=== PATIENT | male | born 1950 | race Caucasian/White ===

== ENCOUNTER 2017-02-05 06:04 | Day surgery (SDC) ==
[2016-01-11 14:48] VITALS: BMI 23.5
[2017-02-05] MEDS: AK-DILATE 10% OPTH SOL OP PRN ×3 (07:05→07:15)
[2017-02-05] MEDS: OCUFEN 0.03% OPTH SOL OP PRN ×3 (07:05→07:35)
[2017-02-05] MEDS: CYCLOGYL 2% OPTH OP PRN ×3 (07:05→07:15)
[2017-02-05] MEDS: TETRACAINE 0.5% UNIT-DOSE OP PRN ×3 (07:05→07:35)
[2017-02-05] MEDS ORDERED: VERSED ONE (07:50)
[2017-02-05 15:11] VITALS: BP 126/67; TEMP 97.8
--- NOTE | 2017-02-06 12:50 | OP ---
PREOPERATIVE DIAGNOSIS: CATARACT EXTRACTION WITH IOL POSTOPERATIVE DIAGNOSIS: COMPLEX CATARACT DUE TO PATIENT BEING ON FLOMAX AND ZONULAR WEAKNESS OPERATION: COMPLEX PHACO CATARACT EXTRACTION WITH IOL, WITH IMPLANTED CAPSULE TENSION RING RIGHT EYE. PHACO TIME 74.4 SECONDS AT 11% POWER. LENS MODEL TECNIS [id number]. DIOPTER +21.0D. TECHNIQUE: CLEAR CORNEA. ANESTHESIA: TOPICAL ANESTHESIA W/ANESTHESIA MONITORING. OPERATIVE REPORT: Topical anesthesia consisting of Tetracaine was applied to the cornea and Xylocaine Methyl Paraben free of MFP was injected intracamerally into the anterior chamber. The patient was then brought into the operating room , prepped and draped in the usual ophthalmic manner. A lid speculum was placed and the operating microscope was used. A paracentesis was made at the 3 o' clock position. A clear corneal incision was made just out to the limbus. The anterior chamber was entered just inside the clear cornea. Viscoelastic was injected into the anterior chamber. A capsulotomy was performed with a bent # 27 gauge needle. Phacoemulsification was then performed in the posterior chamber. After completion of the phacoemulsification, residual cortical material was aspirated with the irrigation-aspiration system. The posterior capsule was polished. Viscoelastic was injected into the anterior and posterior chambers to inflate the capsular bag. Lens were placed via an Unfolder system and stabilized in the bag. Viscoelastic was removed from the anterior chamber. The wound was checked for any leakage. The four sponges were removed from the fornix. Topical antibiotic steroid and nonsteroidal drops were also applied to the cornea. A Hopper shield was applied. The patient left the operating room in good condition without any complications. INTRAOPERATIVE MEDICATIONS: Xylocaine Methyl Paraben Free MPF MTDD
== END 2017-02-05 09:15 | disposition home or self-care (01) ==
LOC: SURG 06:04
PROVIDERS: ATTEND Ophthalmology
DX: H25.11 Age-related nuclear cataract, right eye (principal); H50.10 Unspecified exotropia; H27.8 Other specified disorders of lens

== ENCOUNTER 2017-03-02 06:54 | Day surgery (SDC) ==
[2016-01-11 14:48] VITALS: BMI 23.5
[2017-03-02] MEDS: OCUFEN 0.03% OPTH SOL OP PRN ×3 (07:50→08:20)
[2017-03-02] MEDS: TETRACAINE 0.5% UNIT-DOSE OP PRN ×3 (07:50→08:20)
[2017-03-02] MEDS: AK-DILATE 10% OPTH SOL OP PRN ×3 (07:50→08:00)
[2017-03-02] MEDS: CYCLOGYL 2% OPTH OP PRN ×3 (07:50→08:00)
[2017-03-02 08:09] VITALS: TEMP 98.4
[2017-03-02] MEDS ORDERED: VOLTAREN 0.1% OPTH SOL OP PRN (08:09)
[2017-03-02] MEDS ORDERED: LIDOCAINE 1% 20 ML MDV ID STA (08:09)
[2017-03-02] MEDS ORDERED: KETOROLAC 0.5% OPTH SOL OP PRN (08:09)
[2017-03-02] MEDS ORDERED: VERSED ONE (09:20)
[2017-03-02] MEDS ORDERED: DIAMOX ONE (10:20)
[2017-03-02] MEDS: DIAMOX PO STA ×2 (10:20→10:25)
[2017-03-02 10:21] VITALS: BP 96/62
--- NOTE | 2017-03-02 13:35 | OP ---
PREOPERATIVE DIAGNOSIS: ADVANCED AGE RELATED NUCLEAR SCLEROTIC/CORTICAL BRUNESCENT CATARACT AND PAC, LEFT EYE. POSTOPERATIVE DIAGNOSIS: SAME. OPERATION PHACOEMULSIFICATION ASPIRATION OF CATARACT LEFT EYE. PLACEMENT OF POSTERIOR CHAMBER LENS. PHACO TIME 1:13.1 SECONDS AT 8% POWER. LENS MODEL TANYA [id number]. DIOPTER +21.5D. TECHNIQUE: CLEAR CORNEA. ANESTHESIA: TOPICAL ANESTHESIA W/ANESTHESIA MONITORING. OPERATIVE REPORT: Topical anesthesia consisting of Tetracaine was applied to the cornea and Xylocaine Methyl Paraben free of MFP was injected intracamerally into the anterior chamber. The patient was then brought into the operating room , prepped and draped in the usual ophthalmic manner. A lid speculum was placed and the operating microscope was used. A paracentesis was made at the 3 o' clock position. A clear corneal incision was made just out to the limbus. The anterior chamber was entered just inside the clear cornea. Viscoelastic was injected into the anterior chamber. A capsulotomy was performed with a bent # 27 gauge needle. Phacoemulsification was then performed in the posterior chamber. After completion of the phacoemulsification, residual cortical material was aspirated with the irrigation-aspiration system. The posterior capsule was polished. Viscoelastic was injected into the anterior and posterior chambers to inflate the capsular bag. Lens were placed via an Unfolder system and stabilized in the bag. Viscoelastic was removed from the anterior chamber. The wound was checked for any leakage. The four sponges were removed from the fornix. Topical antibiotic steroid and nonsteroidal drops were also applied to the cornea. A Hopper shield was applied. The patient left the operating room in good condition without any complications. INTRAOPERATIVE MEDICATIONS: Xylocaine Methyl Paraben Free MPF MTDD
== END 2017-03-02 10:42 | disposition home or self-care (01) ==
LOC: SURG 06:54
PROVIDERS: ATTEND Ophthalmology
DX: H25.12 Age-related nuclear cataract, left eye (principal); H40.20X0 Unspecified primary angle-closure glaucoma, stage unspecified

== ENCOUNTER 2017-10-28 10:55 | Emergency (ER) ==
[2017-10-28 10:59] VITALS: BP 105/75; TEMP 97.6; BMI 25.7
--- NOTE | 2017-10-28 11:22 | ED.PDOC ---
General ED Provider: Dr. NICHOLAS BENEDICT Chief Complaint: Non-specific Complaint Stated Complaint: scrotal hemangioma Time Seen by Physician: 11:00 Mode of Arrival: Walk-In Information Source: Patient Exam Limitations: No limitations Primary Care Provider: STANTON SARABIA Nursing and Triage Documentation Reviewed and Agree: Yes Does patient meet sepsis criteria?: No If yes, has appropriate treatment been initiated?: No System Inflammatory Response Syndrome: Not Applicable Sepsis Protocol: For patient's 13 years and over: Temp is 96.8 and below OR 101 and greater Pulse >90 BPM Resp >20/minute Acutely Altered Mental Status Are patient's symptoms suggestive of a new infection, such as: -Pneumonia -Skin, Soft Tissue -Endocarditis -UTI -Bone, Joint Infection -Implantable Device -Acute Abdominal Infection -Wound Infection -Meningitis -Blood Stream Catheter Infection -Unknown Complaint Exam - Complaint/Exam Onset/Duration: chronic hemangioma on coumadin Symptoms Are: Still present Timing: Constant Initial Severity: Mild Current Severity: None Location of Pain: Reports: None Aggravating: Reports: None Alleviating: Reports: None Associated Signs and Symptoms: Denies: Diaphoresis, Back pain, Fever, Hematuria , Dysuria, Constipation, Blood in stool (none actively bleeding), Rectal pain, Appetite change, Nausea, Vomiting, Penile swelling, Penile discharge, Decreased urine output, Increased urine frequency, Increased thirst, Decreased activity, Lethargy, Scrotal pain, Scrotal swelling, Abdominal Pain Testicular Torsion Risk Factors: Reports: None Surgical Obstruction Risk Factors: Reports: None Related Surgical History: Reports: None Abdominal Findings: Present: None Review of Systems - Review Of Systems Constitutional: Reports: No symptoms Eyes: Reports: No symptoms Ears, Nose, Mouth, Throat: Reports: No symptoms Respiratory: Reports: No symptoms Cardiac: Reports: No symptoms GI: Reports: No symptoms : Reports: No symptoms Musculoskeletal: Reports: No symptoms Skin: Reports: Other (hemangioma scrotal) Neurological: Reports: No symptoms Endocrine: Reports: No symptoms Hematologic/Lymphatic: Reports: No symptoms All Other Systems: Reviewed and Negative Past Medical History - Past Medical History Endocrine: Reports: Unknown Cardiovascular: Reports: [place] (2001- has seen dr sarabai since 2002), Hypertension, CHF Respiratory: Reports: COPD Hematological: Reports: Unknown Gastrointestinal: Reports: Unknown Genitourinary: Reports: Unknown Neuro/Psych: Reports: TIA (is on coumadin), Anxiety, Depression, Other (sees dr english) Musculoskeletal: Reports: Unknown Cancer: Reports: Unknown - Surgical History General Surgical History: Reports: Other (AAA 2 months ago found during episode of dehydration). Denies: CABG (AAA september 2015) - Family History Family History: Reports: Unknown - Social History Smoking Status: Never smoker Hx Substance Use: No Alcohol Screening: None Physical Exam - Physical Exam Appearance: Well-appearing, No pain distress, Well-nourished Eyes: SABRINA, EOMI, Conjunctiva clear ENT: Ears normal, Nose normal, Oropharynx normal Respiratory: Airway patent, Breath sounds clear, Breath sounds equal, Respirations nonlabored Cardiovascular: RRR, Pulses normal, No rub, No murmur GI/: Soft, Nontender, No masses, Bowel sounds normal, No Organomegaly Musculoskeletal: Normal strength, ROM intact, No edema, No calf tenderness Skin: Warm, Dry, Normal color Neurological: Sensation intact, Motor intact, Reflexes intact, Cranial nerves intact, Alert, Oriented Psychiatric: Affect appropriate, Mood appropriate Critical Care Note - Critical Care Note Total Time (mins): 0 Course - Course Vital Signs: Temp Pulse Resp BP Pulse Ox 10/28/17 10:56 97.6 F 68 20 105/75 94 L Departure - Departure Time of Disposition: 11:22 Disposition: HOME SELF-CARE Discharge Problem: Hemangioma Instructions: Scrotal Pain (ED) Condition: Good Pt referred to PMD for follow-up: Yes IPMP verified?: No Additional Instructions: Please call your Family Physician as soon as possible to schedule a follow-up appointment. Allergies/Adverse Reactions: Allergies No Known Allergies Allergy (Verified 10/28/17 10:59) Home Medications: Ambulatory Orders Aspirin [Aspirin Chewable] 81 mg PO DAILYWM 12/14/15 Atorvastatin Calcium 20 mg PO DAILY 12/14/15 Cyanocobalamin/Folic AC/Vit B6 [Folbee Tablet] 1 each PO DAILY 12/14/15 Finasteride 5 mg PO DAILY 12/14/15 Furosemide 40 mg PO DAILY 12/14/15 Haloperidol [Haldol] 1 mg PO BEDTIME 12/14/15 Omeprazole [Prilosec] 20 mg PO QDAC 12/14/15 Potassium Chloride 10 meq PO DAILY 12/14/15 Sertraline HCl 100 mg PO BEDTIME 12/14/15 Sotalol HCl [Sotalol] 40 mg PO BID 12/14/15 Spironolactone 25 mg PO DAILY 12/14/15 Warfarin Sodium [Coumadin] 5 mg PO DAILY 12/14/15 Lisinopril 2.5 mg PO DAILY 01/11/16 Nitroglycerin [Nitrostat] 0.4 mg SL PRN PRN 01/11/16 Budesonide/Formoterol Fumarate [Symbicort 160-4.5 Mcg Inhaler] 2 puff IH BID Fluticasone/Vilanterol [Breo Ellipta Inhaler] 1 each IH DIRECTED 02/03/17 Tamsulosin HCl [Flomax] 0.4 mg PO DAILY 02/03/17
[2017-10-28] MEDS ORDERED: ROCEPHIN IM STA (11:23)
[2017-10-28] MEDS ORDERED: LIDOCAINE HCL 1% SDV IM STA (11:23)
[2017-10-28] MEDS ORDERED: URO-JET MUCOUSMEMB STA (11:24)
== END 2017-10-28 11:31 | disposition home or self-care (01) ==
LOC: ED 10:55
DX: D18.09 Hemangioma of other sites (principal); I10 Essential (primary) hypertension; I25.2 Old myocardial infarction; Z86.73 Personal history of transient ischemic attack (TIA), and cerebral infarction without residual deficits
CPT/HCPCS: 99282

== ENCOUNTER 2020-06-07 10:51 | Inpatient (IN) ==
[2020-06-07] MEDS ORDERED: VENTOLIN HFA (PER PUFF-WITH SPACER) IH STA (11:23)
--- NOTE | 2020-06-07 11:23 | ED.PDOC ---
General ED Provider: Dr. JENNY BASHIR Chief Complaint: Shortness of Air Stated Complaint: 69 y/o White male presents with CC SOB. Onset last evening. States became anxious with worsening of symptoms/calmed down and felt better. This AM Similar event occurred with progressive Dyspnea; normally on 3 L O2 per NC with O2 Sat of 94%. Increased Oxygen to 5 Liters with improvement to O sat 97% and decreased Dyspnea. Currently awake, talkative, denies chest pain or worsening dyspnea. Recent hospitalization at [facility] for evaluation of acute abdominal pain/ Did not require surgery. Discharged to home yesterday. Lives alone by self. Time Seen by Provider: 06/07/20 11:00 Mode of Arrival: Ambulance Information Source: Patient and Nurse Exam Limitations: No limitations Primary Care Provider: STANTON HAMPTON Nursing and Triage Documentation Reviewed and Agree: Yes Does patient meet sepsis criteria?: No System Inflammatory Response Syndrome: Resp >20/Minute and Not Applicable Sepsis Protocol: For patient's 13 years and over: Temp is 96.8 and below OR 101 and greater Pulse >90 BPM Resp >20/minute Acutely Altered Mental Status Are patient's symptoms suggestive of a new infection, such as: -Pneumonia -Skin, Soft Tissue -Endocarditis -UTI -Bone, Joint Infection -Implantable Device -Acute Abdominal Infection -Wound Infection -Meningitis -Blood Stream Catheter Infection -Unknown Respiratory Complaint Exam Shortness of Air Complaint/Exam Onset/Duration: Yesterday Symptoms Are: Still present (But improved) Timing: Intermittent Initial Severity: Moderate Current Severity: Mild Character: Reports Dyspnea at rest and Dyspnea on exertion Aggravating: Reports Movement, Deep breaths and Recumbent position Alleviating: Reports Oxygen and Upright position Associated Signs and Symptoms: Denies Cough, Wheezing, Chest pain with cough, Chest pain, Fever, Chills, Diaphoresis, Nasal congestion, Dizziness, Calf pain, Calf swelling, Edema, Rapid breathing, Labored breathing and Decreased intake Related History: Reports Similar episode History of Healthcare-Acquired Pneumonia: No Pulmonary Embolism Risk Factors: Reports None Cardiac Risk Factors: Reports CAD and CHF Pseudomonas Risk Factors: Reports None Tuberculosis Risk Factors: Reports None Home Oxygen Use: Yes Recent Stress Test: No Recent Echo/LV Function: No Respiratory Distress: Mild Stridor Present: No Tracheal Deviation: No Subcutaneous Emphysema: No Accessory Muscle Use: No Retractions: Not Present Diminished Breath Sounds: Yes Prolonged Expiratory Phase: No Unable to Speak Full Sentences: No Fatigue: Yes Leg Swelling: No Nicolasa's Sign Present: No Grunting Respirations: No Kussmaul Respirations: No Differential Diagnoses: CHF, COPD Exacerbation and Bronchospasm Related Surgical History: Reports None Review of Systems Review Of Systems Constitutional: Reports No symptoms Eyes: Reports No symptoms Ears, Nose, Mouth, Throat: Reports No symptoms Respiratory: Reports Orthopnea and Short of air Cardiac: Reports No symptoms GI: Reports No symptoms : Reports No symptoms Musculoskeletal: Reports No symptoms Skin: Reports No symptoms Neurological: Reports No symptoms Endocrine: Reports No symptoms Hematologic/Lymphatic: Reports No symptoms All Other Systems: Reviewed and Negative Physical Exam Physical Exam Appearance: Reports Well-appearing, No pain distress and Well-nourished Ill-appearing: Mild Pain Distress: None Eyes: Reports SABRINA, EOMI and Conjunctiva clear ENT: Reports Ears normal, Nose normal and Oropharynx normal Neck: Supple Respiratory: Reports Airway patent, Breath sounds clear, Breath sounds equal and Respirations nonlabored Cardiovascular: Reports RRR, Pulses normal, No rub and No murmur GI/: Reports Soft, Nontender, No masses, Bowel sounds normal and No Organomegaly Musculoskeletal: Reports Normal strength, ROM intact, No edema and No calf tenderness Skin: Reports Warm, Dry, Normal color, Pale and Diaphoretic Neurological: Reports Sensation intact, Motor intact, Reflexes intact, Cranial nerves intact, Alert and Oriented Psychiatric: Reports Affect appropriate, Mood appropriate and Anxious Interpretation Radiology Interpretation Radiology Interpretation By: Radiologist Exam Interpreted: CXR (Interstitial pulmonary congestion/edema) EKG Interpretation Time of EKG #1: 11:41 Rate: Alex (59) Rhythm: Sinus Ectopy: None [place]: Left ST Segment: Normal Interpretation: LBBB; Sinus Bradycardia Re-Evaluation Re-Evaluation Time of Re-Evaluation: 13:00 Status: Improved Vital Signs Stable: Yes Pain Level: 0 Appearance: NAD Lungs: Clear Skin: Warm and Dry Neuro: Alert and Oriented X3 CV: RRR Physician Notification Case Discussed Physician Notified: Dr Hampton Discussed case -agreed to admit for tx chf Time of Notification: 12:15 Critical Care Note Critical Care Note Total Critical Care Time (mins): 30 Course Course Hematology/Chemistry: 06/07/20 11:35 06/07/20 11:35 Orders, Labs, Meds: Lab Review 06/07/20 06/07/20 06/07/20 11:35 11:35 11:35 WBC 10.79 H RBC 4.01 L Hgb 12.2 L Hct 36.9 L MCV 92.0 MCH 30.4 MCHC 33.1 RDW Coeff of Oleg 16.4 H Plt Count 128 L Immature Gran % (Auto) 0.6 Neut % (Auto) 85.9 H Lymph % (Auto) 6.2 L [place] % (Auto) 6.3 Eos % (Auto) 0.6 Baso % (Auto) 0.4 Neut # (Auto) 9.3 H Lymph # (Auto) 0.7 [place] # (Auto) 0.7 Eos # (Auto) 0.1 Baso # (Auto) 0.0 Immature Gran # (Auto) 0.1 PT 14.4 H INR 1.36 APTT 23.2 L Puncture Site Base Excess O2 Saturation ABG pH ABG pCO2 ABG pO2 ABG HCO3 ABG Total CO2 Rishabh Test Hemoglobin Oxyhemoglobin Carboxyhemoglobin Total Hemoglobin O2 Delivery Device Oxygen Liter Flow Sodium 130.8 L Potassium 4.05 Chloride 98.4 Carbon Dioxide 21.9 L Anion Gap 14.55 BUN 22.2 H Creatinine 1.07 Estimated GFR (MDRD) 68.00 BUN/Creatinine Ratio 20.74 Glucose 101.0 Calcium 9.17 Total Bilirubin 1.30 AST 56.2 ALT 48.8 Alkaline Phosphatase 96.7 Troponin I NT-Pro-B Natriuret Pep Total Protein 7.20 Albumin 3.96 Globulin 3.24 Albumin/Globulin Ratio 1.22 Adenovirus (PCR) B. pertussis DNA (PCR) B.parapertussis DNA PCR C. pneumoniae DNA (PCR) Coronavirus OC43 (PCR) Coronavirus HKU1 (PCR) Coronavirus 229E (PCR) Coronavirus NL63 (PCR) Human Metapneumovir PCR Influenza Type A (PCR) Influenza B (RT-PCR) M. pneumoniae (PCR) Parainfluenza 1 (PCR) Parainfluenza 2 (PCR) Parainfluenza 3 (PCR) Parainfluenza 4 (PCR) RSV (PCR) Entero/Rhino (PCR) SARS-CoV-2 (PCR) 06/07/20 06/07/20 06/07/20 11:35 11:35 11:52 WBC RBC Hgb Hct MCV MCH MCHC RDW Coeff of Oleg Plt Count Immature Gran % (Auto) Neut % (Auto) Lymph % (Auto) [place] % (Auto) Eos % (Auto) Baso % (Auto) Neut # (Auto) Lymph # (Auto) [place] # (Auto) Eos # (Auto) Baso # (Auto) Immature Gran # (Auto) PT INR APTT Puncture Site L brachial Base Excess -2.0 O2 Saturation 95.4 ABG pH 7.49 H ABG pCO2 28.0 L ABG pO2 71.0 L ABG HCO3 21.3 ABG Total CO2 22.2 Rishabh Test Yes Hemoglobin 1.2 Oxyhemoglobin 92.2 L Carboxyhemoglobin 2.6 H Total Hemoglobin 13.4 O2 Delivery Device Cannula Oxygen Liter Flow 5.00 Sodium Potassium Chloride Carbon Dioxide Anion Gap BUN Creatinine Estimated GFR (MDRD) BUN/Creatinine Ratio Glucose Calcium Total Bilirubin AST ALT Alkaline Phosphatase Troponin I 0.035 NT-Pro-B Natriuret Pep 8650.000 H Total Protein Albumin Globulin Albumin/Globulin Ratio Adenovirus (PCR) B. pertussis DNA (PCR) B.parapertussis DNA PCR C. pneumoniae DNA (PCR) Coronavirus OC43 (PCR) Coronavirus HKU1 (PCR) Coronavirus 229E (PCR) Coronavirus NL63 (PCR) Human Metapneumovir PCR Influenza Type A (PCR) Influenza B (RT-PCR) M. pneumoniae (PCR) Parainfluenza 1 (PCR) Parainfluenza 2 (PCR) Parainfluenza 3 (PCR) Parainfluenza 4 (PCR) RSV (PCR) Entero/Rhino (PCR) SARS-CoV-2 (PCR) 06/07/20 13:10 WBC RBC Hgb Hct MCV MCH MCHC RDW Coeff of Oleg Plt Count Immature Gran % (Auto) Neut % (Auto) Lymph % (Auto) [place] % (Auto) Eos % (Auto) Baso % (Auto) Neut # (Auto) Lymph # (Auto) [place] # (Auto) Eos # (Auto) Baso # (Auto) Immature Gran # (Auto) PT INR APTT Puncture Site Base Excess O2 Saturation ABG pH ABG pCO2 ABG pO2 ABG HCO3 ABG Total CO2 Rishabh Test Hemoglobin Oxyhemoglobin Carboxyhemoglobin Total Hemoglobin O2 Delivery Device Oxygen Liter Flow Sodium Potassium Chloride Carbon Dioxide Anion Gap BUN Creatinine Estimated GFR (MDRD) BUN/Creatinine Ratio Glucose Calcium Total Bilirubin AST ALT Alkaline Phosphatase Troponin I NT-Pro-B Natriuret Pep Total Protein Albumin Globulin Albumin/Globulin Ratio Adenovirus (PCR) Not detected B. pertussis DNA (PCR) Not detected B.parapertussis DNA PCR Not detected C. pneumoniae DNA (PCR) Not detected Coronavirus OC43 (PCR) Not detected Coronavirus HKU1 (PCR) Not detected Coronavirus 229E (PCR) Not detected Coronavirus NL63 (PCR) Not detected Human Metapneumovir PCR Not detected Influenza Type A (PCR) Not detected Influenza B (RT-PCR) Not detected M. pneumoniae (PCR) Not detected Parainfluenza 1 (PCR) Not detected Parainfluenza 2 (PCR) Not detected Parainfluenza 3 (PCR) Not detected Parainfluenza 4 (PCR) Not detected RSV (PCR) Not detected Entero/Rhino (PCR) Not detected SARS-CoV-2 (PCR) Not detected Orders Category Date Time Status ADMIT PATIENT INPATIENT .TO [facility] (MONITORED BED) ADMISSION 06/07/20 13:22 Active ABG DRAW REQUEST Stat CARDIO 06/07/20 11:45 Completed ECHOCARDIOGRAM 2D-M MODE Routine CARDIO 06/07/20 13:23 Ordered EKG-(ED ONLY) Stat CARDIO 06/07/20 11:23 Completed EKG-(IP & OP ONLY) Timed CARDIO 06/07/20 13:23 Ordered METERED DOSE INHALATION Routine CARDIO 06/07/20 11:25 Completed OXYGEN Routine CARDIO 06/07/20 11:23 Completed ACTIVITY .BR with BRP CARE 06/07/20 13:23 Active ACTIVITY .BR with BRP CARE 06/07/20 13:38 Active INTAKE & OUTPUT Q8HR CARE 06/07/20 13:23 Active INTAKE & OUTPUT Q8HR CARE 06/07/20 13:37 Active TELEMETRY MONITORING TELE CARE 06/07/20 13:22 Active TELEMETRY MONITORING TELE CARE 06/07/20 13:23 Active VITAL SIGNS Q8HR CARE 06/07/20 13:23 Active WEIGH PATIENT 0600 CARE 06/07/20 13:23 Active 2 GRAM SODIUM DIET DIETARY 06/07/20 Dinner Ordered FLUID RESTRICTION 1200 ML DIETARY 06/07/20 Dinner Ordered ABG COOX Stat LAB 06/07/20 11:52 Completed BNP [NT-PROBNP] Stat LAB 06/07/20 11:35 Completed CBC W/ AUTO DIFF DAILY@0600 LAB 06/08/20 06:00 Ordered CBC W/ AUTO DIFF DAILY@0600 LAB 06/09/20 06:00 Ordered CBC W/ AUTO DIFF Stat LAB 06/07/20 11:35 Completed CMP [COMPREHENSIVE METABOLIC PANEL] Stat LAB 06/07/20 11:35 Completed COMPREHENSIVE METABOLIC PANEL DAILY@0600 LAB 06/08/20 06:00 Ordered COMPREHENSIVE METABOLIC PANEL DAILY@0600 LAB 06/09/20 06:00 Ordered CREATINE KINASE DAILY@0600 LAB 06/08/20 06:00 Ordered CREATINE KINASE DAILY@0600 LAB 06/09/20 06:00 Ordered CREATINE KINASE Q10H LAB 06/07/20 21:30 Ordered CREATINE KINASE Q10H LAB 06/08/20 07:30 Ordered PARTIAL THROMBOPLASTIN TIME Stat LAB 06/07/20 11:35 Completed PT WITH INR Stat LAB 06/07/20 11:35 Completed RESPIRATORY PANEL 2.1 (PCR) Stat LAB 06/07/20 13:10 Completed TROPONIN I DAILY@0600 LAB 06/08/20 06:00 Ordered TROPONIN I DAILY@0600 LAB 06/09/20 06:00 Ordered TROPONIN I Q10H LAB 06/07/20 21:30 Ordered TROPONIN I Q10H LAB 06/08/20 07:30 Ordered TROPONIN I Stat LAB 06/07/20 11:35 Completed UA [URINALYSIS C & S IF INDICATED] Stat LAB 06/07/20 14:04 Uncollected 0.9 % Sodium Chloride [Saline Flush] MEDS 06/07/20 21:00 Active 1 syr IVF Q8HR Acetaminophen [Tylenol] MEDS 06/07/20 13:37 Active 650 mg PO Q4H PRN Albuterol Inhaler(with Spacer) [Ventolin Hfa (Per Puff- MEDS 06/07/20 11:23 Discontinued with Spacer)] 2 puff IH ONCE STA Aspirin [Aspirin Chewable] MEDS 06/07/20 13:30 Active 81 mg PO DAILYWM Atorvastatin Calcium [Lipitor] MEDS 06/08/20 09:00 Active 20 mg PO DAILY Benztropine Mesylate [Cogentin] MEDS 06/07/20 21:00 Active 1 mg PO BID Finasteride [Proscar] MEDS 06/08/20 09:00 Active 5 mg PO DAILY Furosemide [Lasix] MEDS 06/07/20 21:00 Active 20 mg IVP BID Haloperidol [Haldol] MEDS 06/07/20 21:00 Active 0.5 mg PO BID Lisinopril [Zestril] MEDS 06/08/20 09:00 Active 2.5 mg PO DAILY Nitroglycerin [Nitrostat] MEDS 06/07/20 13:29 Discontinued 0.4 mg SL PRN PRN Nitroglycerin [Nitrostat] MEDS 06/07/20 13:23 Active 0.4 mg SL Q5MIN PRN Omeprazole [Prilosec] MEDS 06/08/20 06:30 Active 20 mg PO QDAC Ondansetron HCl/Pf [Zofran 4 mg/2 ml] MEDS 06/07/20 13:37 Active 4 mg IVP Q6H PRN Potassium Chloride [Micro-K Cap] MEDS 06/08/20 08:30 Active 10 meq PO DAILYWM Sertraline HCl [Zoloft] MEDS 06/07/20 21:00 Active 100 mg PO BEDTIME Sotalol HCl [Betapace] MEDS 06/07/20 21:00 Active 40 mg PO BID Tamsulosin HCl [Flomax] MEDS 06/08/20 09:00 Active 0.4 mg PO DAILY Warfarin Sodium [Coumadin] MEDS 06/08/20 09:00 Ordered 5 mg PO DAILY fluticasone furoate-vilanterol [Breo Ellipta] MEDS 06/07/20 13:30 Ordered 1 each IH DIRECTED folic acid-vit B6-vit B12 [Folbee] MEDS 06/08/20 09:00 Active 1 each PO DAILY RESUSCITATION STATUS Routine OTHERS 06/07/20 13:37 Ordered CHEST, 2 VIEWS PA & LAT Stat RADS 06/07/20 11:23 Completed PT CONSULT Routine THERAPIES 06/07/20 Ordered Medications Generic Name Dose Route Start Last Admin Trade Name Freq PRN Reason Stop Dose Admin Acetaminophen 650 mg 06/07/20 13:37 Acetaminophen 325 Mg Tablet PO Q4H PRN Fever >101 Aspirin 81 mg 06/07/20 13:30 Aspirin 81 Mg Tab.Chew PO DAILYWM LOBO Atorvastatin Calcium 20 mg 06/08/20 09:00 Atorvastatin Calcium 20 Mg Tablet PO DAILY LOBO Benztropine Mesylate 1 mg 06/07/20 21:00 Benztropine Mesylate 1 Mg Tablet PO BID [facility] Finasteride 5 mg 06/08/20 09:00 Finasteride 5 Mg Tablet PO DAILY [facility] Furosemide 20 mg 06/07/20 21:00 Furosemide Inj 20 Mg/2 Ml Vial IVP BID [facility] Haloperidol 0.5 mg 06/07/20 21:00 Haloperidol 0.5 Mg Tablet PO BID [facility] Lisinopril 2.5 mg 06/08/20 09:00 Lisinopril 5 Mg Tablet PO DAILY [facility] Nitroglycerin 0.4 mg 06/07/20 13:23 Nitroglycerin 0.4 Mg Tab.Subl SL Q5MIN PRN Chest Pain Non-Formulary Medication 1 each 06/07/20 13:30 Fluticasone Furoate-Vilanterol [Breo Ellipta] DIRECTED [facility] Non-Formulary Medication 1 each 06/08/20 09:00 Folic Acid-Vit B6-Vit B12 [Folbee] PO DAILY [facility] Omeprazole 20 mg 06/08/20 06:30 Omeprazole 20 Mg Capsule. PO QDAC [facility] Ondansetron HCl 4 mg 06/07/20 13:37 Ondansetron Hcl/Pf 4 Mg/2 Ml Sdv IVP Q6H PRN Nausea / Vomiting Potassium Chloride 10 meq 06/08/20 08:30 Potassium Chloride 10 Meq Capsule.Er PO DAILYWM [facility] Sertraline HCl 100 mg 06/07/20 21:00 Sertraline Hcl 50 Mg Tablet PO BEDTIME [facility] Sodium Chloride 1 syr 06/07/20 21:00 0.9% Sodium Chloride 10 Ml Disp.Syrin IVF Q8HR [facility] Sotalol HCl 40 mg 06/07/20 21:00 Sotalol Hcl 80 Mg Tablet PO BID [facility] Tamsulosin HCl 0.4 mg 06/08/20 09:00 Tamsulosin Hcl 0.4 Mg Cap.Er.24h PO DAILY [facility] Warfarin Sodium 5 mg 06/08/20 09:00 Warfarin Sodium 3 Mg Tablet PO DAILY [facility] Discontinued Medications Generic Name Dose Route Start Last Admin Trade Name Freq PRN Reason Stop Dose Admin Albuterol Sulfate 2 puff 06/07/20 11:23 06/07/20 12:10 Albuterol Sulfate (Ventolin Hfa) 18 Gm 1 Puff With Spacer IH 06/07/20 11:24 2 puff ONCE STA Administration Nitroglycerin 0.4 mg 06/07/20 13:29 Nitroglycerin 0.4 Mg Tab.Subl SL PRN PRN Chest Pain Vital Signs: Temp Pulse Resp BP Pulse Ox 06/07/20 10:52 96.9 F L 61 22 101/79 97 Discharge Plan Discharge Patient Disposition: ADMITTED INPATIENT Discharge Problem: CHF (congestive heart failure) ED Provider: JENNY BASHIR Condition: Fair Physician Progress Note: []
[2020-06-07 11:41] LABS: BASOPHILS % (AUTO) 0.4 % (0.0-3.0); EOSINOPHILS # (AUTO) 0.1 K/ul (0.0-0.7); EOSINOPHILS % (AUTO) 0.6 % (0.0-7.0); HEMATOCRIT 36.9 % (42.0-52.0); HEMOGLOBIN 12.2 g/dl (14.0-18.0); IMMATURE GRANULOCYTE # (AUTO) 0.1 (0.0-1.0); IMMATURE GRANULOCYTE % (AUTO) 0.6 % (0.0-5.0); LYMPHOCYTES # (AUTO) 0.7 K/uL (0.60-3.4); LYMPHOCYTES % (AUTO) 6.2 (10.0-50.0); MEAN CORPUSCULAR HEMOGLOBIN 30.4 pg (27.0-31.0); MEAN CORPUSCULAR HGB CONC 33.1 (31.8-35.4); MONOCYTES # (AUTO) 0.7 K/uL (0.4-2.0); MONOCYTES % (AUTO) 6.3 (0-10); NEUTROPHILS # (AUTO) 9.3 K/ul (2.0-6.9); NEUTROPHILS % (AUTO) 85.9 % (42.2-75.2); PLATELET COUNT 128 10^3/uL (140-440); RDW COEFFICIENT OF VARIATION 16.4 % (11.6-14.8); RED BLOOD COUNT 4.01 10^6/ul (4.70-6.10); WHITE BLOOD COUNT 10.79 K/ul (4.2-10.2)
[2020-06-07 11:51] LABS: ALANINE AMINOTRANSFERASE 48.8 U/L (0-50); ALBUMIN 3.96 g/dL (3.5-5.0); ALKALINE PHOSPHATASE 96.7 U/L (56-119); ASPARTATE AMINO TRANSFERASE 56.2 U/L (17-59); BILIRUBIN,TOTAL 1.3 mg/dL (0.2-1.3); BLOOD UREA NITROGEN 22.2 mg/dL (9-20); CALCIUM 9.17 mg/dL (8.4-10.2); CARBON DIOXIDE 21.9 mmol/L (22-30.0); CHLORIDE 98.4 mmol/L (98-107); CREATININE 1.07 mg/dL (0.60-1.10); PARTIAL THROMBOPLASTIN TIME 23.2 SEC (23.9-40.0); POTASSIUM 4.05 mmol/L (3.5-5.1); PROTHROMBIN TIME 14.4 SEC (9.3-11.0); SODIUM 130.8 mmol/L (134.5-145); TOTAL PROTEIN 7.2 g/dL (6.3-8.2)
[2020-06-07 12:27] LABS: ABG PH 7.49 (7.35-7.45)
--- NOTE | 2020-06-07 12:51 | DI ---
EXAM: Chest two views HISTORY: Dyspnea COMPARISON: 12/23/2019 TECHNIQUE: Two views of the chest were performed FINDINGS: Heart is enlarged. Mediastinal contour unchanged. No visible pneumothorax. Small bilate ral pleural effusions. Bilateral interstitial prominence. IMPRESSION: Cardiomegaly. Bilateral interstitial prominence likely interstitial edema. Interstitia l pneumonitis considered less likely. Small bilateral pleural effusions.
[2020-06-07] MEDS ORDERED: NITROSTAT SL PRN ×2 (13:23→13:29)
[2020-06-07] MEDS ORDERED: LASIX IVP STA (13:29)
[2020-06-07] MEDS ORDERED: NON-FORMULARY MEDICATION (Fluticasone Furoate-Vilanterol [Breo Ellipta] 1 EACH blister wit IH SCH (13:30)
[2020-06-07] MEDS ORDERED: ZOFRAN 4 MG/2 ML IVP PRN (13:37)
[2020-06-07] MEDS ORDERED: TYLENOL PO PRN (13:37)
[2020-06-07 14:32] LABS: BILIRUBIN,URINE Negative (NEGATIVE); CLARITY,URINE Clear (CLEAR); COLOR,URINE Yellow (YELLOW); GLUCOSE, URINE (UA) Negative (NEGATIVE); KETONES,URINE Negative (NEGATIVE); LEUKOCYTE ESTERASE ,URINE Negative (NEGATIVE); NITRITE,URINE Negative (NEGATIVE); PROTEIN,URINE Negative (NEGATIVE); URINE, BLOOD Trace-intact (NEGATIVE); UROBILINOGEN,URINE 0.2 (0.2)
[2020-06-07 14:35] LABS: SQUAMOUS EPITHELIAL CELL,UR NOT PRESENT (0-5); URINE RBC, MICROSCOPIC 0-2 (0-2)
[2020-06-07 15:11] VITALS: BMI 24.0
[2020-06-07] MEDS ORDERED: VENTOLIN HFA (PER PUFF-WITH SPACER) IH PRN (15:27)
[2020-06-07] MEDS: ASPIRIN CHEWABLE PO SCH (15:33)
[2020-06-07] MEDS: ROCEPHIN 1 GM/50 ML D5W 1 GM/50 ML BAG IV SCH (15:40)
[2020-06-07] MEDS: COUMADIN PO SCH (17:24)
[2020-06-07] MEDS: COREG PO SCH (17:24)
[2020-06-07] MEDS ORDERED: DECADRON IM STA (17:51)
[2020-06-07] MEDS ORDERED: ZOFRAN 4 MG/2 ML IVP STA (17:51)
[2020-06-07] MEDS: COGENTIN PO SCH (20:13)
[2020-06-07] MEDS: HALDOL PO SCH (20:13)
[2020-06-07] MEDS: ZOLOFT PO SCH (20:13)
[2020-06-07] MEDS ORDERED: BETAPACE PO SCH (21:00)
[2020-06-07] MEDS ORDERED: LASIX IVP SCH (21:00)
[2020-06-07 21:47] LABS: CREATINE KINASE 194.5 U/L (55-170)
[2020-06-07 22:21] LABS: TROPONIN I 0.039 ng/ml (0.0000-0.120)
[2020-06-07 22:35] LABS: CREATINE KINASE MB 6.19 ng/ml (0.0-2.38)
[2020-06-08 05:01] LABS: BASOPHILS % (AUTO) 0.2 % (0.0-3.0); EOSINOPHILS % (AUTO) 0.4 % (0.0-7.0); HEMOGLOBIN 11.4 g/dl (14.0-18.0); IMMATURE GRANULOCYTE # (AUTO) 0.1 (0.0-1.0); IMMATURE GRANULOCYTE % (AUTO) 0.7 % (0.0-5.0); LYMPHOCYTES # (AUTO) 0.8 K/uL (0.60-3.4); LYMPHOCYTES % (AUTO) 9.5 (10.0-50.0); MEAN CORPUSCULAR HEMOGLOBIN 30.8 pg (27.0-31.0); MEAN CORPUSCULAR HGB CONC 33.5 (31.8-35.4); MEAN CORPUSCULAR VOLUME 91.9 fl (80.0-94.0); MONOCYTES # (AUTO) 0.5 K/uL (0.4-2.0); MONOCYTES % (AUTO) 6.2 (0-10); NEUTROPHILS # (AUTO) 6.8 K/ul (2.0-6.9); PLATELET COUNT 118 10^3/uL (140-440); RDW COEFFICIENT OF VARIATION 16.7 % (11.6-14.8); WHITE BLOOD COUNT 8.13 K/ul (4.2-10.2)
[2020-06-08 05:14] LABS: ALANINE AMINOTRANSFERASE 39.1 U/L (0-50); ALBUMIN 3.24 g/dL (3.5-5.0); ALKALINE PHOSPHATASE 76.7 U/L (56-119); ASPARTATE AMINO TRANSFERASE 40.3 U/L (17-59); BILIRUBIN,TOTAL 0.77 mg/dL (0.2-1.3); BLOOD UREA NITROGEN 23.6 mg/dL (9-20); CALCIUM 8.78 mg/dL (8.4-10.2); CARBON DIOXIDE 25.2 mmol/L (22-30.0); CHLORIDE 100.9 mmol/L (98-107); CREATINE KINASE 132.8 U/L (55-170); CREATININE 1.11 mg/dL (0.60-1.10); GLUCOSE 89.8 mg/dL (74-106); POTASSIUM 3.76 mmol/L (3.5-5.1); SODIUM 132.6 mmol/L (134.5-145); TOTAL PROTEIN 6.18 g/dL (6.3-8.2)
[2020-06-08 05:24] LABS: TROPONIN I 0.029 ng/ml (0.0000-0.120)
[2020-06-08 05:29] LABS: CREATINE KINASE MB 4.07 ng/ml (0.0-2.38)
[2020-06-08] MEDS: PRILOSEC PO SCH (05:30)
[2020-06-08] MEDS ORDERED: DECADRON IM ONE (08:00)
[2020-06-08 08:19] LABS: PROTHROMBIN TIME 13.3 SEC (9.3-11.0)
[2020-06-08] MEDS: ROCEPHIN 1 GM/50 ML D5W 1 GM/50 ML BAG IV SCH (08:22)
[2020-06-08] MEDS: LIPITOR PO SCH (08:23)
[2020-06-08] MEDS: ASPIRIN CHEWABLE PO SCH (08:23)
[2020-06-08] MEDS: MICRO-K CAP PO SCH (08:23)
[2020-06-08] MEDS: PROSCAR PO SCH (08:23)
[2020-06-08] MEDS: ALDACTONE PO SCH (08:23)
[2020-06-08] MEDS: LASIX TAB PO SCH ×2 (08:23→16:54)
[2020-06-08] MEDS: FLOMAX PO SCH (08:23)
[2020-06-08] MEDS: HALDOL PO SCH ×2 (08:24→20:22)
[2020-06-08] MEDS: SYMBICORT 160-4.5 MCG INHALER IH SCH ×2 (08:24→20:22)
[2020-06-08] MEDS: ZESTRIL PO SCH (08:24)
[2020-06-08] MEDS: COGENTIN PO SCH ×2 (08:24→20:22)
[2020-06-08] MEDS: COREG PO SCH ×2 (08:24→16:54)
--- NOTE | 2020-06-08 08:38 | PCM.PROG ---
Attending Provider: ATTENDING PROVIDER: Dr. STANTON HAMPTON DATE OF SERVICE: 06/08/20 SUBJECTIVE: This 69 year old /WHITE M was hospitalized 06/07/20 with CHF, COPD and respiratory failure. The patient's condition deteriorated 5-6 days ago when he had abdominal pain with possible appendicitis which was ruled out after hospitalization at [facility] and he was sent home. He presented to [place] [facility] on 06/07/20 with possible fluid overload. His condition has improved some. Resting with no symptoms of CHF. He doesn't have any abdominal pain or nausea. Still seems to be weak but oriented to time, place and person. No fever or chills. . REVIEW OF SYSTEMS: CONSTITUTIONAL: No night sweats. No fatigue, malaise, lethargy. No fever or chills. HEENT: Eyes: No visual changes. No eye pain. No eye discharge. ENT: No runny nose. No epistaxis. No sinus pain. No odynophagia. No congestion. RESPIRATORY: No cough, no congestion. No hemoptysis. No shortness of breath. Not much wheezing like yesterday. CARDIOVASCULAR: No angina symptoms. No CHF symptoms. No atypical chest pain for CAD. No palpitations. No orthopnea.. GASTROINTESTINAL: No abdominal pain. No nausea or vomiting. No diarrhea or constipation. No hematemesis. No hematochezia. GENITOURINARY: No urgency. No frequency. No dysuria. No hematuria. No obstructive symptoms. No discharge. No pain. No significant abnormal bleeding. MUSCULOSKELETAL: No musculoskeletal pain; no joint swelling. NEUROLOGICAL: Awake, alert, oriented to time, place and person. No headache. No neck pain. No syncope. No seizures. No dizziness. PSYCHIATRIC: Not anxious. No depression. No suicidal thoughts. No homicidal thoughts. SKIN: No rash. No lesions. No wounds. ENDOCRINE: No unexplained weight loss. No weight gain. HEMATOLOGIC/LYMPHATIC: No anemia. No purpura. No petechiae. No prolonged or excessive bleeding. No palpable lymph nodes. PHYSICAL EXAMINATION: GENERAL: The patient is awake, alert and oriented, lying in bed in no distress. VITAL SIGNS: Temperature 97.6 F, Pulse 53, Respiratory Rate 22, BP 98/58, Pulse Ox 97% HEENT: Head normocephalic, atraumatic. Eyes: Extraocular muscles are intact. Pupils are equal, round and reactive to light and accommodation. Ears: No lesions. Nose appeared normal. Throat: No exudate or erythema. NECK: Supple. No JVD, no carotid bruit. No lymphadenopathy or thyromegaly. LUNGS: Clear to auscultation. Percussion note normal. Chest symmetrical. HEART: S1, S2, no S3. No murmurs. No cyanosis or clubbing. No ascites. Pulses: Dorsalis pedis and posterior tibial pulses +1 to +2 both sides. ABDOMEN: Soft. Non-tender. Bowel sounds active. No CVA tenderness. No mass felt. EXTREMITIES: Trace edema. Full range of motion of all extremities, equal. NEUROLOGIC: No focal deficit. Cranial nerves II through XII are grossly intact. No headache, no double vision or headache. SKIN: Warm and dry. Intact. Turgor-normal. LYMPHATIC: No palpable lymph nodes/no lymphedema. MUSCULOSKELETAL: Normal joints with no swelling. Muscle tone is normal. LAB REVIEW: 06/08/20 04:50 06/08/20 04:50 06/08/20 04:50: Sodium 132.6 L, Potassium 3.76, Chloride 100.9, Carbon Dioxide 25.2, Anion Gap 10.26, BUN 23.6 H, Creatinine 1.11 H, Estimated GFR (MDRD) 65.00, BUN/Creatinine Ratio 21.26, Glucose 89.8, Calcium 8.78, Total Bilirubin 0.77, AST 40.3, ALT 39.1, Alkaline Phosphatase 76.7, Total Creatine Kinase 132.8, CK-MB (CK-2) 4.070 H, CK-MB (CK-2) % 3.0600, Troponin I 0.029, Total Protein 6.18 L, Albumin 3.24 L, Globulin 2.94, Albumin/Globulin Ratio 1.10 06/08/20 04:50: WBC 8.13, RBC 3.70 L, Hgb 11.4 L, Hct 34.0 L, MCV 91.9, MCH 30.8, MCHC 33.5, RDW Coeff of Oleg 16.7 H, Plt Count 118 L, Immature Gran % (Auto) 0.7, Neut % (Auto) 83.0 H, Lymph % (Auto) 9.5 L, [place] % (Auto) 6.2, Eos % (Auto) 0.4, Baso % (Auto) 0.2, Neut # (Auto) 6.8, Lymph # (Auto) 0.8, [place] # (Auto) 0.5, Eos # (Auto) 0.0, Baso # (Auto) 0.0, Immature Gran # (Auto) 0.1 06/07/20 21:29: Total Creatine Kinase 194.5 H, CK-MB (CK-2) 6.190 H*, CK-MB (CK- 2) % 3.1800, Troponin I 0.039 06/07/20 14:10: Urine Color Yellow, Urine Clarity Clear, Urine pH 6.0, Ur Specific [place] 1.015, Urine Protein Negative, Urine Glucose (UA) Negative, Urine Ketones Negative, Urine Blood Trace-intact H, Urine Nitrite Negative, Urine Bilirubin Negative, Urine Urobilinogen 0.2, Ur Leukocyte Esterase Negative, Urine Microscopic RBC 0-2, Ur Squamous Epith Cells Not present 06/07/20 13:10: Adenovirus (PCR) Not detected, B. pertussis DNA (PCR) Not de tected, B.parapertussis DNA PCR Not detected, C. pneumoniae DNA (PCR) Not detected, Coronavirus OC43 (PCR) Not detected, Coronavirus HKU1 (PCR) Not detected, Coronavirus 229E (PCR) Not detected, Coronavirus NL63 (PCR) Not detected, Human Metapneumovir PCR Not detected, Influenza Type A (PCR) Not det ected, Influenza B (RT-PCR) Not detected, M. pneumoniae (PCR) Not detected, Parainfluenza 1 (PCR) Not detected, Parainfluenza 2 (PCR) Not detected, Parainfluenza 3 (PCR) Not detected, Parainfluenza 4 (PCR) Not detected, RSV (PCR) Not detected, Entero/Rhino (PCR) Not detected, SARS-CoV-2 (PCR) Not de tected 06/07/20 11:52: Puncture Site L brachial, Base Excess -2.0, O2 Saturation 95.4, ABG pH 7.49 H, ABG pCO2 28.0 L, ABG pO2 71.0 L, ABG HCO3 21.3, ABG Total CO2 22.2, Rishabh Test Yes, Hemoglobin 1.2, Oxyhemoglobin 92.2 L, Carboxyhemoglobin 2.6 H, Total Hemoglobin 13.4, O2 Delivery Device Cannula, Oxygen Liter Flow 5.00 06/07/20 11:35: NT-Pro-B Natriuret Pep 8650.000 H 06/07/20 11:35: Troponin I 0.035 06/07/20 11:35: Sodium 130.8 L, Potassium 4.05, Chloride 98.4, Carbon Dioxide 21.9 L, Anion Gap 14.55, BUN 22.2 H, Creatinine 1.07, Estimated GFR (MDRD) 68.00, BUN/Creatinine Ratio 20.74, Glucose 101.0, Calcium 9.17, Total Bilirubin 1.30, AST 56.2, ALT 48.8, Alkaline Phosphatase 96.7, Total Protein 7.20, Albumin 3.96, Globulin 3.24, Albumin/Globulin Ratio 1.22 06/07/20 11:35: PT 14.4 H, INR 1.36, APTT 23.2 L 06/07/20 11:35: WBC 10.79 H, RBC 4.01 L, Hgb 12.2 L, Hct 36.9 L, MCV 92.0, MCH 30.4, MCHC 33.1, RDW Coeff of Oleg 16.4 H, Plt Count 128 L, Immature Gran % (Au to) 0.6, Neut % (Auto) 85.9 H, Lymph % (Auto) 6.2 L, [place] % (Auto) 6.3, Eos % (Auto) 0.6, Baso % (Auto) 0.4, Neut # (Auto) 9.3 H, Lymph # (Auto) 0.7, [place] # (Auto) 0.7, Eos # (Auto) 0.1, Baso # (Auto) 0.0, Immature Gran # (Auto) 0.1 ASSESSMENT: Please see below. 1. CHF under control with chronic CHF 2. Dilated cardiomyopathy with poor ejection fraction 3. Chronic lung disease. PLAN: 1. Restart Lasix 2. Continue Aldactone 3. 0.5cc Decadron this morning as ordered 4. Equivalent inhaler 5. Continue the rest of the medications 6. PT consult 7. The patient has borderline CKMB, no symptoms of coronary insufficiency. EKG is unchanged as before. 8. PRO BNP elevated as expected but we will use as baseline. Plan and coordination of the patient's care discussed in the presence of Produce Runner and nurse. CONDITION: STABLE PROGNOSIS: POOR SCRIBED BY: Donna DILLARD scribed while in presence of service performed by Dr. STANTON HAMPTON on 06/08/20 ([id number])
[2020-06-08] MEDS ORDERED: NON-FORMULARY MEDICATION (Fluticasone Furoate-Vilanterol [Breo Ellipta] 1 EACH blister wit IH SCH (09:00)
[2020-06-08] MEDS ORDERED: FOLIC ACID VIT B6 VIT B12 PO SCH (09:00)
[2020-06-08] MEDS ORDERED: COUMADIN PO SCH (09:00)
--- NOTE | 2020-06-08 09:39 | HP ---
DATE OF SERVICE: 06/07/2020 REASON FOR HOSPITALIZATION/HISTORY OF PRESENT ILLNESS: 69 year old white male came to the ER with weakness and fatigue and inability to get up up. The patient was tired and not able to do activity of daily living at home, noticed by brother. The patient had been to [facility] for 3-4 days and was treated for acute gastroenteritis. He was sent from [place] [facility] with possibility of appendicitis which was ruled out. PAST MEDICAL HISTORY/PAST SURGICAL HISTORY: Dilated cardiomyopathy with poor ejection fraction Systolic congestive heart failure Chronic lung disease Chronic anxiety Depression with behavioral disturbances Peripheral arterial disease History of atrial fibrillation Abdominal Aneurysm REVIEW OF SYSTEMS: CONSTITUTIONAL: No night sweats. Fatigue. Weakness. No fever or chills. HEENT: Eyes: No visual changes. No eye pain. No eye discharge. ENT: No runny nose. No epistaxis. No sinus pain. No sore throat. No odynophagia. No ear pain. No congestion. RESPIRATORY: No cough, no congestion. No hemoptysis. Shortness of breath on minimal exertion. CARDIOVASCULAR: No angina symptoms. No CHF symptoms. No atypical chest pain for CAD. No palpitations. No PND. No orthopnea. GASTROINTESTINAL: No abdominal pain. No nausea or vomiting. No diarrhea or constipation. No hematemesis. No hematochezia. Poor Appetite. GENITOURINARY: No urgency. No frequency. No dysuria. No hematuria. No obstructive symptoms. No discharge. No pain. No significant abnormal bleeding. MUSCULOSKELETAL: No musculoskeletal pain. No joint swelling. No arthritis. NEUROLOGICAL: No headache. No neck pain. No syncope. No seizures. No dizziness. PSYCHIATRIC: Not anxious. No depression. No suicidal thoughts. No homicidal thoughts. SKIN: No rash. No lesions. No wounds. ENDOCRINE: No unexplained weight loss. No weight gain. HEMATOLOGIC/LYMPHATIC: No anemia. No purpura. No petechiae. No prolonged or excessive bleeding. No palpable lymph nodes. PERSONAL/FAMILY/SOCIAL HISTORY: The patient is single and lifes by himself. According to brother he has unkept house. No alcohol abuse. Does all activity of daily living. Quit smoking. MEDICATIONS: Finasteride 5mg PO daily Sertraline 100mg PO bedtime Aspirin 81mg PO daily Potassium Chloride 10meq PO daily Haloperidol 0.5mg PO BID Atorvastatin 20mg PO daily Omeprazole 20mg QDAC Nitrostat 0.4mg SUBLINGUAL PRN Lisinopril 2.5mg PO Daily Tamsulosin 0.4mg PO daily Breo Ellipta Inhaler 100-25mcg one inhalation as directed Benztropine 1mg PO BID Mucinex 600mg PO QID Aldactone 25mg PO daily Albuterol sulfate 90mcg two puff inhalation Q 4-6 hours PRN Coumadin 6mg PO daily Lasix 40mg PO BID Coreg 3.125mg PO BID ALLERGIES: No known drug allergies PHYSICAL EXAMINATION: GENERAL: The patient is oriented to time, place and person, lying in bed in no distress. VITAL SIGNS: Temperature 97.4, Pulse 68, blood pressure 108/78, Respiratory rate 26 and oxygen saturation 94%. HEENT: Head normocephalic, atraumatic. Eyes: Extraocular muscles are intact. Pupils are equal, round and reactive to light and accommodation. Ears: No lesions. Nose appeared normal. Throat: No exudate or erythema. NECK: Supple. No JVD, no carotid bruit. No lymphadenopathy or thyromegaly. LUNGS: Clear to auscultation. Percussion note normal. Chest symmetrical. Mild expiratory wheezing. HEART: S1, S2, and S3. No murmur. No cyanosis or clubbing. No ascites. Pulses: Dorsalis pedis and posterior tibial pulses +1 to +2 bilaterally. ABDOMEN: Soft. Nontender. Bowel sounds active. No CVA tenderness. No mass felt. EXTREMITIES: Trace edema. Full range of motion of all extremities, equal. NEUROLOGIC: No focal deficit. Cranial nerves II through XII are grossly intact. No headache, no double vision or headache. SKIN: Not dry. Intact. Turgor - normal. LYMPHATIC: No palpable lymph nodes/no lymphedema. MUSCULOSKELETAL: Normal joints with no swelling. Muscle tone is normal. LABS: WBC 10.79, Hgb 12.2, hct 36.9, plt count 128, sodium 130.8, potassium 4.05, chloride 98.4, bicarb 21.9, BUN 22.2, creatinine 1.07, glucose 101, Calcium 9.17, AST 56.2, ALT 48.8, Total protein 7.20, Albumin 3.96, globulin 3.24. PT 14.4, INR 1.36. ABG pH 7.49, pCO2 28, pO2 71.0, HCO3 21.3, total CO2 22.2, Oxyhemoglobin 92.2, Carboxyhemoglobin 2.6. PCR panel is negative. U/A Trace blood, Nitrate negative, Bilirubin negative, Leukocyte esterase negative, Glucose is negative, Protein negative. ASSESSMENT: 1. CHF with likely fluid overload from IV fluids given during hospitalization 2. Systolic congestive heart failure 3. Dilated cardiomyopathy 4. Severe Chronic lung disease 5. History of aortic aneurysm 6. Depression with behavioral disturbances 7. Chronic anemia 8. History of atrial fibrillation PLAN: 1. Increase oxygen to 5 liters 2. Keep saturations over 90 3. Telemetry 4. The patient is full code 5. will resume Lasix tomorrow 6. Continue Aldactone 7. 0.5cc Decadron IM 8. Talked to the patient about fpc and he declined. We will talk to him about assisted living. Talked to Nidia WILLIS, and she understans that the patient's overall physical condition is very critical. She doesn't feel that the patient should be full code but the patient wants everything done in case of cardio pulmonary arrest. She wants the patient to go to assisted living or fpc because they think he can't care for himself at home without help. PROGNOSIS: POOR TIME SPENT: More than 70 minutes. RAYNA
--- NOTE | 2020-06-08 10:57 | HP ---
DATE OF SERVICE: 06/07/20 REASON FOR HOSPITALIZATION/HISTORY OF PRESENT ILLNESS: This is a 69-year-old white male who presented to the emergency room complaining of shortness of breath, weakness, extreme fatigue. He was just released from [facility] after being transferred on the 02 of June. He was discharged yesterday. They initially thought he had appendicitis, they ruled this out. He had nausea and vomiting. He was treated this and then subsequently discharged yesterday. It is also to be noted he is having generalized weakness, had some urinary retention. He is taking some Lasix at home because he was unable to void. He does not remember whether he took a total of 60 mg of Lasix or a total of 120 mg of Lasix. His family reports that he is not able to care for himself at this time and he is confused. 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 Joshua Basal cell removed on the left side of the nose Right cataract removed 09/01; left removed 03/08 CAD with stent placement 2003 and 2015 REVIEW OF SYSTEMS: CONSTITUTIONAL: Positive for weakness, confusion. No night sweats. No fatigue, malaise, lethargy. No fever or chills. HEENT: Eyes: No visual changes. No eye pain. No eye discharge. ENT: No runny nose. No epistaxis. No sinus pain. No sore throat. No odynophagia. No ear pain. No congestion. RESPIRATORY: No cough, no congestion. No hemoptysis. Positive for shortness of breath. CARDIOVASCULAR: No angina symptoms. No CHF symptoms. No atypical chest pain for CAD. No palpitations. No PND. No orthopnea. GASTROINTESTINAL: No abdominal pain. No nausea or vomiting. No diarrhea or constipation. No hematemesis. No hematochezia. GENITOURINARY: No urgency. No frequency. No dysuria. No hematuria. No obstructive symptoms. No discharge. No pain. No significant abnormal bleeding. MUSCULOSKELETAL: Positive for leg edema. No musculoskeletal pain. No joint swelling. No arthritis. NEUROLOGICAL: No headache. No neck pain. No syncope. No seizures. No dizziness. PSYCHIATRIC: Not anxious. No depression. No suicidal thoughts. No homicidal thoughts. SKIN: No rash. No lesions. No wounds. ENDOCRINE: No unexplained weight loss. No weight gain. HEMATOLOGIC/LYMPHATIC: No anemia. No purpura. No petechiae. No prolonged or excessive bleeding. No palpable lymph nodes. PERSONAL/FAMILY/SOCIAL HISTORY: He is a former smoker. No alcohol or ilicit drug use. He is , lives at home by himself. He helps take care of his elderly mother. MEDICATIONS: (HOME) Finasteride 5 mg p.o. daily Sertraline 100 mg p.o. bedtime Aspirin 81 mg p.o. daily with meal Potassium Chloride 10 mEQ p.o. daily Haloperidol 0.5 mg p.o. b.i.d. Atorvastatin 20 mg p.o. daily Omeprazole 20 mg p.o. q.d a.c. Nitroglycerin 0.4 mg sublingual p.r.n. Lisinopril 2.5 mg p.o. daily Tamsulosin 0.4 mg p.o. daily Fluticasone Furoate-Vilanterol one each INH as directed Benztropine 1 mg p.o. b.i.d. Guaifenesin 600 mg p.o. q.i.d. Spironolactone 25 mg p.o. daily Albuterol Sulfate 90 mcg two puff INH q.4 to 6H p.r.n. Warfarin (Coumadin) 6 mg p.o. daily Furosemide (Lasix) 40 mg p.o. b.i.d. Carvedilol 3.125 mg p.o. b.i.d. ALLERGIES: NKDA PHYSICAL EXAMINATION: GENERAL: The patient is pale. Visibly short of breath. HEENT: Head normocephalic, atraumatic. Eyes: Extraocular muscles are intact. Pupils are equal, round and reactive to light and accommodation. Ears: No lesions. Nose appeared normal. Throat: No exudate or erythema. NECK: Supple. No JVD, no carotid bruit. No lymphadenopathy or thyromegaly. LUNGS: Diminished breath sounds. Clear to auscultation. Percussion note normal. Chest symmetrical. HEART: Extra heart sound noted. S1, S2, no S3. No murmur. No cyanosis or clubbing. No ascites. Pulses: Dorsalis pedis and posterior tibial pulses +1 to +2 bilaterally. ABDOMEN: Soft. Nontender. Bowel sounds active. No CVA tenderness. No mass felt. EXTREMITIES: Trace bilateral leg edema. Full range of motion of all extremities, equal. NEUROLOGIC: No focal deficit. Cranial nerves II through XII are grossly intact. No headache, no double vision or headache. SKIN: Not dry. Intact. Turgor - normal. LYMPHATIC: No palpable lymph nodes/no lymphedema. MUSCULOSKELETAL: Normal joints with no swelling. Muscle tone is normal. Respiratory panel for Covid was negative. Chest x-ray shows cardiomegaly, bilateral interstitial prominence likely interstitial edema. ABGs on 5L: pH 7.4, pc02 28, p02 71, bicarb 21.3. 02 sat 95. White count 10.7, hemoglobin 12.2, hematocrit 36.9, [id number]. Sodium 130, potassium 4.0, BUN 22, creatinine 1.07, AST 56, ALT 48, INR 1.3. Pro-BNP 8,650. Urine shows trace blood. ASSESSMENT: 1. Acute respiratory failure, shortness of breath. 2. Acute on chronic CHF. 3. Atrial fibrillation. 4. Ischemic dilated cardiomyopathy. 5. Coronary artery disease. 6. Anxiety. 7. Depression. 8. History of CVA. 9. COPD. PLAN: 1. We will admit. 2. Routine telemetry orders. 3. CBC, CMP, INR daily. 4. Give an extra dose of Coumadin today. 5. Continue home medications. 6. Hold p.o. Lasix.. 7. Oxygen with a maximum at 5L. 8. Repeat ABGs in the morning. 9. Daily weights. 10. Monitor I & O. 11. Regular diet. 12. Start Rocephin 1 gm IV daily. 13. Urine for culture and sensitivity. 14. Will follow closely. 15. May in the future need PT/OT consult. TIME SPENT: More than 70 minutes. MTDD
--- NOTE | 2020-06-08 11:29 | RS.OTINEVL ---
Subjective - Patient information Date of Evaluation: 06/08/20 Date of Arrival on Unit: 06/07/20 Admitted From:: Emergency Dept Diagnosis: CHF exacerbation, COPD, increased SOA. PRECAUTIONS: High fall risk Usual Living Arrangement: Alone Living Arrangement Comments: Pt is and lives alone in a trailor next door to his mother. His sister comes over 3x wk and cooks for him and his mother. Home Environment: Mobile Home, Stairs (few) Medical History: COPD, CHF Medical History Comments:: Fluid retention, increased SOB, CHF, COPD, Falls in last 3 months. Subjective Information/ Patient Comments:: Pt reports home health came 2 times until they found out he was driving. - Level of function Prior to this admission, the patient could do the following:: Independent Selfcare, Independent ADL's, Independent Ambulation, Partially Dependent Ambulation, Perform Interior Decorator/Cooking, Drive, Participated in Social Activities Outside home, Volunteer/Work Abilities prior to this admission: Pt drives to [employer] in [place] and gets him and his mother a hamburger for lunch. Current Level of Function: Partially Dependent Comments: Pt's O2 level is dropping in low 80's and the patient is not able to tell. Current Equipment Used at Home: OXYGEN Pain Assessment - Pain Pain Score: 0 Interventions - Objective Patient Orientation: Person, Place, Time, Situation Current Interventions: IV's, Oxygen, Telemetry Observation: Pt is weak and forgets sometimes. Pt very motivated to get back home. Pt is deconditioned and his Oxygen level drops when he is in standing position. Interventions - ROM Right Upper Extremity AROM: Slight limitation Left Upper Extremity AROM: Slight limitation - Strength Right Upper Extremity Strength: Mild Weakness Left Upper Extremity Strength: Mild Weakness - Sensation Right Upper Extremity Sensation: Intact/Normal Left Upper Extremity Sensation: Intact/Normal Balance - Sitting Balance Static Sitting Balance: Good Dynamic Sitting Balance: Good - Standing Balance Static Standing Balance: Fair Dynamic Standing Balance: Fair ADL Skills - Self Feeding Self Feeding: Independent - Grooming Grooming: Min Assist - Dressing Dressing UE: CGA Dressing LE: Min Assist - Toilet Management Toileting Management: Min Assist - Comments Comments:: Pt's O2 level drops. Functional Mobility - Bed Mobility Rolling R/L: Independent Scooting: Independent Supine to Sit: Independent Sit to Supine: Independent - Transfers Sit to Stand: Min Assist Stand to Sit: Min Assist Stand Pivot Transfers: Min Assist - Ambulation Weight Bearing Status: FWB Assistance needed with Ambulation: Min Assist - Safety Awareness Safety Awareness: Fair JEFFREY INDEX SCORE: . Additional Treatment Performed - Time with patient Length of Evaluation: 20 Total treatment time: 25 Activities Would you be interested in leaving your room for activities?: Yes Would you enjoy group activities?: Yes Do you have difficulty with your vision?: Yes Patient Interests:: Watching Television, Visiting/Socializing Patient Education Patient Education: Education of diagnosis Teaching Recipient: Patient Teaching Methods: Discussion Assessment Problem List:: Decreased level of function, Requires training/education, Decreased safety/Risk of falls, Weakness Rehab Potential: Fair Further Therapy Indicated?: Yes Evaluation Complexity: HISTORY: Medium, EXAM OF BODY SYSTEMS: Medium, CLINICAL DECISION MAKING: Medium Patient's Goal(s): To be able to return home. Short Term Goals - Goals GOAL 1: Pt to tolerated dyn. std. for 8 minutes for self cares. Goal to be met by: 06/12/20 GOAL 2: Pt to increase BUE strength to 4/5 to increase independence of ADLS. Goal to be met by: 06/12/20 GOAL 3: Pt to be independent with home exercise program. Goal to be met by: 06/12/20 GOAL 4: Pt to understand energy conservation techniques and the benefits at home. Goal to be met by: 06/12/20 Group Home Goals GOAL 1: Pt to increase BUE strength to 4+/5. Goal to be met by: 06/14/20 GOAL 2: Pt to tolerated dyn. std. for12 minutes to increase safety of ADLS. Goal to be met by: 06/14/20 GOAL 3: Pt to be (I) with energy conservation techniques. Goal to be met by: 06/14/20 Plan Plan of Care: Therapeutic EX, Therapeutic Activity, Self-Care/Home Management Frequency of Treatment: 1-2 X day, as tolerated Duration of Treatment: 1 Week Anticipated Discharge Destination: Home Treatment Diagnosis (ICD 10 Codes): M62.81 Generalized Weakness, Z74.1 Need for assistance with personal care. Has the Physician been added for Co-signature?: Yes
[2020-06-08] MEDS: COUMADIN PO SCH (16:57)
[2020-06-08] MEDS ORDERED: COUMADIN PO ONE (17:05)
[2020-06-08] MEDS: ZOLOFT PO SCH (20:22)
[2020-06-09 04:26] LABS: ABG PH 7.44 (7.35-7.45)
[2020-06-09 05:20] LABS: BASOPHILS % (AUTO) 0.2 % (0.0-3.0); EOSINOPHILS # (AUTO) 0.2 K/ul (0.0-0.7); EOSINOPHILS % (AUTO) 2.1 % (0.0-7.0); HEMATOCRIT 32.6 % (42.0-52.0); HEMOGLOBIN 10.8 g/dl (14.0-18.0); IMMATURE GRANULOCYTE # (AUTO) 0.1 (0.0-1.0); IMMATURE GRANULOCYTE % (AUTO) 0.6 % (0.0-5.0); LYMPHOCYTES # (AUTO) 0.9 K/uL (0.60-3.4); LYMPHOCYTES % (AUTO) 10.1 (10.0-50.0); MEAN CORPUSCULAR HEMOGLOBIN 30.8 pg (27.0-31.0); MEAN CORPUSCULAR HGB CONC 33.1 (31.8-35.4); MEAN CORPUSCULAR VOLUME 92.9 fl (80.0-94.0); MONOCYTES # (AUTO) 0.6 K/uL (0.4-2.0); MONOCYTES % (AUTO) 6.8 (0-10); NEUTROPHILS # (AUTO) 7.1 K/ul (2.0-6.9); NEUTROPHILS % (AUTO) 80.2 % (42.2-75.2); PLATELET COUNT 115 10^3/uL (140-440); RDW COEFFICIENT OF VARIATION 16.9 % (11.6-14.8); RED BLOOD COUNT 3.51 10^6/ul (4.70-6.10); WHITE BLOOD COUNT 8.87 K/ul (4.2-10.2)
[2020-06-09 05:30] LABS: PROTHROMBIN TIME 17.9 SEC (9.3-11.0)
[2020-06-09] MEDS: LASIX TAB PO SCH ×2 (05:32→16:39)
[2020-06-09] MEDS: PRILOSEC PO SCH (05:32)
[2020-06-09 05:36] LABS: ALANINE AMINOTRANSFERASE 39.1 U/L (0-50); ALBUMIN 3.32 g/dL (3.5-5.0); ALKALINE PHOSPHATASE 76.4 U/L (56-119); ASPARTATE AMINO TRANSFERASE 39.7 U/L (17-59); BILIRUBIN,TOTAL 0.6 mg/dL (0.2-1.3); BLOOD UREA NITROGEN 24.2 mg/dL (9-20); CALCIUM 8.78 mg/dL (8.4-10.2); CHLORIDE 98.3 mmol/L (98-107); CREATINE KINASE 118.3 U/L (55-170); CREATININE 1.12 mg/dL (0.60-1.10); GLUCOSE 93.8 mg/dL (74-106); POTASSIUM 3.59 mmol/L (3.5-5.1); SODIUM 131.8 mmol/L (134.5-145); TOTAL PROTEIN 6.27 g/dL (6.3-8.2)
[2020-06-09 05:44] LABS: TROPONIN I 0.023 ng/ml (0.0000-0.120)
[2020-06-09 05:50] LABS: CREATINE KINASE MB 3.58 ng/ml (0.0-2.38)
[2020-06-09] MEDS: MICRO-K CAP PO SCH (08:42)
[2020-06-09] MEDS: HALDOL PO SCH ×2 (08:43→21:01)
[2020-06-09] MEDS: PROSCAR PO SCH (08:43)
[2020-06-09] MEDS: ASPIRIN CHEWABLE PO SCH (08:43)
[2020-06-09] MEDS: ROCEPHIN 1 GM/50 ML D5W 1 GM/50 ML BAG IV SCH (08:43)
[2020-06-09] MEDS: COREG PO SCH ×2 (08:43→16:39)
[2020-06-09] MEDS: COGENTIN PO SCH ×2 (08:43→21:01)
[2020-06-09] MEDS: FLOMAX PO SCH (08:43)
[2020-06-09] MEDS: LIPITOR PO SCH (08:43)
[2020-06-09] MEDS: ALDACTONE PO SCH (08:43)
[2020-06-09] MEDS: ZESTRIL PO SCH (08:44)
[2020-06-09] MEDS: SYMBICORT 160-4.5 MCG INHALER IH SCH ×2 (09:06→21:01)
[2020-06-09] MEDS: DECADRON IM SCH (13:09)
[2020-06-09] MEDS: COUMADIN PO SCH (16:39)
[2020-06-09] MEDS: ZOLOFT PO SCH (21:01)
[2020-06-10 05:20] LABS: BASOPHILS % (AUTO) 0.2 % (0.0-3.0); EOSINOPHILS # (AUTO) 0.1 K/ul (0.0-0.7); EOSINOPHILS % (AUTO) 1.1 % (0.0-7.0); HEMATOCRIT 32.8 % (42.0-52.0); IMMATURE GRANULOCYTE # (AUTO) 0.1 (0.0-1.0); IMMATURE GRANULOCYTE % (AUTO) 0.8 % (0.0-5.0); LYMPHOCYTES # (AUTO) 0.8 K/uL (0.60-3.4); LYMPHOCYTES % (AUTO) 8.2 (10.0-50.0); MEAN CORPUSCULAR HEMOGLOBIN 31.3 pg (27.0-31.0); MEAN CORPUSCULAR HGB CONC 33.5 (31.8-35.4); MEAN CORPUSCULAR VOLUME 93.4 fl (80.0-94.0); MONOCYTES # (AUTO) 0.6 K/uL (0.4-2.0); MONOCYTES % (AUTO) 5.8 (0-10); NEUTROPHILS # (AUTO) 7.9 K/ul (2.0-6.9); NEUTROPHILS % (AUTO) 83.9 % (42.2-75.2); PLATELET COUNT 124 10^3/uL (140-440); RDW COEFFICIENT OF VARIATION 17.2 % (11.6-14.8); RED BLOOD COUNT 3.51 10^6/ul (4.70-6.10); WHITE BLOOD COUNT 9.44 K/ul (4.2-10.2)
[2020-06-10 05:31] LABS: PROTHROMBIN TIME 28.6 SEC (9.3-11.0)
[2020-06-10 05:32] LABS: ALANINE AMINOTRANSFERASE 35.7 U/L (0-50); ALBUMIN 3.4 g/dL (3.5-5.0); ALKALINE PHOSPHATASE 72.7 U/L (56-119); ASPARTATE AMINO TRANSFERASE 33.4 U/L (17-59); BILIRUBIN,TOTAL 0.46 mg/dL (0.2-1.3); CALCIUM 9.04 mg/dL (8.4-10.2); CARBON DIOXIDE 26.6 mmol/L (22-30.0); CHLORIDE 98.3 mmol/L (98-107); CREATININE 1.14 mg/dL (0.60-1.10); GLUCOSE 98.9 mg/dL (74-106); POTASSIUM 3.81 mmol/L (3.5-5.1); SODIUM 131.7 mmol/L (134.5-145); TOTAL PROTEIN 6.36 g/dL (6.3-8.2)
[2020-06-10] MEDS: LASIX TAB PO SCH ×2 (05:41→17:00)
[2020-06-10] MEDS: PRILOSEC PO SCH (05:41)
[2020-06-10] MEDS: ROCEPHIN 1 GM/50 ML D5W 1 GM/50 ML BAG IV SCH (08:34)
[2020-06-10] MEDS: DECADRON IM SCH (08:34)
[2020-06-10] MEDS: COREG PO SCH ×2 (08:34→17:00)
[2020-06-10] MEDS: MICRO-K CAP PO SCH (08:34)
[2020-06-10] MEDS: ZESTRIL PO SCH (08:35)
[2020-06-10] MEDS: ASPIRIN CHEWABLE PO SCH (08:35)
[2020-06-10] MEDS: COGENTIN PO SCH ×2 (08:35→20:28)
[2020-06-10] MEDS: LIPITOR PO SCH (08:35)
[2020-06-10] MEDS: ALDACTONE PO SCH (08:35)
[2020-06-10] MEDS: HALDOL PO SCH ×2 (08:35→20:28)
[2020-06-10] MEDS: FLOMAX PO SCH (08:35)
[2020-06-10] MEDS: PROSCAR PO SCH (08:35)
[2020-06-10] MEDS: SYMBICORT 160-4.5 MCG INHALER IH SCH ×2 (08:36→20:29)
[2020-06-10] MEDS: COUMADIN PO SCH (17:00)
[2020-06-10] MEDS: ZOLOFT PO SCH (20:29)
[2020-06-11 04:21] LABS: ABG PH 7.47 (7.35-7.45)
[2020-06-11 04:30] LABS: BASOPHILS % (AUTO) 0.3 % (0.0-3.0); EOSINOPHILS # (AUTO) 0.2 K/ul (0.0-0.7); EOSINOPHILS % (AUTO) 1.6 % (0.0-7.0); HEMATOCRIT 32.5 % (42.0-52.0); IMMATURE GRANULOCYTE # (AUTO) 0.1 (0.0-1.0); IMMATURE GRANULOCYTE % (AUTO) 0.6 % (0.0-5.0); LYMPHOCYTES # (AUTO) 0.9 K/uL (0.60-3.4); MEAN CORPUSCULAR HEMOGLOBIN 31.4 pg (27.0-31.0); MEAN CORPUSCULAR HGB CONC 33.8 (31.8-35.4); MEAN CORPUSCULAR VOLUME 92.9 fl (80.0-94.0); MONOCYTES # (AUTO) 0.6 K/uL (0.4-2.0); MONOCYTES % (AUTO) 5.9 (0-10); NEUTROPHILS # (AUTO) 7.6 K/ul (2.0-6.9); NEUTROPHILS % (AUTO) 81.6 % (42.2-75.2); PLATELET COUNT 126 10^3/uL (140-440); RDW COEFFICIENT OF VARIATION 17.1 % (11.6-14.8); WHITE BLOOD COUNT 9.36 K/ul (4.2-10.2)
[2020-06-11 04:41] LABS: PROTHROMBIN TIME 32.3 SEC (9.3-11.0)
[2020-06-11 04:43] LABS: ALANINE AMINOTRANSFERASE 30.6 U/L (0-50); ALBUMIN 3.34 g/dL (3.5-5.0); ALKALINE PHOSPHATASE 68.7 U/L (56-119); ASPARTATE AMINO TRANSFERASE 28.2 U/L (17-59); BILIRUBIN,TOTAL 0.48 mg/dL (0.2-1.3); BLOOD UREA NITROGEN 21.8 mg/dL (9-20); CALCIUM 8.84 mg/dL (8.4-10.2); CARBON DIOXIDE 26.6 mmol/L (22-30.0); CHLORIDE 99.2 mmol/L (98-107); CREATININE 0.9 mg/dL (0.60-1.10); GLUCOSE 95.9 mg/dL (74-106); POTASSIUM 3.49 mmol/L (3.5-5.1); SODIUM 131.7 mmol/L (134.5-145); TOTAL PROTEIN 6.26 g/dL (6.3-8.2)
[2020-06-11] MEDS: PRILOSEC PO SCH (05:45)
[2020-06-11] MEDS: LASIX TAB PO SCH ×2 (05:45→17:06)
[2020-06-11] MEDS ORDERED: MODERNA COVID-19 VACCINE (EUA) IM ONE (09:00)
--- NOTE | 2020-06-11 09:07 | PCM.PROG ---
Attending Provider: ATTENDING PROVIDER: Dr. STANTON HAMPTON This patient is seen with Juana Baker, Nurse Practitioner. DATE OF SERVICE: 06/11/20 SUBJECTIVE: This 69 year old /WHITE M was hospitalized 06/07/20. The patient is resting comfortably in bed. Still extremely weak and with shortness of breath on 3L of oxygen. Encouraged to get up and about to walk today. REVIEW OF SYSTEMS: CONSTITUTIONAL: Weakness. No night sweats. No fatigue, malaise, lethargy. No fever or chills. HEENT: Eyes: No visual changes. No eye pain. No eye discharge. ENT: No runny nose. No epistaxis. No sinus pain. No odynophagia. No congestion. RESPIRATORY: No cough, no congestion. No hemoptysis. Shortness of breath. CARDIOVASCULAR: No angina symptoms. No CHF symptoms. No atypical chest pain for CAD. No palpitations. No orthopnea.. GASTROINTESTINAL: No abdominal pain. No nausea or vomiting. No diarrhea or constipation. No hematemesis. No hematochezia. GENITOURINARY: No urgency. No frequency. No dysuria. No hematuria. No obstructive symptoms. No discharge. No pain. No significant abnormal bleeding. MUSCULOSKELETAL: No musculoskeletal pain; no joint swelling. NEUROLOGICAL: Awake, alert, oriented to time, place and person. No headache. No neck pain. No syncope. No seizures. No dizziness. PSYCHIATRIC: Not anxious. No depression. No suicidal thoughts. No homicidal thoughts. SKIN: No rash. No lesions. No wounds. ENDOCRINE: No unexplained weight loss. No weight gain. HEMATOLOGIC/LYMPHATIC: No anemia. No purpura. No petechiae. No prolonged or excessive bleeding. No palpable lymph nodes. PHYSICAL EXAMINATION: GENERAL: The patient is awake, alert and oriented, lying/sitting in bed in no distress. VITAL SIGNS: Temperature 97.2 F, Pulse 54, Respiratory Rate 18, BP 76/50, Pulse Ox 99% HEENT: Head normocephalic, atraumatic. Eyes: Extraocular muscles are intact. Pupils are equal, round and reactive to light and accommodation. Ears: No lesions. Nose appeared normal. Throat: No exudate or erythema. NECK: Supple. No JVD, no carotid bruit. No lymphadenopathy or thyromegaly. LUNGS: Diminished breath sounds. Clear to auscultation. Percussion note normal. Chest symmetrical. HEART: S1, S2, no S3. No murmurs. No cyanosis or clubbing. No ascites. Pulses: Dorsalis pedis and posterior tibial pulses +1 to +2 both sides. ABDOMEN: Soft. Non-tender. Bowel sounds active. No CVA tenderness. No mass felt. EXTREMITIES: No edema. Full range of motion of all extremities, equal. NEUROLOGIC: No focal deficit. Cranial nerves II through XII are grossly intact. No headache. No double vision. SKIN: Not dry. Intact. Turgor-normal. LYMPHATIC: No palpable lymph nodes/no lymphedema. MUSCULOSKELETAL: Normal joints with no swelling. Muscle tone is normal. LAB REVIEW: 06/11/20 04:00 06/11/20 04:00 06/11/20 04:00: Sodium 131.7 L, Potassium 3.49 L, Chloride 99.2, Carbon Dioxide 26.6, Anion Gap 9.39, BUN 21.8 H, Creatinine 0.90, Estimated GFR (MDRD) 83.00, BUN/Creatinine Ratio 24.22, Glucose 95.9, Calcium 8.84, Total Bilirubin 0.48, AST 28.2, ALT 30.6, Alkaline Phosphatase 68.7, Total Protein 6.26 L, Albumin 3.34 L, Globulin 2.92, Albumin/Globulin Ratio 1.14 06/11/20 04:00: WBC 9.36, RBC 3.50 L, Hgb 11.0 L, Hct 32.5 L, MCV 92.9, MCH 31.4 H, MCHC 33.8, RDW Coeff of Oleg 17.1 H, Plt Count 126 L, Immature Gran % (Auto) 0.6, Neut % (Auto) 81.6 H, Lymph % (Auto) 10.0, Montague % (Auto) 5.9, Eos % (Auto) 1.6, Baso % (Auto) 0.3, Neut # (Auto) 7.6 H, Lymph # (Auto) 0.9, Mont[place] # (Auto) 0.6, Eos # (Auto) 0.2, Baso # (Auto) 0.0, Immature Gran # (Auto) 0.1 06/11/20 04:00: PT 32.3 H, INR 3.02 06/11/20 03:30: Puncture Site Rb, Base Excess 4.0 H, O2 Saturation 78.9 L, ABG pH 7.47 H, ABG pCO2 38.0, ABG pO2 40.0 L*, ABG HCO3 27.7, ABG Total CO2 28.9 H, Rishabh Test +, Hemoglobin 0.8, Oxyhemoglobin 77.4 L, Carboxyhemoglobin 2.7 H, Total Hemoglobin 11.7, FiO2 % 21.0 ASSESSMENT: Please see below. 1. CHF under control with chronic CHF 2. Dilated cardiomyopathy with poor ejection fraction 3. Chronic lung disease. PLAN: 1. Repeat BNP. 2. Encouraged to walk. Plan and coordination of the patient's care discussed in the presence of Wire Tester and nurse. CONDITION: Stable SCRIBED BY: Shannon SARABIAist scribed while in presence of service performed by Dr. Hampton/Juana Baker APRN on 06/11/20 ([id number])
[2020-06-11] MEDS: ASPIRIN CHEWABLE PO SCH (09:43)
[2020-06-11] MEDS: COGENTIN PO SCH ×2 (09:43→21:08)
[2020-06-11] MEDS: COREG PO SCH ×2 (09:43→17:06)
[2020-06-11] MEDS: HALDOL PO SCH ×2 (09:43→21:08)
[2020-06-11] MEDS: FLOMAX PO SCH (09:43)
[2020-06-11] MEDS: DECADRON IM SCH (09:44)
[2020-06-11] MEDS: ZESTRIL PO SCH (09:44)
[2020-06-11] MEDS: MICRO-K CAP PO SCH (09:44)
[2020-06-11] MEDS: KEFLEX PO SCH ×3 (09:44→21:08)
[2020-06-11] MEDS: PROSCAR PO SCH (09:44)
[2020-06-11] MEDS: LIPITOR PO SCH (09:44)
[2020-06-11] MEDS: ALDACTONE PO SCH (09:44)
[2020-06-11] MEDS: SYMBICORT 160-4.5 MCG INHALER IH SCH ×2 (09:47→21:09)
--- NOTE | 2020-06-11 12:59 | PN ---
DATE OF SERVICE: 06/08/2020 SUBJECTIVE: Code status was discussed this afternoon with the patient and Registered Nurse, Ro, was present. It was explained to the patient about his conditions and also about what happens when the code is called and with the cardiopulmonary arrest. He flattened declined any intubation or breathing machine. He doesn't want any tube to be put in his throat and also no breathing machine. Just do plain CPR without any intubation or respirator. He agreed to that. Yesterday I had to talked to Power of [place] Agent for health and they are all in agreement, Nidia and the brother were in agreement for him not to have any breathing tube or breathing machine. TIME SPENT: More than 30 minutes. Plan and coordination of the patient's care discussed in the presence of nurse. RAYNA
[2020-06-11] MEDS: ZOLOFT PO SCH (21:08)
[2020-06-12 05:17] LABS: BASOPHILS % (AUTO) 0.2 % (0.0-3.0); EOSINOPHILS # (AUTO) 0.2 K/ul (0.0-0.7); HEMATOCRIT 33.3 % (42.0-52.0); HEMOGLOBIN 11.1 g/dl (14.0-18.0); IMMATURE GRANULOCYTE # (AUTO) 0.1 (0.0-1.0); IMMATURE GRANULOCYTE % (AUTO) 0.7 % (0.0-5.0); LYMPHOCYTES # (AUTO) 0.9 K/uL (0.60-3.4); LYMPHOCYTES % (AUTO) 9.9 (10.0-50.0); MEAN CORPUSCULAR HEMOGLOBIN 31.2 pg (27.0-31.0); MEAN CORPUSCULAR HGB CONC 33.3 (31.8-35.4); MEAN CORPUSCULAR VOLUME 93.5 fl (80.0-94.0); MONOCYTES # (AUTO) 0.6 K/uL (0.4-2.0); MONOCYTES % (AUTO) 6.7 (0-10); NEUTROPHILS # (AUTO) 7.6 K/ul (2.0-6.9); NEUTROPHILS % (AUTO) 80.5 % (42.2-75.2); PLATELET COUNT 133 10^3/uL (140-440); RDW COEFFICIENT OF VARIATION 16.9 % (11.6-14.8); RED BLOOD COUNT 3.56 10^6/ul (4.70-6.10); WHITE BLOOD COUNT 9.39 K/ul (4.2-10.2)
[2020-06-12 05:28] LABS: PROTHROMBIN TIME 23.8 SEC (9.3-11.0)
[2020-06-12 05:29] LABS: ALANINE AMINOTRANSFERASE 29.2 U/L (0-50); ALBUMIN 3.35 g/dL (3.5-5.0); ALKALINE PHOSPHATASE 63.8 U/L (56-119); ASPARTATE AMINO TRANSFERASE 26.3 U/L (17-59); BILIRUBIN,TOTAL 0.57 mg/dL (0.2-1.3); CALCIUM 8.91 mg/dL (8.4-10.2); CHLORIDE 99.2 mmol/L (98-107); CREATININE 0.87 mg/dL (0.60-1.10); GLUCOSE 96.7 mg/dL (74-106); POTASSIUM 3.58 mmol/L (3.5-5.1); SODIUM 134.2 mmol/L (134.5-145); TOTAL PROTEIN 6.35 g/dL (6.3-8.2)
[2020-06-12 05:40] VITALS: BP 79/50; TEMP 97.5
[2020-06-12] MEDS: LASIX TAB PO SCH (05:48)
[2020-06-12] MEDS: PRILOSEC PO SCH (05:48)
--- NOTE | 2020-06-12 08:05 | ECHO2D ---
Date of Exam: 06/10/2020 Ordering Physician: DR. STANTON HAMPTON Room #: 103 Reason for Echo: SHORT OF AIR, CONGESTIVE HEART FAILURE, COPD M-Mode Normal Adult Results LV Dimensions Normal Adult Results AoV Opening excursions >1.6 >1.6 LVEDD-base- 3.5-5.8 7.4 Ao root dimensions 2.0-3.7 3.6 LVESD-base- 3.1-4.6 L. Atrium dimensions 1.9-3.8 6.3 Post. Wall thickness 0.8-1.1 1.0 IV septum (thickness) 0.7-1.2 0.9 Post. Wall excursion 0.72-1.3 0.6 Septal motion 0.4 Systolic motion R. Ventricular cavity 1.5-2.0 3.0 LVEF 60% 17% Paradoxical septal wall motion NORMAL 2-D : HYPOKINETIC LEFT VENTRICLE--VALVES NORMAL--DILATED LEFT VENTRICLE, RIGHT VENTRICLE AND LEFT ATRIAL CAVITIES, NO EFFUSION, NO THROMBUS COLOR FLOW: MODERATE MITRAL REGURGITATION M-MODE: MV: NORMAL AV: NORMAL TV: NORMAL PV: CHAMBER SIZE: ENLARGED LEFT ATRIAL, RIGHT VENTRICLE AND LEFT VENTRICLE CAVITIES WALL MOTION: HYPOKINETIC LEFT VENTRICLE PERICARDIUM: NORMAL INTERPRETATION: 1. ENLARGED RIGHT VENTRICLE, LEFT ATRIAL AND LEFT VENTRICLE CAVITIES 2. HYPOKINETIC LEFT VENTRICLE WITH EJECTION FRACTION 17% 3. MODERATE MITRAL REGURGITATION 4. SEVERELY DILATED CARDIOMYOPATHY WITH POOR EJECTION FRACTION MTDD
[2020-06-12] MEDS: COGENTIN PO SCH (08:41)
[2020-06-12] MEDS: PROSCAR PO SCH ×2 (08:41→08:46)
[2020-06-12] MEDS: ASPIRIN CHEWABLE PO SCH (08:41)
[2020-06-12] MEDS: FLOMAX PO SCH (08:41)
[2020-06-12] MEDS: ALDACTONE PO SCH (08:42)
[2020-06-12] MEDS: LIPITOR PO SCH (08:42)
[2020-06-12] MEDS: HALDOL PO SCH (08:42)
[2020-06-12] MEDS: COREG PO SCH (08:42)
[2020-06-12] MEDS: ZESTRIL PO SCH (08:42)
[2020-06-12] MEDS: MICRO-K CAP PO SCH (08:43)
[2020-06-12] MEDS: KEFLEX PO SCH (08:43)
[2020-06-12] MEDS: SYMBICORT 160-4.5 MCG INHALER IH SCH (08:43)
--- NOTE | 2020-06-12 08:47 | PCM.PROG ---
Attending Provider: ATTENDING PROVIDER: Dr. STANTON HAMPTON This patient is seen with Juana Baker, Nurse Practitioner. DATE OF SERVICE: 06/12/20 SUBJECTIVE: This 69 year old /WHITE M was hospitalized 06/07/20. Resting comfortably in bed. He has been getting up and about ready to go home. He is e ating well. REVIEW OF SYSTEMS: CONSTITUTIONAL: Weakness. No night sweats. No fatigue, malaise, lethargy. No fever or chills. HEENT: Eyes: No visual changes. No eye pain. No eye discharge. ENT: No runny nose. No epistaxis. No sinus pain. No odynophagia. No congestion. RESPIRATORY: No cough, no congestion. No hemoptysis. Shortness of breath. CARDIOVASCULAR: No angina symptoms. No CHF symptoms. No atypical chest pain for CAD. No palpitations. No orthopnea.. GASTROINTESTINAL: No abdominal pain. No nausea or vomiting. No diarrhea or constipation. No hematemesis. No hematochezia. GENITOURINARY: No urgency. No frequency. No dysuria. No hematuria. No obstructive symptoms. No discharge. No pain. No significant abnormal bleeding. MUSCULOSKELETAL: No musculoskeletal pain; no joint swelling. NEUROLOGICAL: Awake, alert, oriented to time, place and person. No headache. No neck pain. No syncope. No seizures. No dizziness. PSYCHIATRIC: Not anxious. No depression. No suicidal thoughts. No homicidal thoughts. SKIN: No rash. No lesions. No wounds. ENDOCRINE: No unexplained weight loss. No weight gain. HEMATOLOGIC/LYMPHATIC: No anemia. No purpura. No petechiae. No prolonged or excessive bleeding. No palpable lymph nodes. PHYSICAL EXAMINATION: GENERAL: The patient is awake, alert and oriented, lying/sitting in bed in no distress. VITAL SIGNS: Temperature 97.5 F, Pulse 57, Respiratory Rate 18, BP 79/50, Pulse Ox 98% HEENT: Head normocephalic, atraumatic. Eyes: Extraocular muscles are intact. Pupils are equal, round and reactive to light and accommodation. Ears: No lesions. Nose appeared normal. Throat: No exudate or erythema. NECK: Supple. No JVD, no carotid bruit. No lymphadenopathy or thyromegaly. LUNGS: Diminished breath sounds. Clear to auscultation. Percussion note normal. Chest symmetrical. HEART: S1, S2, no S3. No murmurs. No cyanosis or clubbing. No ascites. Pulses: Dorsalis pedis and posterior tibial pulses +1 to +2 both sides. ABDOMEN: Soft. Non-tender. Bowel sounds active. No CVA tenderness. No mass felt. EXTREMITIES: No edema. Full range of motion of all extremities, equal. NEUROLOGIC: No focal deficit. Cranial nerves II through XII are grossly intact. No headache. No double vision. SKIN: Not dry. Intact. Turgor-normal. LYMPHATIC: No palpable lymph nodes/no lymphedema. MUSCULOSKELETAL: Normal joints with no swelling. Muscle tone is normal. LAB REVIEW: 06/12/20 04:45 06/12/20 04:45 06/12/20 04:45: Sodium 134.2 L, Potassium 3.58, Chloride 99.2, Carbon Dioxide 28.0, Anion Gap 10.58, BUN 21.0 H, Creatinine 0.87, Estimated GFR (MDRD) 87.00, BUN/Creatinine Ratio 24.13, Glucose 96.7, Calcium 8.91, Total Bilirubin 0.57, AST 26.3, ALT 29.2, Alkaline Phosphatase 63.8, Total Protein 6.35, Albumin 3.35 L, Globulin 3.00, Albumin/Globulin Ratio 1.11 06/12/20 04:45: PT 23.8 H D, INR 2.23 06/12/20 04:45: WBC 9.39, RBC 3.56 L, Hgb 11.1 L, Hct 33.3 L, MCV 93.5, MCH 31.2 H, MCHC 33.3, RDW Coeff of Oleg 16.9 H, Plt Count 133 L, Immature Gran % (Auto) 0.7, Neut % (Auto) 80.5 H, Lymph % (Auto) 9.9 L, [place] % (Auto) 6.7, Eos % (Auto) 2.0, Baso % (Auto) 0.2, Neut # (Auto) 7.6 H, Lymph # (Auto) 0.9, [place] # (Auto) 0.6, Eos # (Auto) 0.2, Baso # (Auto) 0.0, Immature Gran # (Auto) 0.1 06/11/20 04:00: NT-Pro-B Natriuret Pep 2830.000 H ASSESSMENT: Please see below. 1. Stable CHF 2. COPD 3. Severe dilated cardiomyopathy PLAN: 1. Discharge home. 2. D/C Finasteride. 3. Stop Keflex. 4. INR today. 5. Followup on and will recheck INR. 6. Instructed to wear oxygen at all times. 7. The patient states he feels ready to go home. 8. He has declined fdc or assisted living and declines Home Health for PT/OT. Plan and coordination of the patient's care discussed in the presence of Bonsai Tender and nurse. CONDITION: Stable SCRIBED BY: GASTON SAENZ Molded Goods Inspector Trimmer scribed while in presence of service performed by Dr. Hampton/Juana Baker APRN on 06/12/20 ([id number])
--- NOTE | 2020-06-12 09:41 | PN ---
DATE OF SERVICE: 06/10/20 SUBJECTIVE: 69-year-old white male hospitalized with shortness of breath, CHF, COPD exacerbation. The patient's condition seems to be improving. REVIEW OF SYSTEMS: CONSTITUTIONAL: No night sweats. No fatigue, malaise, lethargy. No fever or chills. HEENT: Eyes: No visual changes. No eye pain. No eye discharge. ENT: No runny nose. No epistaxis. No sinus pain. No sore throat. No odynophagia. No congestion. RESPIRATORY: No cough, no congestion. No hemoptysis. No shortness of breath. CARDIOVASCULAR: No angina symptoms. No CHF symptoms. No atypical chest pain for CAD. No palpitations. No PND. No orthopnea. GASTROINTESTINAL: Appetite has improved, feeling stronger. No abdominal pain. No nausea or vomiting. No diarrhea or constipation. No hematemesis. No hematochezia. GENITOURINARY: No urgency. No frequency. No dysuria. No hematuria. No obstructive symptoms. No discharge. No pain. No significant abnormal bleeding. MUSCULOSKELETAL: No musculoskeletal pain; no joint swelling. NEUROLOGICAL: No headache. No neck pain. No syncope. No seizures. No dizziness. PSYCHIATRIC: Not anxious. No depression. No suicidal thoughts. No homicidal thoughts. SKIN: No rash. No lesions. No wounds. ENDOCRINE: No unexplained weight loss. No weight gain. HEMATOLOGIC/LYMPHATIC: No anemia. No purpura. No petechiae. No prolonged or excessive bleeding. No palpable lymph nodes. PHYSICAL EXAMINATION: VITAL SIGNS: Temperature 97.8, pulse 60, respiratory rate 18, blood pressure 90/62, pulse ox 94% with 4L normal. HEENT: Head normocephalic, atraumatic. Eyes: Extraocular muscles are intact. Pupils are equal, round and reactive to light and accommodation. Ears: No lesions. Nose appeared normal. Throat: No exudate or erythema. NECK: Supple. No JVD, no carotid bruit. No lymphadenopathy or thyromegaly. LUNGS: Decreased breath sounds but clear to auscultation. Percussion note normal. Chest symmetrical. HEART: S1, S2, no S3. No murmurs. No cyanosis or clubbing. No ascites. Pulses: Dorsalis pedis and posterior tibial pulses +1 to +2 bilaterally. ABDOMEN: Soft. Nontender. Bowel sounds active. No CVA tenderness. No mass felt. EXTREMITIES: No edema. Full range of motion of all extremities, equal. NEUROLOGIC: No focal deficit. Cranial nerves II through XII are grossly intact. No headache. No double vision. SKIN: Not dry. Intact. Turgor - normal. LYMPHATIC: No palpable lymph nodes/no lymphedema. MUSCULOSKELETAL: Normal joints with no swelling. Muscle tone is normal. LABS: Hemoglobin 11, hematocrit 32, WBC 9,400, normal differential. Creatinine 1.1, BUN 24. ASSESSMENT: 1. CHF under control, which is end-stage. 2. Systolic failure. The patient had an echo today which showed ejection fraction 15 to 20% with dilated left ventricular cavity and left atrial cavity. The patient has mild to moderate MR. PLAN: 1. Continue nebs, steroids. 2. Aldactone with Lasix. 3. The patient is DNR. Of note, the patient has been a heavy smoker in the past, recently quit smoking with severe chronic lung disease. PROGNOSIS: Poor. TIME SPENT: More than 30 minutes. Plan and coordination of the patient's care discussed in the presence of nurse. RAYNA
--- NOTE | 2020-06-12 11:53 | CM.DICTOOL ---
ADMISSION: 06/07/20 14:12 DISCHARGE: JUNE 12, 2020 DATE OF SERVICE: 06/12/20 FINAL DIAGNOSIS CHF COPD EXACERBATION SEVERLY DILATED CARDIOMYOPATHY WITH EF 17% SYSTOLIC CONGESTIVE HEART FAILURE DILATED CARDIOMYOPATHY PAROXYSMAL ATRIAL FIBRILLATION (ON COUMADIN) CAD WITH STENT APPLICATION, 2003 AND 2015 CVA, 2009 SEVERE CHRONIC LUNG DISEASE, OXYGEN AT NIGHT AND PRN ABDOMINAL AORTIC ANEURYSM WITH ENDOVASCULAR AORTIC STENT GRAFT (DR. SPEARS) DYSLIPIDEMIA CHRONIC ANEMIA BPH DEPRESSION WITH BEHAVIORAL DISTURBANCE NONOBSTRUCTIVE RIGHT RENAL CALCULI DEGENERATIVE CHANGES LUMBAR SPINE PREVIOUS SMOKER BASAL CELL CARCINOMA,LEFT SIDE OF NOSE ENDOVASCULAR STENT GRAFT (DR. SPEARS) CATARACT EXTRACTION, RIGHT 02/06 CATARACT EXTRACTION, LEFT 03/08 ECHOCARDIOGRAM: 06/10/2020 ENLARGED RIGHT VENTRICLE, LEFT ATRIAL AND LEFT VENTRICLE CAVITIES MODERATE MITRAL REGURGITATION SEVERELY DILATED CARDIOMYOPATHY WITH POOR EJECTION FRACTION (17%) LAST VITALS Temp Pulse Resp BP Pulse Ox 97.5 F L 57 L 18 79/50 L 90 L 06/12/20 05:36 06/12/20 05:36 06/12/20 05:36 06/12/20 05:36 06/12/20 10:00 TAKE THESE MEDICATIONS AT HOME Albuterol Sulfate (Albuterol Sulfate (Ventolin Hfa) 18 Gm 1 Puff With Spacer) 2 puff IH Q4-6H PRN PRN Reason: SOA Aspirin (Aspirin 81 Mg Tab.Chew) 81 mg PO DAILYWM [facility] Last Admin: 06/12/20 08:41 Dose: 81 mg Documented by: Atorvastatin Calcium (Atorvastatin Calcium 20 Mg Tablet) 20 mg PO DAILY [facility] Last Admin: 06/12/20 08:42 Dose: 20 mg Documented by: Benztropine Mesylate (Benztropine Mesylate 1 Mg Tablet) 1 mg PO BID [facility] Last Admin: 06/12/20 08:41 Dose: 1 mg Documented by: BREO ELLIPTA INHALER 1 INHALATION DIRECTED [facility] Last Admin: 06/12/20 08:43 Dose: 2 puff Documented by: Carvedilol (Carvedilol 3.125 Mg Tablet) 3.125 mg PO BIDWM [facility] Last Admin: 06/12/20 08:42 Dose: 3.125 mg Documented by: Furosemide (Furosemide 40 Mg Tablet) 40 mg PO BIDAC [facility] Last Admin: 06/12/20 05:48 Dose: 40 mg Documented by: Haloperidol (Haloperidol 0.5 Mg Tablet) 0.5 mg PO BID [facility] Last Admin: 06/12/20 08:42 Dose: 0.5 mg Documented by: Lisinopril (Lisinopril 5 Mg Tablet) 2.5 mg PO DAILY [facility] Last Admin: 06/12/20 08:42 Dose: 2.5 mg Documented by: Nitroglycerin (Nitroglycerin 0.4 Mg Tab.Subl) 0.4 mg SL Q5MIN PRN PRN Reason: Chest Pain Omeprazole (Omeprazole 20 Mg Capsule.Dr) 20 mg PO QDAC [facility] Last Admin: 06/12/20 05:48 Dose: 20 mg Documented by: Potassium Chloride (Potassium Chloride 10 Meq Capsule.Er) 10 meq PO DAILYWM [facility] Last Admin: 06/12/20 08:43 Dose: 10 meq Documented by: Sertraline HCl (Sertraline Hcl 50 Mg Tablet) 100 mg PO BEDTIME [facility] Last Admin: 06/11/20 21:08 Dose: 100 mg Documented by: Spironolactone (Spironolactone 25 Mg Tablet) 25 mg PO DAILY [facility] Last Admin: 06/12/20 08:42 Dose: 25 mg Documented by: Tamsulosin HCl (Tamsulosin Hcl 0.4 Mg Cap.Er.24h) 0.4 mg PO DAILY [facility] Last Admin: 06/12/20 08:41 Dose: 0.4 mg Documented by: Warfarin Sodium (Warfarin Sodium 3 Mg Tablet) 6 mg PO 1700 [facility] Last Admin: 06/10/20 17:00 Dose: 6 mg Documented by: ALLERGIES No Known Allergies Allergy (Verified 06/07/20 11:09) DISCONTINUED MEDICATIONS MUCINEX 600 MG QID FINASTERIDE 5 MG DAILY NEW PRESCRIPTIONS: NONE SMOKING: NOT APPLICABLE DISEASE SPECIFIC EDUCATION: CONGESTIVE HEART FAILURE WEIGH SELF DAILY; REPORT WEIGHT GAIN OF 5 POUNDS IN ONE WEEK USE OF OXYGEN CONTINUOUSLY APPOINTMENT LAB REVIEW: 06/12/20 04:45 06/12/20 04:45 06/12/20 04:45: Sodium 134.2 L, Potassium 3.58, Chloride 99.2, Carbon Dioxide 28.0, Anion Gap 10.58, BUN 21.0 H, Creatinine 0.87, Estimated GFR (MDRD) 87.00, BUN/Creatinine Ratio 24.13, Glucose 96.7, Calcium 8.91, Total Bilirubin 0.57, AST 26.3, ALT 29.2, Alkaline Phosphatase 63.8, Total Protein 6.35, Albumin 3.35 L, Globulin 3.00, Albumin/Globulin Ratio 1.11 06/12/20 04:45: PT 23.8 H D, INR 2.23 06/12/20 04:45: WBC 9.39, RBC 3.56 L, Hgb 11.1 L, Hct 33.3 L, MCV 93.5, MCH 31.2 H, MCHC 33.3, RDW Coeff of Oleg 16.9 H, Plt Count 133 L, Immature Gran % (Auto) 0.7, Neut % (Auto) 80.5 H, Lymph % (Auto) 9.9 L, [place] % (Auto) 6.7, Eos % (Auto) 2.0, Baso % (Auto) 0.2, Neut # (Auto) 7.6 H, Lymph # (Auto) 0.9, [place] # (Auto) 0.6, Eos # (Auto) 0.2, Baso # (Auto) 0.0, Immature Gran # (Auto) 0.1 PLAN: DISCHARGE HOME DIET: HEART HEALTHY ACTIVITY: GRADUALLY RESUME TOLERATED WALK LENGTH OF HOUSE 2-3 TIMES DAILY DURING INCLEMENT WEATHER USE OXYGEN AT 3 LITERS CONTINUOUSLY; AT NIGHT AND WITH ACTIVITY AN APPOINTMENT IS SCHEDULED WITH DR. HAMPTON/GUILLE OLIVER APRN ON May AT 1:30 INR WILL BE CHECKED IN OFFICE CODE STATUS: CPR ONLY; DO NOT INTUBATE MR. GALLEGOS IS ALERT AND ORIENTED X 4. HE IS INDEPENDENT WITH ADL'S; FEEDING, BATHING, SHAVING AND DRESSING. HE TRANSFERS FROM THE BED TO THE CHAIR WITH SBA. HE IS AMBULATORY IN THE ROOM AND HALLWAY WITH USE OF OXYGEN AND SBA. HE DOES NOT REQUIRE AN ASSISTIVE DEVICE WITH AMBULATION. MR GALLEGOS LIVES ALONE. HE REPORTS HE DRIVES TO SEE HIS MOTHER DAILY TO HAVE LUNCH. HE DECLINES OFFER OF HOME HEALTH AND REPORTS "I AM NOT HOME BOUND". MR. GALLEGOS HAS OXYGEN AT HOME; CONCENTRATOR AND PORTABILITY SUPPLIED BY [facility]. [facility] HAS BEEN CONTACTED TO REVIEW OXYGEN WITH PATIENT; ESPECIALLY THE INCREASE TO 3 LITERS. [facility] IS ALSO ADVISED THAT MR. GALLEGOS IS INTERESTED IN PURCHASING A PORTABLE CONCENTRATOR FOR HIS USE WHEN AWAY FROM HOME. HYDRATION STATUS IS GOOD. SKIN IS INTACT. BRUISING IS NOTED TO THE ARMS. MD GUILLE ARZOLA APRN
--- NOTE | 2020-06-12 13:59 | PN ---
DATE OF SERVICE: 06/09/2020 SUBJECTIVE: 69 year old white male hospitalized with weakness, shortness of breath. The patient had acute gastroenteritis for which he was hospitalized at [facility] and discharged home. Likely the patient had fluid overload. The patient's breathing is a lot better. He is being treated with Lasix, Aldactone and steroids. The patient is on unloading agent. His appetite has improved. REVIEW OF SYSTEMS: CONSTITUTIONAL: No night sweats. No fatigue, malaise, lethargy. No fever or chills. HEENT: Eyes: No visual changes. No eye pain. No eye discharge. ENT: No runny nose. No epistaxis. No sinus pain. No sore throat. No odynophagia. No congestion. RESPIRATORY: No cough, no congestion. No hemoptysis. Shortness of breath as usual. CARDIOVASCULAR: No angina symptoms. No CHF symptoms. No atypical chest pain for CAD. No palpitations. No PND. No orthopnea. GASTROINTESTINAL: No abdominal pain. No nausea or vomiting. No diarrhea or constipation. No hematemesis. No hematochezia. Appetite has improved. Feeling a little stronger. GENITOURINARY: No urgency. No frequency. No dysuria. No hematuria. No obstructive symptoms. No discharge. No pain. No significant abnormal bleeding. MUSCULOSKELETAL: No musculoskeletal pain; no joint swelling. NEUROLOGICAL: No headache. No neck pain. No syncope. No seizures. No dizziness. PSYCHIATRIC: Not anxious. No depression. No suicidal thoughts. No homicidal thoughts. SKIN: No rash. No lesions. No wounds. ENDOCRINE: No unexplained weight loss. No weight gain. HEMATOLOGIC/LYMPHATIC: No anemia. No purpura. No petechiae. No prolonged or excessive bleeding. No palpable lymph nodes. PHYSICAL EXAMINATION: VITAL SIGNS: Temperature 97.4, pulse 55, respiratory rate 16, blood pressure 80/40 and pulse ox 96%. HEENT: Head normocephalic, atraumatic. Eyes: Extraocular muscles are intact. Pupils are equal, round and reactive to light and accommodation. Ears: No lesions. Nose appeared normal. Throat: No exudate or erythema. NECK: Supple. No JVD, no carotid bruit. No lymphadenopathy or thyromegaly. LUNGS: Decreased breath sounds but clear to auscultation. Percussion note normal. Chest symmetrical. HEART: S1, S2, no S3. No murmurs. No cyanosis or clubbing. No ascites. Pulses: Dorsalis pedis and posterior tibial pulses +1 to +2 bilaterally. ABDOMEN: Soft. Nontender. Bowel sounds active. No CVA tenderness. No mass felt. EXTREMITIES: No edema. Full range of motion of all extremities, equal. NEUROLOGIC: No focal deficit. Cranial nerves II through XII are grossly intact. No headache. No double vision. SKIN: Not dry. Intact. Turgor - normal. LYMPHATIC: No palpable lymph nodes/no lymphedema. MUSCULOSKELETAL: Normal joints with no swelling. Muscle tone is normal. LABS: Hgb 10.8, hct 32, WBC 8,800 normal differential, creatinine 1.1, BUN 24, potassium 3.5. Blood gasses pO2 72, pCO2 38, pH 7.44 with 93% oxygen saturation on 4 liters. ASSESSMENT: 1. Chronic respiratory failure under control 2. Dilated cardiomyopathy 3. Systolic congestive heart failure, endstage 4. Peripheral arterial disease 5. Chronic lung disease 6. Chronic anemia PLAN: 1. Continue all the medications with Lasix and Aldactone 2. Will given 0.5cc Decadron daily 3. Encourage the patient to eat and walk 4. The patient is DNR CONDITION: Stable TIME SPENT: More than 30 minutes. Plan and coordination of the patient's care discussed in the presence of nurse. RAYNA
--- NOTE | 2020-06-14 10:17 | PN ---
DATE OF SERVICE: 06/11/20 SUBJECTIVE: The patient was seen and examined with the nurse practitioner. The patient's condition has improved. Respiratory status has improved. The patient's echo showed dilated cardiomyopathy with ejection fraction of 15 to 20%. LV size is markedly enlarged with LA size. The patient's prognosis is poor considering the patient's pulmonary problems. Problem with history of aortic aneurysm. TIME SPENT: More than 30 minutes. Plan and coordination of the patient's care discussed in the presence of nurse. RAYNA
--- NOTE | 2020-06-14 11:16 | DS ---
DATE OF SERVICE: 06/12/20 FINAL DIAGNOSIS: 1. CHF 2. COPD EXACERBATION 3. SEVERELY DILATED CARDIOMYOPATHY WITH EF 17% 4. SYSTOLIC CONGESTIVE HEART FAILURE 5. DILATED CARDIOMYOPATHY 6. PAROXYSMAL ATRIAL FIBRILLATION (ON COUMADIN) 7. CAD WITH STENT APPLICATION, 2003 AND 2015 8. CVA, 2009 9. SEVERE CHRONIC LUNG DISEASE, OXYGEN AT NIGHT AND PRN 10. ABDOMINAL AORTIC ANEURYSM WITH ENDOVASCULAR AORTIC STENT GRAFT (DR. SPEARS) 11. DYSLIPIDEMIA 12. CHRONIC ANEMIA 13. BPH 14. DEPRESSION WITH BEHAVIORAL DISTURBANCE 15. NONOBSTRUCTIVE RIGHT RENAL CALCULI 16. DEGENERATIVE CHANGES LUMBAR SPINE 17. PREVIOUS SMOKER 18. BASAL CELL CARCINOMA,LEFT SIDE OF NOSE 19. ENDOVASCULAR STENT GRAFT (DR. SPEARS) 20. CATARACT EXTRACTION, RIGHT 02/06 21. CATARACT EXTRACTION, LEFT 03/08 22. ECHOCARDIOGRAM: 06/10/2020: ENLARGED RIGHT VENTRICLE, LEFT ATRIAL AND LEFT VENTRICLE CAVITIES, MODERATE MITRAL REGURGITATION, SEVERELY DILATED CARDIOMYOPATHY WITH POOR EJECTION FRACTION (17%) LAST VITALS Temp Pulse Resp BP Pulse Ox 97.5 F L 57 L 18 79/50 L 90 L 06/12/20 05:36 06/12/20 05:36 06/12/20 05:36 06/12/20 05:36 06/12/20 10:00 DISCHARGE INSTRUCTIONS: 1. DISCHARGE HOME 2. AN APPOINTMENT IS SCHEDULED WITH DR. HAMPTON/GUILLE OLIVER APRN ON May AT 1:30 3. INR WILL BE CHECKED IN OFFICE MEDICATIONS AT DISCHARGE: Albuterol Sulfate (Albuterol Sulfate (Ventolin Hfa) 18 Gm 1 Puff With Spacer) 2 puff IH Q4-6H PRN PRN Reason: SOA Aspirin (Aspirin 81 Mg Tab.Chew) 81 mg PO DAILYWM [facility] Last Admin: 06/12/20 08:41 Dose: 81 mg Documented by: Atorvastatin Calcium (Atorvastatin Calcium 20 Mg Tablet) 20 mg PO DAILY [facility] Last Admin: 06/12/20 08:42 Dose: 20 mg Documented by: Benztropine Mesylate (Benztropine Mesylate 1 Mg Tablet) 1 mg PO BID [facility] Last Admin: 06/12/20 08:41 Dose: 1 mg Documented by: BREO ELLIPTA INHALER 1 INHALATION DIRECTED [facility] Last Admin: 06/12/20 08:43 Dose: 2 puff Documented by: Carvedilol (Carvedilol 3.125 Mg Tablet) 3.125 mg PO BIDWM [facility] Last Admin: 06/12/20 08:42 Dose: 3.125 mg Documented by: Furosemide (Furosemide 40 Mg Tablet) 40 mg PO BIDAC [facility] Last Admin: 06/12/20 05:48 Dose: 40 mg Documented by: Haloperidol (Haloperidol 0.5 Mg Tablet) 0.5 mg PO BID [facility] Last Admin: 06/12/20 08:42 Dose: 0.5 mg Documented by: Lisinopril (Lisinopril 5 Mg Tablet) 2.5 mg PO DAILY [facility] Last Admin: 06/12/20 08:42 Dose: 2.5 mg Documented by: Nitroglycerin (Nitroglycerin 0.4 Mg Tab.Subl) 0.4 mg SL Q5MIN PRN PRN Reason: Chest Pain Omeprazole (Omeprazole 20 Mg Capsule.Dr) 20 mg PO QDAC [facility] Last Admin: 06/12/20 05:48 Dose: 20 mg Documented by: Potassium Chloride (Potassium Chloride 10 Meq Capsule.Er) 10 meq PO DAILYWM [facility] Last Admin: 06/12/20 08:43 Dose: 10 meq Documented by: Sertraline HCl (Sertraline Hcl 50 Mg Tablet) 100 mg PO BEDTIME [facility] Last Admin: 06/11/20 21:08 Dose: 100 mg Documented by: Spironolactone (Spironolactone 25 Mg Tablet) 25 mg PO DAILY [facility] Last Admin: 06/12/20 08:42 Dose: 25 mg Documented by: Tamsulosin HCl (Tamsulosin Hcl 0.4 Mg Cap.Er.24h) 0.4 mg PO DAILY [facility] Last Admin: 06/12/20 08:41 Dose: 0.4 mg Documented by: Warfarin Sodium (Warfarin Sodium 3 Mg Tablet) 6 mg PO 1700 [facility] Last Admin: 06/10/20 17:00 Dose: 6 mg Documented by: NEW PRESCRIPTIONS: NONE DISCONTINUED MEDICATIONS: MUCINEX 600 MG QID FINASTERIDE 5 MG DAILY DIET INSTRUCTIONS: HEART HEALTHY ACTIVITY: GRADUALLY RESUME TOLERATED WALK LENGTH OF HOUSE 2-3 TIMES DAILY DURING INCLEMENT WEATHER USE OXYGEN AT 3 LITERS CONTINUOUSLY; AT NIGHT AND WITH ACTIVIT SMOKING: NOT APPLICABLE DISEASE SPECIFIC EDUCATION: CONGESTIVE HEART FAILURE WEIGH SELF DAILY; REPORT WEIGHT GAIN OF 5 POUNDS IN ONE WEEK USE OF OXYGEN CONTINUOUSLY APPOINTMENT HOSPITAL COURSE: The patient was hospitalized with shortness of breath. The patient previously was seen in the emergency room, a couple days prior to hospitalization and was transferred to [facility] with acute gastroenteritis. The patient had IV fluids and was sent home. Appendicitis was suspected which was ruled out, probably had fluid overload. In the emergency room, the patient was examined and was in respiratory failure. He was resumed on his Lasix, Aldactone. Steroids were also given as the patient had some wheezing with mild cough. The patient was put on antibiotics and steroids, admitted to the hospital. The patient's condition improved. his strength improved. His appetite improved. CHF was under control. He has end-stage congestive heart failure. Echocardiogram revealed that his ejection fraction was 15 to 20% with markedly dilated left ventricular cavity. The patient has dilated cardiomyopathy with refractory CHF. He was discharged in stable condition to be followed as an outpatient. The patient is a DNR. Discharge medications were the came as his home medications. TIME SPENT: More than 60 minutes. RAYNA
--- NOTE | 2020-06-14 11:18 | PN ---
BILLING 06/07/20 ADMISSION DAY LEVEL 5 06/08/20 INTERMEDIATE 06/09/20 INTERMEDIATE 06/10/20 INTERMEDIATE 06/11/20 INTERMEDIATE 06/12/20 D IN DISCHARGE MTDD
--- NOTE | 2020-06-18 11:23 | OTDC ---
Date of Evaluation:06/07/20 Diagnosis:[CHF Exacerbation, COPD, Increased SOB.] Number of visits:[1] Last Date of Service:[OT evaluation 06/13/20] Reason For Discharge:[changed to observation room] Discharge Summary:[Pt was placed in observation room after he had been here a few days. Pt was better after her had been here for a few days.] RAYNA
== END 2020-06-12 13:30 | disposition home or self-care (01) | DRG 191 ==
LOC: ED 10:51 → MEDSURG A 14:12
PROVIDERS: ADMIT Internal Medicine; ATTEND Internal Medicine
DX: I25.10 Atherosclerotic heart disease of native coronary artery without angina pectoris; I42.0 Dilated cardiomyopathy; F41.3 Other mixed anxiety disorders; I73.9 Peripheral vascular disease, unspecified; J44.9 Chronic obstructive pulmonary disease, unspecified; D64.9 Anemia, unspecified; R06.02 Shortness of breath; Z20.822 Contact with and (suspected) exposure to COVID-19; F41.9 Anxiety disorder, unspecified; J96.10 Chronic respiratory failure, unspecified whether with hypoxia or hypercapnia

== ENCOUNTER 2020-09-19 18:32 | Inpatient (IN) ==
--- NOTE | 2020-09-19 18:45 | ED.PDOC ---
General ED Provider: Dr. LALA DIAZ Chief Complaint: Shortness of Air Stated Complaint: Dyspnea Time Seen by Provider: 09/19/20 18:44 Mode of Arrival: Ambulance Information Source: Patient and EMT Exam Limitations: No limitations Primary Care Provider: STANTON HAMPTON Nursing and Triage Documentation Reviewed and Agree: Yes Does patient meet sepsis criteria?: No System Inflammatory Response Syndrome: Not Applicable Sepsis Protocol: For patient's 13 years and over: Temp is 96.8 and below OR 101 and greater Pulse >90 BPM Resp >20/minute Acutely Altered Mental Status Are patient's symptoms suggestive of a new infection, such as: -Pneumonia -Skin, Soft Tissue -Endocarditis -UTI -Bone, Joint Infection -Implantable Device -Acute Abdominal Infection -Wound Infection -Meningitis -Blood Stream Catheter Infection -Unknown Respiratory Complaint Exam Shortness of Air Complaint/Exam Symptoms Are: Still present Timing: Constant Initial Severity: Moderate Current Severity: Moderate Character: Reports Dyspnea at rest, Dyspnea on exertion and Orthopnea Aggravating: Reports Recumbent position Alleviating: Reports Oxygen and Upright position Associated Signs and Symptoms: Reports Edema and Labored breathing; Denies Cough, Wheezing, Chest pain with cough, Chest pain, Fever, Chills, Diaphoresis, Nasal congestion, Dizziness, Calf pain, Calf swelling, Rapid breathing and Decreased intake Related History: Reports Similar episode (CHF hx, recent admit for same.) History of Healthcare-Acquired Pneumonia: No Pulmonary Embolism Risk Factors: Reports None Cardiac Risk Factors: Reports CAD Pseudomonas Risk Factors: Reports None Tuberculosis Risk Factors: Reports None Home Oxygen Use: Yes (4 L) Recent Stress Test: No Recent Echo/LV Function: No Respiratory Distress: Moderate Stridor Present: No Tracheal Deviation: No Subcutaneous Emphysema: No Accessory Muscle Use: No Retractions: Not Present Diminished Breath Sounds: Yes Prolonged Expiratory Phase: Yes Unable to Speak Full Sentences: No Fatigue: Yes Leg Swelling: Yes Nicolasa's Sign Present: No Grunting Respirations: No Kussmaul Respirations: No Differential Diagnoses: CHF, Pulmonary Edema, Pneumonia and URI Review of Systems Review Of Systems Constitutional: Reports No symptoms Eyes: Reports No symptoms Ears, Nose, Mouth, Throat: Reports No symptoms Respiratory: Reports Orthopnea and Short of air Cardiac: Reports Edema; Denies Chest pain GI: Reports No symptoms : Reports No symptoms Musculoskeletal: Reports No symptoms Skin: Reports No symptoms Neurological: Reports No symptoms Endocrine: Reports No symptoms Hematologic/Lymphatic: Reports No symptoms All Other Systems: Reviewed and Negative [facility] Medical History Arterial aneurysm CAD (coronary artery disease) Cancer Chronic anticoagulation Chronic combined systolic and diastolic heart failure COPD (chronic obstructive pulmonary disease) Dilated cardiomyopathy GERD (gastroesophageal reflux disease) Hyperlipidemia Hypertension Myocardial infarction Paroxysmal A-fib Skin cancer TIA (transient ischemic attack) Family History FATHER Heart attack Social History Smoking and tobacco status: Former smoker Alcohol intake: never Surgical History History of AAA (abdominal aortic aneurysm) repair History of coronary artery stent placement Physical Exam Physical Exam Appearance: Reports Ill-appearing and Thin Ill-appearing: Moderate Pain Distress: None Eyes: Reports SABRINA ENT: Reports Oropharynx normal Neck: Supple Respiratory: Reports Airway patent, Breath sounds equal, Breath sounds diminished, Crackles, Rhonchi and Other (rales bibasilar) Cardiovascular: Reports RRR and Pulses normal GI/: Reports Soft and Nontender Musculoskeletal: Reports Normal strength and ROM intact Skin: Reports Warm and Dry Neurological: Reports Sensation intact, Motor intact and Alert Psychiatric: Reports Affect appropriate and Mood appropriate Interpretation Radiology Interpretation Radiology Interpretation By: Radiologist Radiology Results: Positive Exam Interpreted: Portable CXR Xray Comments: CHF, bibasilar effusions EKG Interpretation Time of EKG #1: 19:18 Rate: Normal Rhythm: Sinus Ectopy: None [place]: NL ST Segment: Normal Interpretation: NSR, no ischemia, IVCD. Physician Notification Case Discussed Admit/Transition Orders Entered by ED Provider: Yes Reviewed With: Dr. Hampton Admit To: Inpatient Critical Care Note Critical Care Note Total Critical Care Time (mins): 30 (Acute management of CHF exacerbation with underlying risk of respiratory compromise.) Course Course Hematology/Chemistry: 09/19/20 19:03 09/19/20 19:03 Orders, Labs, Meds: Lab Review 09/19/20 09/19/20 09/19/20 19:03 19:03 19:03 WBC 9.13 RBC 3.90 L Hgb 12.1 L Hct 35.4 L MCV 90.8 MCH 31.0 MCHC 34.2 RDW Coeff of Oleg 17.4 H Plt Count 148 Immature Gran % (Auto) 0.7 Neut % (Auto) 83.3 H Lymph % (Auto) 6.6 L [place] % (Auto) 7.6 Eos % (Auto) 1.3 Baso % (Auto) 0.5 Neut # (Auto) 7.6 H Lymph # (Auto) 0.6 [place] # (Auto) 0.7 Eos # (Auto) 0.1 Baso # (Auto) 0.1 Immature Gran # (Auto) 0.1 PT 22.9 H INR 2.14 Sodium 130.2 L Potassium 4.20 Chloride 104.5 Carbon Dioxide 16.3 L Anion Gap 13.60 BUN 22.8 H Creatinine 0.98 Estimated GFR (MDRD) 75.00 BUN/Creatinine Ratio 23.26 Glucose 98.6 Calcium 8.92 Magnesium 2.00 Total Bilirubin 1.47 H AST 81.5 H ALT 100.4 H Alkaline Phosphatase 110.6 Troponin I NT-Pro-B Natriuret Pep Total Protein 6.41 Albumin 3.65 Globulin 2.76 Albumin/Globulin Ratio 1.32 09/19/20 09/19/20 19:03 19:03 WBC RBC Hgb Hct MCV MCH MCHC RDW Coeff of Oleg Plt Count Immature Gran % (Auto) Neut % (Auto) Lymph % (Auto) [place] % (Auto) Eos % (Auto) Baso % (Auto) Neut # (Auto) Lymph # (Auto) [place] # (Auto) Eos # (Auto) Baso # (Auto) Immature Gran # (Auto) PT INR Sodium Potassium Chloride Carbon Dioxide Anion Gap BUN Creatinine Estimated GFR (MDRD) BUN/Creatinine Ratio Glucose Calcium Magnesium Total Bilirubin AST ALT Alkaline Phosphatase Troponin I 0.147 H NT-Pro-B Natriuret Pep 8840.000 H Total Protein Albumin Globulin Albumin/Globulin Ratio Orders Category Date Time Status ADMIT PATIENT INPATIENT .TO [facility] (MONITORED BED) ADMISSION 09/19/20 20:01 Active EKG-(ED ONLY) Stat CARDIO 09/19/20 18:49 Completed ACTIVITY .BR with BRP CARE 09/19/20 20:07 Active INTAKE & OUTPUT Q8HR CARE 09/19/20 20:07 Active TELEMETRY MONITORING TELE CARE 09/19/20 20:02 Active TELEMETRY MONITORING TELE CARE 09/19/20 20:07 Active VITAL SIGNS Q4HR CARE 09/19/20 20:07 Active WEIGH PATIENT 0600 CARE 09/19/20 20:07 Active 2 GRAM SODIUM DIET DIETARY 09/19/20 Dinner Ordered CBC W/ AUTO DIFF Stat LAB 09/19/20 19:03 Completed COMPREHENSIVE METABOLIC PANEL Stat LAB 09/19/20 19:03 Completed MAGNESIUM Stat LAB 09/19/20 19:03 Completed NT-PROBNP Stat LAB 09/19/20 19:03 Completed PT WITH INR Stat LAB 09/19/20 19:03 Completed RESPIRATORY PANEL 2.1 (PCR) Stat LAB 09/19/20 20:25 Received TROPONIN I DAILY@0600 LAB 09/20/20 06:00 Ordered TROPONIN I DAILY@0600 LAB 09/21/20 06:00 Ordered TROPONIN I Stat LAB 09/19/20 19:03 Completed 0.9 % Sodium Chloride [Saline Flush] MEDS 09/19/20 21:00 Active 1 syr IVF Q8HR Dexamethasone Sod Phosphate [Decadron] MEDS 09/19/20 20:00 Discontinued 4 mg IM ONCE ONE Furosemide [Lasix] MEDS 09/19/20 20:00 Discontinued 40 mg IVP ONCE ONE CHEST, 1V AP ONLY Stat RADS 09/19/20 18:49 Completed Medications Generic Name Dose Route Start Last Admin Trade Name Freq PRN Reason Stop Dose Admin Sodium Chloride 1 syr 09/19/20 21:00 09/19/20 20:18 0.9% Sodium Chloride 10 Ml Disp.Syrin IVF 1 syr Q8HR LOBO Administration Discontinued Medications Generic Name Dose Route Start Last Admin Trade Name Freq PRN Reason Stop Dose Admin Dexamethasone Sodium Phosphate 4 mg 09/19/20 20:00 09/19/20 20:07 Dexamethasone Sod Phos 4 Mg/Ml Inj IM 09/19/20 20:01 4 mg ONCE ONE Administration Furosemide 40 mg 09/19/20 20:00 09/19/20 20:18 Furosemide Inj 40 Mg/4 Ml Vial IVP 09/19/20 20:01 40 mg ONCE ONE Administration Vital Signs: Temp Pulse Resp BP Pulse Ox 09/19/20 18:33 98.0 F 83 28 H 102/79 90 L Discharge Plan Discharge Patient Disposition: ADMITTED INPATIENT ED Provider: LALA DIAZ Condition: Stable Physician Progress Note: [Mod. acute on chronic CHF exacerbation. Minimal elev. troponin c/w cardiac strain, no ischemia suspected. Disc. with Dr. Hampton.]
[2020-09-19 19:07] LABS: BASOPHILS # (AUTO) 0.1 K/uL (0-0.2); BASOPHILS % (AUTO) 0.5 % (0.0-3.0); EOSINOPHILS # (AUTO) 0.1 K/ul (0.0-0.7); EOSINOPHILS % (AUTO) 1.3 % (0.0-7.0); HEMATOCRIT 35.4 % (42.0-52.0); HEMOGLOBIN 12.1 g/dl (14.0-18.0); IMMATURE GRANULOCYTE # (AUTO) 0.1 (0.0-1.0); IMMATURE GRANULOCYTE % (AUTO) 0.7 % (0.0-5.0); LYMPHOCYTES # (AUTO) 0.6 K/uL (0.60-3.4); LYMPHOCYTES % (AUTO) 6.6 (10.0-50.0); MEAN CORPUSCULAR HGB CONC 34.2 (31.8-35.4); MEAN CORPUSCULAR VOLUME 90.8 fl (80.0-94.0); MONOCYTES # (AUTO) 0.7 K/uL (0.4-2.0); MONOCYTES % (AUTO) 7.6 (0-10); NEUTROPHILS # (AUTO) 7.6 K/ul (2.0-6.9); NEUTROPHILS % (AUTO) 83.3 % (42.2-75.2); PLATELET COUNT 148 10^3/uL (140-440); RDW COEFFICIENT OF VARIATION 17.4 % (11.6-14.8); WHITE BLOOD COUNT 9.13 K/ul (4.2-10.2)
[2020-09-19 19:18] LABS: PROTHROMBIN TIME 22.9 SEC (9.3-11.0)
[2020-09-19 19:21] LABS: ALANINE AMINOTRANSFERASE 100.4 U/L (0-50); ALBUMIN 3.65 g/dL (3.5-5.0); ALKALINE PHOSPHATASE 110.6 U/L (56-119); ASPARTATE AMINO TRANSFERASE 81.5 U/L (17-59); BILIRUBIN,TOTAL 1.47 mg/dL (0.2-1.3); BLOOD UREA NITROGEN 22.8 mg/dL (9-20); CALCIUM 8.92 mg/dL (8.4-10.2); CARBON DIOXIDE 16.3 mmol/L (22-30.0); CHLORIDE 104.5 mmol/L (98-107); CREATININE 0.98 mg/dL (0.60-1.10); GLUCOSE 98.6 mg/dL (74-106); POTASSIUM 4.2 mmol/L (3.5-5.1); SODIUM 130.2 mmol/L (134.5-145); TOTAL PROTEIN 6.41 g/dL (6.3-8.2)
--- NOTE | 2020-09-19 19:30 | DI ---
EXAM: Single view of the chest. History: Dyspnea. Comparison: Chest radiograph 06/07/2020 Findings: Heart is enlarged. There is interstitial pulmonary edema and small bilateral pleural effu sions. No pneumothorax. No acute osseous abnormalities. Impression: Cardiomegaly with interstitial pulmonary edema and small bilateral pleural effusions
[2020-09-19] MEDS ORDERED: LASIX IVP ONE (20:00)
[2020-09-19] MEDS ORDERED: DECADRON IM ONE (20:00)
[2020-09-19 20:34] LABS: BORDETELLA PARAPERTUSSIS (PCR) NOT DETECTED (NOT DETECT); BORDETELLA PERTUSSIS (PCR) NOT DETECTED (NOT DETECT); CHLAMYDIA PNEUMONIAE (PCR) NOT DETECTED (NOT DETECT); CORONAVIRUS 229E (PCR) NOT DETECTED (NOT DETECT); CORONAVIRUS HKU1 (PCR) NOT DETECTED (NOT DETECT); CORONAVIRUS NL63 (PCR) NOT DETECTED (NOT DETECT); CORONAVIRUS OC43 (PCR) NOT DETECTED (NOT DETECT); HUMAN METAPNEUMOVIRUS (PCR) NOT DETECTED (NOT DETECT); HUMAN RHINOVIRUS/ENTEROV (PCR) NOT DETECTED (NOT DETECT); INFLUENZA B (PCR) NOT DETECTED (NOT DETECT); MYCOPLASMA PNEUMONIAE (PCR) NOT DETECTED (NOT DETECT); PARAINFLUENZA VIRUS 1 (PCR) NOT DETECTED (NOT DETECT); PARAINFLUENZA VIRUS 2 (PCR) NOT DETECTED (NOT DETECT); PARAINFLUENZA VIRUS 3 (PCR) NOT DETECTED (NOT DETECT); PARAINFLUENZA VIRUS 4 (PCR) NOT DETECTED (NOT DETECT); RESPIRATORY SYNCYTIAL V (PCR) NOT DETECTED (NOT DETECT); SARS_COV_2 (PCR) NOT DETECTED (NOT DETECT)
[2020-09-19 21:22] LABS: ADENOVIRUS (PCR) NOT DETECTED (NOT DETECT)
[2020-09-20 01:26] VITALS: BMI 23.3
[2020-09-20 04:57] LABS: BASOPHILS % (AUTO) 0.2 % (0.0-3.0); HEMATOCRIT 36.1 % (42.0-52.0); HEMOGLOBIN 11.7 g/dl (14.0-18.0); IMMATURE GRANULOCYTE # (AUTO) 0.1 (0.0-1.0); IMMATURE GRANULOCYTE % (AUTO) 0.8 % (0.0-5.0); LYMPHOCYTES # (AUTO) 0.4 K/uL (0.60-3.4); LYMPHOCYTES % (AUTO) 6.3 (10.0-50.0); MEAN CORPUSCULAR HGB CONC 32.4 (31.8-35.4); MEAN CORPUSCULAR VOLUME 92.6 fl (80.0-94.0); MONOCYTES # (AUTO) 0.2 K/uL (0.4-2.0); MONOCYTES % (AUTO) 2.6 (0-10); NEUTROPHILS # (AUTO) 5.9 K/ul (2.0-6.9); NEUTROPHILS % (AUTO) 90.1 % (42.2-75.2); PLATELET COUNT 123 10^3/uL (140-440); RDW COEFFICIENT OF VARIATION 17.3 % (11.6-14.8); WHITE BLOOD COUNT 6.51 K/ul (4.2-10.2)
[2020-09-20 05:06] LABS: PROTHROMBIN TIME 21.4 SEC (9.3-11.0)
[2020-09-20 05:08] LABS: ALANINE AMINOTRANSFERASE 99.5 U/L (0-50); ALBUMIN 3.5 g/dL (3.5-5.0); ALKALINE PHOSPHATASE 99.9 U/L (56-119); ASPARTATE AMINO TRANSFERASE 67.6 U/L (17-59); BILIRUBIN,TOTAL 1.51 mg/dL (0.2-1.3); BLOOD UREA NITROGEN 26.2 mg/dL (9-20); CALCIUM 8.67 mg/dL (8.4-10.2); CARBON DIOXIDE 17.5 mmol/L (22-30.0); CHLORIDE 104.7 mmol/L (98-107); CREATININE 1.02 mg/dL (0.60-1.10); GLUCOSE 137.9 mg/dL (74-106); POTASSIUM 3.79 mmol/L (3.5-5.1); SODIUM 131.5 mmol/L (134.5-145); TOTAL PROTEIN 6.25 g/dL (6.3-8.2)
[2020-09-20] MEDS ORDERED: ATROPINE SULFATE PFS IVP PRN (06:50)
[2020-09-20] MEDS ORDERED: NITROSTAT SL PRN ×2 (06:50→07:25)
[2020-09-20] MEDS ORDERED: TYLENOL PO PRN (06:50)
[2020-09-20] MEDS ORDERED: VENTOLIN HFA (PER PUFF-WITH SPACER) IH PRN (07:25)
[2020-09-20] MEDS ORDERED: NON-FORMULARY MEDICATION (Fluticasone Furoate-Vilanterol [Breo Ellipta] 1 EACH blister wit IH SCH (07:30)
[2020-09-20] MEDS ORDERED: LASIX IVP ONE (08:37)
--- NOTE | 2020-09-20 08:56 | PCM.PROG ---
Attending Provider: ATTENDING PROVIDER: Dr. STANTON HAMPTON This patient is seen with Juana Baker, Nurse Practitioner. DATE OF SERVICE: 09/20/20 SUBJECTIVE: This 69 year old /WHITE M was hospitalized 09/19/20. The patient is resting comfortably in bed. He had over 700 cc out after arriving from ER last night. It appears there may have been some noncompliance with medication and oxygen at home. REVIEW OF SYSTEMS: CONSTITUTIONAL: Weakness. No night sweats. No fatigue, malaise, lethargy. No fever or chills. HEENT: Eyes: No visual changes. No eye pain. No eye discharge. ENT: No runny nose. No epistaxis. No sinus pain. No odynophagia. No congestion. RESPIRATORY: No cough, no congestion. No hemoptysis. CARDIOVASCULAR: Shortness of breath. No angina symptoms. No CHF symptoms. No atypical chest pain for CAD. No palpitations. No orthopnea. GASTROINTESTINAL: No abdominal pain. No nausea or vomiting. No diarrhea or constipation. No hematemesis. No hematochezia. GENITOURINARY: No urgency. No frequency. No dysuria. No hematuria. No obstructive symptoms. No discharge. No pain. No significant abnormal bleeding. MUSCULOSKELETAL: No musculoskeletal pain; no joint swelling. NEUROLOGICAL: Awake, alert, oriented to time, place and person. No headache. No neck pain. No syncope. No seizures. No dizziness. PSYCHIATRIC: Not anxious. No depression. No suicidal thoughts. No homicidal thoughts. SKIN: No rash. No lesions. No wounds. ENDOCRINE: No unexplained weight loss. No weight gain. HEMATOLOGIC/LYMPHATIC: No anemia. No purpura. No petechiae. No prolonged or exc essive bleeding. No palpable lymph nodes. PHYSICAL EXAMINATION: GENERAL: The patient is awake, alert and oriented, lying/sitting in bed in no distress. VITAL SIGNS: Temperature 98.1 F, Pulse 71, Respiratory Rate 18, BP 84/54, Pulse Ox 94% HEENT: Head normocephalic, atraumatic. Eyes: Extraocular muscles are intact. Pupils are equal, round and reactive to light and accommodation. Ears: No lesions. Nose appeared normal. Throat: No exudate or erythema. NECK: Supple. No JVD, no carotid bruit. No lymphadenopathy or thyromegaly. LUNGS: Diminished breath sounds. Clear to auscultation. Percussion note normal. Chest symmetrical. HEART: S1, S2, no S3. No murmurs. No cyanosis or clubbing. No ascites. Pulses: Dorsalis pedis and posterior tibial pulses +1 to +2 both sides. ABDOMEN: Soft. Non-tender. Bowel sounds active. No CVA tenderness. No mass felt. EXTREMITIES: No edema. Full range of motion of all extremities, equal. NEUROLOGIC: No focal deficit. Cranial nerves II through XII are grossly intact. No headache. No double vision. SKIN: Not dry. Intact. Turgor-normal. LYMPHATIC: No palpable lymph nodes/no lymphedema. MUSCULOSKELETAL: Normal joints with no swelling. Muscle tone is normal. LAB REVIEW: 09/20/20 04:36 09/20/20 04:36 09/20/20 04:36: Sodium 131.5 L, Potassium 3.79, Chloride 104.7, Carbon Dioxide 17.5 L, Anion Gap 13.09, BUN 26.2 H, Creatinine 1.02, Estimated GFR (MDRD) 72.00, BUN/Creatinine Ratio 25.68, Glucose 137.9 H, Calcium 8.67, Total Bilirubin 1.51 H, AST 67.6 H, ALT 99.5 H, Alkaline Phosphatase 99.9, Total Protein 6.25 L, Albumin 3.50, Globulin 2.75, Albumin/Globulin Ratio 1.27 09/20/20 04:36: PT 21.4 H, INR 2.01 09/20/20 04:36: WBC 6.51, RBC 3.90 L, Hgb 11.7 L, Hct 36.1 L, MCV 92.6, MCH 30.0, MCHC 32.4, RDW Coeff of Oleg 17.3 H, Plt Count 123 L, Immature Gran % (Auto) 0.8, Neut % (Auto) 90.1 H, Lymph % (Auto) 6.3 L, [place] % (Auto) 2.6, Eos % (Auto) 0.0, Baso % (Auto) 0.2, Neut # (Auto) 5.9, Lymph # (Auto) 0.4 L, [place] # (Auto) 0.2 L, Eos # (Auto) 0.0, Baso # (Auto) 0.0, Immature Gran # (Auto) 0.1 09/20/20 04:36: Troponin I 0.106 09/19/20 20:25: Adenovirus (PCR) Not detected, B. pertussis DNA (PCR) Not detected, B.parapertussis DNA PCR Not detected, C. pneumoniae DNA (PCR) Not detected, Coronavirus OC43 (PCR) Not detected, Coronavirus HKU1 (PCR) Not detected, Coronavirus 229E (PCR) Not detected, Coronavirus NL63 (PCR) Not detected, Human Metapneumovir PCR Not detected, Influenza Type A (PCR) Not detected, Influenza B (RT-PCR) Not detected, M. pneumoniae (PCR) Not detected, Parainfluenza 1 (PCR) Not detected, Parainfluenza 2 (PCR) Not detected, Parainfluenza 3 (PCR) Not detected, Parainfluenza 4 (PCR) Not detected, RSV (PCR) Not detected, Entero/Rhino (PCR) Not detected, SARS-CoV-2 (PCR) Not detected 09/19/20 19:03: NT-Pro-B Natriuret Pep 8840.000 H 09/19/20 19:03: Troponin I 0.147 H 09/19/20 19:03: Sodium 130.2 L, Potassium 4.20, Chloride 104.5, Carbon Dioxide 16.3 L, Anion Gap 13.60, BUN 22.8 H, Creatinine 0.98, Estimated GFR (MDRD) 75.00, BUN/Creatinine Ratio 23.26, Glucose 98.6, Calcium 8.92, Magnesium 2.00, Total Bilirubin 1.47 H, AST 81.5 H, ALT 100.4 H, Alkaline Phosphatase 110.6, Total Protein 6.41, Albumin 3.65, Globulin 2.76, Albumin/Globulin Ratio 1.32 09/19/20 19:03: PT 22.9 H, INR 2.14 09/19/20 19:03: WBC 9.13, RBC 3.90 L, Hgb 12.1 L, Hct 35.4 L, MCV 90.8, MCH 31.0, MCHC 34.2, RDW Coeff of Oleg 17.4 H, Plt Count 148, Immature Gran % (Auto) 0.7, Neut % (Auto) 83.3 H, Lymph % (Auto) 6.6 L, [place] % (Auto) 7.6, Eos % (Auto) 1.3, Baso % (Auto) 0.5, Neut # (Auto) 7.6 H, Lymph # (Auto) 0.6, [place] # (Auto) 0.7, Eos # (Auto) 0.1, Baso # (Auto) 0.1, Immature Gran # (Auto) 0.1 ASSESSMENT: Please see below. 1. Acute CHF 2. Dilated cardiomyopathy with Ejection fraction of 17% 3. COPD - oxygen dependent. 4. Chronic respiratory failure. 5. Atrial fibrillation on Coumadin. PLAN: 1. Lasix 40 mg IV today. 2. Hold Lasix p.o. 3. Daily INR. 4. UA. 5. ABG on 3L. 6. Daily weights and measures. Plan and coordination of the patient's care discussed in the presence of Diesel Mechanic Helper and nurse. CONDITION: Stable SCRIBED BY: GASTON SAENZ Entry Level Account Manager scribed while in presence of service performed by Dr. Hampton/Juana Baker APRN on 09/20/20 ([id number])
[2020-09-20] MEDS ORDERED: LASIX TAB PO SCH (09:00)
[2020-09-20] MEDS: ZESTRIL PO SCH (09:20)
[2020-09-20] MEDS: COGENTIN PO SCH ×2 (09:21→20:36)
[2020-09-20] MEDS: ALDACTONE PO SCH (09:21)
[2020-09-20] MEDS: ASPIRIN CHEWABLE PO SCH (09:21)
[2020-09-20] MEDS: COREG PO SCH ×2 (09:21→17:17)
[2020-09-20] MEDS: HALDOL PO SCH ×2 (09:21→20:36)
[2020-09-20 09:22] LABS: ABG PH 7.46 (7.35-7.45); BEecf -6.7 (-2.0-3.0); COHb 3.1 (0.5-1.5); HCO3 17.1 (21-28); MetHb 0.9 (0-1.5); TCO2 17.8 (19-24); sO2 94.1 % (94-98); tHb 12.3 g/dl (11.7-17.4)
[2020-09-20] MEDS: FLOMAX PO SCH (09:22)
[2020-09-20] MEDS: LIPITOR PO SCH (09:22)
[2020-09-20] MEDS: MICRO-K CAP PO SCH (09:22)
[2020-09-20] MEDS: SYMBICORT 160-4.5 MCG INHALER IH SCH ×2 (09:24→21:07)
[2020-09-20] MEDS: VENTOLIN HFA (PER PUFF-WITH SPACER) IH SCH ×2 (14:11→20:15)
[2020-09-20] MEDS: COUMADIN PO SCH (17:17)
[2020-09-20] MEDS: ZOLOFT PO SCH (20:36)
[2020-09-20 22:33] LABS: BILIRUBIN,URINE Negative (NEGATIVE); CLARITY,URINE Clear (CLEAR); COLOR,URINE Yellow (YELLOW); GLUCOSE, URINE (UA) Negative (NEGATIVE); KETONES,URINE Negative (NEGATIVE); LEUKOCYTE ESTERASE ,URINE Negative (NEGATIVE); NITRITE,URINE Negative (NEGATIVE); PROTEIN,URINE Negative (NEGATIVE); URINE, BLOOD Trace-intact (NEGATIVE); UROBILINOGEN,URINE 0.2 (0.2)
[2020-09-20 22:34] LABS: HYALINE CASTS, URINE 0-2 (NOT PRESENT); SQUAMOUS EPITHELIAL CELL,UR NOT PRESENT (0-5); URINE RBC, MICROSCOPIC 0-2 (0-2)
[2020-09-21] MEDS: VENTOLIN HFA (PER PUFF-WITH SPACER) IH SCH ×3 (04:30→21:00)
[2020-09-21 05:23] LABS: BASOPHILS % (AUTO) 0.4 % (0.0-3.0); EOSINOPHILS # (AUTO) 0.2 K/ul (0.0-0.7); EOSINOPHILS % (AUTO) 1.8 % (0.0-7.0); HEMATOCRIT 34.7 % (42.0-52.0); HEMOGLOBIN 11.3 g/dl (14.0-18.0); IMMATURE GRANULOCYTE # (AUTO) 0.1 (0.0-1.0); IMMATURE GRANULOCYTE % (AUTO) 0.6 % (0.0-5.0); LYMPHOCYTES # (AUTO) 0.8 K/uL (0.60-3.4); LYMPHOCYTES % (AUTO) 8.9 (10.0-50.0); MEAN CORPUSCULAR HEMOGLOBIN 30.2 pg (27.0-31.0); MEAN CORPUSCULAR HGB CONC 32.6 (31.8-35.4); MEAN CORPUSCULAR VOLUME 92.8 fl (80.0-94.0); MONOCYTES # (AUTO) 0.6 K/uL (0.4-2.0); NEUTROPHILS # (AUTO) 6.8 K/ul (2.0-6.9); NEUTROPHILS % (AUTO) 81.3 % (42.2-75.2); PLATELET COUNT 126 10^3/uL (140-440); RDW COEFFICIENT OF VARIATION 17.3 % (11.6-14.8); RED BLOOD COUNT 3.74 10^6/ul (4.70-6.10); WHITE BLOOD COUNT 8.38 K/ul (4.2-10.2)
[2020-09-21 05:34] LABS: ALANINE AMINOTRANSFERASE 78.8 U/L (0-50); ALBUMIN 2.99 g/dL (3.5-5.0); ALKALINE PHOSPHATASE 87.2 U/L (56-119); ASPARTATE AMINO TRANSFERASE 47.6 U/L (17-59); BILIRUBIN,TOTAL 0.97 mg/dL (0.2-1.3); BLOOD UREA NITROGEN 27.2 mg/dL (9-20); CALCIUM 8.44 mg/dL (8.4-10.2); CARBON DIOXIDE 21.2 mmol/L (22-30.0); CHLORIDE 106.3 mmol/L (98-107); CREATININE 0.95 mg/dL (0.60-1.10); GLUCOSE 95.9 mg/dL (74-106); POTASSIUM 3.53 mmol/L (3.5-5.1); SODIUM 132.6 mmol/L (134.5-145); TOTAL PROTEIN 5.63 g/dL (6.3-8.2)
[2020-09-21 05:41] LABS: PROTHROMBIN TIME 31.3 SEC (9.3-11.0)
[2020-09-21 05:45] LABS: TROPONIN I 0.087 ng/ml (0.0000-0.120)
[2020-09-21] MEDS: PRILOSEC PO SCH (05:57)
[2020-09-21] MEDS: COGENTIN PO SCH ×2 (09:27→20:25)
[2020-09-21] MEDS: LASIX TAB PO SCH ×2 (09:27→16:45)
[2020-09-21] MEDS: LIPITOR PO SCH (09:27)
[2020-09-21] MEDS: MICRO-K CAP PO SCH (09:27)
[2020-09-21] MEDS: HALDOL PO SCH ×2 (09:27→20:25)
[2020-09-21] MEDS: ASPIRIN CHEWABLE PO SCH (09:27)
[2020-09-21] MEDS: ZESTRIL PO SCH (09:27)
[2020-09-21] MEDS: SYMBICORT 160-4.5 MCG INHALER IH SCH ×2 (09:28→20:27)
[2020-09-21] MEDS: ALDACTONE PO SCH (09:28)
[2020-09-21] MEDS: DECADRON IM SCH (09:28)
[2020-09-21] MEDS: FLOMAX PO SCH (09:28)
[2020-09-21] MEDS: COREG PO SCH ×2 (09:28→16:45)
--- NOTE | 2020-09-21 10:28 | PCM.PROG ---
Attending Provider: ATTENDING PROVIDER: Dr. STANTON HAMPOTN DATE OF SERVICE: 09/21/20 SUBJECTIVE: This 69 year old /WHITE M was hospitalized 09/20/20 with CHF. The patient's condition improved. He is feeling better but still short of breath on minimal exertion. The patient has severe CHF, end-stage with extremely low ejection fraction, severe lung disease, history of smoking for a long time. REVIEW OF SYSTEMS: CONSTITUTIONAL: No night sweats. No fatigue, malaise, lethargy. No fever or chills. HEENT: Eyes: No visual changes. No eye pain. No eye discharge. ENT: No runny nose. No epistaxis. No sinus pain. No odynophagia. No congestion. RESPIRATORY: No cough, no congestion. No hemoptysis. Shortness of breath on minimal exertion. CARDIOVASCULAR: No angina symptoms. No CHF symptoms. No atypical chest pain for CAD. No palpitations. No PND. No orthopnea. GASTROINTESTINAL: No abdominal pain. No nausea or vomiting. No diarrhea or constipation. No hematemesis. No hematochezia. GENITOURINARY: No urgency. No frequency. No dysuria. No hematuria. No obstructive symptoms. No discharge. No pain. No significant abnormal bleeding. MUSCULOSKELETAL: No musculoskeletal pain; no joint swelling. NEUROLOGICAL: Awake, alert, oriented to time, place and person. No headache. No neck pain. No syncope. No seizures. No dizziness. PSYCHIATRIC: Not anxious. No depression. No suicidal thoughts. No homicidal thoughts. SKIN: No rash. No lesions. No wounds. ENDOCRINE: No unexplained weight loss. No weight gain. HEMATOLOGIC/LYMPHATIC: No anemia. No purpura. No petechiae. No prolonged or excessive bleeding. No palpable lymph nodes. PHYSICAL EXAMINATION: GENERAL: The patient is awake, alert and oriented, lying/sitting in bed in no distress. VITAL SIGNS: Temperature 97.6 F, Pulse 61, Respiratory Rate 16, BP 92/65, Pulse Ox 93% HEENT: Head normocephalic, atraumatic. Eyes: Extraocular muscles are intact. Pupils are equal, round and reactive to light and accommodation. Ears: No lesions. Nose appeared normal. Throat: No exudate or erythema. NECK: Supple. No JVD, no carotid bruit. No lymphadenopathy or thyromegaly. LUNGS: Paresh crepitations at the bases. Percussion note normal. Chest symmetrical. HEART: S1, S2, no S3. No murmurs. No cyanosis or clubbing. No ascites. Pulses: Dorsalis pedis and posterior tibial pulses +1 to +2 both sides. ABDOMEN: Soft. Non-tender. Bowel sounds active. No CVA tenderness. No mass felt. EXTREMITIES: No pedal edema. Full range of motion of all extremities, equal. NEUROLOGIC: No focal deficit. Cranial nerves II through XII are grossly intact. No headache, no double vision or headache. SKIN: Warm and dry. Intact. Turgor-normal. LYMPHATIC: No palpable lymph nodes/no lymphedema. MUSCULOSKELETAL: Normal joints with no swelling. Muscle tone is normal. LAB REVIEW: 09/21/20 05:15 09/21/20 05:15 09/21/20 05:15: Sodium 132.6 L, Potassium 3.53, Chloride 106.3, Carbon Dioxide 21.2 L, Anion Gap 8.63, BUN 27.2 H, Creatinine 0.95, Estimated GFR (MDRD) 78.00, BUN/Creatinine Ratio 28.63, Glucose 95.9, Calcium 8.44, Total Bilirubin 0.97, AST 47.6, ALT 78.8 H, Alkaline Phosphatase 87.2, Troponin I 0.087, Total Protein 5.63 L, Albumin 2.99 L, Globulin 2.64, Albumin/Globulin Ratio 1.13 09/21/20 05:15: PT 31.3 H D, INR 2.92 09/21/20 05:15: WBC 8.38, RBC 3.74 L, Hgb 11.3 L, Hct 34.7 L, MCV 92.8, MCH 30.2, MCHC 32.6, RDW Coeff of Oleg 17.3 H, Plt Count 126 L, Immature Gran % (A uto) 0.6, Neut % (Auto) 81.3 H, Lymph % (Auto) 8.9 L, [place] % (Auto) 7.0, Eos % (Auto) 1.8, Baso % (Auto) 0.4, Neut # (Auto) 6.8, Lymph # (Auto) 0.8, [place] # (Auto) 0.6, Eos # (Auto) 0.2, Baso # (Auto) 0.0, Immature Gran # (Auto) 0.1 09/20/20 22:23: Urine Color Yellow, Urine Clarity Clear, Urine pH 5.0, Ur Specific Jones 1.015, Urine Protein Negative, Urine Glucose (UA) Negative, Urine Ketones Negative, Urine Blood Trace-intact H, Urine Nitrite Negative, Urine Bilirubin Negative, Urine Urobilinogen 0.2, Ur Leukocyte Esterase Negative, Urine Microscopic RBC 0-2, Ur Squamous Epith Cells Not present, Hyaline Casts 0-2 09/20/20 09:18: Puncture Site R rad, Base Excess -6.7 L, O2 Saturation 94.1, ABG pH 7.46 H, ABG pCO2 24.0 L, ABG pO2 67.0 L, ABG HCO3 17.1 L, ABG Total CO2 17.8 L, Rishabh Test Y, Hemoglobin 0.9, Oxyhemoglobin 91.0 L, Carboxyhemoglobin 3.1 H, Total Hemoglobin 12.3, O2 Delivery Device Cannula, Oxygen Liter Flow 3.00 ASSESSMENT: Please see below. 1. CHF, controlled. 2. Severe chronic lung disease. 3. Atrial fibrillation. PLAN: 1. Continue all medications including restart Lasix, 1 cc Decadron every a.m. 2. INR is 2.9, which is acceptable. Plan and coordination of the patient's care discussed in the presence of Petroleum Plant Operator and nurse. CONDITION: Stable SCRIBED BY: GASTON SAENZ Fuse Maker scribed while in presence of service performed by Dr. STANTON HAMPTON on 09/21/20 ([id number])
--- NOTE | 2020-09-21 14:48 | RS.OTINEVL ---
Subjective - Patient information Date of Evaluation: 06/08/20 Date of Arrival on Unit: 09/20/20 Admitted From:: Emergency Dept Diagnosis: CHF exacerbation, COPD, increased SOA. PRECAUTIONS: High fall risk Usual Living Arrangement: Alone Living Arrangement Comments: Pt is and lives alone in a trailor next door to his mother. His sister comes over 3x wk and cooks for him and his mother. Home Environment: Mobile Home, Stairs (few) Medical History: COPD, CHF Medical History Comments:: Fluid retention, increased SOB, CHF, COPD, Falls in last 3 months. 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 Pt reports he goes to see his mother daily and helps her. He has 3 sisters and one of them cooks for he and his mother. Current Level of Function: Partially Dependent Comments: Pt appears weak. Current Equipment Used at Home: None Pain Assessment - Pain Pain Score: 0 Interventions - Objective Patient Orientation: Person, Place, Time, Situation Current Interventions: IV's, Oxygen, Telemetry Observation: Pt is CGA for sit to stand from Chair. Pt is independent with sitting EOB. Pt is independent with bed mobility. Interventions - ROM Right Upper Extremity AROM: WFL's Left Upper Extremity AROM: WFL's - Strength Right Upper Extremity Strength: Mild Weakness Left Upper Extremity Strength: Mild Weakness - Sensation Right Upper Extremity Sensation: Intact/Normal Left Upper Extremity Sensation: Intact/Normal Balance - Sitting Balance Static Sitting Balance: Normal Dynamic Sitting Balance: Normal - Standing Balance Static Standing Balance: Fair Dynamic Standing Balance: Fair ADL Skills - Self Feeding Self Feeding: Independent - Grooming Grooming: Min Assist - Bathing Bathing UE: Not Tested Bathing LE: Not Tested - Dressing Dressing UE: Min Assist Dressing LE: Min Assist - Toilet Management Toileting Management: Min Assist Functional Mobility - Bed Mobility Supine to Sit: Independent Sit to Supine: Independent - Transfers Sit to Stand: CGA Stand to Sit: Independent Stand Pivot Transfers: CGA JEFFREY INDEX SCORE: . Additional Treatment Performed - Additional units charged OT 1 to 1 Activity: 15 - Time with patient Length of Evaluation: 18 Total treatment time: 33 Activities Would you be interested in leaving your room for activities?: Yes Would you enjoy group activities?: Yes Do you have difficulty with your vision?: Yes (wears glasses) Patient Interests:: Watching Television, Visiting/Socializing Patient Education Patient Education: Education of diagnosis, Home Exercise Program, Home Safety, Education of Plan of Care Teaching Recipient: Patient Teaching Methods: Discussion Assessment Problem List:: Decreased level of function, Requires training/education, Decreased safety/Risk of falls, Weakness Rehab Potential: Good Further Therapy Indicated?: Yes Evaluation Complexity: HISTORY: Low, EXAM OF BODY SYSTEMS: Low, CLINICAL DECISION MAKING: Low Patient's Goal(s): To be able to exert himself during activity without SOA episodes. Short Term Goals - Goals GOAL 1: Pt to tolerated dyn. std. for 8 minutes for self cares. Goal to be met by: 09/26/20 GOAL 2: Pt to increase BUE strength to 4/5 to increase independence of ADLS. Goal to be met by: 09/26/20 GOAL 3: Pt to be independent with home exercise program. Goal to be met by: 09/26/20 GOAL 4: Pt to understand energy conservation techniques and the benefits at home. Goal to be met by: 09/26/20 Medical Coding Specialist Goals GOAL 1: Pt to be independent with ADLS. Goal to be met by: 09/28/20 GOAL 2: Pt to increase BUE strength to 4+/5. Goal to be met by: 09/28/20 GOAL 3: Pt to be independent with safety techniques of transferring. Goal to be met by: 09/28/20 Plan Plan of Care: Therapeutic EX, Therapeutic Activity, Self-Care/Home Management Frequency of Treatment: 1-2 X day, as tolerated Duration of Treatment: 1 Week Anticipated Discharge Destination: Home Treatment Diagnosis (ICD 10 Codes): M62.89 Weakness, Z74.1 Need for assistance with self care. Has the Physician been added for Co-signature?: Yes
[2020-09-21] MEDS: COUMADIN PO SCH (16:45)
[2020-09-21] MEDS: ZOLOFT PO SCH (20:25)
[2020-09-22] MEDS: VENTOLIN HFA (PER PUFF-WITH SPACER) IH SCH ×3 (05:05→19:50)
[2020-09-22 05:15] LABS: BASOPHILS % (AUTO) 0.1 % (0.0-3.0); EOSINOPHILS # (AUTO) 0.1 K/ul (0.0-0.7); EOSINOPHILS % (AUTO) 0.6 % (0.0-7.0); HEMATOCRIT 33.9 % (42.0-52.0); HEMOGLOBIN 10.9 g/dl (14.0-18.0); IMMATURE GRANULOCYTE # (AUTO) 0.1 (0.0-1.0); IMMATURE GRANULOCYTE % (AUTO) 0.7 % (0.0-5.0); LYMPHOCYTES # (AUTO) 0.7 K/uL (0.60-3.4); MEAN CORPUSCULAR HEMOGLOBIN 29.7 pg (27.0-31.0); MEAN CORPUSCULAR HGB CONC 32.2 (31.8-35.4); MEAN CORPUSCULAR VOLUME 92.4 fl (80.0-94.0); MONOCYTES # (AUTO) 0.6 K/uL (0.4-2.0); MONOCYTES % (AUTO) 6.4 (0-10); NEUTROPHILS % (AUTO) 85.2 % (42.2-75.2); PLATELET COUNT 135 10^3/uL (140-440); RDW COEFFICIENT OF VARIATION 17.1 % (11.6-14.8); RED BLOOD COUNT 3.67 10^6/ul (4.70-6.10); WHITE BLOOD COUNT 9.39 K/ul (4.2-10.2)
[2020-09-22 05:25] LABS: ALANINE AMINOTRANSFERASE 67.6 U/L (0-50); ALBUMIN 3.17 g/dL (3.5-5.0); ALKALINE PHOSPHATASE 80.6 U/L (56-119); ASPARTATE AMINO TRANSFERASE 33.5 U/L (17-59); BILIRUBIN,TOTAL 0.81 mg/dL (0.2-1.3); CALCIUM 8.55 mg/dL (8.4-10.2); CARBON DIOXIDE 21.2 mmol/L (22-30.0); CHLORIDE 103.7 mmol/L (98-107); CREATININE 0.98 mg/dL (0.60-1.10); GLUCOSE 102.7 mg/dL (74-106); POTASSIUM 3.88 mmol/L (3.5-5.1); SODIUM 130.6 mmol/L (134.5-145); TOTAL PROTEIN 5.82 g/dL (6.3-8.2)
[2020-09-22 05:32] LABS: PROTHROMBIN TIME 40.7 SEC (9.3-11.0)
[2020-09-22] MEDS: PRILOSEC PO SCH (06:06)
[2020-09-22] MEDS: LASIX TAB PO SCH ×2 (06:06→16:34)
[2020-09-22] MEDS: ALDACTONE PO SCH (09:25)
[2020-09-22] MEDS: DECADRON IM SCH (09:25)
[2020-09-22] MEDS: HALDOL PO SCH ×2 (09:25→20:58)
[2020-09-22] MEDS: LIPITOR PO SCH (09:25)
[2020-09-22] MEDS: MICRO-K CAP PO SCH (09:25)
[2020-09-22] MEDS: FLOMAX PO SCH (09:25)
[2020-09-22] MEDS: ASPIRIN CHEWABLE PO SCH (09:25)
[2020-09-22] MEDS: COGENTIN PO SCH ×2 (09:25→20:57)
[2020-09-22] MEDS: ZESTRIL PO SCH (09:25)
[2020-09-22] MEDS: COREG PO SCH ×2 (09:25→16:34)
[2020-09-22] MEDS: SYMBICORT 160-4.5 MCG INHALER IH SCH ×2 (09:26→20:58)
[2020-09-22] MEDS: ZOLOFT PO SCH (20:57)
[2020-09-23] MEDS: VENTOLIN HFA (PER PUFF-WITH SPACER) IH SCH ×3 (04:20→20:45)
[2020-09-23] MEDS: PRILOSEC PO SCH (05:45)
[2020-09-23] MEDS: LASIX TAB PO SCH ×2 (05:45→16:43)
[2020-09-23 06:14] LABS: BASOPHILS % (AUTO) 0.1 % (0.0-3.0); EOSINOPHILS # (AUTO) 0.1 K/ul (0.0-0.7); EOSINOPHILS % (AUTO) 0.9 % (0.0-7.0); HEMATOCRIT 34.6 % (42.0-52.0); HEMOGLOBIN 11.3 g/dl (14.0-18.0); IMMATURE GRANULOCYTE # (AUTO) 0.1 (0.0-1.0); IMMATURE GRANULOCYTE % (AUTO) 0.9 % (0.0-5.0); LYMPHOCYTES # (AUTO) 0.7 K/uL (0.60-3.4); LYMPHOCYTES % (AUTO) 6.9 (10.0-50.0); MEAN CORPUSCULAR HEMOGLOBIN 30.6 pg (27.0-31.0); MEAN CORPUSCULAR HGB CONC 32.7 (31.8-35.4); MEAN CORPUSCULAR VOLUME 93.8 fl (80.0-94.0); MONOCYTES # (AUTO) 0.7 K/uL (0.4-2.0); MONOCYTES % (AUTO) 6.7 (0-10); NEUTROPHILS # (AUTO) 8.5 K/ul (2.0-6.9); NEUTROPHILS % (AUTO) 84.5 % (42.2-75.2); PLATELET COUNT 124 10^3/uL (140-440); RDW COEFFICIENT OF VARIATION 17.2 % (11.6-14.8); RED BLOOD COUNT 3.69 10^6/ul (4.70-6.10); WHITE BLOOD COUNT 10.09 K/ul (4.2-10.2)
[2020-09-23 06:25] LABS: ALANINE AMINOTRANSFERASE 57.8 U/L (0-50); ALBUMIN 3.38 g/dL (3.5-5.0); ALKALINE PHOSPHATASE 76.9 U/L (56-119); ASPARTATE AMINO TRANSFERASE 27.3 U/L (17-59); BILIRUBIN,TOTAL 0.74 mg/dL (0.2-1.3); BLOOD UREA NITROGEN 27.8 mg/dL (9-20); CALCIUM 8.76 mg/dL (8.4-10.2); CHLORIDE 102.3 mmol/L (98-107); CREATININE 0.87 mg/dL (0.60-1.10); POTASSIUM 4.09 mmol/L (3.5-5.1); SODIUM 131.2 mmol/L (134.5-145); TOTAL PROTEIN 6.06 g/dL (6.3-8.2)
[2020-09-23 06:28] LABS: PROTHROMBIN TIME 32.4 SEC (9.3-11.0)
[2020-09-23] MEDS: COREG PO SCH ×2 (09:07→16:43)
[2020-09-23] MEDS: COGENTIN PO SCH ×2 (09:07→20:35)
[2020-09-23] MEDS: ALDACTONE PO SCH (09:07)
[2020-09-23] MEDS: ASPIRIN CHEWABLE PO SCH (09:07)
[2020-09-23] MEDS: HALDOL PO SCH ×2 (09:08→20:35)
[2020-09-23] MEDS: SYMBICORT 160-4.5 MCG INHALER IH SCH ×2 (09:08→20:35)
[2020-09-23] MEDS: ZESTRIL PO SCH (09:08)
[2020-09-23] MEDS: FLOMAX PO SCH (09:08)
[2020-09-23] MEDS: MICRO-K CAP PO SCH (09:08)
[2020-09-23] MEDS: LIPITOR PO SCH (09:08)
[2020-09-23] MEDS: ZOLOFT PO SCH (20:35)
[2020-09-24] MEDS: VENTOLIN HFA (PER PUFF-WITH SPACER) IH SCH ×3 (04:55→19:55)
[2020-09-24 05:21] LABS: BASOPHILS % (AUTO) 0.3 % (0.0-3.0); EOSINOPHILS # (AUTO) 0.2 K/ul (0.0-0.7); EOSINOPHILS % (AUTO) 2.5 % (0.0-7.0); HEMATOCRIT 37.1 % (42.0-52.0); HEMOGLOBIN 11.9 g/dl (14.0-18.0); IMMATURE GRANULOCYTE # (AUTO) 0.1 (0.0-1.0); IMMATURE GRANULOCYTE % (AUTO) 0.8 % (0.0-5.0); LYMPHOCYTES # (AUTO) 0.7 K/uL (0.60-3.4); LYMPHOCYTES % (AUTO) 8.4 (10.0-50.0); MEAN CORPUSCULAR HGB CONC 32.1 (31.8-35.4); MEAN CORPUSCULAR VOLUME 93.5 fl (80.0-94.0); MONOCYTES # (AUTO) 0.7 K/uL (0.4-2.0); MONOCYTES % (AUTO) 7.6 (0-10); NEUTROPHILS % (AUTO) 80.4 % (42.2-75.2); PLATELET COUNT 140 10^3/uL (140-440); RDW COEFFICIENT OF VARIATION 17.2 % (11.6-14.8); RED BLOOD COUNT 3.97 10^6/ul (4.70-6.10); WHITE BLOOD COUNT 8.74 K/ul (4.2-10.2)
[2020-09-24 05:33] LABS: ALBUMIN 3.46 g/dL (3.5-5.0); ALKALINE PHOSPHATASE 79.9 U/L (56-119); BILIRUBIN,TOTAL 0.92 mg/dL (0.2-1.3); BLOOD UREA NITROGEN 27.1 mg/dL (9-20); CALCIUM 8.74 mg/dL (8.4-10.2); CARBON DIOXIDE 27.1 mmol/L (22-30.0); CHLORIDE 99.9 mmol/L (98-107); CREATININE 1.06 mg/dL (0.60-1.10); GLUCOSE 84.8 mg/dL (74-106); POTASSIUM 3.98 mmol/L (3.5-5.1); SODIUM 132.3 mmol/L (134.5-145); TOTAL PROTEIN 6.28 g/dL (6.3-8.2)
[2020-09-24 05:36] LABS: PROTHROMBIN TIME 20.8 SEC (9.3-11.0)
[2020-09-24] MEDS: LASIX TAB PO SCH ×2 (06:20→16:23)
[2020-09-24] MEDS: PRILOSEC PO SCH (06:26)
[2020-09-24] MEDS: ASPIRIN CHEWABLE PO SCH (09:19)
[2020-09-24] MEDS: COGENTIN PO SCH ×2 (09:19→20:44)
[2020-09-24] MEDS: FLOMAX PO SCH (09:19)
[2020-09-24] MEDS: ZESTRIL PO SCH (09:19)
[2020-09-24] MEDS: MICRO-K CAP PO SCH (09:19)
[2020-09-24] MEDS: HALDOL PO SCH ×2 (09:19→20:44)
[2020-09-24] MEDS: ALDACTONE PO SCH (09:19)
[2020-09-24] MEDS: COREG PO SCH ×2 (09:19→16:23)
[2020-09-24] MEDS: LIPITOR PO SCH (09:19)
[2020-09-24] MEDS: SYMBICORT 160-4.5 MCG INHALER IH SCH ×2 (09:24→20:46)
--- NOTE | 2020-09-24 14:42 | PN ---
DATE OF SERVICE: 09/19/20 SUBJECTIVE: This patient came to the emergency room with complaint of shortness of breath with some symptoms of congestive heart failure, bilateral pleural effusion and elevated BNP. Shortness of breath on minimal exertion. REVIEW OF SYSTEMS: CONSTITUTIONAL: No night sweats. No fatigue, malaise, lethargy. No fever or chills. HEENT: Eyes: No visual changes. No eye pain. No eye discharge. ENT: No runny nose. No epistaxis. No sinus pain. No sore throat. No odynophagia. No congestion. RESPIRATORY: No cough, no congestion. No hemoptysis. Shortness of breath on minimal exertion. CARDIOVASCULAR: No angina symptoms. No CHF symptoms. No atypical chest pain for CAD. No palpitations. No PND. No orthopnea. GASTROINTESTINAL: No abdominal pain. No nausea or vomiting. No diarrhea or constipation. No hematemesis. No hematochezia. GENITOURINARY: No urgency. No frequency. No dysuria. No hematuria. No obstructive symptoms. No discharge. No pain. No significant abnormal bleeding. MUSCULOSKELETAL: No musculoskeletal pain; no joint swelling. NEUROLOGICAL: No headache. No neck pain. No syncope. No seizures. No dizziness. PSYCHIATRIC: Not anxious. No depression. No suicidal thoughts. No homicidal thoughts. SKIN: No rash. No lesions. No wounds. ENDOCRINE: No unexplained weight loss. No weight gain. HEMATOLOGIC/LYMPHATIC: No anemia. No purpura. No petechiae. No prolonged or excessive bleeding. No palpable lymph nodes. PHYSICAL EXAMINATION: HEENT: Head normocephalic, atraumatic. Eyes: Extraocular muscles are intact. Pupils are equal, round and reactive to light and accommodation. Ears: No lesions. Nose appeared normal. Throat: No exudate or erythema. NECK: Supple. No JVD, no carotid bruit. No lymphadenopathy or thyromegaly. LUNGS: Few crepitations at the bases. Percussion note normal. Chest symmetrical. HEART: S1, S2, S3 present. No murmurs. No cyanosis or clubbing. No ascites. Pulses: Dorsalis pedis and posterior tibial pulses +1 to +2 bilaterally. ABDOMEN: Soft. Nontender. Bowel sounds active. No CVA tenderness. No mass felt. EXTREMITIES: Trace pedal edema was noted, 2 cm . No obvious ascites noted. Full range of motion of all extremities, equal. NEUROLOGIC: No focal deficit. Cranial nerves II through XII are grossly intact. No headache. No double vision. SKIN: Not dry. Intact. Turgor - normal. LYMPHATIC: No palpable lymph nodes/no lymphedema. MUSCULOSKELETAL: Normal joints with no swelling. Muscle tone is normal. EKG as usual had sinus rhythm with LBBB. PLAN: 1. Put the patient in the hospital with IV Lasix, steroids, chronic lung disease and chronic bronchitis along with routine telemetry orders. 2. Serial EKGs, cardiac markers. 3. Educated about his diet. 4. Strongly advised to joint cardiac rehab. 5. Lifestyle is sedentary and he does eat things that he shouldn't because he lives by himself. TIME SPENT: More than 30 minutes. Plan and coordination of the patient's care discussed in the presence of nurse. RAYNA
--- NOTE | 2020-09-24 15:24 | RS.PTINEVL ---
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 pt states that he is feeling some better today. - Level of function Prior to this admission, the patient could do the following:: Independent Selfcare, Independent ADL's, Independent Ambulation, Partially Dependent Ambulation, Perform Hash Slinger/Cooking, Drive, Participated in Social Activities Outside home Current Level of Function: Partially Dependent Current Equipment Used at Home: None Interventions - Objective Patient Orientation: Person, Place, Time Current Interventions: Oxygen, Telemetry Range of Motion - ROM Right Upper Extremity AROM: WFL's Left Upper Extremity AROM: WFL's Right Lower Extremity AROM: WFL's Left Lower Extremity AROM: WFL's Muscle Strength - Muscle Strength Right Upper Extremity Strength: Mild Weakness (grossly 4/5) Left Upper Extremity Strength: Mild Weakness (grossly 4/5) Right Lower Extremity Strength: Mild Weakness (hip flex 4-/5, knee flex/ext 4/5, ankle Df/PF 4/5) Left Lower Extremity Strength: Mild Weakness (hip flex 4-/5, knee flex/ext 4/5, ankle Df/PF 4/5) Sensation - Sensation Right Upper Extremity Sensation: Intact/Normal Left Upper Extremity Sensation: Intact/Normal Right Lower Extremity Sensation: Intact/Normal Left Lower Extremity Sensation: Intact/Normal Palpation Palpation Findings: None/Normal Balance - Sitting Balance and Reactions Static Sitting Balance: Fair Dynamic Sitting Balance: Fair - Standing Balance and Reactions Static Standing Balance: Poor Dynamic Standing Balance: Poor Functional Mobility - Bed Mobility Rolling R/L: Supervision Supine to Sit: CGA Sit to Supine: CGA - Transfers Sit to Stand: CGA Stand to Sit: CGA - Safety Awareness Safety Awareness: Fair JEFFREY INDEX SCORE: n/a Ambulation - Ambulation Assistive Device Used: Gait belt Orthotic/Prosthetic Device: No Distance: 110ft Assistance needed with Ambulation: CGA Gait Deviations: Short stride Ambulation Comments: pt amb without AD with no LOB with decreased O2 sats while walking. pt is on 3liters O2 Factors Affecting Ambulation: Decreased Balance, Breathing/O2 Saturation, Weakness, Decreased Safety, Limited Endurance Treatment time - Units charged Gait trainin - Time with patient Length of Evaluation: 21 Total treatment time: 38 Patient Education - Education Patient Education: Activity Modification, Education of Plan of Care Teaching Recipient: Patient Teaching Methods: Discussion Comments: discussion regarding POC as well as pt goals. and dc planning Assessment - Assessment Problem List:: Decreased level of function, Requires training/education, Decreased safety/Risk of falls, Weakness Rehab Potential: Fair Further Therapy Indicated?: Yes Candidate for Swing Bed for Therapy Services?: Feel pt may be too high functional level for swing bed. Evaluation Complexity: HISTORY: Medium, EXAM OF BODY SYSTEMS: Medium, CLINICAL PRESENTATION: Medium, CLINICAL DECISION MAKING: Medium Patient's Goal(s): "Go home and be able to take care of myself and my mother" Short Term Goals GOAL #1: pt independent with rolling and scooting in bed Goal to be met by: 09/26/20 GOAL #2: Transfer sup to/from sit SBA Goal to be met by: 09/26/20 GOAL #3: Transfer sit to/from stand SBA Goal to be met by: 09/26/20 GOAL #4: pt amb without AD 140ft with CGA or SBA Goal to be met by: 09/26/20 GOAL #5: Improve BLE strength 4+/5 Goal to be met by: 09/26/20 Half-Way Goals GOAL #1: pt transfer sup to/from sit to/from stand independently Goal to be met by: 09/28/20 GOAL #2: pt amb functional distances without AD w/o LOB independently with O2 Goal to be met by: 09/28/20 GOAL #3: pt ascend/descend 3-4 steps with handrail SBA Goal to be met by: 09/28/20 Plan Plan of Care: Therapeutic EX, Neuromuscular Re-Educ, Therapeutic Activity Other:: gait training Frequency of Treatment: 1-2 X day, as tolerated Duration of Treatment: 5 days Anticipated Discharge Destination: Home Treatment Diagnosis (ICD 10 Codes): impaired balance R26.81. muscle weakness M62.81. difficulty walking R 26.2 Has the Physician been added for Co-signature?: Yes
[2020-09-24] MEDS: ZOLOFT PO SCH (20:45)
[2020-09-25] MEDS: VENTOLIN HFA (PER PUFF-WITH SPACER) IH SCH (05:05)
[2020-09-25 05:18] LABS: HEMATOCRIT 36.5 % (42.0-52.0); MEAN CORPUSCULAR HEMOGLOBIN 30.4 pg (27.0-31.0); MEAN CORPUSCULAR HGB CONC 32.9 (31.8-35.4); MEAN CORPUSCULAR VOLUME 92.4 fl (80.0-94.0); PLATELET COUNT 143 10^3/uL (140-440); RDW COEFFICIENT OF VARIATION 17.2 % (11.6-14.8); RED BLOOD COUNT 3.95 10^6/ul (4.70-6.10)
[2020-09-25 05:26] LABS: PROTHROMBIN TIME 14.6 SEC (9.3-11.0)
[2020-09-25 05:29] VITALS: BP 76/51; TEMP 97.5
[2020-09-25 05:33] LABS: ALANINE AMINOTRANSFERASE 42.5 U/L (0-50); ALBUMIN 3.49 g/dL (3.5-5.0); ALKALINE PHOSPHATASE 83.3 U/L (56-119); ASPARTATE AMINO TRANSFERASE 26.4 U/L (17-59); BILIRUBIN,TOTAL 1.15 mg/dL (0.2-1.3); CALCIUM 8.83 mg/dL (8.4-10.2); CARBON DIOXIDE 28.8 mmol/L (22-30.0); CHLORIDE 99.7 mmol/L (98-107); CREATININE 0.99 mg/dL (0.60-1.10); POTASSIUM 4.26 mmol/L (3.5-5.1); SODIUM 132.8 mmol/L (134.5-145); TOTAL PROTEIN 6.25 g/dL (6.3-8.2)
[2020-09-25] MEDS: LASIX TAB PO SCH (05:36)
[2020-09-25] MEDS: PRILOSEC PO SCH (05:36)
[2020-09-25 05:39] LABS: ANISOCYTOSIS NOT PRESENT (NOT PRESENT)
--- NOTE | 2020-09-25 08:26 | PN ---
DATE OF SERVICE: 09/20/20 SUBJECTIVE: The patient was seen and examined with the nurse practitioner. The patient had nearly 700 to 800 cc urine output, feeling a lot better, feeling associate medical director. He is able to breathe deeper according to him. Will continue to monitor the patient's cardiovascular status. Will do an ABG. TIME SPENT: More than 30 minutes. Plan and coordination of the patient's care discussed in the presence of nurse. RAYNA
--- NOTE | 2020-09-25 09:16 | PCM.PROG ---
Attending Provider: ATTENDING PROVIDER: Dr. STANTON HAMPTON This patient is seen with Juana Baker, Nurse Practitioner. DATE OF SERVICE: 09/25/20 SUBJECTIVE: This 69 year old /WHITE M was hospitalized 09/20/20. The patient is resting comfortably. Shortness of breath has improved. He has been walking well unassisted. States ready to go home. REVIEW OF SYSTEMS: CONSTITUTIONAL: No night sweats. Fatigue. No fever or chills. HEENT: Eyes: No visual changes. No eye pain. No eye discharge. ENT: No runny nose. No epistaxis. No sinus pain. No odynophagia. No congestion. RESPIRATORY: No cough, no congestion. No hemoptysis. Shortness of breath. CARDIOVASCULAR: No angina symptoms. No CHF symptoms. No atypical chest pain for CAD. No palpitations. No orthopnea.. GASTROINTESTINAL: No abdominal pain. No nausea or vomiting. No diarrhea or constipation. No hematemesis. No hematochezia. GENITOURINARY: No urgency. No frequency. No dysuria. No hematuria. No obstructive symptoms. No discharge. No pain. No significant abnormal bleeding. MUSCULOSKELETAL: No musculoskeletal pain; no joint swelling. NEUROLOGICAL: Awake, alert, oriented to time, place and person. No headache. No neck pain. No syncope. No seizures. No dizziness. PSYCHIATRIC: Not anxious. No depression. No suicidal thoughts. No homicidal thoughts. SKIN: No rash. No lesions. No wounds. ENDOCRINE: No unexplained weight loss. No weight gain. HEMATOLOGIC/LYMPHATIC: No anemia. No purpura. No petechiae. No prolonged or excessive bleeding. No palpable lymph nodes. PHYSICAL EXAMINATION: GENERAL: The patient is awake, alert and oriented, lying in bed in no distress. VITAL SIGNS: Temperature 97.5 F, Pulse 79, Respiratory Rate 20, BP 76/51, Pulse Ox 94% HEENT: Head normocephalic, atraumatic. Eyes: Extraocular muscles are intact. Pupils are equal, round and reactive to light and accommodation. Ears: No lesions. Nose appeared normal. Throat: No exudate or erythema. NECK: Supple. No JVD, no carotid bruit. No lymphadenopathy or thyromegaly. LUNGS: Diminished breath sounds. Clear to auscultation. Percussion note normal. Chest symmetrical. HEART: S1, S2, no S3. No murmurs. No cyanosis or clubbing. No ascites. Pulses: Dorsalis pedis and posterior tibial pulses +1 to +2 both sides. ABDOMEN: Soft. Non-tender. Bowel sounds active. No CVA tenderness. No mass felt. EXTREMITIES: No edema. Full range of motion of all extremities, equal. NEUROLOGIC: No focal deficit. Cranial nerves II through XII are grossly intact. No headache. No double vision. SKIN: Not dry. Intact. Turgor-normal. LYMPHATIC: No palpable lymph nodes/no lymphedema. MUSCULOSKELETAL: Normal joints with no swelling. Muscle tone is normal. LAB REVIEW: 09/25/20 04:44 09/25/20 04:44 09/25/20 04:44: Sodium 132.8 L, Potassium 4.26, Chloride 99.7, Carbon Dioxide 28.8, Anion Gap 8.56, BUN 27.0 H, Creatinine 0.99, Estimated GFR (MDRD) 75.00, BUN/Creatinine Ratio 27.27, Glucose 91.0, Calcium 8.83, Total Bilirubin 1.15, AST 26.4, ALT 42.5, Alkaline Phosphatase 83.3, Total Protein 6.25 L, Albumin 3.49 L, Globulin 2.76, Albumin/Globulin Ratio 1.26 09/25/20 04:44: PT 14.6 H D, INR 1.38 09/25/20 04:44: WBC 7.80, RBC 3.95 L, Hgb 12.0 L, Hct 36.5 L, MCV 92.4, MCH 30.4, MCHC 32.9, RDW Coeff of Oleg 17.2 H, Plt Count 143, Neutrophils % (Manual) 82.0 H, Band Neutrophils % 1.0, Lymphocytes % (Manual) 9.0 L, Monocytes % (Manual) 5.0, Eosinophils % (Manual) 3.0, Anisocytosis Not present ASSESSMENT: Please see below. 1. Acute CHF 2. Underline COPD 3. Atrial fibrillation PLAN: 1. Discharge home 2. Take extra 6mg of Coumadin today 3. Discussed importance of medication compliance. Plan and coordination of the patient's care discussed in the presence of Parts Cataloguer and nurse. SCRIBED BY: Donna DILLARD scribed while in presence of service performed by Dr. Hampton/Juana Baker APRN on 09/25/20 (0823)
[2020-09-25] MEDS: COGENTIN PO SCH (09:49)
[2020-09-25] MEDS: ZESTRIL PO SCH (09:49)
[2020-09-25] MEDS: ASPIRIN CHEWABLE PO SCH (09:49)
[2020-09-25] MEDS: LIPITOR PO SCH (09:49)
[2020-09-25] MEDS: MICRO-K CAP PO SCH (09:49)
[2020-09-25] MEDS: COREG PO SCH (09:49)
[2020-09-25] MEDS: HALDOL PO SCH (09:49)
[2020-09-25] MEDS: SYMBICORT 160-4.5 MCG INHALER IH SCH (09:50)
[2020-09-25] MEDS: ALDACTONE PO SCH (09:50)
[2020-09-25] MEDS: FLOMAX PO SCH (09:50)
--- NOTE | 2020-09-25 10:50 | PN ---
DATE OF SERVICE: 09/24/20 SUBJECTIVE: 69-year-old white male hospitalized with congestive heart failure. The patient's chronic lung disease is also under control with steroids. Lasix has helped CHF and fluid retention. The patient has been educated about diet and also need for cardiac rehab which I have discussed with the patient. The patient's ejection fraction is very poor with almost refractory CHF. The patient is DNR. REVIEW OF SYSTEMS: CONSTITUTIONAL: Feeling better. No night sweats. No fatigue, malaise, lethargy. No fever or chills. HEENT: Eyes: No visual changes. No eye pain. No eye discharge. ENT: No runny nose. No epistaxis. No sinus pain. No sore throat. No odynophagia. No congestion. RESPIRATORY: No cough, no congestion. No hemoptysis. No shortness of breath. CARDIOVASCULAR: No angina symptoms. No CHF symptoms. No atypical chest pain for CAD. No palpitations. No PND. No orthopnea. GASTROINTESTINAL: Appetite improved. No abdominal pain. No nausea or vomiting. No diarrhea or constipation. No hematemesis. No hematochezia. GENITOURINARY: No urgency. No frequency. No dysuria. No hematuria. No obstructive symptoms. No discharge. No pain. No significant abnormal bleeding. MUSCULOSKELETAL: No musculoskeletal pain; no joint swelling. NEUROLOGICAL: No headache. No neck pain. No syncope. No seizures. No dizziness. PSYCHIATRIC: Not anxious. No depression. No suicidal thoughts. No homicidal thoughts. SKIN: No rash. No lesions. No wounds. ENDOCRINE: No unexplained weight loss. No weight gain. HEMATOLOGIC/LYMPHATIC: No anemia. No purpura. No petechiae. No prolonged or excessive bleeding. No palpable lymph nodes. PHYSICAL EXAMINATION: VITAL SIGNS: Temperature 97.9, pulse 70, respiratory rate 16, blood pressure 93/67, pulse ox 98%. HEENT: Head normocephalic, atraumatic. Eyes: Extraocular muscles are intact. Pupils are equal, round and reactive to light and accommodation. Ears: No lesions. Nose appeared normal. Throat: No exudate or erythema. NECK: Supple. No JVD, no carotid bruit. No lymphadenopathy or thyromegaly. LUNGS: Decreased breath sounds but clear to auscultation. Percussion note normal. Chest symmetrical. HEART: S1, S2, no S3. No murmurs. No cyanosis or clubbing. No ascites. Pulses: Dorsalis pedis and posterior tibial pulses +1 to +2 bilaterally. ABDOMEN: Soft. Nontender. Bowel sounds active. No CVA tenderness. No mass felt. EXTREMITIES: No edema. Full range of motion of all extremities, equal. NEUROLOGIC: No focal deficit. Cranial nerves II through XII are grossly intact. No headache. No double vision. SKIN: Not dry. Intact. Turgor - normal. LYMPHATIC: No palpable lymph nodes/no lymphedema. MUSCULOSKELETAL: Normal joints with no swelling. Muscle tone is normal. LABS: Hemoglobin 11.9, hematocrit 37, WBC 8,700, normal differential. Creatinine 1, BUN 27, potassium 3.9. ASSESSMENT: 1. CHF under control. 2. COPD under control. PLAN: 1. Continue pain medication with Lasix, unloading agentsand steroids. CONDITION: Stable. TIME SPENT: More than 30 minutes. Plan and coordination of the patient's care discussed in the presence of nurse. RAYNA
--- NOTE | 2020-09-25 10:54 | PN ---
DATE OF SERVICE: 09/23/20 SUBJECTIVE: 69-year-old white male hospitalized with CHF. REVIEW OF SYSTEMS: CONSTITUTIONAL: No night sweats. No fatigue, malaise, lethargy. No fever or chills. HEENT: Eyes: No visual changes. No eye pain. No eye discharge. ENT: No runny nose. No epistaxis. No sinus pain. No sore throat. No odynophagia. No congestion. RESPIRATORY: No cough, no congestion. No hemoptysis. No shortness of breath. CARDIOVASCULAR: No angina symptoms. No CHF symptoms. No atypical chest pain for CAD. No palpitations. No PND. No orthopnea. GASTROINTESTINAL: No abdominal pain. No nausea or vomiting. No diarrhea or constipation. No hematemesis. No hematochezia. GENITOURINARY: No urgency. No frequency. No dysuria. No hematuria. No obstructive symptoms. No discharge. No pain. No significant abnormal bleeding. MUSCULOSKELETAL: No musculoskeletal pain; no joint swelling. NEUROLOGICAL: No headache. No neck pain. No syncope. No seizures. No dizziness. PSYCHIATRIC: Not anxious. No depression. No suicidal thoughts. No homicidal thoughts. SKIN: No rash. No lesions. No wounds. ENDOCRINE: No unexplained weight loss. No weight gain. HEMATOLOGIC/LYMPHATIC: No anemia. No purpura. No petechiae. No prolonged or excessive bleeding. No palpable lymph nodes. PHYSICAL EXAMINATION: VITAL SIGNS: Temperature 96.9, pulse 69, respiratory rate 16, blood pressure 101/76, pulse ox 97%. GENERAL: The patient is up and about, feeling stronger. HEENT: Head normocephalic, atraumatic. Eyes: Extraocular muscles are intact. Pupils are equal, round and reactive to light and accommodation. Ears: No lesions. Nose appeared normal. Throat: No exudate or erythema. NECK: Supple. No JVD, no carotid bruit. No lymphadenopathy or thyromegaly. LUNGS: Decreased breath sounds, few crepitations at the bases. Percussion note normal. Chest symmetrical. HEART: S1, S2, questionable S3. No murmurs. No cyanosis or clubbing. No ascites. Pulses: Dorsalis pedis and posterior tibial pulses +1 to +2 bilaterally. ABDOMEN: No ascites. Soft. Nontender. Bowel sounds active. No CVA tenderness. No mass felt. EXTREMITIES: No edema. Full range of motion of all extremities, equal. NEUROLOGIC: No focal deficit. Cranial nerves II through XII are grossly intact. No headache. No double vision. SKIN: Not dry. Intact. Turgor - normal. LYMPHATIC: No palpable lymph nodes/no lymphedema. MUSCULOSKELETAL: Normal joints with no swelling. Muscle tone is normal. LABS: Hemoglobin 11.3, hematocrit 34, WBC 10,000, normal differential, creatinine 0.8, BUN 27, potassium 4. ASSESSMENT: 1. CHF under control. Education carried out about CHF. Advised to join cardiac rehab. TIME SPENT: More than 30 minutes. Plan and coordination of the patient's care discussed in the presence of nurse. RAYNA
[2020-09-25] MEDS ORDERED: COUMADIN PO SCH ×2 (11:00→17:00)
--- NOTE | 2020-09-25 11:19 | CM.DICTOOL ---
ADMISSION: 09/20/20 00:01 DISCHARGE: SEPTEMBER 25, 2020 DATE OF SERVICE: 09/25/20 FINAL DIAGNOSIS ACUTE CHF, CONTROLLED SEVERE CHRONIC LUNG DISEASE- OXYGEN DEPENDENT ATRIAL FIBRILLATION ON COUMADIN HX: CHF COPD SYSTOLIC CONGESTIVE HEART FAILURE DILATED CARDIOMYOPATHY WITH EJECTION FRACTION OF 17% PER 05/2020 ECHO PAROXYSMAL ATRIAL FIBRILLATION (ON COUMADIN) CAD WITH STENT APPLICATION, 2003 AND 2015 CVA, 2010 SEVERE CHRONIC LUNG DISEASE, OXYGEN AT NIGHT AND PRN ABDOMINAL AORTIC ANEURYSM WITH ENDOVASCULAR AORTIC STENT GRAFT (DR. SPEARS) DYSLIPIDEMIA CHRONIC ANEMIA BPH DEPRESSION WITH BEHAVIORAL DISTURBANCE NONOBSTRUCTIVE RIGHT RENAL CALCULI DEGENERATIVE CHANGES LUMBAR SPINE PREVIOUS SMOKER BASAL CELL CARCINOMA,LEFT SIDE OF NOSE ENDOVASCULAR STENT GRAFT (DR. SPEARS) CATARACT EXTRACTION, RIGHT 02/06 CATARACT EXTRACTION, LEFT 03/08 CODE STATUS: DO NOT RESUSCITATE LAST VITALS Temp Pulse Resp BP Pulse Ox 97.5 F L 79 20 76/51 L 94 L 09/25/20 05:19 09/25/20 05:19 09/25/20 05:19 09/25/20 05:19 09/25/20 10:00 TAKE THESE MEDICATIONS AT HOME Albuterol Sulfate (Albuterol Sulfate (Ventolin Hfa) 18 Gm 1 Puff With Spacer) 2 puff IH EVERY 4-6 HOURS PRN Last Admin: 09/25/20 05:05 Dose: 2 puff Documented by: Aspirin (Aspirin 81 Mg Tab.Chew) 81 mg PO DAILYWM [facility] Last Admin: 09/25/20 09:49 Dose: 81 mg Documented by: Atorvastatin Calcium (Atorvastatin Calcium 20 Mg Tablet) 20 mg PO DAILY [facility] Last Admin: 09/25/20 09:49 Dose: 20 mg Documented by: Benztropine Mesylate (Benztropine Mesylate 1 Mg Tablet) 1 mg PO BID [facility] Last Admin: 09/25/20 09:49 Dose: 1 mg Documented by: Carvedilol (Carvedilol 3.125 Mg Tablet) 3.125 mg PO BIDWM [facility] Last Admin: 09/25/20 09:49 Dose: 3.125 mg Documented by: Furosemide (Furosemide 40 Mg Tablet) 40 mg PO BIDAC [facility] Last Admin: 09/25/20 05:36 Dose: 40 mg Documented by: Haloperidol (Haloperidol 0.5 Mg Tablet) 0.5 mg PO BID [facility] Last Admin: 09/25/20 09:49 Dose: 0.5 mg Documented by: Lisinopril (Lisinopril 5 Mg Tablet) 2.5 mg PO DAILY [facility] Last Admin: 09/25/20 09:49 Dose: 2.5 mg Documented by: Nitroglycerin (Nitroglycerin 0.4 Mg Tab.Subl) 0.4 mg SL Q5MIN X 3 DOSES PRN PRN Reason: Chest Pain Omeprazole (Omeprazole 20 Mg Capsule.Dr) 20 mg PO QDAC [facility] Last Admin: 09/25/20 05:36 Dose: 20 mg Documented by: Potassium Chloride (Potassium Chloride 10 Meq Capsule.Er) 10 meq PO DAILYWM [facility] Last Admin: 09/25/20 09:49 Dose: 10 meq Documented by: Sertraline HCl (Sertraline Hcl 50 Mg Tablet) 100 mg PO BEDTIME [facility] Last Admin: 09/24/20 20:45 Dose: 100 mg Documented by: Spironolactone (Spironolactone 25 Mg Tablet) 25 mg PO DAILY [facility] Last Admin: 09/25/20 09:50 Dose: 25 mg Documented by: Tamsulosin HCl (Tamsulosin Hcl 0.4 Mg Cap.Er.24h) 0.4 mg PO DAILY [facility] Last Admin: 09/25/20 09:50 Dose: 0.4 mg Documented by: Warfarin Sodium (Warfarin Sodium 3 Mg Tablet) 6 mg PO 1700 [facility] Last Admin: 09/21/20 16:45 Dose: 6 mg Documented by: BREO ELLIPTA INHALER 1 PUFF DAILY FLONASE ALLERGY RELIEF 2 SPRAYS INTRANASAL DAILY ALLERGIES No Known Allergies Allergy (Verified 09/19/20 18:43) DISCONTINUED MEDICATIONS NONE NEW PRESCRIPTIONS: NONE SMOKING: N/A DISEASE SPECIFIC EDUCATION: CHF ACTIVITY PRECAUTIONS BLEEDING PRECAUTIONS OXYGEN @ 3 L/M PER N/C CONTINUOS COVID 19 LAB REVIEW: 09/25/20 04:44 09/25/20 04:44 09/25/20 04:44: Sodium 132.8 L, Potassium 4.26, Chloride 99.7, Carbon Dioxide 28.8, Anion Gap 8.56, BUN 27.0 H, Creatinine 0.99, Estimated GFR (MDRD) 75.00, BUN/Creatinine Ratio 27.27, Glucose 91.0, Calcium 8.83, Total Bilirubin 1.15, AST 26.4, ALT 42.5, Alkaline Phosphatase 83.3, Total Protein 6.25 L, Albumin 3.49 L, Globulin 2.76, Albumin/Globulin Ratio 1.26 09/25/20 04:44: PT 14.6 H D, INR 1.38 09/25/20 04:44: WBC 7.80, RBC 3.95 L, Hgb 12.0 L, Hct 36.5 L, MCV 92.4, MCH 30.4, MCHC 32.9, RDW Coeff of Oleg 17.2 H, Plt Count 143, Neutrophils % (Manual) 82.0 H, Band Neutrophils % 1.0, Lymphocytes % (Manual) 9.0 L, Monocytes % (Manual) 5.0, Eosinophils % (Manual) 3.0, Anisocytosis Not present PLAN: DISCHARGE: August TO HOME, INDEPENDENTLY ACTIVITY: UP TOLERATED WITH FREQUENT REST PERIODS ELEVATE LEGS ABOVE THE LEVEL OF YOUR HIPS WHEN SITTING BLEEDING PRECAUTIONS OXYGEN: USE AT 3 LITTERS A MINUTE PER NASAL CANNULA PRECAUTIONS DIET: HEART HEALTHY FOLLOW UP: SEE DR. HAMPTON/ GUILLE OLIVER APRN/ MICHAEL DENNY APRN IN THE OFFICE ON THURSDAY , OCTOBER 01, 2020 @ 1100 AM CODE STATUS: DO NOT RESUSCITATE CONTINUE ALL HOME MEDICATIONS BEFORE MR. GALLEGOS IS ALERT AND ORIENTED X 4. HE LIVES ALONE AND ASSIST WITH HIS ELDERLY MOTHER NEXT DOOR. FAMILY ASSIST HIM AT TIMES. HE STILL DRIVES. LUNGS HAVE REMAINED SLIGHTLY DIMINISHED AND CLEAR. TRACE EDEMA TO LEGS. HE IS ON HOME O2 AND NOW HIS OXYGEN IS AT 3 L/M PER N/C NOW. SKIN IS WARM AND DRY AND INTACT. HIS NUTRITIONAL INTAKE IS 75-100% WITH MOST OF THE TIME NOW AT 100%. FLUID INTAKE IS GOOD. HE IS UP TOLERATED. HE WAS A LITTLE WEAK AT FIRST, BUT HIS LAST SESSION WITH PHYSICAL THERAPY HE WALKED 140 FEET WITH NO ASSISTIVE DEVICE, STEADY AND WITH CGA/SBA . CONTINENT OF BOWEL AND BLADDER.SLIGHT DRIBBLING AND WITH LAST BM 09/24/2020. HE DRIVES AND DOES NOT WANT HOME HEALTH. STANTON K. MD GUILLE HAMPTON APRN ALYCE HANNAN, APRN
--- NOTE | 2020-09-25 14:52 | PN ---
DATE OF SERVICE: 09/22/20 SUBJECTIVE: The patient was seen and examined this morning. The patient's condition is stable, breathing better, feeling a lot better, gaining strength. REVIEW OF SYSTEMS: CONSTITUTIONAL: No night sweats. No fatigue, malaise, lethargy. No fever or chills. HEENT: Eyes: No visual changes. No eye pain. No eye discharge. ENT: No runny nose. No epistaxis. No sinus pain. No sore throat. No odynophagia. No congestion. RESPIRATORY: No cough, no congestion. No hemoptysis. Shortness of breath is much less than what he had on admission. CARDIOVASCULAR: No angina symptoms. No CHF symptoms. No atypical chest pain for CAD. No palpitations. No PND. No orthopnea. GASTROINTESTINAL: Appetite has improved. No abdominal pain. No nausea or vomiting. No diarrhea or constipation. No hematemesis. No hematochezia. GENITOURINARY: No urgency. No frequency. No dysuria. No hematuria. No obstructive symptoms. No discharge. No pain. No significant abnormal bleeding. MUSCULOSKELETAL: No musculoskeletal pain; no joint swelling. NEUROLOGICAL: No headache. No neck pain. No syncope. No seizures. No dizziness. PSYCHIATRIC: Not anxious. No depression. No suicidal thoughts. No homicidal thoughts. SKIN: No rash. No lesions. No wounds. ENDOCRINE: No unexplained weight loss. No weight gain. HEMATOLOGIC/LYMPHATIC: No anemia. No purpura. No petechiae. No prolonged or excessive bleeding. No palpable lymph nodes. PHYSICAL EXAMINATION: GENERAL: The patient is oriented to time, place and person. HEENT: Head normocephalic, atraumatic. Eyes: Extraocular muscles are intact. Pupils are equal, round and reactive to light and accommodation. Ears: No lesions. Nose appeared normal. Throat: No exudate or erythema. NECK: Supple. No JVD, no carotid bruit. No lymphadenopathy or thyromegaly. LUNGS: Clear to auscultation. Percussion note normal. Chest symmetrical. HEART: S1, S2. Questionable S3. No murmurs. No cyanosis or clubbing. No ascites. Pulses: Dorsalis pedis and posterior tibial pulses +1 to +2 bilaterally. ABDOMEN: Soft. Nontender. Bowel sounds active. No CVA tenderness. No mass felt. EXTREMITIES: No edema. Full range of motion of all extremities, equal. NEUROLOGIC: No focal deficit. Cranial nerves II through XII are grossly intact. No headache. No double vision. SKIN: Not dry. Intact. Turgor - normal. LYMPHATIC: No palpable lymph nodes/no lymphedema. MUSCULOSKELETAL: Normal joints with no swelling. Muscle tone is normal. Telemetry strips - sinus rhythm with PVCs. ASSESSMENT: 1. CHF seems to be under control. 2. Chronic lung disease with chronic bronchitis treated with steroids. 3. Dilated cardiomyopathy with poor ejection fraction. PLAN: 1. Advised to cut down on salt. 2. The patient should take extra diuretic in case there is a weight gain of 2 lbs. He is weigh himself every morning. 3. CHF education carried out. 4. Advised cardiac rehab. TIME SPENT: More than 30 minutes. Plan and coordination of the patient's care discussed in the presence of nurse. RAYNA
[2020-09-25] MEDS ORDERED: COUMADIN PO ONE (17:00)
--- NOTE | 2020-09-26 09:31 | HP ---
DATE OF SERVICE: 09/20/20 HISTORY OF PRESENT ILLNESS: This is a 69-year-old white male who presented to the emergency room complaining of shortness of breath. He has known reduced ejection fraction, history of CHF as well as oxygen dependence, COPD. PAST MEDICAL HISTORY: COPD, oxygen dependent Atrial fibrillation on Coumadin CHF Systolic congestive heart failure Dilated cardiomyopathy with ejection fraction of 17% per echo 06/10 Coronary artery disease with history of stent CVA in 2009 Abdominal aortic aneurysm with stent graft Dyslipidemia Chronic anemia BPH Depression with behavioral disturbances Nonobstructive right nephrolithiasis Degenerative disease of the L-spine Former smoker History of basal cell on the left side of the nose PAST SURGICAL HISTORY: Aortic stent graft by Dr. Joshua Bilateral cataract extraction REVIEW OF SYSTEMS: CONSTITUTIONAL: Fatigue. No night sweats. No malaise, lethargy. No fever or chills. HEENT: Eyes: No visual changes. No eye pain. No eye discharge. ENT: No runny nose. No epistaxis. No sinus pain. No sore throat. No odynophagia. No ear pain. No congestion. RESPIRATORY: No cough, no congestion. No hemoptysis. Positive for shortness of breath. CARDIOVASCULAR: No angina symptoms. No CHF symptoms. No atypical chest pain for CAD. No palpitations. No PND. No orthopnea. GASTROINTESTINAL: No abdominal pain. No nausea or vomiting. No diarrhea or constipation. No hematemesis. No hematochezia. GENITOURINARY: No urgency. No frequency. No dysuria. No hematuria. No obstructive symptoms. No discharge. No pain. No significant abnormal bleeding. MUSCULOSKELETAL: No musculoskeletal pain. No joint swelling. No arthritis. NEUROLOGICAL: No headache. No neck pain. No syncope. No seizures. No dizziness. PSYCHIATRIC: Not anxious. No depression. No suicidal thoughts. No homicidal thoughts. SKIN: No rash. No lesions. No wounds. ENDOCRINE: No unexplained weight loss. No weight gain. HEMATOLOGIC/LYMPHATIC: No anemia. No purpura. No petechiae. No prolonged or excessive bleeding. No palpable lymph nodes. PERSONAL/FAMILY/SOCIAL HISTORY: He is . He lives alone. No alcohol or ilicit drug use. MEDICATIONS: Sertraline 100 mg p.o. bedtime Aspirin 81 mg p.o. daily with meal Potassium Chloride 10 mEq p.o. daily Haloperidol 0.5 mg p.o. b.i.d. Atorvastatin 20 mg p.o. daily Omeprazole 20 mg p.o. q.d a.c. Nitroglycerin 0.4 mg sublingual p.r.n. Lisinopril 2.5 mg p.o. daily Tamsulosin 0.4 mg p.o. daily Fluticasone one each inhalation as directed Benztropine 1 mg p.o. b.i.d. Spironolactone 25 mg p.o. daily Albuterol two puff INH q.4hr-6hr p.r.n. Warfarin 6 mg p.o. daily Furosemide 40 mg p.o. b.i.d. Carvedilol 3.125 mg p.o. b.i.d. ALLERGIES: NKDA PHYSICAL EXAMINATION: VITAL SIGNS: Temperature 98, heart rate 83, respirations 28, blood pressure 102/79, pulse ox 90% on 3L. HEENT: Head normocephalic, atraumatic. Eyes: Extraocular muscles are intact. Pupils are equal, round and reactive to light and accommodation. Ears: No lesions. Nose appeared normal. Throat: No exudate or erythema. NECK: Supple. No JVD, no carotid bruit. No lymphadenopathy or thyromegaly. LUNGS: Diminished breath sounds bilaterally. Clear to auscultation. Percussion note normal. Chest symmetrical. HEART: Irregular hear rate. S1, S2, no S3. No murmur. No cyanosis or clubbing. No ascites. Pulses: Dorsalis pedis and posterior tibial pulses +1 to +2 bilaterally. ABDOMEN: Soft. Nontender. Bowel sounds active. No CVA tenderness. No mass felt. EXTREMITIES: 2+ lower extremity edema. Full range of motion of all extremities, equal. NEUROLOGIC: No focal deficit. Cranial nerves II through XII are grossly intact. No headache, no double vision or headache. SKIN: Not dry. Intact. Turgor - normal. LYMPHATIC: No palpable lymph nodes/no lymphedema. MUSCULOSKELETAL: Normal joints with no swelling. Muscle tone is normal. Chest x-ray shows cardiomegaly with interstitial pulmonary edema and small bilateral pleural effusions. Sodium 130, potassium 4.2, BUN 22.8, creatinine 0.98, AST 81, ALT 100, total protein 6.4, troponin 0.147. Pro-BNP 8,840, INR 2.1, white count 9.1, hemoglobin 12.1, hematocrit 35.4, platelets 148. Respiratory panel by PCR was negative. ASSESSMENT: 1. Acute CHF. 2. Shortness of breath. 3. COPD. 4. Atrial fibrillation. 5. Dilated cardiomyopathy with ejection fraction of 17%. PLAN: 1. We will admit. 2. Routine telemetry orders. 3. CBC, CMP, INR now and daily. 4. Continue home medications. 5. ABGs on 2L. 6. 40 mg Lasix IV now. 7. Monitor input and output. 8. Daily weights. 9. Regular diet. 10. Follow closely. TIME SPENT: More than 70 minutes. NORYD
--- NOTE | 2020-09-26 10:59 | DS ---
DATE OF SERVICE: 09/25/2020 FINAL DIAGNOSIS: ACUTE CHF, CONTROLLED SEVERE CHRONIC LUNG DISEASE- OXYGEN DEPENDENT ATRIAL FIBRILLATION ON COUMADIN HISTORY: CHF COPD SYSTOLIC CONGESTIVE HEART FAILURE DILATED CARDIOMYOPATHY WITH EJECTION FRACTION OF 17% PER 05/2020 ECHO PAROXYSMAL ATRIAL FIBRILLATION (ON COUMADIN) CAD WITH STENT APPLICATION, 2003 AND 2015 CVA, 2009 SEVERE CHRONIC LUNG DISEASE, OXYGEN AT NIGHT AND PRN ABDOMINAL AORTIC ANEURYSM WITH ENDOVASCULAR AORTIC STENT GRAFT (DR. SPEARS) DYSLIPIDEMIA CHRONIC ANEMIA BPH DEPRESSION WITH BEHAVIORAL DISTURBANCE NONOBSTRUCTIVE RIGHT RENAL CALCULI DEGENERATIVE CHANGES LUMBAR SPINE PREVIOUS SMOKER BASAL CELL CARCINOMA,LEFT SIDE OF NOSE ENDOVASCULAR STENT GRAFT (DR. SPEARS) CATARACT EXTRACTION, RIGHT 02/06 CATARACT EXTRACTION, LEFT 03/08 CODE STATUS: DO NOT RESUSCITATE LAST VITALS: Temp Pulse Resp BP Pulse Ox 97.5 F L 79 20 76/51 L 94 L 09/25/20 05:19 09/25/20 05:19 09/25/20 05:19 09/25/20 05:19 09/25/20 10:00 DISCHARGE INSTRUCTIONS: DISCHARGE: August TO HOME, INDEPENDENTLY. OXYGEN: USE AT 3 LITTERS A MINUTE PER NASAL CANNULA PRECAUTIONS. MD FOLLOW UP: SEE DR. HAMPTON/ GUILLE OLIVER APRN/ MICHAEL DENNY APRN IN THE OFFICE ON Thursday @ 1100 AM. CODE STATUS: DO NOT RESUSCITATE. CONTINUE ALL HOME MEDICATIONS BEFORE. TAKE THESE MEDICATIONS AT HOME: Albuterol Sulfate (Albuterol Sulfate (Ventolin Hfa) 18 Gm 1 Puff With Spacer) 2 puff IH EVERY 4-6 HOURS PRN Last Admin: 09/25/20 05:05 Dose: 2 puff Documented by: Aspirin (Aspirin 81 Mg Tab.Chew) 81 mg PO DAILYWM [facility] Last Admin: 09/25/20 09:49 Dose: 81 mg Documented by: Atorvastatin Calcium (Atorvastatin Calcium 20 Mg Tablet) 20 mg PO DAILY [facility] Last Admin: 09/25/20 09:49 Dose: 20 mg Documented by: Benztropine Mesylate (Benztropine Mesylate 1 Mg Tablet) 1 mg PO BID [facility] Last Admin: 09/25/20 09:49 Dose: 1 mg Documented by: Carvedilol (Carvedilol 3.125 Mg Tablet) 3.125 mg PO BIDWM [facility] Last Admin: 09/25/20 09:49 Dose: 3.125 mg Documented by: Furosemide (Furosemide 40 Mg Tablet) 40 mg PO BIDAC [facility] Last Admin: 09/25/20 05:36 Dose: 40 mg Documented by: Haloperidol (Haloperidol 0.5 Mg Tablet) 0.5 mg PO BID [facility] Last Admin: 09/25/20 09:49 Dose: 0.5 mg Documented by: Lisinopril (Lisinopril 5 Mg Tablet) 2.5 mg PO DAILY [facility] Last Admin: 09/25/20 09:49 Dose: 2.5 mg Documented by: Nitroglycerin (Nitroglycerin 0.4 Mg Tab.Subl) 0.4 mg SL Q5MIN X 3 DOSES PRN PRN Reason: Chest Pain Omeprazole (Omeprazole 20 Mg Capsule.Dr) 20 mg PO QDAC [facility] Last Admin: 09/25/20 05:36 Dose: 20 mg Documented by: Potassium Chloride (Potassium Chloride 10 Meq Capsule.Er) 10 meq PO DAILYWM [facility] Last Admin: 09/25/20 09:49 Dose: 10 meq Documented by: Sertraline HCl (Sertraline Hcl 50 Mg Tablet) 100 mg PO BEDTIME [facility] Last Admin: 09/24/20 20:45 Dose: 100 mg Documented by: Spironolactone (Spironolactone 25 Mg Tablet) 25 mg PO DAILY [facility] Last Admin: 09/25/20 09:50 Dose: 25 mg Documented by: Tamsulosin HCl (Tamsulosin Hcl 0.4 Mg Cap.Er.24h) 0.4 mg PO DAILY [facility] Last Admin: 09/25/20 09:50 Dose: 0.4 mg Documented by: Warfarin Sodium (Warfarin Sodium 3 Mg Tablet) 6 mg PO 1700 [facility] Last Admin: 09/21/20 16:45 Dose: 6 mg Documented by: JULIA STEVENSTA INHALER 1 PUFF DAILY FLONASE ALLERGY RELIEF 2 SPRAYS INTRANASAL DAILY ALLERGIES: No Known Allergies Allergy (Verified 09/19/20 18:43) DISCONTINUED MEDICATIONS NONE NEW PRESCRIPTIONS: NONE SMOKING: N/A DISEASE SPECIFIC EDUCATION: CHF ACTIVITY PRECAUTIONS BLEEDING PRECAUTIONS OXYGEN @ 3 L/M PER N/C CONTINUOS COVID 19 LAB REVIEW: 09/25/20 04:44 09/25/20 04:44 09/25/20 04:44: Sodium 132.8 L, Potassium 4.26, Chloride 99.7, Carbon Dioxide 28.8, Anion Gap 8.56, BUN 27.0 H, Creatinine 0.99, Estimated GFR (MDRD) 75.00, BUN/Creatinine Ratio 27.27, Glucose 91.0, Calcium 8.83, Total Bilirubin 1.15, AST 26.4, ALT 42.5, Alkaline Phosphatase 83.3, Total Protein 6.25 L, Albumin 3.49 L, Globulin 2.76, Albumin/Globulin Ratio 1.26 09/25/20 04:44: PT 14.6 H D, INR 1.38 09/25/20 04:44: WBC 7.80, RBC 3.95 L, Hgb 12.0 L, Hct 36.5 L, MCV 92.4, MCH 30.4, MCHC 32.9, RDW Coeff of Oleg 17.2 H, Plt Count 143, Neutrophils % (Manual) 82.0 H, Band Neutrophils % 1.0, Lymphocytes % (Manual) 9.0 L, Monocytes % (Manual) 5.0, Eosinophils % (Manual) 3.0, Anisocytosis Not present ACTIVITY: UP TOLERATED WITH FREQUENT REST PERIODS ELEVATE LEGS ABOVE THE LEVEL OF YOUR HIPS WHEN SITTING BLEEDING PRECAUTIONS DIET: HEART HEALTH[facility] HOSPITAL COURSE: 69 year old white male who presented through the emergency room with shortness of breath, had elevated BNP and has known cardiomyopathy with ejection fraction of about 17%. He was confused upon arrival and was thought he had had some mix up on his medications. He had leg edema. His home medications were resume. He had two doses of IV Lasix. In the first 48 hours he had over 3 liters out. U/A was normal. Chest x-ray showed some interstitial edema. He just recently had an echo in Maywhich showed ejection fraction of 17%. He was hypotensive upon arrival but has chronic hypotension due to reduced ejection fraction. Of the coarse of the next several days his confusion gradually improved. His INR has remained therapeutic. He has done well. Medications have remained unchanged. He will go home and is instructed to wear his oxygen continuously. Some of his confusion was thought to be due to hypoxia. He is on 3 liters via nasal canula. He does not want home health. Labs are stable. BUN 27, creatinine 0.9, hgb 12, hct 36. He will be discharged in stable condition and followup in the office next week. TIME SPENT: More than 60 minutes. [facility]
--- NOTE | 2020-09-27 09:43 | PN ---
DATE OF SERVICE: 09/25/2020 SUBJECTIVE: The patient was seen and examined with the Nurse Practitioner. The patient's condition is stable. CHF seems to have resolved. He doesn't have any symptoms. Appetite has improved. Lungs are clear. No S3. No JVP. The patient is going to be discharged home. Practically same medications. CHF discussed with him. Advised to cut down on salt intake. Diuretic for shortness of breath and leg swelling. Cardiac rehab advised. CONDITION: Stable Prognosis: Guarded TIME SPENT: More than 30 minutes. Plan and coordination of the patient's care discussed in the presence of nurse. RAYNA
--- NOTE | 2020-09-27 09:44 | PN ---
09/20/2020: Level 5 09/21/2020: Intermediate 09/22/2020: Intermediate 09/23/2020: Intermediate 09/24/2020: Intermediate 09/25/2020: D as in discharge MTDD
== END 2020-09-25 13:35 | disposition home or self-care (01) | DRG 204 ==
LOC: ED 18:32 → MEDSURG A 21:36
PROVIDERS: ADMIT Internal Medicine; ATTEND Internal Medicine
DX: I48.91 Unspecified atrial fibrillation; J90 Pleural effusion, not elsewhere classified; Z99.81 Dependence on supplemental oxygen; R60.0 Localized edema; R06.00 Dyspnea, unspecified; Z79.01 Long term (current) use of anticoagulants; I42.9 Cardiomyopathy, unspecified; Z20.822 Contact with and (suspected) exposure to COVID-19; R06.02 Shortness of breath

== ENCOUNTER 2020-10-20 14:11 | Inpatient (IN) ==
[2020-10-20] MEDS ORDERED: ZOFRAN 4 MG/2 ML IVP PRN (14:40)
[2020-10-20] MEDS ORDERED: VENTOLIN HFA (PER PUFF-WITH SPACER) IH ONE (14:40)
--- NOTE | 2020-10-20 14:40 | ED.PDOC ---
General ED Provider: Dr. JENNY BASHIR Chief Complaint: Shortness of Air Stated Complaint: Shortness of Breath Mode of Arrival: Walk-In Information Source: Patient Primary Care Provider: STANTON HAMPTON Sepsis Protocol: For patient's 13 years and over: Temp is 96.8 and below OR 101 and greater Pulse >90 BPM Resp >20/minute Acutely Altered Mental Status Are patient's symptoms suggestive of a new infection, such as: -Pneumonia -Skin, Soft Tissue -Endocarditis -UTI -Bone, Joint Infection -Implantable Device -Acute Abdominal Infection -Wound Infection -Meningitis -Blood Stream Catheter Infection -Unknown [facility] Medical History (Updated 10/20/20 @ 16:30 by JENNY BASHIR DO) Anxiety Basal cell carcinoma of left side of nose Bladder cancer BPH (benign prostatic hyperplasia) CAD (coronary artery disease) Cardiac LV ejection fraction <20% CHF (congestive heart failure) Chronic anemia Chronic anticoagulation Chronic combined systolic and diastolic heart failure Chronic respiratory failure COPD (chronic obstructive pulmonary disease) CVA (cerebral vascular accident) Degenerative joint disease (DJD) of lumbar spine Depression Dyslipidemia Former smoker GERD (gastroesophageal reflux disease) Hypertension Ischemic dilated cardiomyopathy Myocardial infarction Oxygen dependent Paroxysmal A-fib Seasonal allergies TIA (transient ischemic attack) Family History FATHER Heart attack Social History Smoking and tobacco status: Former smoker Alcohol intake: never Surgical History (Updated 09/21/20 @ 08:27 by GASTON SAENZ) History of AAA (abdominal aortic aneurysm) repair History of bilateral cataract extraction History of coronary artery stent placement Interpretation Radiology Interpretation Radiology Interpretation By: Radiologist Radiology Results: Positive ( No pulmonary embolus, noting technical limitations as described. 2. Moderate emphysema. 3. Diffuse bilateral ground-glass opacities suggest pneumonia or edema. New anterior right lung subpleural nodular density. Follow-up in 3 months recommended for reassessment. 4. Nonspecific mediastinal lym) EKG Interpretation Time of EKG #1: 14:30 Interpretation: non specific intraventricular Block/lateral infarct UNKNOW AGE Course Course Hematology/Chemistry: 10/20/20 14:55 10/20/20 14:55 Orders, Labs, Meds: Lab Review 10/20/20 10/20/20 10/20/20 14:38 14:55 14:55 WBC 7.48 RBC 3.84 L Hgb 11.6 L Hct 35.0 L MCV 91.1 MCH 30.2 MCHC 33.1 RDW Coeff of Oleg 17.8 H Plt Count 145 Immature Gran % (Auto) 0.4 Neut % (Auto) 83.8 H Lymph % (Auto) 6.8 L [place] % (Auto) 6.7 Eos % (Auto) 1.9 Baso % (Auto) 0.4 Neut # (Auto) 6.3 Lymph # (Auto) 0.5 L [place] # (Auto) 0.5 Eos # (Auto) 0.1 Baso # (Auto) 0.0 Immature Gran # (Auto) 0.0 Puncture Site Rbrach Base Excess 0.3 O2 Saturation 93.0 L ABG pH 7.49 H ABG pCO2 31.0 L ABG pO2 61.0 L ABG HCO3 23.6 ABG Total CO2 24.6 H Hemoglobin 1.3 Oxyhemoglobin 91.1 L Carboxyhemoglobin 2.7 H Total Hemoglobin 11.8 O2 Delivery Device Cannula Oxygen Liter Flow 4.00 Sodium 133.5 L Potassium 4.16 Chloride 102.4 Carbon Dioxide 20.9 L Anion Gap 14.36 BUN 18.3 Creatinine 1.26 H Estimated GFR (MDRD) 56.00 BUN/Creatinine Ratio 14.52 Glucose 124.1 H Lactic Acid Calcium 8.79 Total Bilirubin 1.30 AST 34.0 ALT 27.6 Alkaline Phosphatase 104.2 Troponin I 0.017 NT-Pro-B Natriuret Pep 4470.000 H Total Protein 6.79 Albumin 3.76 Globulin 3.03 Albumin/Globulin Ratio 1.24 Influ A Molecular Assay Influ B Molecular Assay 10/20/20 10/20/20 14:55 14:57 WBC RBC Hgb Hct MCV MCH MCHC RDW Coeff of Oleg Plt Count Immature Gran % (Auto) Neut % (Auto) Lymph % (Auto) [place] % (Auto) Eos % (Auto) Baso % (Auto) Neut # (Auto) Lymph # (Auto) [place] # (Auto) Eos # (Auto) Baso # (Auto) Immature Gran # (Auto) Puncture Site Base Excess O2 Saturation ABG pH ABG pCO2 ABG pO2 ABG HCO3 ABG Total CO2 Hemoglobin Oxyhemoglobin Carboxyhemoglobin Total Hemoglobin O2 Delivery Device Oxygen Liter Flow Sodium Potassium Chloride Carbon Dioxide Anion Gap BUN Creatinine Estimated GFR (MDRD) BUN/Creatinine Ratio Glucose Lactic Acid 1.25 Calcium Total Bilirubin AST ALT Alkaline Phosphatase Troponin I NT-Pro-B Natriuret Pep Total Protein Albumin Globulin Albumin/Globulin Ratio Influ A Molecular Assay Negative by naat Influ B Molecular Assay Negative by naat Orders Category Date Time Status ADMIT PATIENT INPATIENT .TO [facility] (MONITORED BED) ADMISSION 10/20/20 15:55 Active ABG DRAW REQUEST Stat CARDIO 10/20/20 14:25 Completed EKG-(ED ONLY) Stat CARDIO 10/20/20 14:25 Completed METERED DOSE INHALATION Routine CARDIO 10/20/20 14:42 Completed NPO REMINDER: IMAGING ONCE CARE 10/20/20 14:44 Completed TELEMETRY MONITORING TELE CARE 10/20/20 15:55 Active TELEMETRY MONITORING TELE CARE 10/20/20 15:58 Active IV [ED IV/MEDIPORT/POWERPORT] .ONCE EMERGENCY 10/20/20 14:40 Active ABG COOX Stat LAB 10/20/20 14:38 Completed BLOOD CULTURE (ED ONLY) Stat LAB 10/20/20 14:55 Received CBC W/ AUTO DIFF Stat LAB 10/20/20 14:55 Completed CMP [COMPREHENSIVE METABOLIC PANEL] Stat LAB 10/20/20 14:55 Completed FLU A & B MOLECULAR [FLU A/B MOLECULAR] Stat LAB 10/20/20 14:57 Completed LACTIC ACID Stat LAB 10/20/20 14:55 Completed NT-PROBNP Stat LAB 10/20/20 14:55 Completed RESPIRATORY PANEL 2.1 (PCR) Stat LAB 10/20/20 16:01 Received TROPONIN I Stat LAB 10/20/20 14:55 Completed UA [URINALYSIS C & S IF INDICATED] Stat LAB 10/20/20 14:41 Uncollected URINE DRUG SCREEN (RAPID FOR ED) [DRUG SCREEN, URINE, LAB 10/20/20 14:41 Uncollected RAPID] Stat 0.9 % Sodium Chloride [Saline Flush] MEDS 10/20/20 14:40 Active 1 syr IVF PRN PRN Albuterol Inhaler(with Spacer) [Ventolin Hfa (Per Puff- MEDS 10/20/20 14:40 Discontinued with Spacer)] 2 puff IH ONCE ONE Azithromycin Inj [Zithromax] 500 mg MEDS 10/20/20 16:29 Active 0.9 % Sodium Chloride [Sodium Chloride] 250 ml IV ONCE Ceftriaxone/D5w 1 gm Premix [Rocephin 1 gm/50 ml D5w] MEDS 10/20/20 16:25 Active 1 gm in 50 ml IV ONCE Dexamethasone Sod Phosphate [Decadron] MEDS 10/20/20 16:00 Discontinued 4 mg IVP ONCE ONE Furosemide [Lasix] MEDS 10/20/20 15:57 Discontinued 40 mg IVP ONCE ONE Ondansetron HCl/Pf [Zofran 4 mg/2 ml] MEDS 10/20/20 14:40 Active 4 mg IVP Q6H PRN CT CHEST PE PROTOCOL Stat RADS 10/20/20 14:44 Completed Medications Generic Name Dose Route Start Last Admin Trade Name Freq PRN Reason Stop Dose Admin CEFTRIAXONE/D5W 1 GM PREMIX 1 gm in 50 mls @ 75 mls/hr 10/20/20 16:25 10/20/20 16:47 Rocephin 1 Gm/50 Ml D5w IV 10/20/20 17:04 75 mls/hr ONCE STA Administration Azithromycin 500 mg/ Sodium 250 mls @ 125 mls/hr 10/20/20 16:29 Chloride IV 10/20/20 18:28 ONCE STA Ondansetron HCl 4 mg 10/20/20 14:40 Ondansetron Hcl/Pf 4 Mg/2 Ml Sdv IVP Q6H PRN Nausea / Vomiting Sodium Chloride 1 syr 10/20/20 14:40 0.9% Sodium Chloride 10 Ml Disp.Syrin IVF PRN PRN To flush IV Discontinued Medications Generic Name Dose Route Start Last Admin Trade Name Freq PRN Reason Stop Dose Admin Albuterol Sulfate 2 puff 10/20/20 14:40 10/20/20 15:04 Albuterol Sulfate (Ventolin Hfa) 18 Gm 1 Puff With Spacer IH 10/20/20 14:41 2 puff ONCE ONE Administration Dexamethasone Sodium Phosphate 4 mg 10/20/20 16:00 10/20/20 16:28 Dexamethasone Sod Phos 4 Mg/Ml Inj IVP 10/20/20 16:01 4 mg ONCE ONE Administration Furosemide 40 mg 10/20/20 15:57 10/20/20 16:28 Furosemide Inj 40 Mg/4 Ml Vial IVP 10/20/20 15:58 40 mg ONCE ONE Administration Vital Signs: Temp Pulse Resp BP Pulse Ox 10/20/20 14:11 97.3 F L 69 15 92/59 L 88 L Discharge Plan Discharge Patient Disposition: ADMITTED INPATIENT Discharge Problem: CHF (congestive heart failure), Pneumonia ED Provider: JENNY BASHIR Condition: Serious Physician Progress Note: []
[2020-10-20 14:41] LABS: ABG O2 HGB 91.1 % (95-100); ABG PH 7.49 (7.35-7.45); BEecf 0.3 (-2.0-3.0); COHb 2.7 (0.5-1.5); HCO3 23.6 (21-28); MetHb 1.3 (0-1.5); TCO2 24.6 (19-24); tHb 11.8 g/dl (11.7-17.4)
[2020-10-20 14:59] LABS: BASOPHILS % (AUTO) 0.4 % (0.0-3.0); EOSINOPHILS # (AUTO) 0.1 K/ul (0.0-0.7); EOSINOPHILS % (AUTO) 1.9 % (0.0-7.0); HEMOGLOBIN 11.6 g/dl (14.0-18.0); IMMATURE GRANULOCYTE % (AUTO) 0.4 % (0.0-5.0); LYMPHOCYTES # (AUTO) 0.5 K/uL (0.60-3.4); LYMPHOCYTES % (AUTO) 6.8 (10.0-50.0); MEAN CORPUSCULAR HEMOGLOBIN 30.2 pg (27.0-31.0); MEAN CORPUSCULAR HGB CONC 33.1 (31.8-35.4); MEAN CORPUSCULAR VOLUME 91.1 fl (80.0-94.0); MONOCYTES # (AUTO) 0.5 K/uL (0.4-2.0); MONOCYTES % (AUTO) 6.7 (0-10); NEUTROPHILS # (AUTO) 6.3 K/ul (2.0-6.9); NEUTROPHILS % (AUTO) 83.8 % (42.2-75.2); PLATELET COUNT 145 10^3/uL (140-440); RDW COEFFICIENT OF VARIATION 17.8 % (11.6-14.8); RED BLOOD COUNT 3.84 10^6/ul (4.70-6.10); WHITE BLOOD COUNT 7.48 K/ul (4.2-10.2)
[2020-10-20 15:16] LABS: ALANINE AMINOTRANSFERASE 27.6 U/L (0-50); ALBUMIN 3.76 g/dL (3.5-5.0); ALKALINE PHOSPHATASE 104.2 U/L (56-119); BILIRUBIN,TOTAL 1.3 mg/dL (0.2-1.3); BLOOD UREA NITROGEN 18.3 mg/dL (9-20); CALCIUM 8.79 mg/dL (8.4-10.2); CARBON DIOXIDE 20.9 mmol/L (22-30.0); CHLORIDE 102.4 mmol/L (98-107); CREATININE 1.26 mg/dL (0.60-1.10); GLUCOSE 124.1 mg/dL (74-106); POTASSIUM 4.16 mmol/L (3.5-5.1); SODIUM 133.5 mmol/L (134.5-145); TOTAL PROTEIN 6.79 g/dL (6.3-8.2)
[2020-10-20 15:22] LABS: MOLECULAR FLU A NEGATIVE BY NAAT (NEGATIVE); MOLECULAR FLU B NEGATIVE BY NAAT (NEGATIVE)
[2020-10-20 15:28] LABS: TROPONIN I 0.017 ng/ml (0.0000-0.120)
[2020-10-20] MEDS ORDERED: LASIX IVP ONE (15:57)
[2020-10-20] MEDS ORDERED: DECADRON IVP ONE (16:00)
[2020-10-20 16:07] LABS: BORDETELLA PARAPERTUSSIS (PCR) NOT DETECTED (NOT DETECT); BORDETELLA PERTUSSIS (PCR) NOT DETECTED (NOT DETECT); CHLAMYDIA PNEUMONIAE (PCR) NOT DETECTED (NOT DETECT); CORONAVIRUS 229E (PCR) NOT DETECTED (NOT DETECT); CORONAVIRUS HKU1 (PCR) NOT DETECTED (NOT DETECT); CORONAVIRUS NL63 (PCR) NOT DETECTED (NOT DETECT); CORONAVIRUS OC43 (PCR) NOT DETECTED (NOT DETECT); HUMAN METAPNEUMOVIRUS (PCR) NOT DETECTED (NOT DETECT); HUMAN RHINOVIRUS/ENTEROV (PCR) NOT DETECTED (NOT DETECT); INFLUENZA B (PCR) NOT DETECTED (NOT DETECT); MYCOPLASMA PNEUMONIAE (PCR) NOT DETECTED (NOT DETECT); PARAINFLUENZA VIRUS 1 (PCR) NOT DETECTED (NOT DETECT); PARAINFLUENZA VIRUS 2 (PCR) NOT DETECTED (NOT DETECT); PARAINFLUENZA VIRUS 3 (PCR) NOT DETECTED (NOT DETECT); PARAINFLUENZA VIRUS 4 (PCR) NOT DETECTED (NOT DETECT); RESPIRATORY SYNCYTIAL V (PCR) NOT DETECTED (NOT DETECT); SARS_COV_2 (PCR) NOT DETECTED (NOT DETECT)
--- NOTE | 2020-10-20 16:22 | CT ---
EXAM: CT Angiogram Chest. HISTORY: Shortness of breath, oxygen desaturation. COMPARISON: Radiograph 09/19/2020. CT 03/16/2019. TECHNIQUE: Multiple axial images of the chest were obtained following intravenous administration of 98 mL Visipaque 320, low osmolar. Images were reformatted in the sagittal and coronal plane. 3-D an d maximum intensity projection reformatted images were created on an independent workstation. FINDINGS: The heart is enlarged. Atherosclerotic calcifications noted in the aorta and coronary art eries. There is no pericardial effusion. There is mixing artifact predominately within the left pulmonary arterial system which along with mot ion artifact limits assessment for small pulmonary emboli. With these limitations there is no pulmon jolly arterial filling defect identified. Moderate emphysema noted. There are mild ground-glass opacities throughout both lungs. Calcified g ranulomatous changes present. Subpleural nodular opacity in the anterior right lower lobe on axial i mage 61 was not present on prior chest CT measuring 1.3 x 0.6 cm. There is no consolidation. There is a trace amount of left pleural fluid. There is no pneumothorax. There are mediastinal lymph nodes which measure up to 1.2 cm short axis on axial image 40 with additi onal lymph nodes present throughout the mediastinum on both hilar regions. Limited images of the upper abdomen demonstrate no acute abnormality. Abdominal aortic Endo graft is partially imaged. There are bilateral gynecomastia noted. Degenerative changes present in the spine. IMPRESSION: 1. No pulmonary embolus, noting technical limitations as described. 2. Moderate emphysema. 3. Diffuse bilateral ground-glass opacities suggest pneumonia or edema. New anterior right lung sub pleural nodular density. Follow-up in 3 months recommended for reassessment. 4. Nonspecific mediastinal lymphadenopathy. Axillary trace left pleural effusion. All CT scans are performed using dose optimization techniques as appropriate to the performed exam an d include at least one of the following: Automated exposure control, adjustment of the mA and/or kV according t o size, and the use of iterative reconstruction technique.
[2020-10-20] MEDS ORDERED: ROCEPHIN 1 GM/50 ML D5W 1 GM/50 ML BAG IV STA (16:25)
[2020-10-20] MEDS ORDERED: ZITHROMAX 500 MG in SODIUM CHLORIDE 250 ML IV STA (16:29)
[2020-10-20 16:55] LABS: ADENOVIRUS (PCR) NOT DETECTED (NOT DETECT)
[2020-10-20] MEDS ORDERED: ZITHROMAX PO STA (17:16)
[2020-10-20 18:09] LABS: BILIRUBIN,URINE Negative (NEGATIVE); CLARITY,URINE Clear (CLEAR); COLOR,URINE Yellow (YELLOW); GLUCOSE, URINE (UA) Negative (NEGATIVE); KETONES,URINE Negative (NEGATIVE); LEUKOCYTE ESTERASE ,URINE Negative (NEGATIVE); NITRITE,URINE Negative (NEGATIVE); PROTEIN,URINE Negative (NEGATIVE); URINE, BLOOD Negative (NEGATIVE); UROBILINOGEN,URINE 0.2 (0.2)
[2020-10-20] MEDS: SODIUM CHLORIDE 0.9%-KCL 20 MEQ 1,000 ML IV SCH (18:09)
[2020-10-20 18:18] VITALS: BMI 10.1
[2020-10-20 18:31] LABS: AMPHETAMINE SCREEN,URINE NEGATIVE (NEGATIVE); BARBITURATE SCREEN,URINE NEGATIVE (NEGATIVE); BENZODIAZEPINES SCREEN,URINE NEGATIVE (NEGATIVE); CANNABINOID SCREEN,URINE NEGATIVE (NEGATIVE); COCAIN SCREEN,URINE NEGATIVE (NEGATIVE); METHADONE URINE SCREEN NEGATIVE (NEGATIVE); METHAMPHETAMINES SCREEN,URINE NEGATIVE (NEGATIVE); OPIATE SCREEN,URINE NEGATIVE (NEGATIVE); OXYCODONE URINE SCREEN NEGATIVE (NEGATIVE); PHENCYCLIDINE SCREEN,URINE NEGATIVE (NEGATIVE); PROPOXYPHENE URINE SCREEN NEGATIVE (NEGATIVE); TRICYCLIC ANTIDEPRESSANTS URIN NEGATIVE (NEGATIVE)
[2020-10-20] MEDS ORDERED: VENTOLIN HFA (PER PUFF-WITH SPACER) IH PRN (18:44)
[2020-10-20] MEDS ORDERED: NITROSTAT SL PRN (18:44)
[2020-10-20] MEDS: VENTOLIN HFA (PER PUFF-WITH SPACER) IH SCH (19:55)
[2020-10-20] MEDS: ATROVENT HFA INHALER (PER PUFF-WITH SPACER) IH SCH (19:55)
[2020-10-20] MEDS ORDERED: DUONEB NEB SCH (20:00)
[2020-10-20] MEDS: ZOLOFT PO SCH (21:00)
[2020-10-20] MEDS: COGENTIN PO SCH (21:00)
[2020-10-20] MEDS: HALDOL PO SCH (21:00)
[2020-10-20] MEDS ORDERED: COREG PO SCH (21:00)
[2020-10-21] MEDS: VENTOLIN HFA (PER PUFF-WITH SPACER) IH SCH ×4 (04:50→19:46)
[2020-10-21] MEDS: ATROVENT HFA INHALER (PER PUFF-WITH SPACER) IH SCH ×4 (04:50→19:20)
[2020-10-21 05:07] LABS: BASOPHILS % (AUTO) 0.3 % (0.0-3.0); EOSINOPHILS % (AUTO) 0.1 % (0.0-7.0); HEMATOCRIT 34.5 % (42.0-52.0); HEMOGLOBIN 11.5 g/dl (14.0-18.0); IMMATURE GRANULOCYTE # (AUTO) 0.1 (0.0-1.0); IMMATURE GRANULOCYTE % (AUTO) 0.7 % (0.0-5.0); LYMPHOCYTES # (AUTO) 0.6 K/uL (0.60-3.4); LYMPHOCYTES % (AUTO) 7.9 (10.0-50.0); MEAN CORPUSCULAR HEMOGLOBIN 30.6 pg (27.0-31.0); MEAN CORPUSCULAR HGB CONC 33.3 (31.8-35.4); MEAN CORPUSCULAR VOLUME 91.8 fl (80.0-94.0); MONOCYTES # (AUTO) 0.3 K/uL (0.4-2.0); MONOCYTES % (AUTO) 3.5 (0-10); NEUTROPHILS # (AUTO) 6.2 K/ul (2.0-6.9); NEUTROPHILS % (AUTO) 87.5 % (42.2-75.2); PLATELET COUNT 146 10^3/uL (140-440); RDW COEFFICIENT OF VARIATION 17.6 % (11.6-14.8); RED BLOOD COUNT 3.76 10^6/ul (4.70-6.10); WHITE BLOOD COUNT 7.12 K/ul (4.2-10.2)
[2020-10-21 05:22] LABS: ALANINE AMINOTRANSFERASE 34.9 U/L (0-50); ALBUMIN 3.51 g/dL (3.5-5.0); ALKALINE PHOSPHATASE 103.2 U/L (56-119); ASPARTATE AMINO TRANSFERASE 42.4 U/L (17-59); BLOOD UREA NITROGEN 26.8 mg/dL (9-20); CALCIUM 8.7 mg/dL (8.4-10.2); CARBON DIOXIDE 19.3 mmol/L (22-30.0); CHLORIDE 103.9 mmol/L (98-107); CREATININE 1.2 mg/dL (0.60-1.10); GLUCOSE 116.5 mg/dL (74-106); POTASSIUM 4.46 mmol/L (3.5-5.1); PROTHROMBIN TIME 44.8 SEC (9.3-11.0); SODIUM 131.5 mmol/L (134.5-145); TOTAL PROTEIN 6.54 g/dL (6.3-8.2)
[2020-10-21 05:34] LABS: TROPONIN I 0.024 ng/ml (0.0000-0.120)
[2020-10-21 05:53] LABS: THYROID STIMULATING HORMONE 0.941 uIU/L (0.465-4.68)
[2020-10-21] MEDS ORDERED: NITROSTAT SL PRN (07:00)
[2020-10-21] MEDS: ASPIRIN CHEWABLE PO SCH (08:28)
[2020-10-21] MEDS: HALDOL PO SCH ×2 (08:29→20:32)
[2020-10-21] MEDS: LASIX TAB PO SCH ×2 (08:29→17:36)
[2020-10-21] MEDS: COGENTIN PO SCH ×2 (08:30→20:32)
[2020-10-21] MEDS: FLOMAX PO SCH (08:30)
[2020-10-21] MEDS: MICRO-K CAP PO SCH (08:30)
[2020-10-21] MEDS: ZITHROMAX PO SCH (08:30)
[2020-10-21] MEDS: ALDACTONE PO SCH (08:30)
[2020-10-21] MEDS: COREG PO SCH ×2 (08:30→17:36)
[2020-10-21] MEDS: LIPITOR PO SCH (08:30)
[2020-10-21] MEDS: SODIUM CHLORIDE 0.9%-KCL 20 MEQ 1,000 ML IV SCH (08:31)
[2020-10-21] MEDS: SYMBICORT 80-4.5 MCG INHALER IH SCH ×2 (08:36→20:33)
[2020-10-21] MEDS: FLONASE NAS SCH (08:36)
[2020-10-21] MEDS: ROCEPHIN 1 GM/50 ML D5W 1 GM/50 ML BAG IV SCH (08:41)
[2020-10-21] MEDS ORDERED: ZESTRIL PO SCH (09:00)
[2020-10-21 09:58] LABS: CHOLESTEROL 83.7 mg/dL (0-200); HDL CHOLESTEROL 29.6 mg/dL (35-60); TRIGLYCERIDES 60.8 mg/dL (0-150)
[2020-10-21] MEDS ORDERED: COUMADIN PO SCH (17:00)
[2020-10-21] MEDS: ZOLOFT PO SCH (20:32)
[2020-10-22] MEDS: SODIUM CHLORIDE 0.9%-KCL 20 MEQ 1,000 ML IV SCH (00:16)
[2020-10-22] MEDS: ATROVENT HFA INHALER (PER PUFF-WITH SPACER) IH SCH ×4 (04:50→19:30)
[2020-10-22] MEDS: VENTOLIN HFA (PER PUFF-WITH SPACER) IH SCH ×4 (04:50→19:30)
[2020-10-22 04:55] LABS: BASOPHILS # (AUTO) 0.1 K/uL (0-0.2); BASOPHILS % (AUTO) 0.5 % (0.0-3.0); EOSINOPHILS # (AUTO) 0.2 K/ul (0.0-0.7); HEMATOCRIT 37.6 % (42.0-52.0); HEMOGLOBIN 12.1 g/dl (14.0-18.0); IMMATURE GRANULOCYTE # (AUTO) 0.1 (0.0-1.0); IMMATURE GRANULOCYTE % (AUTO) 0.7 % (0.0-5.0); LYMPHOCYTES # (AUTO) 1.1 K/uL (0.60-3.4); MEAN CORPUSCULAR HEMOGLOBIN 29.7 pg (27.0-31.0); MEAN CORPUSCULAR HGB CONC 32.2 (31.8-35.4); MEAN CORPUSCULAR VOLUME 92.2 fl (80.0-94.0); MONOCYTES # (AUTO) 0.7 K/uL (0.4-2.0); MONOCYTES % (AUTO) 7.3 (0-10); NEUTROPHILS # (AUTO) 7.9 K/ul (2.0-6.9); NEUTROPHILS % (AUTO) 78.5 % (42.2-75.2); PLATELET COUNT 155 10^3/uL (140-440); RDW COEFFICIENT OF VARIATION 17.8 % (11.6-14.8); RED BLOOD COUNT 4.08 10^6/ul (4.70-6.10); WHITE BLOOD COUNT 10.07 K/ul (4.2-10.2)
[2020-10-22 05:08] LABS: ALANINE AMINOTRANSFERASE 39.9 U/L (0-50); ALBUMIN 3.46 g/dL (3.5-5.0); ALKALINE PHOSPHATASE 110.6 U/L (56-119); ASPARTATE AMINO TRANSFERASE 42.7 U/L (17-59); BILIRUBIN,TOTAL 0.79 mg/dL (0.2-1.3); BLOOD UREA NITROGEN 26.9 mg/dL (9-20); CALCIUM 8.5 mg/dL (8.4-10.2); CARBON DIOXIDE 18.3 mmol/L (22-30.0); CHLORIDE 105.8 mmol/L (98-107); CREATININE 1.3 mg/dL (0.60-1.10); POTASSIUM 4.41 mmol/L (3.5-5.1); SODIUM 132.4 mmol/L (134.5-145); TOTAL PROTEIN 6.46 g/dL (6.3-8.2)
[2020-10-22 05:11] LABS: PROTHROMBIN TIME 29.5 SEC (9.3-11.0)
[2020-10-22] MEDS: LASIX TAB PO SCH (05:38)
[2020-10-22] MEDS ORDERED: DECADRON IM ONE (08:47)
--- NOTE | 2020-10-22 08:50 | PCM.PROG ---
Attending Provider: ATTENDING PROVIDER: Dr. STANTON HAMPTON This patient is seen with Juana Baker, Nurse Practitioner. DATE OF SERVICE: 10/22/20 SUBJECTIVE: This 69 year old /WHITE M was hospitalized 10/20/20. The patient states he is feeling more short of breath with any movement this morning. The patient has severely decreased ejection fraction. REVIEW OF SYSTEMS: CONSTITUTIONAL: No night sweats. No fatigue, malaise, lethargy. No fever or chills. Weakness. HEENT: Eyes: No visual changes. No eye pain. No eye discharge. ENT: No runny nose. No epistaxis. No sinus pain. No odynophagia. No congestion. RESPIRATORY: No cough, no congestion. No hemoptysis. Shortness of breath. CARDIOVASCULAR: No angina symptoms. No CHF symptoms. No atypical chest pain for CAD. No palpitations. No orthopnea.. GASTROINTESTINAL: No abdominal pain. No nausea or vomiting. No diarrhea or constipation. No hematemesis. No hematochezia. GENITOURINARY: No urgency. No frequency. No dysuria. No hematuria. No obstructive symptoms. No discharge. No pain. No significant abnormal bleeding. MUSCULOSKELETAL: No musculoskeletal pain; no joint swelling. NEUROLOGICAL: Awake, alert, oriented to time, place and person. No headache. No neck pain. No syncope. No seizures. No dizziness. PSYCHIATRIC: Not anxious. No depression. No suicidal thoughts. No homicidal thoughts. SKIN: No rash. No lesions. No wounds. ENDOCRINE: No unexplained weight loss. No weight gain. HEMATOLOGIC/LYMPHATIC: No anemia. No purpura. No petechiae. No prolonged or excessive bleeding. No palpable lymph nodes. PHYSICAL EXAMINATION: GENERAL: The patient is awake, alert and oriented, lying in bed in no distress. VITAL SIGNS: Temperature 97.7 F, Pulse 78, Respiratory Rate 18, BP 94/69, Pulse Ox 92% HEENT: Head normocephalic, atraumatic. Eyes: Extraocular muscles are intact. Pupils are equal, round and reactive to light and accommodation. Ears: No lesions. Nose appeared normal. Throat: No exudate or erythema. NECK: Supple. No JVD, no carotid bruit. No lymphadenopathy or thyromegaly. LUNGS: Diminished breath sounds. Clear to auscultation. Percussion note normal. Chest symmetrical. HEART: S1, S2, no S3. No murmurs. No cyanosis or clubbing. No ascites. Pulses: Dorsalis pedis and posterior tibial pulses +1 to +2 both sides. ABDOMEN: Soft. Non-tender. Bowel sounds active. No CVA tenderness. No mass felt. EXTREMITIES: No edema. Full range of motion of all extremities, equal. NEUROLOGIC: No focal deficit. Cranial nerves II through XII are grossly intact. No headache. No double vision. SKIN: Not dry. Intact. Turgor-normal. LYMPHATIC: No palpable lymph nodes/no lymphedema. MUSCULOSKELETAL: Normal joints with no swelling. Muscle tone is normal. LAB REVIEW: 10/22/20 04:37 10/22/20 04:37 10/22/20 04:37: PT 29.5 H D, INR 2.75 10/22/20 04:37: Sodium 132.4 L, Potassium 4.41, Chloride 105.8, Carbon Dioxide 18.3 L, Anion Gap 12.71, BUN 26.9 H, Creatinine 1.30 H, Estimated GFR (MDRD) 54.00, BUN/Creatinine Ratio 20.69, Glucose 111.0 H, Calcium 8.50, Total Bilirubin 0.79, AST 42.7, ALT 39.9, Alkaline Phosphatase 110.6, Total Protein 6.46, Albumin 3.46 L, Globulin 3.00, Albumin/Globulin Ratio 1.15 10/22/20 04:37: WBC 10.07, RBC 4.08 L, Hgb 12.1 L, Hct 37.6 L, MCV 92.2, MCH 29.7, MCHC 32.2, RDW Coeff of Oleg 17.8 H, Plt Count 155, Immature Gran % (Auto) 0.7, Neut % (Auto) 78.5 H, Lymph % (Auto) 11.0, Corson % (Auto) 7.3, Eos % (Auto) 2.0, Baso % (Auto) 0.5, Neut # (Auto) 7.9 H, Lymph # (Auto) 1.1, Corson # (Auto) 0.7, Eos # (Auto) 0.2, Baso # (Auto) 0.1, Immature Gran # (Auto) 0.1 10/21/20 04:51: Triglycerides 60.8, Cholesterol 83.7, LDL Cholesterol, Calc 42, VLDL Cholesterol 12, HDL Cholesterol 29.6 L, Cholesterol/HDL Ratio 2.8 L ASSESSMENT: Please see below. 1. Acute COPD exacerbation 2. CHF with ejection fraction 15-20% 3. Chronic kidney disease stage 2 4. Hypotension 5. Atrial fibrillation PLAN: 1. Decadron 1cc IM today 2. Discontinue IV fluids 3. Hold second dose of Lasix tonight 4. Give 40mg IV Lasix now 5. Farxiga 10mg once a day 6. Coreg at night Plan and coordination of the patient's care discussed in the presence of Repairer Welding Equipment and nurse. SCRIBED BY: Shannon DILLARDist scribed while in presence of service performed by Dr. Hampton/Juana Baker APRN on 10/22/20 (0800)
[2020-10-22] MEDS ORDERED: LASIX IVP ONE (09:00)
[2020-10-22] MEDS: COGENTIN PO SCH ×2 (10:05→20:56)
[2020-10-22] MEDS: ZITHROMAX PO SCH (10:05)
[2020-10-22] MEDS: ALDACTONE PO SCH (10:05)
[2020-10-22] MEDS: HALDOL PO SCH ×2 (10:05→21:01)
[2020-10-22] MEDS: MICRO-K CAP PO SCH (10:05)
[2020-10-22] MEDS: FLOMAX PO SCH (10:05)
[2020-10-22] MEDS: ASPIRIN CHEWABLE PO SCH (10:06)
[2020-10-22] MEDS: LIPITOR PO SCH (10:06)
[2020-10-22] MEDS: COREG PO SCH ×2 (10:06→16:28)
[2020-10-22] MEDS: NON-FORMULARY MEDICATION PO SCH (10:09)
[2020-10-22] MEDS: SYMBICORT 80-4.5 MCG INHALER IH SCH ×2 (10:11→21:04)
[2020-10-22] MEDS: ROCEPHIN 1 GM/50 ML D5W 1 GM/50 ML BAG IV SCH (10:11)
[2020-10-22] MEDS: FLONASE NAS SCH (10:12)
--- NOTE | 2020-10-22 12:47 | PN ---
DATE OF SERVICE: 10/20/2020 ADMIT NOTE SUBJECTIVE: 69 year old white male came to the emergency room with cough, congestion and shortness of breath. The patient had gained some weight 4-5 pounds. The patient has endstage chronic lung disease and chronic congestive heart failure. The patient has dilated cardiomyopathy with ejection fraction 15-20%. REVIEW OF SYSTEMS: CONSTITUTIONAL: No night sweats. No fatigue, malaise, lethargy. No fever or chills. HEENT: Eyes: No visual changes. No eye pain. No eye discharge. ENT: No runny nose. No epistaxis. No sinus pain. No sore throat. No odynophagia. No congestion. RESPIRATORY: No cough, no congestion. No hemoptysis. Shortness of breath on minimal exertion. CARDIOVASCULAR: No angina symptoms. No CHF symptoms. No atypical chest pain for CAD. No palpitations. No PND. No orthopnea. GASTROINTESTINAL: No abdominal pain. No nausea or vomiting. No diarrhea or constipation. No hematemesis. No hematochezia. Poor appetite. GENITOURINARY: No urgency. No frequency. No dysuria. No hematuria. No obstructive symptoms. No discharge. No pain. No significant abnormal bleeding. MUSCULOSKELETAL: No musculoskeletal pain; no joint swelling. NEUROLOGICAL: No headache. No neck pain. No syncope. No seizures. No dizziness. PSYCHIATRIC: Not anxious. No depression. No suicidal thoughts. No homicidal thoughts. SKIN: No rash. No lesions. No wounds. ENDOCRINE: No unexplained weight loss. No weight gain. HEMATOLOGIC/LYMPHATIC: No anemia. No purpura. No petechiae. No prolonged or excessive bleeding. No palpable lymph nodes. PHYSICAL EXAMINATION: GENERAL: The patient is oriented to time, place and person. HEENT: Head normocephalic, atraumatic. Eyes: Extraocular muscles are intact. Pupils are equal, round and reactive to light and accommodation. Ears: No lesions. Nose appeared normal. Throat: No exudate or erythema. NECK: Supple. No JVD, no carotid bruit. No lymphadenopathy or thyromegaly. LUNGS: Decreased breath sounds but clear to auscultation. Percussion note normal. Chest symmetrical. HEART: S1, S2, no S3. No murmurs. No cyanosis or clubbing. Maybe mild ascites. Pulses: Dorsalis pedis and posterior tibial pulses +1 to +2 bilaterally. ABDOMEN: Soft. Nontender. Bowel sounds active. No CVA tenderness. No mass felt. EXTREMITIES: Trace edema. Full range of motion of all extremities, equal. NEUROLOGIC: No focal deficit. Cranial nerves II through XII are grossly intact. No headache. No double vision. SKIN: Not dry. Intact. Turgor - normal. LYMPHATIC: No palpable lymph nodes/no lymphedema. MUSCULOSKELETAL: Normal joints with no swelling. Muscle tone is normal. ASSESSMENT: 1. CHF endstage 3/4 2. Chronic lung disease 3. Atrial fibrillation 4. Mild hypoxemia with pO2 61 with pCO2 of 31, pH 7.49 with saturation 91%. PLAN: 1. Continue all the medications including Coumadin 2. ABG 3. IV Lasix one dose 4. Watch systolic blood pressure 5. Given 1cc Decadron 6. Gradually diurese the patient. Kidney functions are acceptable. Creatinine 1.1 and BUN of 25. CONDITION: Stable. TIME SPENT: More than 30 minutes. Plan and coordination of the patient's care discussed in the presence of nurse. RAYNA
--- NOTE | 2020-10-22 14:24 | PN ---
DATE OF SERVICE: 10/21/2020 SUBJECTIVE: 69 year old white male hospitalized with endstage CHF exacerbation. The patient has endstage CHF with ejection fraction 15-20% with dilated cardiomyopathy. Also has severe chronic lung disease with history of smoking. He is on multiple unloading agents. The patient's condition seem to have improved with steroids, IV Lasix. Kidney functions are more or less stable. REVIEW OF SYSTEMS: CONSTITUTIONAL: No night sweats. No fatigue, malaise, lethargy. No fever or chills. Feeling better. HEENT: Eyes: No visual changes. No eye pain. No eye discharge. ENT: No runny nose. No epistaxis. No sinus pain. No sore throat. No odynophagia. No congestion. RESPIRATORY: No cough, no congestion. No hemoptysis. Still short of breath but less than what he was. CARDIOVASCULAR: No angina symptoms. No CHF symptoms. No atypical chest pain for CAD. No palpitations. No PND. No orthopnea. GASTROINTESTINAL: No abdominal pain. No nausea or vomiting. No diarrhea or constipation. No hematemesis. No hematochezia. Appetite has improved some. GENITOURINARY: No urgency. No frequency. No dysuria. No hematuria. No obstructive symptoms. No discharge. No pain. No significant abnormal bleeding. MUSCULOSKELETAL: No musculoskeletal pain; no joint swelling. NEUROLOGICAL: No headache. No neck pain. No syncope. No seizures. No dizziness. PSYCHIATRIC: Not anxious. No depression. No suicidal thoughts. No homicidal thoughts. SKIN: No rash. No lesions. No wounds. ENDOCRINE: No unexplained weight loss. No weight gain. HEMATOLOGIC/LYMPHATIC: No anemia. No purpura. No petechiae. No prolonged or excessive bleeding. No palpable lymph nodes. PHYSICAL EXAMINATION: VITAL SIGNS: Temperature 97.5, pulse 68, respiratory rate 16, blood pressure 82/52 and pulse ox 91% on room air. HEENT: Head normocephalic, atraumatic. Eyes: Extraocular muscles are intact. Pupils are equal, round and reactive to light and accommodation. Ears: No lesions. Nose appeared normal. Throat: No exudate or erythema. NECK: Supple. No JVD, no carotid bruit. No lymphadenopathy or thyromegaly. LUNGS: Decreased breath sounds but clear to auscultation. Percussion note normal. Chest symmetrical. HEART: S1, S2, no S3. No murmurs. No cyanosis or clubbing. No ascites. Pulses: Dorsalis pedis and posterior tibial pulses +1 to +2 bilaterally. ABDOMEN: Soft. Nontender. Bowel sounds active. No CVA tenderness. No mass felt. EXTREMITIES: No edema. Full range of motion of all extremities, equal. NEUROLOGIC: No focal deficit. Cranial nerves II through XII are grossly intact. No headache. No double vision. SKIN: Not dry. Intact. Turgor - normal. LYMPHATIC: No palpable lymph nodes/no lymphedema. MUSCULOSKELETAL: Normal joints with no swelling. Muscle tone is normal. LABS: Hgb 11.5, hct 34, WBC 7,100 normal differential, creatinine 1.2, BUN 26, potassium 4.4 ASSESSMENT: 1. CHF endstage 2. COPD exacerbation PLAN: 1. Give steroids 2. Give IV Lasix as needed 3. Continue all the medications as before 4. Educated about CHF in detail. 5. Advised to cut down on salt 6. Fluid should be restricted to the point where he shouldn't drink excessive fluid CONDITION: Stable. INR is 4.1 so Coumadin is going to be held until the INR is under 2. TIME SPENT: More than 30 minutes. Plan and coordination of the patient's care discussed in the presence of nurse. RAYNA
[2020-10-22] MEDS: ZOLOFT PO SCH (20:56)
[2020-10-23] MEDS: VENTOLIN HFA (PER PUFF-WITH SPACER) IH SCH ×4 (04:40→20:17)
[2020-10-23] MEDS: ATROVENT HFA INHALER (PER PUFF-WITH SPACER) IH SCH ×4 (04:40→20:17)
[2020-10-23 05:04] LABS: BASOPHILS % (AUTO) 0.2 % (0.0-3.0); EOSINOPHILS # (AUTO) 0.1 K/ul (0.0-0.7); EOSINOPHILS % (AUTO) 0.9 % (0.0-7.0); HEMATOCRIT 34.6 % (42.0-52.0); HEMOGLOBIN 11.3 g/dl (14.0-18.0); IMMATURE GRANULOCYTE # (AUTO) 0.1 (0.0-1.0); LYMPHOCYTES # (AUTO) 0.8 K/uL (0.60-3.4); LYMPHOCYTES % (AUTO) 7.8 (10.0-50.0); MEAN CORPUSCULAR HEMOGLOBIN 30.1 pg (27.0-31.0); MEAN CORPUSCULAR HGB CONC 32.7 (31.8-35.4); MONOCYTES # (AUTO) 0.6 K/uL (0.4-2.0); MONOCYTES % (AUTO) 6.2 (0-10); NEUTROPHILS # (AUTO) 8.6 K/ul (2.0-6.9); NEUTROPHILS % (AUTO) 83.9 % (42.2-75.2); PLATELET COUNT 137 10^3/uL (140-440); RED BLOOD COUNT 3.76 10^6/ul (4.70-6.10); WHITE BLOOD COUNT 10.29 K/ul (4.2-10.2)
[2020-10-23 05:13] LABS: PROTHROMBIN TIME 19.5 SEC (9.3-11.0)
[2020-10-23 05:17] LABS: ALANINE AMINOTRANSFERASE 38.6 U/L (0-50); ALBUMIN 3.58 g/dL (3.5-5.0); ALKALINE PHOSPHATASE 92.6 U/L (56-119); ASPARTATE AMINO TRANSFERASE 36.4 U/L (17-59); BILIRUBIN,TOTAL 0.8 mg/dL (0.2-1.3); BLOOD UREA NITROGEN 27.2 mg/dL (9-20); CALCIUM 9.03 mg/dL (8.4-10.2); CARBON DIOXIDE 19.3 mmol/L (22-30.0); CHLORIDE 104.8 mmol/L (98-107); CREATININE 1.11 mg/dL (0.60-1.10); GLUCOSE 106.3 mg/dL (74-106); POTASSIUM 4.25 mmol/L (3.5-5.1); SODIUM 131.6 mmol/L (134.5-145); TOTAL PROTEIN 6.49 g/dL (6.3-8.2)
[2020-10-23] MEDS: LASIX TAB PO SCH ×2 (07:13→16:37)
[2020-10-23] MEDS ORDERED: PRILOSEC PO ONE (08:16)
--- NOTE | 2020-10-23 08:42 | PCM.PROG ---
Attending Provider: ATTENDING PROVIDER: Dr. STANTON HAMPTON This patient is seen with Juana Baker, Nurse Practitioner. DATE OF SERVICE: 10/23/20 SUBJECTIVE: This 69 year old /WHITE M was hospitalized 10/20/20. The patient is resting comfortably. Less short of breath today somewhat. He had good urine output yesterday after extra Lasix. Still hypertensive which is his normal. Restart Coumadin today. REVIEW OF SYSTEMS: CONSTITUTIONAL: No night sweats. No fatigue, malaise, lethargy. No fever or chills. Weakness. HEENT: Eyes: No visual changes. No eye pain. No eye discharge. ENT: No runny nose. No epistaxis. No sinus pain. No odynophagia. No congestion. RESPIRATORY: No cough, no congestion. No hemoptysis. Shortness of breath. CARDIOVASCULAR: No angina symptoms. No CHF symptoms. No atypical chest pain for CAD. No palpitations. No orthopnea.. GASTROINTESTINAL: No abdominal pain. No nausea or vomiting. No diarrhea or constipation. No hematemesis. No hematochezia. GENITOURINARY: No urgency. No frequency. No dysuria. No hematuria. No obstructive symptoms. No discharge. No pain. No significant abnormal bleeding. MUSCULOSKELETAL: No musculoskeletal pain; no joint swelling. NEUROLOGICAL: Awake, alert, oriented to time, place and person. No headache. No neck pain. No syncope. No seizures. No dizziness. PSYCHIATRIC: Not anxious. No depression. No suicidal thoughts. No homicidal thoughts. SKIN: No rash. No lesions. No wounds. ENDOCRINE: No unexplained weight loss. No weight gain. HEMATOLOGIC/LYMPHATIC: No anemia. No purpura. No petechiae. No prolonged or excessive bleeding. No palpable lymph nodes. PHYSICAL EXAMINATION: GENERAL: The patient is awake, alert and oriented, lying in bed in no distress. VITAL SIGNS: Temperature 97.2 F, Pulse 79, Respiratory Rate 16, BP 81/56, Pulse Ox 93% HEENT: Head normocephalic, atraumatic. Eyes: Extraocular muscles are intact. Pupils are equal, round and reactive to light and accommodation. Ears: No lesions. Nose appeared normal. Throat: No exudate or erythema. NECK: Supple. No JVD, no carotid bruit. No lymphadenopathy or thyromegaly. LUNGS: Diminished breath sounds. Clear to auscultation. Percussion note normal. Chest symmetrical. HEART: S1, S2, no S3. No murmurs. No cyanosis or clubbing. No ascites. Pulses: Dorsalis pedis and posterior tibial pulses +1 to +2 both sides. ABDOMEN: Soft. Non-tender. Bowel sounds active. No CVA tenderness. No mass felt. EXTREMITIES: No edema. Full range of motion of all extremities, equal. NEUROLOGIC: No focal deficit. Cranial nerves II through XII are grossly intact. No headache. No double vision. SKIN: Not dry. Intact. Turgor-normal. LYMPHATIC: No palpable lymph nodes/no lymphedema. MUSCULOSKELETAL: Normal joints with no swelling. Muscle tone is normal. LAB REVIEW: 10/23/20 04:50 10/23/20 04:50 10/23/20 04:50: Sodium 131.6 L, Potassium 4.25, Chloride 104.8, Carbon Dioxide 19.3 L, Anion Gap 11.75, BUN 27.2 H, Creatinine 1.11 H, Estimated GFR (MDRD) 65.00, BUN/Creatinine Ratio 24.50, Glucose 106.3 H, Calcium 9.03, Total Bilirubin 0.80, AST 36.4, ALT 38.6, Alkaline Phosphatase 92.6, Total Protein 6.49, Albumin 3.58, Globulin 2.91, Albumin/Globulin Ratio 1.23 10/23/20 04:50: PT 19.5 H D, INR 1.83 10/23/20 04:50: WBC 10.29 H, RBC 3.76 L, Hgb 11.3 L, Hct 34.6 L, MCV 92.0, MCH 30.1, MCHC 32.7, RDW Coeff of Oleg 18.0 H, Plt Count 137 L, Immature Gran % (Auto) 1.0, Neut % (Auto) 83.9 H, Lymph % (Auto) 7.8 L, Sebastian % (Auto) 6.2, Eos % (Auto) 0.9, Baso % (Auto) 0.2, Neut # (Auto) 8.6 H, Lymph # (Auto) 0.8, Sebastian # (Auto) 0.6, Eos # (Auto) 0.1, Baso # (Auto) 0.0, Immature Gran # (Auto) 0.1 10/21/20 04:57: Thyroxine (T4) 5.3 ASSESSMENT: Please see below. 1. Acute CHF 2. Acute COPD exacerbation 3. Chronic anemia PLAN: 1. Try to get up to the chair today 2. PT/OT 3. Restart Coumadin at 6mg Plan and coordination of the patient's care discussed in the presence of Corporate Development Associate and nurse. SCRIBED BY: SHRAVAN LINDSEY Car Usher scribed while in presence of service performed by Dr. Hampton/Juana Baker APRN on 10/23/20 ([id number])
--- NOTE | 2020-10-23 09:44 | RS.PTINEVL ---
Subjective - Patient information Date of Evaluation: 10/23/20 Date of Arrival on Unit: 10/20/20 Admitted From:: Home Diagnosis: acute COPD exacerbation, CHF Usual Living Arrangement: Alone Home Environment: House, Stairs (few) (4 steps ) Medical History: CVA/TIA, COPD, CHF, Arthritis, Cancer (basal cell CA) Medical History Comments:: CAD, anemia, dilated cardiomyopathy, AFib, CKD, ejection fraction 15-20%, BPH, degenerative changes lumbar spine, behavioral disturbance, hypotension Medications: see chart Subjective Information/ Patient Comments:: pt states that he lives alone and does not use an AD. He helps to care for his 97 y/o mother. pt reports that his portable O2 is heavy and difficult to carry when he leaves home. - Level of function Prior to this admission, the patient could do the following:: Independent Selfcare, Independent ADL's, Independent Ambulation, Partially Dependent Ambulation, Perform Guard Entrance Registrar/Cooking, Drive, Participated in Social Activities Outside home Current Level of Function: Partially Dependent Current Equipment Used at Home: oxygen, nebulizer, Interventions - Objective Patient Orientation: Person, Place, Time, Situation Current Interventions: IV's, Oxygen (4 liters), Telemetry Range of Motion - ROM Right Upper Extremity AROM: WFL's Left Upper Extremity AROM: WFL's Right Lower Extremity AROM: WFL's Left Lower Extremity AROM: WFL's Muscle Strength - Muscle Strength Right Upper Extremity Strength: Mild Weakness (grossly 4/5) Left Upper Extremity Strength: Mild Weakness (grossly 4/5) Right Lower Extremity Strength: Mild Weakness (grossly 4/5) Left Lower Extremity Strength: Mild Weakness (grossly 4/5) Sensation - Sensation Right Upper Extremity Sensation: Intact/Normal Left Upper Extremity Sensation: Intact/Normal Right Lower Extremity Sensation: Intact/Normal Left Lower Extremity Sensation: Intact/Normal Palpation Palpation Findings: None/Normal Balance - Sitting Balance and Reactions Static Sitting Balance: Good Dynamic Sitting Balance: Good - Standing Balance and Reactions Static Standing Balance: Fair Dynamic Standing Balance: Fair Functional Mobility - Bed Mobility Rolling R/L: Independent (with bedrails) Supine to Sit: Supervision - Transfers Sit to Stand: Supervision Stand to Sit: Supervision - Safety Awareness Safety Awareness: Fair JEFFREY INDEX SCORE: n/a Ambulation - Ambulation Assistive Device Used: Gait belt Orthotic/Prosthetic Device: No Distance: 70ft Assistance needed with Ambulation: CGA Quality of Ambulation: pt amb with O2 4 liters. pt amb with CGA without AD. pt with 2 standing rest period due to SOA. pt with no LOB Gait Deviations: Forward posture, Short stride Factors Affecting Ambulation: Breathing/O2 Saturation, Weakness, Decreased Safety, Limited Endurance Treatment time - Time with patient Length of Evaluation: 21 Total treatment time: 27 Patient Education - Education Patient Education: Education of Plan of Care Teaching Recipient: Patient Teaching Methods: Discussion Assessment - Assessment Problem List:: Decreased level of function, Requires training/education, Decreased safety/Risk of falls, Weakness Rehab Potential: Good Further Therapy Indicated?: Yes Candidate for Swing Bed for Therapy Services?: Feel pt would not qualify for swing bed for therapy due to pt is at a higher functional level. Evaluation Complexity: HISTORY: Medium, EXAM OF BODY SYSTEMS: Medium, CLINICAL PRESENTATION: Medium, CLINICAL DECISION MAKING: Medium Patient's Goal(s): Return home . Short Term Goals GOAL #1: pt transfer sup to/from sit independently Goal to be met by: 10/25/20 GOAL #2: Transfer sit to/from stand SB to independently Goal to be met by: 10/25/20 GOAL #3: pt amb 100ft with SBA to CGA with O2 no LOB Goal to be met by: 10/25/20 GOAL #4: Improve BLE strengthe 4 +/5 Goal to be met by: 10/25/20 GOAL #5: . Fdc Goals GOAL #1: pt transfer sup to/from sit to/from stand independently Goal to be met by: 10/27/20 GOAL #2: pt amb functional distances without AD w/o LOB independently with O2 Goal to be met by: 10/27/20 GOAL #3: pt ascend/descend 3-4 steps with handrail SBA Goal to be met by: 10/27/20 Plan Plan of Care: Therapeutic EX, Therapeutic Activity Other:: gait training Frequency of Treatment: 1-2 X day, as tolerated Duration of Treatment: 5 days Anticipated Discharge Destination: Home Treatment Diagnosis (ICD 10 Codes): impaired balance R 26.81. gait difficulty R 26.2. weakness M 62.81 Has the Physician been added for Co-signature?: Yes
[2020-10-23] MEDS: NON-FORMULARY MEDICATION PO SCH (10:37)
[2020-10-23] MEDS: COGENTIN PO SCH ×2 (10:39→20:49)
[2020-10-23] MEDS: ASPIRIN CHEWABLE PO SCH (10:39)
[2020-10-23] MEDS: ALDACTONE PO SCH (10:40)
[2020-10-23] MEDS: HALDOL PO SCH ×2 (10:40→20:49)
[2020-10-23] MEDS: LIPITOR PO SCH (10:40)
[2020-10-23] MEDS: MICRO-K CAP PO SCH (10:41)
[2020-10-23] MEDS: SYMBICORT 80-4.5 MCG INHALER IH SCH ×2 (10:42→20:50)
[2020-10-23] MEDS: FLOMAX PO SCH (10:42)
[2020-10-23] MEDS: FLONASE NAS SCH (10:42)
[2020-10-23] MEDS: ROCEPHIN 1 GM/50 ML D5W 1 GM/50 ML BAG IV SCH (10:43)
[2020-10-23] MEDS: PRILOSEC PO SCH (10:54)
--- NOTE | 2020-10-23 14:50 | HP ---
DATE OF SERVICE: 10/20/20 HISTORY OF PRESENT ILLNESS: 69-year-old white male who presents to the emergency room with shortness of breath, has chronic respiratory failure along with CHF and COPD. PAST MEDICAL HISTORY: Recent hospitalization for CHF Severe COPD oxygen dependent Atrial fibrillation on Coumadin Dilated cardiomyopathy with ejection fraction of 17 to 20% per echo 06/10 Coronary artery disease History of stent in 2003 and 2016 CVA in 2009 Abdominal aortic aneurysm with endovascular aortic stent Dyslipidemia Chronic anemia BPH Depression History of nonobstructive right nephrolithiasis DJD of the L-spine Former smoker Basal cell on the left side of the nose GERD BPH PAST SURGICAL HISTORY: Removal of Basal cell on the left nose Endovascular stent graft Dr. Joshua Bilateral cataract extraction 2017 Coronary artery disease with stent in 2003 and 2015 REVIEW OF SYSTEMS: CONSTITUTIONAL: Positive for weakness. No night sweats. No fatigue, malaise, lethargy. No fever or chills. HEENT: Eyes: No visual changes. No eye pain. No eye discharge. ENT: No runny nose. No epistaxis. No sinus pain. No sore throat. No odynophagia. No ear pain. No congestion. RESPIRATORY: Shortness of breath. No cough, no congestion. No hemoptysis. CARDIOVASCULAR: No angina symptoms. No CHF symptoms. No atypical chest pain for CAD. No palpitations. No PND. No orthopnea. GASTROINTESTINAL: No abdominal pain. No nausea or vomiting. No diarrhea or constipation. No hematemesis. No hematochezia. GENITOURINARY: No urgency. No frequency. No dysuria. No hematuria. No obstructive symptoms. No discharge. No pain. No significant abnormal bleeding. MUSCULOSKELETAL: No musculoskeletal pain. No joint swelling. No arthritis. NEUROLOGICAL: No headache. No neck pain. No syncope. No seizures. No dizziness. PSYCHIATRIC: Not anxious. No depression. No suicidal thoughts. No homicidal thoughts. SKIN: No rash. No lesions. No wounds. ENDOCRINE: No unexplained weight loss. No weight gain. HEMATOLOGIC/LYMPHATIC: No anemia. No purpura. No petechiae. No prolonged or excessive bleeding. No palpable lymph nodes. PERSONAL/FAMILY/SOCIAL HISTORY: Former smoker No alcohol or illicit drug use He current lives at home by himself but is becoming increasingly dependent requiring more care from his siblings. MEDICATIONS: Sertraline 100 mg p.o. bedtime Aspirin 81 mg p.o. daily with meal Potassium Chloride 10 mEq p.o. daily Haloperidol 0.5 mg p.o. b.i.d. Atorvastatin 20 mg p.o. daily Nitroglycerin 0.4 mg sublingual p.r.n. Lisinopril 2.5 mg p.o. daily Tamsulosin 0.4 mg p.o. daily Fluticasone Furoate-Vilanterol (Breo Ellipta inhaler) one each INH as directed Benztropine 1 mg p.o. b.i.d. Spironolactone 25 mg p.o. daily Albuterol two puff INH q.4-6h p.r.n. Warfarin 6 mg p.o. daily Furosemide 40 mg p.o. b.i.d. Carvedilol 3.125 mg p.o. b.i.d. Fluticasone two spray intranasal daily Omeprazole 20 mg p.o. daily ALLERGIES: NKDA PHYSICAL EXAMINATION: VITAL SIGNS: Temperature 97.3, heart rate 69, respirations 15, blood pressure 92/59, pulse ox 88% on 4L. HEENT: Head normocephalic, atraumatic. Eyes: Extraocular muscles are intact. Pupils are equal, round and reactive to light and accommodation. Ears: No lesions. Nose appeared normal. Throat: No exudate or erythema. NECK: Supple. No JVD, no carotid bruit. No lymphadenopathy or thyromegaly. LUNGS: Severely diminished breath sounds bilaterally. Percussion note normal. Chest symmetrical. Visibly short of breath and distressed. HEART: S1, S2, no S3. No murmur. No cyanosis or clubbing. No ascites. Pulses: Dorsalis pedis and posterior tibial pulses +1 to +2 bilaterally. ABDOMEN: Soft. Nontender. Bowel sounds active. No CVA tenderness. No mass felt. EXTREMITIES: No leg edema. Full range of motion of all extremities, equal. NEUROLOGIC: Alert, oriented. No focal deficit. Cranial nerves II through XII are grossly intact. No headache, no double vision or headache. SKIN: Not dry. Intact. Turgor - normal. LYMPHATIC: No palpable lymph nodes/no lymphedema. MUSCULOSKELETAL: Normal joints with no swelling. Muscle tone is normal. White count 7.48, hemoglobin 11.6, hematocrit 35.0, platelets 145. Sodium 133.5, potassium 4.16, BUN 18, creatinine 1.26, glucose 124. ABG on room air 02 sat 93, pH 7.49, pc02 31, p02 61, bicarb 23.6, total c02 24.6 on 4L and oxygen sat was 93. Sodium 133, potassium 4.1, BUN 18, creatinine 1.26, glucose 124, AST 34, ALT 27, alkaline phosphatase 104, troponin 0.017, NT-Pro-BNP 4,470. Lactic acid 1.25. INR 4.17, drug screen negative. Urine negative. Respiratory panel negative for Covid. CTA of chest shows no pulmonary embolus, moderate emphysema, ground glass opacity suggesting pneumonia or edema. New anterior right lung subpleural nodular density, followup in three months. ASSESSMENT: 1. Shortness of breath. 2. Acute CHF. 3. Acute COPD exacerbation. 4. Dilated cardiomyopathy with reduced ejection fraction of 17 to 20%. PLAN: 1. We will admit. 2. Routine telemetry orders. 3. CBC, CMP, INR daily. 4. Hold Coumadin until INR less than 2. 5. Rocephin 1 gm IV daily. 6. Zithromax 500 mg daily p.o. for three days. 7. Lasix 40 mg IV times one. 8. Hold evening dose of Coreg. 9. Regular diet. 10. Oxygen at 4L. 11. Repeat ABGs in the morning. 12. Monitor input and output, 2000 cc fluid restriction. TIME SPENT: More than 70 minutes. MTDD
[2020-10-23] MEDS: COUMADIN PO SCH (16:37)
[2020-10-23] MEDS: COREG PO SCH (16:39)
[2020-10-23] MEDS: ZOLOFT PO SCH (20:49)
[2020-10-24] MEDS: VENTOLIN HFA (PER PUFF-WITH SPACER) IH SCH ×4 (04:35→20:30)
[2020-10-24] MEDS: ATROVENT HFA INHALER (PER PUFF-WITH SPACER) IH SCH ×4 (04:35→20:30)
[2020-10-24 05:13] LABS: BASOPHILS # (AUTO) 0.1 K/uL (0-0.2); BASOPHILS % (AUTO) 0.7 % (0.0-3.0); EOSINOPHILS # (AUTO) 0.2 K/ul (0.0-0.7); EOSINOPHILS % (AUTO) 2.8 % (0.0-7.0); HEMATOCRIT 34.8 % (42.0-52.0); HEMOGLOBIN 11.5 g/dl (14.0-18.0); IMMATURE GRANULOCYTE # (AUTO) 0.1 (0.0-1.0); IMMATURE GRANULOCYTE % (AUTO) 0.6 % (0.0-5.0); LYMPHOCYTES # (AUTO) 0.8 K/uL (0.60-3.4); LYMPHOCYTES % (AUTO) 9.6 (10.0-50.0); MEAN CORPUSCULAR HEMOGLOBIN 30.4 pg (27.0-31.0); MEAN CORPUSCULAR VOLUME 92.1 fl (80.0-94.0); MONOCYTES # (AUTO) 0.7 K/uL (0.4-2.0); NEUTROPHILS # (AUTO) 6.8 K/ul (2.0-6.9); NEUTROPHILS % (AUTO) 78.3 % (42.2-75.2); PLATELET COUNT 129 10^3/uL (140-440); RED BLOOD COUNT 3.78 10^6/ul (4.70-6.10); WHITE BLOOD COUNT 8.66 K/ul (4.2-10.2)
[2020-10-24 05:23] LABS: PROTHROMBIN TIME 16.5 SEC (9.3-11.0)
[2020-10-24 05:27] LABS: ALANINE AMINOTRANSFERASE 33.9 U/L (0-50); ALBUMIN 3.61 g/dL (3.5-5.0); ASPARTATE AMINO TRANSFERASE 31.5 U/L (17-59); BLOOD UREA NITROGEN 24.3 mg/dL (9-20); CALCIUM 8.77 mg/dL (8.4-10.2); CHLORIDE 103.1 mmol/L (98-107); CREATININE 1.19 mg/dL (0.60-1.10); GLUCOSE 93.2 mg/dL (74-106); POTASSIUM 3.91 mmol/L (3.5-5.1); SODIUM 131.7 mmol/L (134.5-145); TOTAL PROTEIN 6.57 g/dL (6.3-8.2)
[2020-10-24] MEDS: LASIX TAB PO SCH ×2 (06:10→17:09)
[2020-10-24] MEDS: PRILOSEC PO SCH (06:10)
[2020-10-24] MEDS ORDERED: ROCEPHIN 1 GM/50 ML D5W 1 GM/50 ML BAG IV SCH (08:07)
[2020-10-24] MEDS: ASPIRIN CHEWABLE PO SCH (09:06)
[2020-10-24] MEDS: FLOMAX PO SCH (09:07)
[2020-10-24] MEDS: MICRO-K CAP PO SCH (09:07)
[2020-10-24] MEDS: LIPITOR PO SCH (09:07)
[2020-10-24] MEDS: ALDACTONE PO SCH (09:07)
[2020-10-24] MEDS: HALDOL PO SCH ×2 (09:07→20:06)
[2020-10-24] MEDS: COGENTIN PO SCH ×2 (09:07→20:06)
[2020-10-24] MEDS: NON-FORMULARY MEDICATION PO SCH (09:11)
[2020-10-24] MEDS: SYMBICORT 80-4.5 MCG INHALER IH SCH ×2 (09:12→20:08)
[2020-10-24] MEDS: FLONASE NAS SCH (09:12)
--- NOTE | 2020-10-24 09:16 | PN ---
DATE OF SERVICE: 10/22/2020 SUBJECTIVE: The patient was seen and examined with the Nurse Practitioner. The patient's condition seems to have improved some yesterday. The patient was restless. Today the patient is going to get IV Lasix. We will have to monitor kidney functions. The patient has refractory CHF with history of ascites and liver cirrhosis. Also has severe chronic lung disease. The patient is also going to be given steroids. PROGNOSIS: Guarded He is DNR TIME SPENT: More than 30 minutes. Plan and coordination of the patient's care discussed in the presence of nurse. RAYNA
--- NOTE | 2020-10-24 10:35 | RS.OTINEVL ---
Subjective - Patient information Date of Evaluation: 06/08/20 Date of Arrival on Unit: 10/20/20 Admitted From:: Home Diagnosis: CHF, SOA PRECAUTIONS: Weakness Usual Living Arrangement: Alone Living Arrangement Comments: pt lives alone has 3-4 steps to enter home Home Environment: House, Stairs (few) (4 steps ) Medical History: CVA/TIA, COPD, CHF, Arthritis, Cancer (basal cell CA) Medical History Comments:: CAD, anemia, dilated cardiomyopathy, AFib, CKD, ejection fraction 15-20%, BPH, degenerative changes lumbar spine, behavioral disturbance, hypotension LATEX ALLERGY?: No Medications: see chart Subjective Information/ Patient Comments:: "I would like to continue therapy after I am discharged from here." - Level of function Prior to this admission, the patient could do the following:: Independent Selfcare, Independent ADL's, Independent Ambulation, Partially Dependent Ambulation, Perform Account Engineer/Cooking, Drive, Participated in Social Activities Outside home Abilities prior to this admission: Independent Current Level of Function: Partially Dependent Comments: Pt is using 4 Liters of oxygen today. Pt becomes SOB with any activity. Current Equipment Used at Home: oxygen, nebulizer, Pain Assessment - Pain Pain Score: 0 Interventions - Objective Patient Orientation: Person, Place, Time, Situation Current Interventions: IV's, Oxygen, Telemetry Observation: Pt is weak and has SOB with BLE dressing. Pt is weak and requires extra time to catch his breath after an activity. Pt has decreased ability to last during an activity due to SOA. Interventions - ROM Right Upper Extremity AROM: WFL's Left Upper Extremity AROM: WFL's - Strength Right Upper Extremity Strength: Mild Weakness Left Upper Extremity Strength: Mild Weakness - Sensation Right Upper Extremity Sensation: Intact/Normal Left Upper Extremity Sensation: Intact/Normal Balance - Sitting Balance Static Sitting Balance: Good Dynamic Sitting Balance: Good - Standing Balance Static Standing Balance: Fair Dynamic Standing Balance: Fair ADL Skills - Self Feeding Self Feeding: Independent - Grooming Grooming: Set Up Only - Bathing Bathing UE: CGA Bathing LE: CGA - Dressing Dressing UE: CGA Dressing LE: CGA - Toilet Management Toileting Management: CGA Functional Mobility - Bed Mobility Supine to Sit: Min Assist - Transfers Sit to Stand: CGA Stand to Sit: CGA JEFFREY INDEX SCORE: . Additional Treatment Performed - Time with patient Length of Evaluation: 20 Total treatment time: 20 Activities Do you enjoy playing games?: Yes Would you be interested in leaving your room for activities?: Yes Would you enjoy group activities?: Yes Do you have difficulty with your vision?: Yes Patient Interests:: Reading Books/Magazines, Watching Television, Visiting/Socializing Patient Education Patient Education: Education of diagnosis, Home Exercise Program, Home Safety, Activity Modification, Education of Plan of Care Teaching Recipient: Patient Teaching Methods: Discussion, Demonstration Comments: Asking pt to use 1# weights to increase his activity tolerance and complete more reps instead of 5# and less reps. Assessment Problem List:: Decreased level of function, Requires training/education, Decreased safety/Risk of falls, Weakness Rehab Potential: Good Further Therapy Indicated?: Yes Evaluation Complexity: HISTORY: Medium, EXAM OF BODY SYSTEMS: Medium, CLINICAL DECISION MAKING: Medium Patient's Goal(s): To get stronger and be able to function at home alone. Short Term Goals - Goals GOAL 1: Pt to tolerate dyn. std. for 8 minutes for self cares. Goal to be met by: 10/30/20 GOAL 2: Pt to increase BUE strength to 4/5 to increase independence of ADLS. Goal to be met by: 10/30/20 GOAL 3: Pt to be independent with home exercise program. Goal to be met by: 10/30/20 GOAL 4: Pt to understand energy conservation techniques and the benefits at home. Goal to be met by: 10/30/20 Bingo Cashier Goals GOAL 1: Pt to be independent with ADLS. Goal to be met by: 11/02/20 GOAL 2: Pt to increase dyn. std. bal. to 15 minutes. Goal to be met by: 11/02/20 GOAL 3: Pt to increase BUE strength to 4+/5. Goal to be met by: 11/02/20 Plan Plan of Care: Therapeutic EX, Therapeutic Activity, Self-Care/Home Management Frequency of Treatment: 1-2 X day, as tolerated Duration of Treatment: 1 Week Anticipated Discharge Destination: Home Treatment Diagnosis (ICD 10 Codes): Weakness M62.81, Z74.1 Need for assistance with personal care. Has the Physician been added for Co-signature?: Yes
[2020-10-24] MEDS: COREG PO SCH (17:09)
[2020-10-24] MEDS: COUMADIN PO SCH (17:10)
[2020-10-24] MEDS: ZOLOFT PO SCH (20:09)
[2020-10-25] MEDS: ATROVENT HFA INHALER (PER PUFF-WITH SPACER) IH SCH ×4 (04:50→20:12)
[2020-10-25] MEDS: VENTOLIN HFA (PER PUFF-WITH SPACER) IH SCH ×4 (04:50→20:12)
[2020-10-25 05:02] LABS: BASOPHILS % (AUTO) 0.6 % (0.0-3.0); EOSINOPHILS # (AUTO) 0.3 K/ul (0.0-0.7); EOSINOPHILS % (AUTO) 3.8 % (0.0-7.0); HEMATOCRIT 35.2 % (42.0-52.0); HEMOGLOBIN 11.4 g/dl (14.0-18.0); IMMATURE GRANULOCYTE # (AUTO) 0.1 (0.0-1.0); IMMATURE GRANULOCYTE % (AUTO) 0.8 % (0.0-5.0); LYMPHOCYTES # (AUTO) 0.7 K/uL (0.60-3.4); LYMPHOCYTES % (AUTO) 10.5 (10.0-50.0); MEAN CORPUSCULAR HEMOGLOBIN 29.7 pg (27.0-31.0); MEAN CORPUSCULAR HGB CONC 32.4 (31.8-35.4); MEAN CORPUSCULAR VOLUME 91.7 fl (80.0-94.0); MONOCYTES # (AUTO) 0.6 K/uL (0.4-2.0); MONOCYTES % (AUTO) 8.6 (0-10); NEUTROPHILS # (AUTO) 5.3 K/ul (2.0-6.9); NEUTROPHILS % (AUTO) 75.7 % (42.2-75.2); PLATELET COUNT 124 10^3/uL (140-440); RED BLOOD COUNT 3.84 10^6/ul (4.70-6.10); WHITE BLOOD COUNT 7.06 K/ul (4.2-10.2)
[2020-10-25 05:11] LABS: PROTHROMBIN TIME 17.6 SEC (9.3-11.0)
[2020-10-25 05:16] LABS: ALANINE AMINOTRANSFERASE 29.5 U/L (0-50); ALBUMIN 3.45 g/dL (3.5-5.0); ALKALINE PHOSPHATASE 91.7 U/L (56-119); ASPARTATE AMINO TRANSFERASE 28.6 U/L (17-59); BILIRUBIN,TOTAL 0.94 mg/dL (0.2-1.3); BLOOD UREA NITROGEN 25.9 mg/dL (9-20); CARBON DIOXIDE 22.4 mmol/L (22-30.0); CHLORIDE 102.1 mmol/L (98-107); CREATININE 1.23 mg/dL (0.60-1.10); GLUCOSE 93.7 mg/dL (74-106); POTASSIUM 4.12 mmol/L (3.5-5.1); TOTAL PROTEIN 6.31 g/dL (6.3-8.2)
[2020-10-25] MEDS: LASIX TAB PO SCH ×2 (05:38→17:10)
[2020-10-25] MEDS: PRILOSEC PO SCH (05:39)
--- NOTE | 2020-10-25 09:04 | PCM.PROG ---
Attending Provider: ATTENDING PROVIDER: Dr. STANTON HAMPTON This patient is seen with Juana Baker, Nurse Practitioner. DATE OF SERVICE: 10/25/20 SUBJECTIVE: This 69 year old /WHITE M was hospitalized 10/20/20. The patient is resting comfortably. He had some confusion through the night. Still slightly confused this morning. Forgot he was in the hospital. Recognized myself and the nurses this morning. Weakness has improved. He has been up and about walking with therapy. REVIEW OF SYSTEMS: CONSTITUTIONAL: No night sweats. No fatigue, malaise, lethargy. No fever or ch ills. Weakness. HEENT: Eyes: No visual changes. No eye pain. No eye discharge. ENT: No runny nose. No epistaxis. No sinus pain. No odynophagia. No congestion. RESPIRATORY: No cough, no congestion. No hemoptysis. Shortness of breath. CARDIOVASCULAR: No angina symptoms. No CHF symptoms. No atypical chest pain for CAD. No palpitations. No orthopnea.. GASTROINTESTINAL: No abdominal pain. No nausea or vomiting. No diarrhea or constipation. No hematemesis. No hematochezia. GENITOURINARY: No urgency. No frequency. No dysuria. No hematuria. No obstructive symptoms. No discharge. No pain. No significant abnormal bleeding. MUSCULOSKELETAL: No musculoskeletal pain; no joint swelling. NEUROLOGICAL: Awake, alert, oriented to person. No headache. No neck pain. No syncope. No seizures. No dizziness. PSYCHIATRIC: Not anxious. No depression. No suicidal thoughts. No homicidal thoughts. SKIN: No rash. No lesions. No wounds. ENDOCRINE: No unexplained weight loss. No weight gain. HEMATOLOGIC/LYMPHATIC: No anemia. No purpura. No petechiae. No prolonged or excessive bleeding. No palpable lymph nodes. PHYSICAL EXAMINATION: GENERAL: The patient is awake, alert and oriented to person, lying in bed in no distress. VITAL SIGNS: Temperature 97.7 F, Pulse 77, Respiratory Rate 24, BP 83/49, Pulse Ox 91% HEENT: Head normocephalic, atraumatic. Eyes: Extraocular muscles are intact. Pupils are equal, round and reactive to light and accommodation. Ears: No lesions. Nose appeared normal. Throat: No exudate or erythema. NECK: Supple. No JVD, no carotid bruit. No lymphadenopathy or thyromegaly. LUNGS: Diminished breath sounds. Clear to auscultation. Percussion note normal. Chest symmetrical. HEART: S1, S2, no S3. No murmurs. No cyanosis or clubbing. No ascites. Pulses: Dorsalis pedis and posterior tibial pulses +1 to +2 both sides. ABDOMEN: Soft. Non-tender. Bowel sounds active. No CVA tenderness. No mass felt. EXTREMITIES: No edema. Full range of motion of all extremities, equal. NEUROLOGIC: No focal deficit. Cranial nerves II through XII are grossly intact. No headache. No double vision. SKIN: Not dry. Intact. Turgor-normal. LYMPHATIC: No palpable lymph nodes/no lymphedema. MUSCULOSKELETAL: Normal joints with no swelling. Muscle tone is normal. LAB REVIEW: 10/25/20 04:43 10/25/20 04:43 10/25/20 04:43: Sodium 131.0 L, Potassium 4.12, Chloride 102.1, Carbon Dioxide 22.4, Anion Gap 10.62, BUN 25.9 H, Creatinine 1.23 H, Estimated GFR (MDRD) 58.00, BUN/Creatinine Ratio 21.05, Glucose 93.7, Calcium 9.00, Total Bilirubin 0.94, AST 28.6, ALT 29.5, Alkaline Phosphatase 91.7, Total Protein 6.31, Albumin 3.45 L, Globulin 2.86, Albumin/Globulin Ratio 1.20 10/25/20 04:43: PT 17.6 H, INR 1.65 10/25/20 04:43: WBC 7.06, RBC 3.84 L, Hgb 11.4 L, Hct 35.2 L, MCV 91.7, MCH 29.7, MCHC 32.4, RDW Coeff of Oleg 18.0 H, Plt Count 124 L, Immature Gran % (Auto) 0.8, Neut % (Auto) 75.7 H, Lymph % (Auto) 10.5, [place] % (Auto) 8.6, Eos % (Auto) 3.8, Baso % (Auto) 0.6, Neut # (Auto) 5.3, Lymph # (Auto) 0.7, [place] # (Auto) 0.6, Eos # (Auto) 0.3, Baso # (Auto) 0.0, Immature Gran # (Auto) 0.1 ASSESSMENT: Please see below. 1. Intermittent confusion 2. Acute CHF 3. Acute COPD exacerbation 4. Atrial fibrillation 5. Chronic kidney disease stage 2 PLAN: 1. Keflex 500mg TID 2. Coumadin 12mg today 3. Urinalysis 4. Continue with therapy. Plan and coordination of the patient's care discussed in the presence of Coroner and nurse. SCRIBED BY: Shannon DILLARDist scribed while in presence of service performed by Dr. Hampton/Juana Baker APRN on 10/25/20 ([id number])
[2020-10-25] MEDS: COGENTIN PO SCH ×2 (10:35→20:19)
[2020-10-25] MEDS: ASPIRIN CHEWABLE PO SCH (10:35)
[2020-10-25] MEDS: FLOMAX PO SCH (10:36)
[2020-10-25] MEDS: LIPITOR PO SCH (10:36)
[2020-10-25] MEDS: ALDACTONE PO SCH (10:36)
[2020-10-25] MEDS: KEFLEX PO SCH ×3 (10:37→20:19)
[2020-10-25] MEDS: HALDOL PO SCH ×2 (10:37→20:19)
[2020-10-25] MEDS: MICRO-K CAP PO SCH (10:37)
[2020-10-25] MEDS: NON-FORMULARY MEDICATION PO SCH (10:37)
[2020-10-25] MEDS: FLONASE NAS SCH (10:38)
[2020-10-25] MEDS: SYMBICORT 80-4.5 MCG INHALER IH SCH ×2 (10:38→20:18)
--- NOTE | 2020-10-25 10:42 | PN ---
DATE OF SERVICE: 10/23/2020 SUBJECTIVE: The patient was seen and examined. This morning he says that his cough is breaking up. He has refractory CHF and endstage COPD. His condition is slowly improving.Appetite seems to have improved. She was seen and examined with the Nurse Practitioner. TIME SPENT: More than 30 minutes. Plan and coordination of the patient's care discussed in the presence of nurse. RAYNA
--- NOTE | 2020-10-25 10:49 | PN ---
DATE OF SERVICE: 10/24/2020 SUBJECTIVE: 69 year old white male hospitalized with COPD exacerbation. The patient's condition has improved. CHF seems to be under control. Feeling better. One of the sisters is in the room. She came outside later on and said that the brother needs to be in the assisted but one of the sisters is against it. He is living by himself and not able to take care of himself. He doesn't eat properly and doesn't take his medication on regular basis. REVIEW OF SYSTEMS: CONSTITUTIONAL: No night sweats. No fatigue, malaise, lethargy. No fever or chills. Feeling better. HEENT: Eyes: No visual changes. No eye pain. No eye discharge. ENT: No runny nose. No epistaxis. No sinus pain. No sore throat. No odynophagia. No congestion. RESPIRATORY: No cough, no congestion. No hemoptysis. No shortness of breath. CARDIOVASCULAR: No angina symptoms. No CHF symptoms. No atypical chest pain for CAD. No palpitations. No PND. No orthopnea. GASTROINTESTINAL: No abdominal pain. No nausea or vomiting. No diarrhea or constipation. No hematemesis. No hematochezia. Appetite has improved. GENITOURINARY: No urgency. No frequency. No dysuria. No hematuria. No obstructive symptoms. No discharge. No pain. No significant abnormal bleeding. MUSCULOSKELETAL: No musculoskeletal pain; no joint swelling. NEUROLOGICAL: No headache. No neck pain. No syncope. No seizures. No dizziness. PSYCHIATRIC: Not anxious. No depression. No suicidal thoughts. No homicidal thoughts. SKIN: No rash. No lesions. No wounds. ENDOCRINE: No unexplained weight loss. No weight gain. HEMATOLOGIC/LYMPHATIC: No anemia. No purpura. No petechiae. No prolonged or excessive bleeding. No palpable lymph nodes. PHYSICAL EXAMINATION: VITAL SIGNS: Temperature 97.8, pulse 75, respiratory rate 16, blood pressure 82/60 and pulse ox 97%. HEENT: Head normocephalic, atraumatic. Eyes: Extraocular muscles are intact. Pupils are equal, round and reactive to light and accommodation. Ears: No lesions. Nose appeared normal. Throat: No exudate or erythema. NECK: Supple. No JVD, no carotid bruit. No lymphadenopathy or thyromegaly. LUNGS: Decreased breath sounds but clear to auscultation. Percussion note normal. Chest symmetrical. HEART: S1, S2, no S3. No murmurs. No cyanosis or clubbing. No ascites. Pulses: Dorsalis pedis and posterior tibial pulses +1 to +2 bilaterally. ABDOMEN: Soft. Nontender. Bowel sounds active. No CVA tenderness. No mass felt. EXTREMITIES: No edema. Full range of motion of all extremities, equal. NEUROLOGIC: No focal deficit. Cranial nerves II through XII are grossly intact. No headache. No double vision. SKIN: Not dry. Intact. Turgor - normal. LYMPHATIC: No palpable lymph nodes/no lymphedema. MUSCULOSKELETAL: Normal joints with no swelling. Muscle tone is normal. LABS: hgb 11.5, hct 34, WBC 8,600 normal differential, creatinine 1.1, BUN 24, potassium 3.9 ASSESSMENT: 1. CHF seems to be under control 2. COPD exacerbation seems to be under control 3. Endstage CHF with poor ejection fraction. 4. Severe chronic lung disease 5. Liver cirrhosis with ascites 6. History of ascites PLAN: 1. Continue all the medications 2. Advised to focus the patient on more protein intake 3. Also advised cardiac rehab and he declined. CONDITION: Stable for now PROGNOSIS: Poor TIME SPENT: More than 30 minutes. Plan and coordination of the patient's care discussed in the presence of nurse. RAYNA
[2020-10-25 16:07] LABS: BILIRUBIN,URINE Negative (NEGATIVE); CLARITY,URINE Clear (CLEAR); COLOR,URINE Yellow (YELLOW); GLUCOSE, URINE (UA) 2+ (NEGATIVE); KETONES,URINE Negative (NEGATIVE); LEUKOCYTE ESTERASE ,URINE Trace (NEGATIVE); NITRITE,URINE Negative (NEGATIVE); PH,URINE 5.5 (5-9); PROTEIN,URINE Negative (NEGATIVE); URINE, BLOOD Negative (NEGATIVE); UROBILINOGEN,URINE 0.2 (0.2)
[2020-10-25 16:20] LABS: SQUAMOUS EPITHELIAL CELL,UR NOT PRESENT (0-5)
[2020-10-25 16:22] LABS: URINE RBC, MICROSCOPIC 0-2 (0-2); URINE WBC, MICROSCOPIC 0-2 (0-2)
[2020-10-25] MEDS ORDERED: COUMADIN PO ONE (17:00)
[2020-10-25] MEDS: COUMADIN PO SCH (17:10)
[2020-10-25] MEDS: COREG PO SCH (17:10)
[2020-10-25] MEDS: ZOLOFT PO SCH (20:19)
[2020-10-26] MEDS: VENTOLIN HFA (PER PUFF-WITH SPACER) IH SCH ×4 (04:40→20:15)
[2020-10-26] MEDS: ATROVENT HFA INHALER (PER PUFF-WITH SPACER) IH SCH ×4 (04:40→20:15)
[2020-10-26 05:24] LABS: BASOPHILS % (AUTO) 0.6 % (0.0-3.0); EOSINOPHILS # (AUTO) 0.3 K/ul (0.0-0.7); EOSINOPHILS % (AUTO) 4.1 % (0.0-7.0); HEMATOCRIT 36.7 % (42.0-52.0); HEMOGLOBIN 11.9 g/dl (14.0-18.0); IMMATURE GRANULOCYTE # (AUTO) 0.1 (0.0-1.0); IMMATURE GRANULOCYTE % (AUTO) 0.7 % (0.0-5.0); LYMPHOCYTES # (AUTO) 0.7 K/uL (0.60-3.4); LYMPHOCYTES % (AUTO) 10.5 (10.0-50.0); MEAN CORPUSCULAR HEMOGLOBIN 29.8 pg (27.0-31.0); MEAN CORPUSCULAR HGB CONC 32.4 (31.8-35.4); MONOCYTES # (AUTO) 0.5 K/uL (0.4-2.0); MONOCYTES % (AUTO) 7.6 (0-10); NEUTROPHILS # (AUTO) 5.2 K/ul (2.0-6.9); NEUTROPHILS % (AUTO) 76.5 % (42.2-75.2); PLATELET COUNT 123 10^3/uL (140-440); RDW COEFFICIENT OF VARIATION 18.1 % (11.6-14.8); RED BLOOD COUNT 3.99 10^6/ul (4.70-6.10); WHITE BLOOD COUNT 6.83 K/ul (4.2-10.2)
[2020-10-26 05:40] LABS: ALANINE AMINOTRANSFERASE 25.8 U/L (0-50); ALBUMIN 3.65 g/dL (3.5-5.0); ALKALINE PHOSPHATASE 97.3 U/L (56-119); ASPARTATE AMINO TRANSFERASE 27.7 U/L (17-59); BILIRUBIN,TOTAL 1.31 mg/dL (0.2-1.3); BLOOD UREA NITROGEN 24.8 mg/dL (9-20); CALCIUM 8.87 mg/dL (8.4-10.2); CARBON DIOXIDE 24.4 mmol/L (22-30.0); CHLORIDE 101.4 mmol/L (98-107); CREATININE 1.21 mg/dL (0.60-1.10); GLUCOSE 87.2 mg/dL (74-106); POTASSIUM 3.85 mmol/L (3.5-5.1); SODIUM 133.7 mmol/L (134.5-145); TOTAL PROTEIN 6.63 g/dL (6.3-8.2)
[2020-10-26] MEDS: KEFLEX PO SCH ×3 (05:41→20:13)
[2020-10-26] MEDS: LASIX TAB PO SCH ×2 (05:42→16:42)
[2020-10-26] MEDS: PRILOSEC PO SCH (05:42)
[2020-10-26 05:51] LABS: PROTHROMBIN TIME 19.4 SEC (9.3-11.0)
[2020-10-26] MEDS: ASPIRIN CHEWABLE PO SCH (09:08)
[2020-10-26] MEDS: MICRO-K CAP PO SCH (09:08)
[2020-10-26] MEDS: HALDOL PO SCH ×2 (09:08→20:13)
[2020-10-26] MEDS: FLOMAX PO SCH (09:08)
[2020-10-26] MEDS: ALDACTONE PO SCH (09:08)
[2020-10-26] MEDS: COGENTIN PO SCH ×2 (09:08→20:13)
[2020-10-26] MEDS: SYMBICORT 80-4.5 MCG INHALER IH SCH ×2 (09:09→20:12)
[2020-10-26] MEDS: LIPITOR PO SCH (09:09)
[2020-10-26] MEDS: NON-FORMULARY MEDICATION PO SCH (09:09)
[2020-10-26] MEDS: FLONASE NAS SCH (09:09)
[2020-10-26] MEDS: DECADRON IM SCH (11:00)
--- NOTE | 2020-10-26 11:09 | PCM.PROG ---
Attending Provider: ATTENDING PROVIDER: Dr. STANTON HAMPTON DATE OF SERVICE: 10/26/20 SUBJECTIVE: This 69 year old /WHITE M was hospitalized 10/20/20 with COPD exacerbation with CHF mixed in it. The patient's condition has improved. He was confused yesterday and today. This is likely due to hospital psychosis. REVIEW OF SYSTEMS: CONSTITUTIONAL: No night sweats. No fatigue, malaise, lethargy. No fever or chills. HEENT: Eyes: No visual changes. No eye pain. No eye discharge. ENT: No runny nose. No epistaxis. No sinus pain. No odynophagia. No congestion. RESPIRATORY: No cough, no congestion. No hemoptysis. No shortness of breath. CARDIOVASCULAR: No angina symptoms. No CHF symptoms. No atypical chest pain for CAD. No palpitations. No orthopnea.. GASTROINTESTINAL: No abdominal pain. No nausea or vomiting. No diarrhea or constipation. No hematemesis. No hematochezia. GENITOURINARY: No urgency. No frequency. No dysuria. No hematuria. No obstructive symptoms. No discharge. No pain. No significant abnormal bleeding. MUSCULOSKELETAL: No musculoskeletal pain; no joint swelling. NEUROLOGICAL: Awake, alert, confused. No headache. No neck pain. No syncope. No seizures. No dizziness. PSYCHIATRIC: Not anxious. No depression. No suicidal thoughts. No homicidal thoughts. SKIN: No rash. No lesions. No wounds. ENDOCRINE: No unexplained weight loss. No weight gain. HEMATOLOGIC/LYMPHATIC: No anemia. No purpura. No petechiae. No prolonged or excessive bleeding. No palpable lymph nodes. PHYSICAL EXAMINATION: GENERAL: The patient is awake, alert with confusion lying/sitting in bed in no distress. VITAL SIGNS: Temperature 97.8 F, Pulse 89, Respiratory Rate 18, BP 92/61, Pulse Ox 91% HEENT: Head normocephalic, atraumatic. Eyes: Extraocular muscles are intact. Pupils are equal, round and reactive to light and accommodation. Ears: No lesions. Nose appeared normal. Throat: No exudate or erythema. NECK: Supple. No JVD, no carotid bruit. No lymphadenopathy or thyromegaly. LUNGS: Decreased breath sounds with few creps at the bases. Percussion note normal. Chest symmetrical. HEART: S1, S2, no S3. No murmurs. No cyanosis or clubbing. No ascites. Pulses: Dorsalis pedis and posterior tibial pulses +1 to +2 both sides. ABDOMEN: Soft. Non-tender. Bowel sounds active. No CVA tenderness. No mass felt. EXTREMITIES: No edema. Full range of motion of all extremities, equal. NEUROLOGIC: No focal deficit. Cranial nerves II through XII are grossly intact. No headache, no double vision or headache. SKIN: Warm and dry. Intact. Turgor-normal. LYMPHATIC: No palpable lymph nodes/no lymphedema. MUSCULOSKELETAL: Normal joints with no swelling. Muscle tone is normal. LAB REVIEW: 10/26/20 05:03 10/26/20 05:03 10/26/20 05:03: Sodium 133.7 L, Potassium 3.85, Chloride 101.4, Carbon Dioxide 24.4, Anion Gap 11.75, BUN 24.8 H, Creatinine 1.21 H, Estimated GFR (MDRD) 59.00, BUN/Creatinine Ratio 20.49, Glucose 87.2, Calcium 8.87, Total Bilirubin 1.31 H, AST 27.7, ALT 25.8, Alkaline Phosphatase 97.3, Total Protein 6.63, Albumin 3.65, Globulin 2.98, Albumin/Globulin Ratio 1.22 10/26/20 05:03: PT 19.4 H, INR 1.82 10/26/20 05:03: WBC 6.83, RBC 3.99 L, Hgb 11.9 L, Hct 36.7 L, MCV 92.0, MCH 29.8, MCHC 32.4, RDW Coeff of Oleg 18.1 H, Plt Count 123 L, Immature Gran % (Auto) 0.7, Neut % (Auto) 76.5 H, Lymph % (Auto) 10.5, [place] % (Auto) 7.6, Eos % (Auto) 4.1, Baso % (Auto) 0.6, Neut # (Auto) 5.2, Lymph # (Auto) 0.7, [place] # (Auto) 0.5, Eos # (Auto) 0.3, Baso # (Auto) 0.0, Immature Gran # (Auto) 0.1 10/25/20 15:50: Urine Color Yellow, Urine Clarity Clear, Urine pH 5.5, Ur Specific [place] 1.010, Urine Protein Negative, Urine Glucose (UA) 2+ H, Urine Ketones Negative, Urine Blood Negative, Urine Nitrite Negative, Urine Bilirubin Negative, Urine Urobilinogen 0.2, Ur Leukocyte Esterase Trace H, Urine Microscopic RBC 0-2, Urine Microscopic WBC 0-2, Ur Squamous Epith Cells Not present, Ur Renal Epithelial Cell 2-5 ASSESSMENT: Please see below. 1. COPD with bronchitis, seems to have improved. 2. CHF under control with refractory CHF with poor ejection fraction. 3. Severe chronic lung disease, stable. 4. History of ascites with liver cirrhosis, stable. PLAN: 1. Continue treatment with oxygen. 2. 1/2 cc Decadron daily. Plan and coordination of the patient's care discussed in the presence of Supervisor Bottle House Cleaners and nurse. CONDITION: Stable SCRIBED BY: GASTON SAENZ Kiln Cleaner scribed while in presence of service performed by Dr. STANTON HAMPTON on 10/26/20 ([id number])
[2020-10-26] MEDS: COREG PO SCH (16:42)
[2020-10-26] MEDS: COUMADIN PO SCH (16:42)
[2020-10-26] MEDS: ZOLOFT PO SCH (20:13)
[2020-10-27] MEDS: ATROVENT HFA INHALER (PER PUFF-WITH SPACER) IH SCH ×4 (04:40→20:27)
[2020-10-27] MEDS: VENTOLIN HFA (PER PUFF-WITH SPACER) IH SCH ×4 (04:40→20:27)
[2020-10-27 05:18] LABS: BASOPHILS % (AUTO) 0.3 % (0.0-3.0); EOSINOPHILS # (AUTO) 0.2 K/ul (0.0-0.7); EOSINOPHILS % (AUTO) 2.4 % (0.0-7.0); HEMATOCRIT 34.9 % (42.0-52.0); HEMOGLOBIN 11.5 g/dl (14.0-18.0); IMMATURE GRANULOCYTE % (AUTO) 0.5 % (0.0-5.0); LYMPHOCYTES # (AUTO) 0.8 K/uL (0.60-3.4); LYMPHOCYTES % (AUTO) 10.5 (10.0-50.0); MEAN CORPUSCULAR HEMOGLOBIN 29.9 pg (27.0-31.0); MEAN CORPUSCULAR VOLUME 90.6 fl (80.0-94.0); MONOCYTES # (AUTO) 0.5 K/uL (0.4-2.0); MONOCYTES % (AUTO) 7.2 (0-10); NEUTROPHILS # (AUTO) 5.9 K/ul (2.0-6.9); NEUTROPHILS % (AUTO) 79.1 % (42.2-75.2); PLATELET COUNT 125 10^3/uL (140-440); RDW COEFFICIENT OF VARIATION 17.7 % (11.6-14.8); RED BLOOD COUNT 3.85 10^6/ul (4.70-6.10); WHITE BLOOD COUNT 7.45 K/ul (4.2-10.2)
[2020-10-27 05:39] LABS: ALANINE AMINOTRANSFERASE 23.1 U/L (0-50); ALBUMIN 3.62 g/dL (3.5-5.0); ALKALINE PHOSPHATASE 89.5 U/L (56-119); ASPARTATE AMINO TRANSFERASE 27.5 U/L (17-59); BILIRUBIN,TOTAL 1.3 mg/dL (0.2-1.3); BLOOD UREA NITROGEN 24.3 mg/dL (9-20); CALCIUM 8.95 mg/dL (8.4-10.2); CARBON DIOXIDE 23.4 mmol/L (22-30.0); CHLORIDE 101.6 mmol/L (98-107); CREATININE 1.17 mg/dL (0.60-1.10); GLUCOSE 98.5 mg/dL (74-106); POTASSIUM 4.05 mmol/L (3.5-5.1); SODIUM 132.3 mmol/L (134.5-145); TOTAL PROTEIN 6.53 g/dL (6.3-8.2)
[2020-10-27] MEDS: PRILOSEC PO SCH (05:58)
[2020-10-27] MEDS: LASIX TAB PO SCH ×2 (05:58→17:34)
[2020-10-27] MEDS: KEFLEX PO SCH ×3 (06:05→20:18)
[2020-10-27 08:09] LABS: PROTHROMBIN TIME 25.5 SEC (9.3-11.0)
[2020-10-27] MEDS: NON-FORMULARY MEDICATION PO SCH (09:29)
[2020-10-27] MEDS: LIPITOR PO SCH (09:34)
[2020-10-27] MEDS: DECADRON IM SCH (09:34)
[2020-10-27] MEDS: COGENTIN PO SCH ×2 (09:34→20:18)
[2020-10-27] MEDS: HALDOL PO SCH ×2 (09:34→20:18)
[2020-10-27] MEDS: ASPIRIN CHEWABLE PO SCH (09:34)
[2020-10-27] MEDS: MICRO-K CAP PO SCH (09:35)
[2020-10-27] MEDS: FLOMAX PO SCH (09:35)
[2020-10-27] MEDS: ALDACTONE PO SCH (09:35)
[2020-10-27] MEDS: FLONASE NAS SCH (09:35)
[2020-10-27] MEDS: SYMBICORT 80-4.5 MCG INHALER IH SCH ×2 (09:36→20:19)
[2020-10-27] MEDS: COUMADIN PO SCH (17:35)
[2020-10-27] MEDS: COREG PO SCH (17:35)
[2020-10-27] MEDS: ZOLOFT PO SCH (20:18)
[2020-10-28] MEDS: ATROVENT HFA INHALER (PER PUFF-WITH SPACER) IH SCH ×4 (04:46→20:05)
[2020-10-28] MEDS: VENTOLIN HFA (PER PUFF-WITH SPACER) IH SCH ×4 (04:46→20:05)
[2020-10-28 05:23] LABS: BASOPHILS % (AUTO) 0.3 % (0.0-3.0); EOSINOPHILS # (AUTO) 0.2 K/ul (0.0-0.7); EOSINOPHILS % (AUTO) 2.9 % (0.0-7.0); HEMATOCRIT 35.3 % (42.0-52.0); HEMOGLOBIN 11.6 g/dl (14.0-18.0); IMMATURE GRANULOCYTE % (AUTO) 0.4 % (0.0-5.0); LYMPHOCYTES # (AUTO) 0.9 K/uL (0.60-3.4); LYMPHOCYTES % (AUTO) 12.2 (10.0-50.0); MEAN CORPUSCULAR HGB CONC 32.9 (31.8-35.4); MEAN CORPUSCULAR VOLUME 91.2 fl (80.0-94.0); MONOCYTES # (AUTO) 0.7 K/uL (0.4-2.0); MONOCYTES % (AUTO) 8.6 (0-10); NEUTROPHILS # (AUTO) 5.8 K/ul (2.0-6.9); NEUTROPHILS % (AUTO) 75.6 % (42.2-75.2); PLATELET COUNT 136 10^3/uL (140-440); RED BLOOD COUNT 3.87 10^6/ul (4.70-6.10)
[2020-10-28 05:35] LABS: PROTHROMBIN TIME 29.2 SEC (9.3-11.0)
[2020-10-28] MEDS: LASIX TAB PO SCH ×2 (05:35→17:38)
[2020-10-28] MEDS: PRILOSEC PO SCH (05:35)
[2020-10-28] MEDS: KEFLEX PO SCH (05:35)
[2020-10-28 05:39] LABS: ALANINE AMINOTRANSFERASE 23.8 U/L (0-50); ALBUMIN 3.72 g/dL (3.5-5.0); ALKALINE PHOSPHATASE 90.1 U/L (56-119); ASPARTATE AMINO TRANSFERASE 28.8 U/L (17-59); BILIRUBIN,TOTAL 1.2 mg/dL (0.2-1.3); BLOOD UREA NITROGEN 26.5 mg/dL (9-20); CALCIUM 8.92 mg/dL (8.4-10.2); CHLORIDE 101.4 mmol/L (98-107); CREATININE 1.28 mg/dL (0.60-1.10); GLUCOSE 94.6 mg/dL (74-106); POTASSIUM 4.07 mmol/L (3.5-5.1); SODIUM 132.7 mmol/L (134.5-145); TOTAL PROTEIN 6.8 g/dL (6.3-8.2)
[2020-10-28] MEDS: DECADRON IM SCH (09:11)
[2020-10-28] MEDS: SYMBICORT 80-4.5 MCG INHALER IH SCH ×2 (09:11→20:36)
[2020-10-28] MEDS: FLONASE NAS SCH (09:11)
[2020-10-28] MEDS: ALDACTONE PO SCH (09:12)
[2020-10-28] MEDS: LIPITOR PO SCH (09:12)
[2020-10-28] MEDS: COGENTIN PO SCH ×2 (09:12→20:35)
[2020-10-28] MEDS: MICRO-K CAP PO SCH (09:12)
[2020-10-28] MEDS: HALDOL PO SCH ×2 (09:12→20:35)
[2020-10-28] MEDS: FLOMAX PO SCH (09:13)
[2020-10-28] MEDS: ASPIRIN CHEWABLE PO SCH (09:13)
[2020-10-28] MEDS ORDERED: KEFLEX PO ONE ×2 (13:39→21:00)
[2020-10-28] MEDS: COREG PO SCH (17:38)
[2020-10-28] MEDS: ZOLOFT PO SCH (20:35)
[2020-10-29] MEDS: ATROVENT HFA INHALER (PER PUFF-WITH SPACER) IH SCH ×4 (04:58→19:50)
[2020-10-29] MEDS: VENTOLIN HFA (PER PUFF-WITH SPACER) IH SCH ×4 (04:58→19:50)
[2020-10-29 05:13] LABS: BASOPHILS % (AUTO) 0.4 % (0.0-3.0); EOSINOPHILS # (AUTO) 0.2 K/ul (0.0-0.7); EOSINOPHILS % (AUTO) 2.7 % (0.0-7.0); HEMATOCRIT 35.1 % (42.0-52.0); HEMOGLOBIN 11.7 g/dl (14.0-18.0); IMMATURE GRANULOCYTE # (AUTO) 0.1 (0.0-1.0); IMMATURE GRANULOCYTE % (AUTO) 0.9 % (0.0-5.0); LYMPHOCYTES % (AUTO) 11.5 (10.0-50.0); MEAN CORPUSCULAR HEMOGLOBIN 30.5 pg (27.0-31.0); MEAN CORPUSCULAR HGB CONC 33.3 (31.8-35.4); MEAN CORPUSCULAR VOLUME 91.4 fl (80.0-94.0); MONOCYTES # (AUTO) 0.8 K/uL (0.4-2.0); MONOCYTES % (AUTO) 9.5 (0-10); NEUTROPHILS # (AUTO) 6.2 K/ul (2.0-6.9); PLATELET COUNT 142 10^3/uL (140-440); RDW COEFFICIENT OF VARIATION 17.8 % (11.6-14.8); RED BLOOD COUNT 3.84 10^6/ul (4.70-6.10); WHITE BLOOD COUNT 8.23 K/ul (4.2-10.2)
[2020-10-29 05:22] LABS: PROTHROMBIN TIME 26.3 SEC (9.3-11.0)
[2020-10-29 05:27] LABS: ALANINE AMINOTRANSFERASE 23.6 U/L (0-50); ALBUMIN 3.65 g/dL (3.5-5.0); ALKALINE PHOSPHATASE 89.5 U/L (56-119); ASPARTATE AMINO TRANSFERASE 31.6 U/L (17-59); BILIRUBIN,TOTAL 1.12 mg/dL (0.2-1.3); BLOOD UREA NITROGEN 24.5 mg/dL (9-20); CALCIUM 8.93 mg/dL (8.4-10.2); CARBON DIOXIDE 24.9 mmol/L (22-30.0); CHLORIDE 100.3 mmol/L (98-107); CREATININE 1.1 mg/dL (0.60-1.10); GLUCOSE 91.3 mg/dL (74-106); POTASSIUM 4.09 mmol/L (3.5-5.1); SODIUM 132.6 mmol/L (134.5-145); TOTAL PROTEIN 6.66 g/dL (6.3-8.2)
[2020-10-29] MEDS: LASIX TAB PO SCH ×2 (05:54→16:52)
[2020-10-29] MEDS: PRILOSEC PO SCH (05:54)
[2020-10-29] MEDS: FLONASE NAS SCH (09:23)
[2020-10-29] MEDS: SYMBICORT 80-4.5 MCG INHALER IH SCH ×2 (09:23→20:32)
[2020-10-29] MEDS: FLOMAX PO SCH (09:25)
[2020-10-29] MEDS: ASPIRIN CHEWABLE PO SCH (09:25)
[2020-10-29] MEDS: MICRO-K CAP PO SCH (09:25)
[2020-10-29] MEDS: PREDNISONE PO SCH (09:25)
[2020-10-29] MEDS: LIPITOR PO SCH (09:25)
[2020-10-29] MEDS: COGENTIN PO SCH ×2 (09:26→20:31)
[2020-10-29] MEDS: HALDOL PO SCH ×2 (09:26→20:31)
[2020-10-29] MEDS: ALDACTONE PO SCH (09:26)
--- NOTE | 2020-10-29 09:30 | PCM.PROG ---
Attending Provider: ATTENDING PROVIDER: Dr. STANTON HAMPTON This patient is seen with Juana Baker, Nurse Practitioner. DATE OF SERVICE: 10/29/20 SUBJECTIVE: This 69 year old /WHITE M was hospitalized 10/20/20. Resting comfortably. He states shortness of breath has improved. He has been working w [employer]. Appetite good. REVIEW OF SYSTEMS: CONSTITUTIONAL: Weakness. No night sweats. No fatigue, malaise, lethargy. No fever or chills. HEENT: Eyes: No visual changes. No eye pain. No eye discharge. ENT: No runny nose. No epistaxis. No sinus pain. No odynophagia. No congestion. RESPIRATORY: No cough, no congestion. No hemoptysis. Shortness of breath. CARDIOVASCULAR: No angina symptoms. No CHF symptoms. No atypical chest pain for CAD. No palpitations. No orthopnea. GASTROINTESTINAL: No abdominal pain. No nausea or vomiting. No diarrhea or constipation. No hematemesis. No hematochezia. GENITOURINARY: No urgency. No frequency. No dysuria. No hematuria. No obstru ctive symptoms. No discharge. No pain. No significant abnormal bleeding. MUSCULOSKELETAL: No musculoskeletal pain; no joint swelling. NEUROLOGICAL: Awake, alert, intermittent confusion. No headache. No neck pain. No syncope. No seizures. No dizziness. PSYCHIATRIC: Not anxious. No depression. No suicidal thoughts. No homicidal thoughts. SKIN: No rash. No lesions. No wounds. ENDOCRINE: No unexplained weight loss. No weight gain. HEMATOLOGIC/LYMPHATIC: No anemia. No purpura. No petechiae. No prolonged or excessive bleeding. No palpable lymph nodes. PHYSICAL EXAMINATION: GENERAL: The patient is awake, alert and oriented, lying/sitting in bed in no distress. VITAL SIGNS: Temperature 97.7 F, Pulse 68, Respiratory Rate 20, BP 94/63, Pulse Ox 98% HEENT: Head normocephalic, atraumatic. Eyes: Extraocular muscles are intact. Pupils are equal, round and reactive to light and accommodation. Ears: No lesions. Nose appeared normal. Throat: No exudate or erythema. NECK: Supple. No JVD, no carotid bruit. No lymphadenopathy or thyromegaly. LUNGS: Diminished breath sounds. Clear to auscultation. Percussion note normal. Chest symmetrical. HEART: Irregular heart rate. S1, S2, no S3. No murmurs. No cyanosis or clubbing. No ascites. Pulses: Dorsalis pedis and posterior tibial pulses +1 to +2 both sides. ABDOMEN: Soft. Non-tender. Bowel sounds active. No CVA tenderness. No mass felt. EXTREMITIES: No edema. Full range of motion of all extremities, equal. NEUROLOGIC: No focal deficit. Cranial nerves II through XII are grossly intact. No headache. No double vision. SKIN: Not dry. Intact. Turgor-normal. LYMPHATIC: No palpable lymph nodes/no lymphedema. MUSCULOSKELETAL: Normal joints with no swelling. Muscle tone is normal. LAB REVIEW: 10/29/20 04:59 10/29/20 04:59 10/29/20 04:59: PT 26.3 H, INR 2.46 10/29/20 04:59: Sodium 132.6 L, Potassium 4.09, Chloride 100.3, Carbon Dioxide 24.9, Anion Gap 11.49, BUN 24.5 H, Creatinine 1.10, Estimated GFR (MDRD) 66.00, BUN/Creatinine Ratio 22.27, Glucose 91.3, Calcium 8.93, Total Bilirubin 1.12, AST 31.6, ALT 23.6, Alkaline Phosphatase 89.5, Total Protein 6.66, Albumin 3.65, Globulin 3.01, Albumin/Globulin Ratio 1.21 10/29/20 04:59: WBC 8.23, RBC 3.84 L, Hgb 11.7 L, Hct 35.1 L, MCV 91.4, MCH 30.5, MCHC 33.3, RDW Coeff of Oleg 17.8 H, Plt Count 142, Immature Gran % (Auto) 0.9, Neut % (Auto) 75.0, Lymph % (Auto) 11.5, [place] % (Auto) 9.5, Eos % (Auto) 2.7, Baso % (Auto) 0.4, Neut # (Auto) 6.2, Lymph # (Auto) 1.0, [place] # (Auto) 0.8, Eos # (Auto) 0.2, Baso # (Auto) 0.0, Immature Gran # (Auto) 0.1 ASSESSMENT: Please see below. 1. Acute COPD exacerbation with CHF. 2. Cardiomyopathy with reduced ejection fraction 17% to 20%. 3. Dementia. PLAN: 1. Discontinue Decadron. 2. Prednisone 10 mg daily. 3. Restart Zestril. Plan and coordination of the patient's care discussed in the presence of Mid Wife and nurse. CONDITION: Stable SCRIBED BY: GASTON SAENZ [employer] Developer scribed while in presence of service performed by Dr. Hampton/Juana Baker APRN on 10/29/20 ([id number])
--- NOTE | 2020-10-29 14:22 | PN ---
DATE OF SERVICE: 10/27/20 SUBJECTIVE: 69-year-old white male hospitalized with COPD, bronchitis, CHF mixed together. The patient's mental status has been fluctuating. He has been telling me that he has been seeing somebody at the hospital telling him that he was frail, says he doesn't want any talks like this. He is feeling better, eating his lunch. REVIEW OF SYSTEMS: CONSTITUTIONAL: No night sweats. No fatigue, malaise, lethargy. No fever or chills. HEENT: Eyes: No visual changes. No eye pain. No eye discharge. ENT: No runny nose. No epistaxis. No sinus pain. No sore throat. No odynophagia. No congestion. RESPIRATORY: No cough, no congestion. No hemoptysis. No shortness of breath. CARDIOVASCULAR: No angina symptoms. No CHF symptoms. No atypical chest pain for CAD. No palpitations. No PND. No orthopnea. GASTROINTESTINAL: No abdominal pain. No nausea or vomiting. No diarrhea or constipation. No hematemesis. No hematochezia. GENITOURINARY: No urgency. No frequency. No dysuria. No hematuria. No obstructive symptoms. No discharge. No pain. No significant abnormal bleeding. MUSCULOSKELETAL: No musculoskeletal pain; no joint swelling. NEUROLOGICAL: No headache. No neck pain. No syncope. No seizures. No dizziness. PSYCHIATRIC: Not anxious. No depression. No suicidal thoughts. No homicidal thoughts. SKIN: No rash. No lesions. No wounds. ENDOCRINE: No unexplained weight loss. No weight gain. HEMATOLOGIC/LYMPHATIC: No anemia. No purpura. No petechiae. No prolonged or excessive bleeding. No palpable lymph nodes. PHYSICAL EXAMINATION: VITAL SIGNS: Temperature 98, pulse 67, respiratory rate 20, blood pressure 106/80, pulse ox 97%. HEENT: Head normocephalic, atraumatic. Eyes: Extraocular muscles are intact. Pupils are equal, round and reactive to light and accommodation. Ears: No lesions. Nose appeared normal. Throat: No exudate or erythema. NECK: Supple. No JVD, no carotid bruit. No lymphadenopathy or thyromegaly. LUNGS: Decreased breath sounds but clear to auscultation. Percussion note normal. Chest symmetrical. HEART: S1, S2, no S3. No murmurs. No cyanosis or clubbing. No ascites. Pulses: Dorsalis pedis and posterior tibial pulses +1 to +2 bilaterally. ABDOMEN: Soft. Nontender. Bowel sounds active. No CVA tenderness. No mass felt. EXTREMITIES: No edema. Full range of motion of all extremities, equal. NEUROLOGIC: No focal deficit. Cranial nerves II through XII are grossly intact. No headache. No double vision. SKIN: Not dry. Intact. Turgor - normal. LYMPHATIC: No palpable lymph nodes/no lymphedema. MUSCULOSKELETAL: Normal joints with no swelling. Muscle tone is normal. LABS: Hemoglobin 11.5, hematocrit 34, WBC 7,400, normal differential. Creatinine 1.1, BUN 24, potassium 4. ASSESSMENT: 1. CHF end-stage with dilated cardiomyopathy with poor ejection fraction. 2. End-stage COPD. 3. Chronic anemia. 4. History of liver cirrhosis with ascites. PLAN: The patient seems to have early dementia. The family is ready to put him in the snf but the patient declines. The patient also refusing any cardiac rehab. He lives by himself, not been able to take care of himself, doesn't eat properly, doesn't take his medication on a regular basis. His prognosis is poor. Condition has improved overall. The patient was put on Farxiga. The patient's family thought that Farxiga has created problems and created confusion so they want Farxiga to be discontinued so it was done. The patient's confusion is from hospital psychosis, mixed, along with dementia. TIME SPENT: More than 30 minutes. Plan and coordination of the patient's care discussed in the presence of nurse. RAYNA
--- NOTE | 2020-10-29 14:41 | PN ---
DATE OF SERVICE: 10/28/20 SUBJECTIVE: 69-year-old white male hospitalized with COPD with bronchitis mixed with CHF. The patient's condition has steadily improved. His confusion has been much less. He has declined to go to the long term which should be the right place for him to go. The family wants him but the patient declines. He is oriented to time, place and person. REVIEW OF SYSTEMS: CONSTITUTIONAL: No night sweats. No fatigue, malaise, lethargy. No fever or chills. HEENT: Eyes: No visual changes. No eye pain. No eye discharge. ENT: No runny nose. No epistaxis. No sinus pain. No sore throat. No odynophagia. No congestion. RESPIRATORY: No cough, no congestion. No hemoptysis. He is still short of breath on minimal exertion. CARDIOVASCULAR: No angina symptoms. No CHF symptoms. No atypical chest pain for CAD. No palpitations. No PND. No orthopnea. GASTROINTESTINAL: Appetite has improved. No abdominal pain. No nausea or vomiting. No diarrhea or constipation. No hematemesis. No hematochezia. GENITOURINARY: No urgency. No frequency. No dysuria. No hematuria. No obstructive symptoms. No discharge. No pain. No significant abnormal bleeding. MUSCULOSKELETAL: No musculoskeletal pain; no joint swelling. NEUROLOGICAL: No headache. No neck pain. No syncope. No seizures. No dizziness. PSYCHIATRIC: Not anxious. No depression. No suicidal thoughts. No homicidal thoughts. SKIN: No rash. No lesions. No wounds. ENDOCRINE: No unexplained weight loss. No weight gain. HEMATOLOGIC/LYMPHATIC: No anemia. No purpura. No petechiae. No prolonged or excessive bleeding. No palpable lymph nodes. PHYSICAL EXAMINATION: VITAL SIGNS: Temperature 97.7, pulse 74, respiratory rate 20, blood pressure 85/60, pulse ox 98% on room air. HEENT: Head normocephalic, atraumatic. Eyes: Extraocular muscles are intact. Pupils are equal, round and reactive to light and accommodation. Ears: No lesions. Nose appeared normal. Throat: No exudate or erythema. NECK: Supple. No JVD, no carotid bruit. No lymphadenopathy or thyromegaly. LUNGS: Decreased breath sounds but clear to auscultation. Percussion note normal. Chest symmetrical. HEART: S1, S2, no S3. No murmurs. No cyanosis or clubbing. No ascites. Pulses: Dorsalis pedis and posterior tibial pulses +1 to +2 bilaterally. ABDOMEN: Soft. Nontender. Bowel sounds active. No CVA tenderness. No mass felt. EXTREMITIES: No edema. Full range of motion of all extremities, equal. NEUROLOGIC: No focal deficit. Cranial nerves II through XII are grossly intact. No headache. No double vision. SKIN: Not dry. Intact. Turgor - normal. LYMPHATIC: No palpable lymph nodes/no lymphedema. MUSCULOSKELETAL: Normal joints with no swelling. Muscle tone is normal. LABS: Hemoglobin 11.6, hematocrit 35, WBC 7,700 with normal differential. Creatinine 1.2, BUN 26, potassium 4. INR 2.7. We are going to hold Coumadin until his INR goes below 2. ASSESSMENT: 1. COPD exacerbation/bronchitis/CHF seems to be under control. PLAN: 1. Continue the same treatment. 2. The patient's problem is noncompliance of diet, lifestyle and medications. He lives by himself and is not taking care of himself. 3. The patient's CHF is end-stage as well as COPD. Prognosis is poor. Condition is stable. Covid negative. TIME SPENT: More than 30 minutes. Plan and coordination of the patient's care discussed in the presence of nurse. RAYNA
[2020-10-29] MEDS: COREG PO SCH (16:52)
[2020-10-29] MEDS: ZOLOFT PO SCH (20:31)
[2020-10-30 04:55] LABS: BASOPHILS % (AUTO) 0.5 % (0.0-3.0); EOSINOPHILS # (AUTO) 0.2 K/ul (0.0-0.7); EOSINOPHILS % (AUTO) 2.7 % (0.0-7.0); HEMATOCRIT 35.4 % (42.0-52.0); HEMOGLOBIN 11.6 g/dl (14.0-18.0); IMMATURE GRANULOCYTE # (AUTO) 0.1 (0.0-1.0); IMMATURE GRANULOCYTE % (AUTO) 0.7 % (0.0-5.0); LYMPHOCYTES # (AUTO) 0.9 K/uL (0.60-3.4); LYMPHOCYTES % (AUTO) 10.9 (10.0-50.0); MEAN CORPUSCULAR HEMOGLOBIN 30.3 pg (27.0-31.0); MEAN CORPUSCULAR HGB CONC 32.8 (31.8-35.4); MEAN CORPUSCULAR VOLUME 92.4 fl (80.0-94.0); MONOCYTES # (AUTO) 0.8 K/uL (0.4-2.0); MONOCYTES % (AUTO) 9.8 (0-10); NEUTROPHILS # (AUTO) 6.5 K/ul (2.0-6.9); NEUTROPHILS % (AUTO) 75.4 % (42.2-75.2); PLATELET COUNT 141 10^3/uL (140-440); RDW COEFFICIENT OF VARIATION 17.8 % (11.6-14.8); RED BLOOD COUNT 3.83 10^6/ul (4.70-6.10); WHITE BLOOD COUNT 8.61 K/ul (4.2-10.2)
[2020-10-30] MEDS: VENTOLIN HFA (PER PUFF-WITH SPACER) IH SCH ×2 (04:55→09:53)
[2020-10-30] MEDS: ATROVENT HFA INHALER (PER PUFF-WITH SPACER) IH SCH ×2 (04:55→09:53)
[2020-10-30 05:06] LABS: ALANINE AMINOTRANSFERASE 23.6 U/L (0-50); ALBUMIN 3.62 g/dL (3.5-5.0); ALKALINE PHOSPHATASE 80.8 U/L (56-119); ASPARTATE AMINO TRANSFERASE 30.1 U/L (17-59); BILIRUBIN,TOTAL 1.07 mg/dL (0.2-1.3); BLOOD UREA NITROGEN 24.8 mg/dL (9-20); CALCIUM 8.92 mg/dL (8.4-10.2); CARBON DIOXIDE 23.1 mmol/L (22-30.0); CHLORIDE 102.1 mmol/L (98-107); CREATININE 1.09 mg/dL (0.60-1.10); GLUCOSE 91.8 mg/dL (74-106); POTASSIUM 4.28 mmol/L (3.5-5.1); SODIUM 131.9 mmol/L (134.5-145); TOTAL PROTEIN 6.54 g/dL (6.3-8.2)
[2020-10-30] MEDS: LASIX TAB PO SCH (05:49)
[2020-10-30] MEDS: PRILOSEC PO SCH (05:49)
[2020-10-30 06:06] VITALS: BP 89/62; TEMP 97.4
[2020-10-30 06:18] LABS: PROTHROMBIN TIME 18.9 SEC (9.3-11.0)
[2020-10-30] MEDS: ASPIRIN CHEWABLE PO SCH (09:00)
[2020-10-30] MEDS: COGENTIN PO SCH (09:00)
[2020-10-30] MEDS: MICRO-K CAP PO SCH (09:00)
[2020-10-30] MEDS: ALDACTONE PO SCH (09:00)
[2020-10-30] MEDS: PREDNISONE PO SCH (09:01)
[2020-10-30] MEDS: SYMBICORT 80-4.5 MCG INHALER IH SCH (09:01)
[2020-10-30] MEDS: FLONASE NAS SCH (09:01)
[2020-10-30] MEDS: LIPITOR PO SCH (09:01)
[2020-10-30] MEDS: HALDOL PO SCH (09:01)
[2020-10-30] MEDS: FLOMAX PO SCH (09:01)
--- NOTE | 2020-10-30 09:10 | PCM.PROG ---
Attending Provider: ATTENDING PROVIDER: Dr. STANTON HAMPTON This patient is seen with Juana Baker, Nurse Practitioner. DATE OF SERVICE: 10/30/20 SUBJECTIVE: This 69 year old /WHITE M was hospitalized 10/20/20. Will discharge the patient home today. The patient refuses to go to fdc facility. He is agreeable to Home Health. Prognosis is poor given the complexity with advanced COPD and CHF. He would benefit from Home Health for PT/OT and nursing visits. REVIEW OF SYSTEMS: CONSTITUTIONAL: Weakness. No night sweats. No fatigue, malaise, lethargy. No fever or chills. HEENT: Eyes: No visual changes. No eye pain. No eye discharge. ENT: No runny nose. No epistaxis. No sinus pain. No odynophagia. No congestion. RESPIRATORY: Shortness of breath. No cough, no congestion. No hemoptysis. CARDIOVASCULAR: No angina symptoms. No CHF symptoms. No atypical chest pain for CAD. No palpitations. No orthopnea. GASTROINTESTINAL: No abdominal pain. No nausea or vomiting. No diarrhea or constipation. No hematemesis. No hematochezia. GENITOURINARY: No urgency. No frequency. No dysuria. No hematuria. No obstructive symptoms. No discharge. No pain. No significant abnormal bleeding. MUSCULOSKELETAL: No musculoskeletal pain; no joint swelling. NEUROLOGICAL: Awake, alert, oriented to time, place and person. No headache. No neck pain. No syncope. No seizures. No dizziness. PSYCHIATRIC: Not anxious. No depression. No suicidal thoughts. No homicidal thoughts. SKIN: No rash. No lesions. No wounds. ENDOCRINE: No unexplained weight loss. No weight gain. HEMATOLOGIC/LYMPHATIC: No anemia. No purpura. No petechiae. No prolonged or excessive bleeding. No palpable lymph nodes. PHYSICAL EXAMINATION: GENERAL: The patient is awake, alert and oriented, lying/sitting in bed in no distress. VITAL SIGNS: Temperature 97.4 F, Pulse 74, Respiratory Rate 16, BP 89/62, Pulse Ox 97% HEENT: Head normocephalic, atraumatic. Eyes: Extraocular muscles are intact. Pupils are equal, round and reactive to light and accommodation. Ears: No lesions. Nose appeared normal. Throat: No exudate or erythema. NECK: Supple. No JVD, no carotid bruit. No lymphadenopathy or thyromegaly. LUNGS: Diminished breath sounds. Clear to auscultation. Percussion note normal. Chest symmetrical. HEART: S1, S2, no S3. No murmurs. No cyanosis or clubbing. No ascites. Pulses: Dorsalis pedis and posterior tibial pulses +1 to +2 both sides. ABDOMEN: Soft. Non-tender. Bowel sounds active. No CVA tenderness. No mass felt. EXTREMITIES: No edema. Full range of motion of all extremities, equal. NEUROLOGIC: No focal deficit. Cranial nerves II through XII are grossly intact. No headache. No double vision. SKIN: Not dry. Intact. Turgor-normal. LYMPHATIC: No palpable lymph nodes/no lymphedema. MUSCULOSKELETAL: Normal joints with no swelling. Muscle tone is normal. LAB REVIEW: 10/30/20 04:40 10/30/20 04:40 10/30/20 06:03: PT 18.9 H D, INR 1.77 10/30/20 04:40: Sodium 131.9 L, Potassium 4.28, Chloride 102.1, Carbon Dioxide 23.1, Anion Gap 10.98, BUN 24.8 H, Creatinine 1.09, Estimated GFR (MDRD) 67.00, BUN/Creatinine Ratio 22.75, Glucose 91.8, Calcium 8.92, Total Bilirubin 1.07, AST 30.1, ALT 23.6, Alkaline Phosphatase 80.8, Total Protein 6.54, Albumin 3.62, Globulin 2.92, Albumin/Globulin Ratio 1.23 10/30/20 04:40: WBC 8.61, RBC 3.83 L, Hgb 11.6 L, Hct 35.4 L, MCV 92.4, MCH 30.3 , MCHC 32.8, RDW Coeff of Oleg 17.8 H, Plt Count 141, Immature Gran % (Auto) 0.7, Neut % (Auto) 75.4 H, Lymph % (Auto) 10.9, [place] % (Auto) 9.8, Eos % (Auto) 2.7, Baso % (Auto) 0.5, Neut # (Auto) 6.5, Lymph # (Auto) 0.9, [place] # (Auto) 0.8, Eos # (Auto) 0.2, Baso # (Auto) 0.0, Immature Gran # (Auto) 0.1 ASSESSMENT: Please see below. 1. Acute COPD exacerbation with CHF. 2. Cardiomyopathy with reduced ejection fraction 17% to 20%. 3. Dementia. PLAN: 1. Discharge home. 2. Advised to stay inside out of the heat. 3. Home Health for PT/OT and nursing visits due to CHF. 4. Will see the patient in the office next week. 5. Resume Coumadin today. 6. We recommend the patient not go home alone however he refuses. The family is aware of the risks. He declines fdc facility. Plan and coordination of the patient's care discussed in the presence of Supervisor Seaming and nurse. CONDITION: Stable. PROGNOSIS: Poor. SCRIBED BY: GASTON SAENZ Super[employer] scribed while in presence of service performed by Dr. Hampton/Juana Baker APRN on 10/30/20 ([id number])
--- NOTE | 2020-10-30 09:47 | PN ---
DATE OF SERVICE: 10/25/2020 SUBJECTIVE: 69 year old white male hospitalized with COPD, acute bronchitis mixed with CHF. The patient's condition has improved. He is not short of breath like he was. CHF symptoms are absent. The patient was seen and examined with the Nurse Practitioner. We will continue to monitor the patient's kidney function and use diuretic accordingly. Also his systolic blood pressure usually stays between 85- 95 TIME SPENT: More than 30 minutes. Plan and coordination of the patient's care discussed in the presence of nurse. RAYNA
--- NOTE | 2020-10-30 11:19 | CM.DICTOOL ---
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 SPEARS) CATARACT EXTRACTION, RIGHT 02/06 CATARACT EXTRACTION, LEFT 03/08 CORONARY ARTERY DISEASE WITH STENT IN 2003 AND 2015 CODE STATUS: DO NOT RESUSCITATE LAST VITALS Temp Pulse Resp BP Pulse Ox 97.4 F L 74 16 89/62 L 95 10/30/20 06:00 10/30/20 06:00 10/30/20 06:00 10/30/20 06:00 10/30/20 10:00 TAKE THESE MEDICATIONS AT HOME Albuterol Sulfate (Albuterol Sulfate (Ventolin Hfa) 18 Gm 1 Puff With Spacer) 2 puff IH Q4-6H PRN PRN Reason: SHORTNESS OF AIR Last Admin: 10/21/20 18:00 Dose: 2 puff Documented by: Aspirin (Aspirin 81 Mg Tab.Chew) 81 mg PO DAILYWM [facility] Last Admin: 10/30/20 09:00 Dose: 81 mg Documented by: Atorvastatin Calcium (Atorvastatin Calcium 20 Mg Tablet) 20 mg PO DAILY [facility] Last Admin: 10/30/20 09:01 Dose: 20 mg Documented by: Benztropine Mesylate (Benztropine Mesylate 1 Mg Tablet) 1 mg PO BID [facility] Last Admin: 10/30/20 09:00 Dose: 1 mg Documented by: Carvedilol (Carvedilol 3.125 Mg Tablet) 3.125 mg PO @ BEDTIME [facility] -- ( CHANGED ) Last Admin: 10/29/20 16:52 Dose: 3.125 mg Documented by: Fluticasone Propionate (Fluticasone Propionate 16 Gm Nasal [place]) 2 spray KOBY DAILY [facility] Last Admin: 10/30/20 09:01 Dose: 2 spray Documented by: Furosemide (Furosemide 40 Mg Tablet) 40 mg PO BIDAC [facility] Last Admin: 10/30/20 05:49 Dose: 40 mg Documented by: Haloperidol (Haloperidol 0.5 Mg Tablet) 0.5 mg PO BID [facility] Last Admin: 10/30/20 09:01 Dose: 0.5 mg Documented by: Lisinopril (Lisinopril 5 Mg Tablet) 2.5 mg PO DAILY [facility] Last Admin: 10/30/20 09:13 Dose: 2.5 mg Documented by: Nitroglycerin (Nitroglycerin 0.4 Mg Tab.Subl) 0.4 mg SL Q5MIN X 3 DOSES PRN PRN Reason: Chest Pain Omeprazole (Omeprazole 20 Mg Capsule.Dr) 20 mg PO QDAC [facility] Last Admin: 10/30/20 05:49 Dose: 20 mg Documented by: Potassium Chloride (Potassium Chloride 10 Meq Capsule.Er) 10 meq PO DAILYWM [facility] Last Admin: 10/30/20 09:00 Dose: 10 meq Documented by: Sertraline HCl (Sertraline Hcl 50 Mg Tablet) 100 mg PO BEDTIME [facility] Last Admin: 10/29/20 20:31 Dose: 100 mg Documented by: Spironolactone (Spironolactone 25 Mg Tablet) 25 mg PO DAILY [facility] Last Admin: 10/30/20 09:00 Dose: 25 mg Documented by: Tamsulosin HCl (Tamsulosin Hcl 0.4 Mg Cap.Er.24h) 0.4 mg PO DAILY [facility] Last Admin: 10/30/20 09:01 Dose: 0.4 mg Documented by: Warfarin Sodium (Warfarin Sodium 3 Mg Tablet) 6 mg PO QPM [facility] Last Admin: 10/27/20 17:35 Dose: 6 mg Documented by: BREO ELLIPTA INHALER 1 INHALATION DAILY ALLERGIES No Known Allergies Allergy (Verified 09/19/20 18:43) DISCONTINUED MEDICATIONS COREG (Carvedilol 3.125 Mg Tablet) 3.125 mg PO BIDWM [facility] NEW PRESCRIPTIONS: 1). COREG 3.125 MG PO AT BEDTIME SMOKING: N/A DISEASE SPECIFIC EDUCATION: CHF COPD RISK OF LIVING ALONE BLEEDING PRECAUTIONS CHANGING POSITIONS SLOWLY FALL PRECAUTIONS MEDICATION MANAGEMENT LAB REVIEW: 10/30/20 04:40 10/30/20 04:40 10/30/20 06:03: PT 18.9 H D, INR 1.77 10/30/20 04:40: Sodium 131.9 L, Potassium 4.28, Chloride 102.1, Carbon Dioxide 23.1, Anion Gap 10.98, BUN 24.8 H, Creatinine 1.09, Estimated GFR (MDRD) 67.00, BUN/Creatinine Ratio 22.75, Glucose 91.8, Calcium 8.92, Total Bilirubin 1.07, AST 30.1, ALT 23.6, Alkaline Phosphatase 80.8, Total Protein 6.54, Albumin 3.62, Globulin 2.92, Albumin/Globulin Ratio 1.23 10/30/20 04:40: WBC 8.61, RBC 3.83 L, Hgb 11.6 L, Hct 35.4 L, MCV 92.4, MCH 30.3, MCHC 32.8, RDW Coeff of Oleg 17.8 H, Plt Count 141, Immature Gran % (Auto) 0.7, Neut % (Auto) 75.4 H, Lymph % (Auto) 10.9, [place] % (Auto) 9.8, Eos % (Auto) 2.7, Baso % (Auto) 0.5, Neut # (Auto) 6.5, Lymph # (Auto) 0.9, [place] # (Auto) 0.8, Eos # (Auto) 0.2, Baso # (Auto) 0.0, Immature Gran # (Auto) 0.1 PLAN: DISCHARGE: HOME TODAY AND LIVES ALONE [facility] SN, PT AND OT EVAL AND TREAT ([phone]) ACTIVITY: UP TOLERATED WITH FREQUENT REST PERIODS WITH OXYGEN ON AT ALL TIMES CHANGE POSITIONS SLOWLY STAY IN DOORS WHILE HOT AND HUMID NO DRIVING UNTIL SEE DR. HAMPTON/STAFF IN THE OFFICE AT FOLLOW UP APPOINTMENT BLEEDING PRECAUTIONS FALL PRECAUTIONS DIET: CARDIAC DIET LABS: PT/INR IN A WEEK, Thursday11/05/20 OR Thursday11/06/20 PER HOME HEALTH MD FOLLOW-UP : SEE DR. HAMPTON/GUILLE OLIVER APRN/ MICHAEL DENNY APRN IN THE OFFICE NOVEMBER 08, 2020 @ 1045 AM OXYGEN : 4 LITERS A MINUTE PER NASAL CANULA CONTINUOS, DO NOT CHANGE SETTING UNLESS DIRECTED BLOOD OXYGEN LEVELS WILL GO DOWN TO A CRITICAL LOW LEVEL IF NOT USED CODE STATUS: DO NOT RESUSCITATE MR. GALLEGOS CONTINUES TO BE ALERT AND ORIENTED X 4. HAS HAD SOME PERIODS OF CONFUSION AND FORGETFULNESS. HE IS OXYGEN DEPENDENT WITH 4 L/M PER N/C. MR. GALLEGOS VERBALIZES THAT HE KNOWS HE HAS A WEAK HEART. HE GETS UP ON OWN WITH SLIGHT WEAKNESS. AMBULATED AND USED STAIRS WITHOUT AN ASSISTIVE DEVICE WITH THERAPY. HE IS DETERMINED TO RETURN HOME AND CONTINUE TO LIVE ALONE, VERBALIZED THAT HE IS NOT GOING TO A FPC. HE HAS BEEN INSTRUCTED ON THE RISK OF CONTINUING TO LIVE ALONE WITH HIS WEAKNESS AND CHANGES IN MENTAL STATUS AND CHRONIC LOW BLOOD PRESSURES. NUTRITIONAL INTAKE AND FLUID INTAKE IS FAIR. SKIN WARM AND DRY AND INTACT WITH SCATTERED ECCHYMOSIS TO ARMS. CONTINENT OF BOWEL AND BLADDER WITH LAST BM 10/28/2020. HAS AGREED TO HOMEHEALTH WITH [facility]. MD GUILLE ARZOLA APRN ALYCE HANNAN, APRN
--- NOTE | 2020-10-30 14:39 | PN ---
DATE OF SERVICE: 10/29/20 SUBJECTIVE: 69-year-old white female hospitalized with COPD exacerbation with CHF. The patient's condition seems to have improved slowly. Mental status has more or less cleared now. He is up and about, doesn't want to go to the [facility]. Cardiovascular status stable. The patient was seen and examined with the nurse practitioner. TIME SPENT: More than 30 minutes. Plan and coordination of the patient's care discussed in the presence of nurse. RAYNA
--- NOTE | 2020-10-31 08:27 | PN ---
DATE OF SERVICE: 10/30/20 SUBJECTIVE: The patient was seen and examined with the nurse practitioner. The patient's condition was stable. CHF, COPD under control. The patient has end-stage COPD and end-stage CHF with very low ejection fraction. His prognosis is poor. The patient is DNI. The patient will be discharged home. TIME SPENT: More than 30 minutes. Plan and coordination of the patient's care discussed in the presence of nurse. RAYNA
--- NOTE | 2020-10-31 08:30 | PN ---
BILLING 10/20/20 ADMISSION DAY LEVEL 5 10/21/20 INTERMEDIATE 10/22/20 INTERMEDIATE 10/23/20 INTERMEDIATE 10/24/20 INTERMEDIATE 10/25/20 INTERMEDIATE 10/26/20 INTERMEDIATE 10/27/20 INTERMEDIATE 10/28/20 INTERMEDIATE 10/29/20 INTERMEDIATE 10/30/20 FINAL DAY - DISCHARGE MTDD
--- NOTE | 2020-10-31 09:27 | DS ---
DATE OF SERVICE: 10/30/20 CODE STATUS: DO NOT RESUSCITATE LAST VITALS Temp Pulse Resp BP Pulse Ox 97.4 F L 74 16 89/62 L 95 10/30/20 06:00 10/30/20 06:00 10/30/20 06:00 10/30/20 06:00 10/30/20 10:00 FINAL DIAGNOSIS: 1. ACUTE CHF 2. ACUTE COPD EXACERBATION 3. DILATED CARDIOMYOPATHY WITH REDUCED EJECTION FRACTION OF 17% TO 20% 4. CHRONIC KIDNEY DISEASE STAGE 2 5. HYPOTENSION 6. ATRIAL FIBRILLATION HX: 7. RECENT HOSPITALIZATION FOR CHF 8. SEVERE COPD OXYGEN DEPENDENT 9. EJECTION FRACTION OF 17%TO 20% PER 05/2020 ECHO 10. CORONARY ARTERY DISEASE 11. CVA, 2009 12. ABDOMINAL AORTIC ANEURYSM WITH ENDOVASCULAR AORTIC STENT 13. DYSLIPIDEMIA 14. CHRONIC ANEMIA 15. BPH 16. DEPRESSION 17. NONOBSTRUCTIVE RIGHT NEPHROLITHIASIS 18. DJD OF THE L-SPINE 19. FORMER SMOKER 20. BASAL CELL ON THE LEFT SIDE OF THE NOSE 21. GERD 22. BPH SURGICAL HISTORY: 23. BASAL CELL CARCINOMA,LEFT SIDE OF NOSE 24. ENDOVASCULAR STENT GRAFT (DR. SPEARS) 25. CATARACT EXTRACTION, RIGHT 02/06 26. CATARACT EXTRACTION, LEFT 03/08 27. CORONARY ARTERY DISEASE WITH STENT IN 2003 AND 2015 LAST VITALS Temp Pulse Resp BP Pulse Ox 97.4 F L 74 16 89/62 L 95 10/30/20 06:00 10/30/20 06:00 10/30/20 06:00 10/30/20 06:00 10/30/20 10:00 DISCHARGE INSTRUCTIONS: 1. DISCHARGE: HOME TODAY AND LIVES ALONE. [facility], PT AND OT EVAL AND TREAT ([phone]). 2. LABS: PT/INR IN A WEEK, Thursday11/05/20 OR Thursday11/06/20 PER [facility]. 3. MD FOLLOW-UP : SEE DR. HAMPTON/GUILLE OLIVER APRN/ MICHAEL DENNY APRN IN THE OFFICE NOVEMBER 08, 2020 @ 1045 AM 4. OXYGEN : 4 LITERS A MINUTE PER NASAL CANULA CONTINUOUS, DO NOT CHANGE SETTING UNLESS DIRECTED, BLOOD OXYGEN LEVELS WILL GO DOWN TO A CRITICAL LOW LEVEL IF NOT USED. MEDICATIONS AT DISCHARGE: Albuterol Sulfate (Albuterol Sulfate (Ventolin Hfa) 18 Gm 1 Puff With Spacer) 2 puff IH Q4-6H PRN PRN Reason: SHORTNESS OF AIR Last Admin: 10/21/20 18:00 Dose: 2 puff Documented by: Aspirin (Aspirin 81 Mg Tab.Chew) 81 mg PO DAILYWM [facility] Last Admin: 10/30/20 09:00 Dose: 81 mg Documented by: Atorvastatin Calcium (Atorvastatin Calcium 20 Mg Tablet) 20 mg PO DAILY [facility] Last Admin: 10/30/20 09:01 Dose: 20 mg Documented by: Benztropine Mesylate (Benztropine Mesylate 1 Mg Tablet) 1 mg PO BID [facility] Last Admin: 10/30/20 09:00 Dose: 1 mg Documented by: Carvedilol (Carvedilol 3.125 Mg Tablet) 3.125 mg PO @ BEDTIME [facility] -- ( CHANGED ) Last Admin: 10/29/20 16:52 Dose: 3.125 mg Documented by: Fluticasone Propionate (Fluticasone Propionate 16 Gm Nasal [place]) 2 spray KOBY DAILY [facility] Last Admin: 10/30/20 09:01 Dose: 2 spray Documented by: Furosemide (Furosemide 40 Mg Tablet) 40 mg PO BIDAC [facility] Last Admin: 10/30/20 05:49 Dose: 40 mg Documented by: Haloperidol (Haloperidol 0.5 Mg Tablet) 0.5 mg PO BID [facility] Last Admin: 10/30/20 09:01 Dose: 0.5 mg Documented by: Lisinopril (Lisinopril 5 Mg Tablet) 2.5 mg PO DAILY [facility] Last Admin: 10/30/20 09:13 Dose: 2.5 mg Documented by: Nitroglycerin (Nitroglycerin 0.4 Mg Tab.Subl) 0.4 mg SL Q5MIN X 3 DOSES PRN PRN Reason: Chest Pain Omeprazole (Omeprazole 20 Mg Capsule.Dr) 20 mg PO QDAC [facility] Last Admin: 10/30/20 05:49 Dose: 20 mg Documented by: Potassium Chloride (Potassium Chloride 10 Meq Capsule.Er) 10 meq PO DAILYWM [facility] Last Admin: 10/30/20 09:00 Dose: 10 meq Documented by: Sertraline HCl (Sertraline Hcl 50 Mg Tablet) 100 mg PO BEDTIME [facility] Last Admin: 10/29/20 20:31 Dose: 100 mg Documented by: Spironolactone (Spironolactone 25 Mg Tablet) 25 mg PO DAILY [facility] Last Admin: 10/30/20 09:00 Dose: 25 mg Documented by: Tamsulosin HCl (Tamsulosin Hcl 0.4 Mg Cap.Er.24h) 0.4 mg PO DAILY [facility] Last Admin: 10/30/20 09:01 Dose: 0.4 mg Documented by: Warfarin Sodium (Warfarin Sodium 3 Mg Tablet) 6 mg PO QPM [facility] Last Admin: 10/27/20 17:35 Dose: 6 mg Documented by: BREO ELLIPTA INHALER 1 INHALATION DAILY NEW PRESCRIPTIONS: COREG 3.125 MG PO AT BEDTIME DISCONTINUED MEDICATIONS: COREG (Carvedilol 3.125 Mg Tablet) 3.125 mg PO BIDWM [facility] DIET INSTRUCTIONS: CARDIAC DIET ACTIVITY: UP TOLERATED WITH FREQUENT REST PERIODS WITH OXYGEN ON AT ALL TIMES CHANGE POSITIONS SLOWLY STAY IN DOORS WHILE HOT AND HUMID NO DRIVING UNTIL SEE DR. HAMPTON/STAFF IN THE OFFICE AT FOLLOW UP APPOINTMENT BLEEDING PRECAUTIONS FALL PRECAUTIONS SMOKING: N/A DISEASE SPECIFIC EDUCATION: CHF COPD RISK OF LIVING ALONE BLEEDING PRECAUTIONS CHANGING POSITIONS SLOWLY FALL PRECAUTIONS MEDICATION MANAGEMENT HOSPITAL COURSE: This 69-year-old white male who came in through the emergency room with worsening weakness and shortness of breath. He has severe COPD, is oxygen dependent along with dilated cardiomyopathy with ejection fraction of around 17 to 20%. He was admitted in acute CHF along with acute COPD exacerbation, given IV steroids, IV Lasix. Initially once he was first admitted he reported being so short of breath he was scared to move in bed. After several days of IV Lasix this significantly improved. He has a history of atrial fib and is on Coumadin. His INR was initially elevated. His Coumadin was held for several days. We did have a PT/OT consultation and he has worked with physical therapy. At this point he is able to get up and walk around on his own with the use of a walker. He is currently on 4L which is what he came in on. He has long been hypertensive however this did become worse with diuresis. His Coreg was decreased to 3.125 mg at bedtime only. He is determined to return home. He lives alone. He has refused to go to a [facility]. I have instructed him that he is at increased risk by living alone, increased risk of falls. He has agreed for Home Health for physical/occupational and nursing care. CHF has been discussed in detail. I have discussed with him about weighing daily and reporting an extra weight gain of greater than 3 lbs. He was started on Farxiga 10 mg daily around day four of his hospitalization in order to help with his CHF. However, he did become confused and the family thought that this was related to the Farxiga. I do believe that this is related more to hospital psychosis. He has been intermittently confused during his hospital stay and this morning he is alert and oriented to person and place, not time. The family requested the Farxiga be discontinued so we did. Due to his hypotension already, he is not able to tolerate some things such as Entresto so we will send him home. The only medication changes, the Coreg just once a day. He will have an INR next Thursday with Home Health. They are to report it to us and will followup with us in the office. TIME SPENT: More than 60 minutes. RAYNA
== END 2020-10-30 13:45 | disposition home health service (06) | DRG 191 ==
LOC: ED 14:11 → MEDSURG A 17:52
PROVIDERS: ADMIT Internal Medicine; ATTEND Internal Medicine
DX: D64.9 Anemia, unspecified; I95.9 Hypotension, unspecified; I50.9 Heart failure, unspecified; I48.91 Unspecified atrial fibrillation; Z20.822 Contact with and (suspected) exposure to COVID-19; I42.0 Dilated cardiomyopathy; J44.1 Chronic obstructive pulmonary disease with (acute) exacerbation; N18.2 Chronic kidney disease, stage 2 (mild); R09.02 Hypoxemia; K70.31 Alcoholic cirrhosis of liver with ascites; R06.02 Shortness of breath; F03.90 Unspecified dementia, unspecified severity, without behavioral disturbance, psychotic disturbance, mood disturbance, and anxiety

== ENCOUNTER 2020-12-07 04:49 | Inpatient (IN) ==
[2020-12-07] MEDS ORDERED: DEXTROSE 5%-NS IV SOLUTION 1,000 ML IV STA ×2 (05:25→05:27)
--- NOTE | 2020-12-07 05:29 | ED.PDOC ---
General <DC RIVERA MD - Last Filed: 12/07/20 07:51> ED Provider: Dr. DC RIVERA Chief Complaint: Weakness Stated Complaint: patient states that he was recently discharged from the hospital after treatment for COPD. Lives alone and has been having a poor apatite. Last meal was 11 am. Accu check was 66 in EMS not given any oral or IV glucose. Denies any chest pain. Has chronic COPD with chronic unchanged shortness of breath. He is on chronic 4 liters of oxygen. States he just could not get out of his couch. Lives alone. Time Seen by Provider: 12/07/20 05:25 Mode of Arrival: Ambulance Information Source: Patient Primary Care Provider: STANTON GAN Nursing and Triage Documentation Reviewed and Agree: Yes Does patient meet sepsis criteria?: No System Inflammatory Response Syndrome: Not Applicable Sepsis Protocol: For patient's 13 years and over: Temp is 96.8 and below OR 101 and greater Pulse >90 BPM Resp >20/minute Acutely Altered Mental Status Are patient's symptoms suggestive of a new infection, such as: -Pneumonia -Skin, Soft Tissue -Endocarditis -UTI -Bone, Joint Infection -Implantable Device -Acute Abdominal Infection -Wound Infection -Meningitis -Blood Stream Catheter Infection -Unknown Review of Systems <DC RIVERA MD - Last Filed: 12/07/20 07:51> Review Of Systems Constitutional: Reports Weakness Eyes: Reports No symptoms Ears, Nose, Mouth, Throat: Reports No symptoms Respiratory: Reports No symptoms Cardiac: Reports No symptoms GI: Reports No symptoms : Reports No symptoms Musculoskeletal: Reports No symptoms Skin: Reports No symptoms Neurological: Reports No symptoms Endocrine: Reports No symptoms Hematologic/Lymphatic: Reports No symptoms All Other Systems: Reviewed and Negative PFSH <DC RIVERA MD - Last Filed: 12/07/20 07:51> Medical History (Updated 12/07/20 @ 07:51 by DC RIEVRA MD) AAA (abdominal aortic aneurysm) Anxiety Atrial fibrillation Basal cell carcinoma of left side of nose Bladder cancer BPH (benign prostatic hyperplasia) CAD (coronary artery disease) Cardiac LV ejection fraction <20% CHF (congestive heart failure) Chronic anemia Chronic anticoagulation Chronic combined systolic and diastolic heart failure Chronic kidney disease, stage 2 (mild) Chronic respiratory failure COPD (chronic obstructive pulmonary disease) CVA (cerebral vascular accident) Degenerative joint disease (DJD) of lumbar spine Depression Dyslipidemia Emphysema of lung Former smoker GERD (gastroesophageal reflux disease) Hypertension Ischemic dilated cardiomyopathy Myocardial infarction Oxygen dependent Seasonal allergies TIA (transient ischemic attack) Family History FATHER Heart attack Social History Smoking and tobacco status: Former smoker Alcohol intake: never Surgical History History of AAA (abdominal aortic aneurysm) repair History of bilateral cataract extraction History of coronary artery stent placement Physical Exam <DC RIVERA MD - Last Filed: 12/07/20 07:51> Physical Exam Appearance: Reports Well-appearing (but appear weak ) Ill-appearing: None Pain Distress: None Eyes: Reports SABRINA, EOMI and Conjunctiva clear ENT: Reports Nose normal and Oropharynx normal Neck: Not Examined Respiratory: Reports Breath sounds diminished; Denies Crackles, Rhonchi or Wheezes Cardiovascular: Reports RRR, Pulses normal, No rub and No murmur GI/: Reports Soft, Nontender and No masses Musculoskeletal: Reports Normal strength, ROM intact and No edema Skin: Reports Warm and Dry Neurological: Reports Motor intact, Cranial nerves intact, Alert and Oriented Psychiatric: Reports Affect appropriate and Mood appropriate <LASHONDA BURK MD - Last Filed: 12/07/20 16:38> Radiology Interpretation Radiology Interpretation By: Radiologist Exam Interpreted: CT Scan and Other (U/S) <LASHONDA BURK MD - Last Filed: 12/07/20 16:38> Re-Evaluation Time of Re-Evaluation: 07:15 Status: Unchanged Vital Signs Stable: Yes Pain Level: 0 Lungs: Clear Skin: Warm and Dry Neuro: Other (pt was confused.) CV: RRR Physician Notification <DC RIVERA MD - Last Filed: 12/07/20 07:51> Case Discussed Endorsed To/Discussed With: Dr Burk Time of Discussion: 07:51 Admit/Transition Orders Entered by ED Provider: Yes Critical Care Note <DC RIVERA MD - Last Filed: 12/07/20 07:51> Critical Care Note Total Critical Care Time (mins): 60 Course <DC RIVERA MD - Last Filed: 12/07/20 07:51> Course Hematology/Chemistry: 12/07/20 05:45 12/07/20 05:45 Orders, Labs, Meds: Lab Review 12/07/20 12/07/20 12/07/20 05:45 05:45 05:45 WBC 13.22 H RBC 4.51 L Hgb 13.2 L Hct 42.3 MCV 93.8 MCH 29.3 MCHC 31.2 L RDW Coeff of Oleg 18.1 H Plt Count 202 Immature Gran % (Auto) 0.8 Neut % (Auto) 87.7 H Lymph % (Auto) 4.4 L Roosevelt % (Auto) 6.7 Eos % (Auto) 0.2 Baso % (Auto) 0.2 Neut # (Auto) 11.6 H Lymph # (Auto) 0.6 Roosevelt # (Auto) 0.9 Eos # (Auto) 0.0 Baso # (Auto) 0.0 Immature Gran # (Auto) 0.1 PT > 150.0 H* INR Puncture Site Base Excess O2 Saturation ABG pH ABG pCO2 ABG pO2 ABG HCO3 ABG Total CO2 Rishabh Test Hemoglobin Oxyhemoglobin Carboxyhemoglobin Total Hemoglobin O2 Delivery Device Oxygen Liter Flow Sodium 127.0 L Potassium 4.79 Chloride 95.5 L Carbon Dioxide 12.6 L Anion Gap 23.69 BUN 39.0 H Creatinine 1.39 H Estimated GFR (MDRD) 50.00 BUN/Creatinine Ratio 28.05 Glucose 77.2 Lactic Acid Calcium 8.68 Total Bilirubin 4.37 H AST 1483.6 H ALT 988.0 H Alkaline Phosphatase 245.2 H Ammonia Total Creatine Kinase 414.8 H CK-MB (CK-2) 14.200 H* CK-MB (CK-2) % 3.4200 Troponin I 0.070 Total Protein 6.68 Albumin 3.57 Globulin 3.11 Albumin/Globulin Ratio 1.14 Procalcitonin Adenovirus (PCR) B. pertussis DNA (PCR) B.parapertussis DNA PCR C. pneumoniae DNA (PCR) Coronavirus OC43 (PCR) Coronavirus HKU1 (PCR) Coronavirus 229E (PCR) Coronavirus NL63 (PCR) Human Metapneumovir PCR Influenza Type A (PCR) Influenza B (RT-PCR) M. pneumoniae (PCR) Parainfluenza 1 (PCR) Parainfluenza 2 (PCR) Parainfluenza 3 (PCR) Parainfluenza 4 (PCR) RSV (PCR) Entero/Rhino (PCR) SARS-CoV-2 (PCR) 12/07/20 12/07/20 12/07/20 06:32 06:55 07:29 WBC RBC Hgb Hct MCV MCH MCHC RDW Coeff of Oleg Plt Count Immature Gran % (Auto) Neut % (Auto) Lymph % (Auto) Roosevelt % (Auto) Eos % (Auto) Baso % (Auto) Neut # (Auto) Lymph # (Auto) Roosevelt # (Auto) Eos # (Auto) Baso # (Auto) Immature Gran # (Auto) PT > 150.0 H* INR Puncture Site R brach Base Excess -12.9 L O2 Saturation 88.9 L ABG pH 7.34 L ABG pCO2 24.0 L ABG pO2 60.0 L ABG HCO3 12.9 L ABG Total CO2 13.6 L Rishabh Test Y Hemoglobin 1.2 Oxyhemoglobin 88.0 L Carboxyhemoglobin 2.9 H Total Hemoglobin 13.1 O2 Delivery Device Cannula Oxygen Liter Flow 4.00 Sodium Potassium Chloride Carbon Dioxide Anion Gap BUN Creatinine Estimated GFR (MDRD) BUN/Creatinine Ratio Glucose Lactic Acid Calcium Total Bilirubin AST ALT Alkaline Phosphatase Ammonia Total Creatine Kinase CK-MB (CK-2) CK-MB (CK-2) % Troponin I Total Protein Albumin Globulin Albumin/Globulin Ratio Procalcitonin Adenovirus (PCR) Not detected B. pertussis DNA (PCR) Not detected B.parapertussis DNA PCR Not detected C. pneumoniae DNA (PCR) Not detected Coronavirus OC43 (PCR) Not detected Coronavirus HKU1 (PCR) Not detected Coronavirus 229E (PCR) Not detected Coronavirus NL63 (PCR) Not detected Human Metapneumovir PCR Not detected Influenza Type A (PCR) Not detected Influenza B (RT-PCR) Not detected M. pneumoniae (PCR) Not detected Parainfluenza 1 (PCR) Not detected Parainfluenza 2 (PCR) Not detected Parainfluenza 3 (PCR) Not detected Parainfluenza 4 (PCR) Not detected RSV (PCR) Not detected Entero/Rhino (PCR) Not detected SARS-CoV-2 (PCR) Not detected 12/07/20 12/07/20 12/07/20 08:50 08:50 12:05 WBC RBC Hgb Hct MCV MCH MCHC RDW Coeff of Oleg Plt Count Immature Gran % (Auto) Neut % (Auto) Lymph % (Auto) Roosevelt % (Auto) Eos % (Auto) Baso % (Auto) Neut # (Auto) Lymph # (Auto) [place] # (Auto) Eos # (Auto) Baso # (Auto) Immature Gran # (Auto) PT INR Puncture Site Base Excess O2 Saturation ABG pH ABG pCO2 ABG pO2 ABG HCO3 ABG Total CO2 Rishabh Test Hemoglobin Oxyhemoglobin Carboxyhemoglobin Total Hemoglobin O2 Delivery Device Oxygen Liter Flow Sodium Potassium Chloride Carbon Dioxide Anion Gap BUN Creatinine Estimated GFR (MDRD) BUN/Creatinine Ratio Glucose Lactic Acid 6.21 H Calcium Total Bilirubin AST ALT Alkaline Phosphatase Ammonia < 8.7 L Total Creatine Kinase CK-MB (CK-2) CK-MB (CK-2) % Troponin I Total Protein Albumin Globulin Albumin/Globulin Ratio Procalcitonin 0.16 H Adenovirus (PCR) B. pertussis DNA (PCR) B.parapertussis DNA PCR C. pneumoniae DNA (PCR) Coronavirus OC43 (PCR) Coronavirus HKU1 (PCR) Coronavirus 229E (PCR) Coronavirus NL63 (PCR) Human Metapneumovir PCR Influenza Type A (PCR) Influenza B (RT-PCR) M. pneumoniae (PCR) Parainfluenza 1 (PCR) Parainfluenza 2 (PCR) Parainfluenza 3 (PCR) Parainfluenza 4 (PCR) RSV (PCR) Entero/Rhino (PCR) SARS-CoV-2 (PCR) Orders Category Date Time Status ABG DRAW REQUEST Stat CARDIO 12/07/20 06:15 Completed EKG-(ED ONLY) Stat CARDIO 12/07/20 05:25 Completed BLADDER SCAN ONCE CARE 12/07/20 13:41 Active NPO REMINDER: IMAGING ONCE CARE 12/07/20 08:39 Completed NPO REMINDER: IMAGING ONCE CARE 12/07/20 11:59 Completed Catheter [ED CATHETER INSERTION AND CARE] .ONCE EMERGENCY 12/07/20 13:46 Active ED ACCUCHECK ASSESSMENT .ONCE EMERGENCY 12/07/20 05:27 Active ED ANALYSIS DIRECTOR APPLIED .ONCE EMERGENCY 12/07/20 05:25 Active ED IV/MEDIPORT/POWERPORT .ONCE EMERGENCY 12/07/20 05:25 Active ABG COOX Stat LAB 12/07/20 06:32 Completed AMMONIA Stat LAB 12/07/20 12:05 Completed CBC W/ AUTO DIFF Stat LAB 12/07/20 05:45 Completed COMPREHENSIVE METABOLIC PANEL Stat LAB 12/07/20 05:45 Completed CREATINE KINASE Stat LAB 12/07/20 05:45 Completed LACTIC ACID Stat LAB 12/07/20 08:50 Completed PROCALCITONIN Stat LAB 12/07/20 08:50 Completed PT WITH INR Stat LAB 12/07/20 05:45 Completed PT WITH INR Stat LAB 12/07/20 07:29 Completed RESPIRATORY PANEL 2.1 (PCR) Stat LAB 12/07/20 06:55 Completed TROPONIN I Stat LAB 12/07/20 05:45 Completed 0.9 % Sodium Chloride [Saline Flush] MEDS 12/07/20 05:25 Active 1 syr IVF PRN PRN Ceftriaxone/D5w 1 gm Premix [Rocephin 1 gm/50 ml D5w] MEDS 12/07/20 11:59 Discontinued 1 gm in 50 ml IV ONCE Dextrose 5 % and 0.9 % NaCl [Dextrose 5%-Ns IV Solution MEDS 12/07/20 05:25 Discontinued ] 1,000 ml IV BOLUS Dextrose 5 % and 0.9 % NaCl [Dextrose 5%-Ns IV Solution MEDS 12/07/20 05:27 D iscontinued ] 1,000 ml IV BOLUS Dextrose 50 % in Water [Dextrose 50%-Water Abboject] MEDS 12/07/20 06:13 Discontinued 50 ml .ROUTE .STK-MED ONE Dextrose 50 % in Water [Dextrose 50%-Water Abboject] MEDS 12/07/20 06:15 Discontinued 50 ml IVP ONCE ONE Lidocaine (Uro-Jet) [Uro-Jet] MEDS 12/07/20 13:46 Discontinued 10 ml MUCOUSMEMB ONCE STA Phytonadione [Mephyton] MEDS 12/07/20 08:40 Discontinued 5 mg PO ONCE ONE Sodium Chloride 0.9% [Sodium Chloride] 1,000 ml MEDS 12/07/20 09:15 Active IV 125 mls/hr CHEST, 1V AP ONLY Stat RADS 12/07/20 05:[address] ABDOMEN/PELVIS W CONTRAST Stat RADS 12/07/20 08:[address] HEAD W/O CONTRAST Stat RADS 12/07/20 08:[address] MAXILLOFACIAL W/O CONTRAST Stat RADS 12/07/20 10:05 Completed ULTRASOUND ABDOMEN, RT. UPPER QUAD [U/S ABDOMEN RT RADS 12/07/20 11:57 Completed UPPER QUAD] Stat Medications Generic Name Dose Route Start Last Admin Trade Name Freq PRN Reason Stop Dose Admin Sodium Chloride 1,000 mls @ 125 mls/hr 12/07/20 09:15 12/07/20 09:45 Sodium Chloride IV 12/07/20 17:14 125 mls/hr .Q8H STA Administration Sodium Chloride 1 syr 12/07/20 05:25 12/07/20 06:23 0.9% Sodium Chloride 10 Ml Disp.Syrin IVF 1 syr PRN PRN Administration To flush IV Discontinued Medications Generic Name Dose Route Start Last Admin Trade Name Freq PRN Reason Stop Dose Admin Dextrose 50 ml 12/07/20 06:15 12/07/20 06:22 Dextrose 50 % In Water 50 Ml Disp.Syrin IVP 12/07/20 06:16 50 ml ONCE ONE Administration Dextrose/Sodium Chloride 1,000 mls @ 1,000 mls/hr 12/07/20 05:25 12/07/20 10:06 Dextrose 5%-Ns Iv Solution IV 12/07/20 06:24 Not Given BOLUS STA Dextrose/Sodium Chloride 1,000 mls @ 500 mls/hr 12/07/20 05:27 12/07/20 06:24 Dextrose 5%-Ns Iv Solution IV 12/07/20 07:24 Not Given BOLUS STA CEFTRIAXONE/D5W 1 GM PREMIX 1 gm in 50 mls @ 75 mls/hr 12/07/20 11:59 12/07/20 12:43 Rocephin 1 Gm/50 Ml D5w IV 12/07/20 12:38 75 mls/hr ONCE ONE Administration Lidocaine HCl 10 ml 12/07/20 13:46 12/07/20 13:51 Lidocaine 10 Ml Jel.Pf.Roberth (Urojet) MUCOUSMEMB 12/07/20 13:47 10 ml ONCE STA Administration Phytonadione 5 mg 12/07/20 08:40 12/07/20 09:46 Phytonadione 5 Mg Tablet PO 12/07/20 08:41 5 mg ONCE ONE Administration Vital Signs: Temp Pulse Resp BP Pulse Ox 12/07/20 06:40 100 H 24 99/70 94 L 12/07/20 04:58 97.6 F 93 H 20 104/84 94 L <LASHONDA BURK MD - Last Filed: 12/07/20 16:38> Course Orders, Labs, Meds: Lab Review 12/07/20 12/07/20 12/07/20 05:45 05:45 05:45 WBC 13.22 H RBC 4.51 L Hgb 13.2 L Hct 42.3 MCV 93.8 MCH 29.3 MCHC 31.2 L RDW Coeff of Oleg 18.1 H Plt Count 202 Immature Gran % (Auto) 0.8 Neut % (Auto) 87.7 H Lymph % (Auto) 4.4 L Roosevelt % (Auto) 6.7 Eos % (Auto) 0.2 Baso % (Auto) 0.2 Neut # (Auto) 11.6 H Lymph # (Auto) 0.6 Roosevelt # (Auto) 0.9 Eos # (Auto) 0.0 Baso # (Auto) 0.0 Immature Gran # (Auto) 0.1 PT > 150.0 H* INR Puncture Site Base Excess O2 Saturation ABG pH ABG pCO2 ABG pO2 ABG HCO3 ABG Total CO2 Rishabh Test Hemoglobin Oxyhemoglobin Carboxyhemoglobin Total Hemoglobin O2 Delivery Device Oxygen Liter Flow Sodium 127.0 L Potassium 4.79 Chloride 95.5 L Carbon Dioxide 12.6 L Anion Gap 23.69 BUN 39.0 H Creatinine 1.39 H Estimated GFR (MDRD) 50.00 BUN/Creatinine Ratio 28.05 Glucose 77.2 Lactic Acid Calcium 8.68 Total Bilirubin 4.37 H AST 1483.6 H ALT 988.0 H Alkaline Phosphatase 245.2 H Ammonia Total Creatine Kinase 414.8 H CK-MB (CK-2) 14.200 H* CK-MB (CK-2) % 3.4200 Troponin I 0.070 Total Protein 6.68 Albumin 3.57 Globulin 3.11 Albumin/Globulin Ratio 1.14 Procalcitonin Adenovirus (PCR) B. pertussis DNA (PCR) B.parapertussis DNA PCR C. pneumoniae DNA (PCR) Coronavirus OC43 (PCR) Coronavirus HKU1 (PCR) Coronavirus 229E (PCR) Coronavirus NL63 (PCR) Human Metapneumovir PCR Influenza Type A (PCR) Influenza B (RT-PCR) M. pneumoniae (PCR) Parainfluenza 1 (PCR) Parainfluenza 2 (PCR) Parainfluenza 3 (PCR) Parainfluenza 4 (PCR) RSV (PCR) Entero/Rhino (PCR) SARS-CoV-2 (PCR) 12/07/20 12/07/20 12/07/20 06:32 06:55 07:29 WBC RBC Hgb Hct MCV MCH MCHC RDW Coeff of Oleg Plt Count Immature Gran % (Auto) Neut % (Auto) Lymph % (Auto) [place] % (Auto) Eos % (Auto) Baso % (Auto) Neut # (Auto) Lymph # (Auto) [place] # (Auto) Eos # (Auto) Baso # (Auto) Immature Gran # (Auto) PT > 150.0 H* INR Puncture Site R brach Base Excess -12.9 L O2 Saturation 88.9 L ABG pH 7.34 L ABG pCO2 24.0 L ABG pO2 60.0 L ABG HCO3 12.9 L ABG Total CO2 13.6 L Rishabh Test Y Hemoglobin 1.2 Oxyhemoglobin 88.0 L Carboxyhemoglobin 2.9 H Total Hemoglobin 13.1 O2 Delivery Device Cannula Oxygen Liter Flow 4.00 Sodium Potassium Chloride Carbon Dioxide Anion Gap BUN Creatinine Estimated GFR (MDRD) BUN/Creatinine Ratio Glucose Lactic Acid Calcium Total Bilirubin AST ALT Alkaline Phosphatase Ammonia Total Creatine Kinase CK-MB (CK-2) CK-MB (CK-2) % Troponin I Total Protein Albumin Globulin Albumin/Globulin Ratio Procalcitonin Adenovirus (PCR) Not detected B. pertussis DNA (PCR) Not detected B.parapertussis DNA PCR Not detected C. pneumoniae DNA (PCR) Not detected Coronavirus OC43 (PCR) Not detected Coronavirus HKU1 (PCR) Not detected Coronavirus 229E (PCR) Not detected Coronavirus NL63 (PCR) Not detected Human Metapneumovir PCR Not detected Influenza Type A (PCR) Not detected Influenza B (RT-PCR) Not detected M. pneumoniae (PCR) Not detected Parainfluenza 1 (PCR) Not detected Parainfluenza 2 (PCR) Not detected Parainfluenza 3 (PCR) Not detected Parainfluenza 4 (PCR) Not detected RSV (PCR) Not detected Entero/Rhino (PCR) Not detected SARS-CoV-2 (PCR) Not detected 12/07/20 12/07/20 12/07/20 08:50 08:50 12:05 WBC RBC Hgb Hct MCV MCH MCHC RDW Coeff of Oleg Plt Count Immature Gran % (Auto) Neut % (Auto) Lymph % (Auto) [place] % (Auto) Eos % (Auto) Baso % (Auto) Neut # (Auto) Lymph # (Auto) [place] # (Auto) Eos # (Auto) Baso # (Auto) Immature Gran # (Auto) PT INR Puncture Site Base Excess O2 Saturation ABG pH ABG pCO2 ABG pO2 ABG HCO3 ABG Total CO2 Rishabh Test Hemoglobin Oxyhemoglobin Carboxyhemoglobin Total Hemoglobin O2 Delivery Device Oxygen Liter Flow Sodium Potassium Chloride Carbon Dioxide Anion Gap BUN Creatinine Estimated GFR (MDRD) BUN/Creatinine Ratio Glucose Lactic Acid 6.21 H Calcium Total Bilirubin AST ALT Alkaline Phosphatase Ammonia < 8.7 L Total Creatine Kinase CK-MB (CK-2) CK-MB (CK-2) % Troponin I Total Protein Albumin Globulin Albumin/Globulin Ratio Procalcitonin 0.16 H Adenovirus (PCR) B. pertussis DNA (PCR) B.parapertussis DNA PCR C. pneumoniae DNA (PCR) Coronavirus OC43 (PCR) Coronavirus HKU1 (PCR) Coronavirus 229E (PCR) Coronavirus NL63 (PCR) Human Metapneumovir PCR Influenza Type A (PCR) Influenza B (RT-PCR) M. pneumoniae (PCR) Parainfluenza 1 (PCR) Parainfluenza 2 (PCR) Parainfluenza 3 (PCR) Parainfluenza 4 (PCR) RSV (PCR) Entero/Rhino (PCR) SARS-CoV-2 (PCR) Orders Category Date Time Status ABG DRAW REQUEST Stat CARDIO 12/07/20 06:15 Completed EKG-(ED ONLY) Stat CARDIO 12/07/20 05:25 Completed BLADDER SCAN ONCE CARE 12/07/20 13:41 Active NPO REMINDER: IMAGING ONCE CARE 12/07/20 08:39 Completed NPO REMINDER: IMAGING ONCE CARE 12/07/20 11:59 Completed Catheter [ED CATHETER INSERTION AND CARE] .ONCE EMERGENCY 12/07/20 13:46 Active ED ACCUCHECK ASSESSMENT .ONCE EMERGENCY 12/07/20 05:27 Active ED ANALYSIS DIRECTOR APPLIED .ONCE EMERGENCY 12/07/20 05:25 Active ED IV/MEDIPORT/POWERPORT .ONCE EMERGENCY 12/07/20 05:25 Active ABG COOX Stat LAB 12/07/20 06:32 Completed AMMONIA Stat LAB 12/07/20 12:05 Completed CBC W/ AUTO DIFF Stat LAB 12/07/20 05:45 Completed COMPREHENSIVE METABOLIC PANEL Stat LAB 12/07/20 05:45 Completed CREATINE KINASE Stat LAB 12/07/20 05:45 Completed LACTIC ACID Stat LAB 12/07/20 08:50 Completed PROCALCITONIN Stat LAB 12/07/20 08:50 Completed PT WITH INR Stat LAB 12/07/20 05:45 Completed PT WITH INR Stat LAB 12/07/20 07:29 Completed RESPIRATORY PANEL 2.1 (PCR) Stat LAB 12/07/20 06:55 Completed TROPONIN I Stat LAB 12/07/20 05:45 Completed 0.9 % Sodium Chloride [Saline Flush] MEDS 12/07/20 05:25 Active 1 syr IVF PRN PRN Ceftriaxone/D5w 1 gm Premix [Rocephin 1 gm/50 ml D5w] MEDS 12/07/20 11:59 Discontinued 1 gm in 50 ml IV ONCE Dextrose 5 % and 0.9 % NaCl [Dextrose 5%-Ns IV Solution MEDS 12/07/20 05:25 Discontinued ] 1,000 ml IV BOLUS Dextrose 5 % and 0.9 % NaCl [Dextrose 5%-Ns IV Solution MEDS 12/07/20 05:27 Discontinued ] 1,000 ml IV BOLUS Dextrose 50 % in Water [Dextrose 50%-Water Abboject] MEDS 12/07/20 06:13 Discontinued 50 ml .ROUTE .STK-MED ONE Dextrose 50 % in Water [Dextrose 50%-Water Abboject] MEDS 12/07/20 06:15 Discontinued 50 ml IVP ONCE ONE Lidocaine (Uro-Jet) [Uro-Jet] MEDS 12/07/20 13:46 Discontinued 10 ml MUCOUSMEMB ONCE STA Phytonadione [Mephyton] MEDS 12/07/20 08:40 Discontinued 5 mg PO ONCE ONE Sodium Chloride 0.9% [Sodium Chloride] 1,000 ml MEDS 12/07/20 09:15 Active IV 125 mls/hr CHEST, 1V AP ONLY Stat RADS 12/07/20 05:[address] ABDOMEN/PELVIS W CONTRAST Stat RADS 12/07/20 08:[address] HEAD W/O CONTRAST Stat RADS 12/07/20 08:[address] MAXILLOFACIAL W/O CONTRAST Stat RADS 12/07/20 10:05 Completed ULTRASOUND ABDOMEN, RT. UPPER QUAD [U/S ABDOMEN RT RADS 12/07/20 11:57 Completed UPPER QUAD] Stat Medications Generic Name Dose Route Start Last Admin Trade Name Freq PRN Reason Stop Dose Admin Sodium Chloride 1,000 mls @ 125 mls/hr 12/07/20 09:15 12/07/20 09:45 Sodium Chloride IV 12/07/20 17:14 125 mls/hr .Q8H STA Administration Sodium Chloride 1 syr 12/07/20 05:25 12/07/20 06:23 0.9% Sodium Chloride 10 Ml Disp.Syrin IVF 1 syr PRN PRN Administration To flush IV Discontinued Medications Generic Name Dose Route Start Last Admin Trade Name Freq PRN Reason Stop Dose Admin Dextrose 50 ml 12/07/20 06:15 12/07/20 06:22 Dextrose 50 % In Water 50 Ml Disp.Syrin IVP 12/07/20 06:16 50 ml ONCE ONE Administration Dextrose/Sodium Chloride 1,000 mls @ 1,000 mls/hr 12/07/20 05:25 12/07/20 10 :06 Dextrose 5%-Ns Iv Solution IV 12/07/20 06:24 Not Given BOLUS STA Dextrose/Sodium Chloride 1,000 mls @ 500 mls/hr 12/07/20 05:27 12/07/20 06:24 Dextrose 5%-Ns Iv Solution IV 12/07/20 07:24 Not Given BOLUS STA CEFTRIAXONE/D5W 1 GM PREMIX 1 gm in 50 mls @ 75 mls/hr 12/07/20 11:59 12/07/20 12:43 Rocephin 1 Gm/50 Ml D5w IV 12/07/20 12:38 75 mls/hr ONCE ONE Administration Lidocaine HCl 10 ml 12/07/20 13:46 12/07/20 13:51 Lidocaine 10 Ml Jel.Pf.Roberth (Urojet) MUCOUSMEMB 12/07/20 13:47 10 ml ONCE STA Administration Phytonadione 5 mg 12/07/20 08:40 12/07/20 09:46 Phytonadione 5 Mg Tablet PO 12/07/20 08:41 5 mg ONCE ONE Administration Vital Signs: Temp Pulse Resp BP Pulse Ox 12/07/20 06:40 100 H 24 99/70 94 L 12/07/20 04:58 97.6 F 93 H 20 104/84 94 L Discharge Plan Discharge Patient Disposition: ADMITTED INPATIENT Discharge Problem: Elevated INR, Abnormal liver function tests, Hypoglycemia, Metabolic acidosis Prescriptions: No Action atorvastatin 20 MG tablet 20 mg PO DAILY RF: 0 sertraline 100 MG tablet 100 mg PO BEDTIME RF: 0 haloperidol 1 MG tablet 0.5 mg PO BID RF: 0 potassium chloride 10 MEQ tablet extended release 10 meq PO DAILY RF: 0 aspirin 81 MG tablet,chewable 81 mg PO DAILYWM RF: 0 tamsulosin 0.4 MG capsule 0.4 mg PO DAILY RF: 0 Breo Ellipta 1 EACH blister with device 1 ea inhalation DIRECTED RF: 0 furosemide [Lasix] 40 mg Tablet 40 mg PO BID RF: 0 spironolactone [Aldactone] 25 mg Tablet 25 mg PO DAILY RF: 0 albuterol sulfate 90 mcg/actuation Hfa Aerosol Inhaler 2 puff INHALATION Q4-6H PRN (Reason: SOA) RF: 0 warfarin [Coumadin] 6 mg Tablet 6 mg PO DAILY RF: 0 omeprazole 20 mg Tablet,Delayed Release (Dr/Ec) 20 mg PO DAILY RF: 0 carvedilol [Coreg] 3.125 mg Tablet 3.125 mg PO BEDTIME Qty: 30 RF: 2 nitroglycerin [Nitrostat] 0.4 MG tablet, sublingual 0.4 mg sublingual PRN PRN (Reason: Chest Pain) RF: 0 lisinopril 2.5 MG tablet 2.5 mg PO DAILY RF: 0 benztropine 1 mg Tablet 1 mg PO BID RF: 0 fluticasone propionate [Flonase Allergy Relief] 50 mcg/actuation [place],Suspension 2 spray INTRANASAL DAILY RF: 0 ED Provider: LASHONDA BURK Condition: Serious <DC RIVERA MD - Last Filed: 12/07/20 07:51> Physician Progress Note: [] <LASHONDA BURK MD - Last Filed: 12/07/20 16:38> Physician Progress Note: []1620: Per Dr Gan--- pt was d/w several [facility] and not accepted for transfer, see nurses notes. Pt was accepted for admission by Dr Gan: see orders
[2020-12-07 05:48] LABS: BASOPHILS % (AUTO) 0.2 % (0.0-3.0); EOSINOPHILS % (AUTO) 0.2 % (0.0-7.0); HEMATOCRIT 42.3 % (42.0-52.0); HEMOGLOBIN 13.2 g/dl (14.0-18.0); IMMATURE GRANULOCYTE # (AUTO) 0.1 (0.0-1.0); IMMATURE GRANULOCYTE % (AUTO) 0.8 % (0.0-5.0); LYMPHOCYTES # (AUTO) 0.6 K/uL (0.60-3.4); LYMPHOCYTES % (AUTO) 4.4 (10.0-50.0); MEAN CORPUSCULAR HEMOGLOBIN 29.3 pg (27.0-31.0); MEAN CORPUSCULAR HGB CONC 31.2 (31.8-35.4); MEAN CORPUSCULAR VOLUME 93.8 fl (80.0-94.0); MONOCYTES # (AUTO) 0.9 K/uL (0.4-2.0); MONOCYTES % (AUTO) 6.7 (0-10); NEUTROPHILS # (AUTO) 11.6 K/ul (2.0-6.9); NEUTROPHILS % (AUTO) 87.7 % (42.2-75.2); PLATELET COUNT 202 10^3/uL (140-440); RDW COEFFICIENT OF VARIATION 18.1 % (11.6-14.8); RED BLOOD COUNT 4.51 10^6/ul (4.70-6.10); WHITE BLOOD COUNT 13.22 K/ul (4.2-10.2)
[2020-12-07 06:00] LABS: ALBUMIN 3.57 g/dL (3.5-5.0); ALKALINE PHOSPHATASE 245.2 U/L (56-119); BILIRUBIN,TOTAL 4.37 mg/dL (0.2-1.3); CALCIUM 8.68 mg/dL (8.4-10.2); CARBON DIOXIDE 12.6 mmol/L (22-30.0); CHLORIDE 95.5 mmol/L (98-107); CREATINE KINASE 414.8 U/L (55-170); CREATININE 1.39 mg/dL (0.60-1.10); GLUCOSE 77.2 mg/dL (74-106); POTASSIUM 4.79 mmol/L (3.5-5.1); TOTAL PROTEIN 6.68 g/dL (6.3-8.2)
[2020-12-07 06:11] LABS: TROPONIN I 0.07 ng/ml (0.0000-0.120)
[2020-12-07] MEDS ORDERED: DEXTROSE 50%-WATER ABBOJECT ONE (06:13)
[2020-12-07] MEDS ORDERED: DEXTROSE 50%-WATER ABBOJECT IVP ONE (06:15)
[2020-12-07 06:25] LABS: CREATINE KINASE MB 14.2 ng/ml (0.0-2.38)
[2020-12-07 06:26] LABS: ASPARTATE AMINO TRANSFERASE 1483.6 U/L (17-59)
[2020-12-07 06:59] LABS: BORDETELLA PARAPERTUSSIS (PCR) NOT DETECTED (NOT DETECT); BORDETELLA PERTUSSIS (PCR) NOT DETECTED (NOT DETECT); CHLAMYDIA PNEUMONIAE (PCR) NOT DETECTED (NOT DETECT); CORONAVIRUS 229E (PCR) NOT DETECTED (NOT DETECT); CORONAVIRUS HKU1 (PCR) NOT DETECTED (NOT DETECT); CORONAVIRUS NL63 (PCR) NOT DETECTED (NOT DETECT); CORONAVIRUS OC43 (PCR) NOT DETECTED (NOT DETECT); HUMAN METAPNEUMOVIRUS (PCR) NOT DETECTED (NOT DETECT); HUMAN RHINOVIRUS/ENTEROV (PCR) NOT DETECTED (NOT DETECT); INFLUENZA B (PCR) NOT DETECTED (NOT DETECT); MYCOPLASMA PNEUMONIAE (PCR) NOT DETECTED (NOT DETECT); PARAINFLUENZA VIRUS 1 (PCR) NOT DETECTED (NOT DETECT); PARAINFLUENZA VIRUS 2 (PCR) NOT DETECTED (NOT DETECT); PARAINFLUENZA VIRUS 3 (PCR) NOT DETECTED (NOT DETECT); PARAINFLUENZA VIRUS 4 (PCR) NOT DETECTED (NOT DETECT); RESPIRATORY SYNCYTIAL V (PCR) NOT DETECTED (NOT DETECT); SARS_COV_2 (PCR) NOT DETECTED (NOT DETECT)
--- NOTE | 2020-12-07 07:05 | DI ---
EXAM: Chest one view, frontal view only. HISTORY: Weakness, hypoglycemia. COMPARISON: 10/20/2020. FINDINGS: Cardiac silhouette is enlarged. There is no vascular congestion. No consolidation, pleur al effusion or pneumothorax identified. No acute osseous abnormality. IMPRESSION: Cardiomegaly. No acute process.
[2020-12-07 08:01] LABS: ADENOVIRUS (PCR) NOT DETECTED (NOT DETECT)
[2020-12-07 08:11] LABS: PROTHROMBIN TIME > 150.0 SEC (9.3-11.0)
[2020-12-07 08:19] LABS: PROTHROMBIN TIME > 150.0 SEC (9.3-11.0)
[2020-12-07 08:31] LABS: ABG PH 7.34 (7.35-7.45); BEecf -12.9 (-2.0-3.0); COHb 2.9 (0.5-1.5); HCO3 12.9 (21-28); MetHb 1.2 (0-1.5); TCO2 13.6 (19-24); sO2 88.9 % (94-98); tHb 13.1 g/dl (11.7-17.4)
[2020-12-07] MEDS ORDERED: MEPHYTON PO ONE (08:40)
[2020-12-07] MEDS ORDERED: SODIUM CHLORIDE 1,000 ML IV STA (09:15)
--- NOTE | 2020-12-07 09:58 | CT ---
EXAM: CT head without contrast. HISTORY: Confusion. COMPARISON: 11/23/2015. TECHNIQUE: Multiple axial images of the brain were obtained from the skull base through the vertex w ithout intravenous contrast. Multiplanar reformats were provided. FINDINGS: There is no intracranial hemorrhage or extraaxial collection. The cartagena-white differentiat ion is maintained without evidence for acute large vascular territory infarction. There are areas of periventricular and subcortical white matter low attenuation. Redemonstration of ventriculomegaly, not significantly changed from prior study with the anterior third ventricle measuring 2 cm transvers e diameter on both examinations. The cortical sulci are enlarged. The basal cisterns are well visua lized. There is no hydrocephalus, mass effect, or midline shift. The paranasal sinuses and mastoid air cells are clear. The calvarium is intact. Scattered foci of subcutaneous air noted in the right face. IMPRESSION: 1. No acute intracranial hemorrhage or large vascular territory infarction. 2. Stable ventriculomegaly which could indicate normal pressure hydrocephalus versus central volume loss. 3. Chronic small vessel ischemic changes and atrophy. 4. Subcutaneous air in the right face. Consider intravascular air due to recent intravascular acces s. Correlate for trauma. All CT scans are performed using dose optimization techniques as appropriate to the performed exam an d include at least one of the following: Automated exposure control, adjustment of the mA and/or kV according t o size, and the use of iterative reconstruction technique.
--- NOTE | 2020-12-07 10:06 | CT ---
EXAM: CT Abdomen Pelvis HISTORY: Increased liver enzymes COMPARISON: 06/02/2020 TECHNIQUE: CT of the Abdomen Pelvis was performed with IV contrast. Coronal and sagital reformats we re obtained. FINDINGS: Small right trace left pleural effusions with dependent ground-glass opacities. Cardiomegaly. Nonspecific heterogeneous appearance of the liver without focal abnormality. Unchanged exophytic les ion at the splenic periphery with peripheral wall calcification and intermediate density. Appearance of circumferential gallbladder wall thickening. Adrenals and kidneys are unremarkable. No adenopath y. Mild bilateral upper quadrant ascites. Markedly distended urinary bladder. Enlarged prostate. Stomach unremarkable. No bowel dilation. Wall thickening of the cecum/ascending colon. Normal append ix. Fusiform infrarenal AAA measures up to 4.3 x 3.6 cm, compared to 4.5 x 3.8 cm on 06/02/2020. Se mario atherosclerotic calcifications. Aortobi-iliac endograft in place. No acute osseous abnormality. IMPRESSION: 1. Circumferential gallbladder wall thickening. Recommend correlation with ultrasound. 2. Nonspecific heterogeneous appearance of the liver without focal abnormality. This could be relat ed to technique; although parenchymal disease is a diagnostic consideration. 3. Mild bilateral upper quadrant ascites. 4. Wall thickening of the cecum/ascending colon versus under distension. Correlate for colitis. 5. Marked distension of urinary bladder. 6. Enlarged prostate, which could be contribute to impression #5. 7. Severe atherosclerosis. No significant change in the fusiform infrarenal AAA status post aortobi -iliac graft stent placement. 8. Unchanged indeterminate exophytic density at the spleen with peripheral calcification, which may represent complicated cyst; although other etiologies not excluded. Non emergent ultrasound evaluati on recommended. All CT scans are performed using dose optimization techniques as appropriate to the performed exam an d include at least one of the following: Automated exposure control, adjustment of the mA and/or kV according t o size, and the use of iterative reconstruction technique.
--- NOTE | 2020-12-07 11:21 | CT ---
EXAM: CT FACIAL BONES HISTORY: Facial injury, fall. TECHNIQUE: CT facial bones without contrast. 3-mm axial sections. Coronal and sagital reformations . FINDINGS: Motion degrades evaluation of the mandible. Temporal mandibular joints are intact. There is no nasa l spine deformity. Orbits are intact. Intraorbital fat is preserved. The skull included within the field of view is intact. Upper cervical spine is unremarkable. Mastoid air cells are aerated. Pos top changes of the right maxillary sinus. There is mild mucosal thickening in the maxillary cells. The nasal turbinates are atrophic and the nasal septum has mild sinusoidal deviation. No peripheral soft tissue hematoma. IMPRESSION: 1. No fracture identified. 2. Chronic paranasal sinusitis. All CT scans are performed using dose optimization techniques as appropriate to the performed exam an d include at least one of the following: Automated exposure control, adjustment of the mA and/or kV according t o size, and the use of iterative reconstruction technique.
[2020-12-07] MEDS ORDERED: ROCEPHIN 1 GM/50 ML D5W 1 GM/50 ML BAG IV ONE (11:59)
--- NOTE | 2020-12-07 13:03 | US ---
EXAM: Ultrasound abdomen limited. HISTORY: Inflamed gallbladder. COMPARISON: CT earlier the same day. TECHNIQUE: Abdominal, real time with image documentation: limited (e.g., single organ, quadrant, fo llow-up) FINDINGS: The liver demonstrates mildly coarsened echotexture pattern. There is no intrahepatic leigh ann iary dilatation. Portal venous flow is normal in direction although may be pulsatile. The gallbladd er wall circumferentially thickened. There is no intraluminal echogenic stone. Common duct measures 0.5 cm. Pancreas not seen due to bowel gas. Small volume ascites noted. IMPRESSION: 1. Circumferential gallbladder wall thickening without cholelithiasis, which is most likely due to l iver disease or systemic process. 2. Coarsened hepatic echotexture pattern which could be due to fatty infiltration or other liver dis ease. 3. Ascites.
[2020-12-07] MEDS ORDERED: URO-JET MUCOUSMEMB STA (13:46)
[2020-12-07] MEDS ORDERED: ZOFRAN 4 MG/2 ML IVP PRN (17:05)
[2020-12-07] MEDS ORDERED: VENTOLIN HFA (PER PUFF-WITH SPACER) IH PRN (17:07)
[2020-12-07] MEDS ORDERED: NON-FORMULARY MEDICATION (Fluticasone Furoate-Vilanterol [Breo Ellipta] 1 EACH blister wit IH SCH (17:15)
[2020-12-07] MEDS ORDERED: SODIUM CHLORIDE 1,000 ML IV SCH (17:30)
[2020-12-07 20:05] VITALS: BMI 21.8
[2020-12-07] MEDS: COGENTIN PO SCH (20:19)
[2020-12-07] MEDS: HALDOL PO SCH (20:19)
[2020-12-07] MEDS: SYMBICORT 160-4.5 MCG INHALER IH SCH (20:20)
[2020-12-07] MEDS: ZOLOFT PO SCH (20:20)
[2020-12-07] MEDS ORDERED: LASIX TAB PO SCH (21:00)
[2020-12-07] MEDS ORDERED: COREG PO SCH (21:00)
[2020-12-07] MEDS ORDERED: DULCOLAX RC PRN (21:17)
[2020-12-07] MEDS ORDERED: NITROSTAT SL PRN (21:23)
[2020-12-07] MEDS ORDERED: ATROPINE SULFATE PFS IVP PRN (21:23)
[2020-12-07] MEDS ORDERED: TYLENOL PO PRN (21:23)
[2020-12-07] MEDS: SODIUM CHLORIDE 1,000 ML IV SCH (21:46)
[2020-12-07] MEDS ORDERED: AZACTAM ONE (21:51)
[2020-12-07] MEDS: AZACTAM 1 GM in SODIUM CHLORIDE 50 ML IV SCH (21:55)
[2020-12-07 23:22] LABS: BILIRUBIN,URINE Negative (NEGATIVE); CLARITY,URINE Clear (CLEAR); COLOR,URINE Yellow (YELLOW); GLUCOSE, URINE (UA) Negative (NEGATIVE); KETONES,URINE Negative (NEGATIVE); LEUKOCYTE ESTERASE ,URINE Trace (NEGATIVE); NITRITE,URINE Negative (NEGATIVE); PROTEIN,URINE 2+ (NEGATIVE); URINE, BLOOD 3+ (NEGATIVE)
[2020-12-07 23:28] LABS: URINE RBC, MICROSCOPIC TNTC (0-2)
[2020-12-07 23:29] LABS: BACTERIA,URINE 1+ (NOT PRESENT)
[2020-12-08 05:21] LABS: BASOPHILS % (AUTO) 0.2 % (0.0-3.0); HEMATOCRIT 39.7 % (42.0-52.0); HEMOGLOBIN 12.8 g/dl (14.0-18.0); IMMATURE GRANULOCYTE # (AUTO) 0.1 (0.0-1.0); IMMATURE GRANULOCYTE % (AUTO) 0.6 % (0.0-5.0); LYMPHOCYTES # (AUTO) 0.6 K/uL (0.60-3.4); LYMPHOCYTES % (AUTO) 4.4 (10.0-50.0); MEAN CORPUSCULAR HEMOGLOBIN 29.2 pg (27.0-31.0); MEAN CORPUSCULAR HGB CONC 32.2 (31.8-35.4); MEAN CORPUSCULAR VOLUME 90.6 fl (80.0-94.0); MONOCYTES # (AUTO) 0.8 K/uL (0.4-2.0); MONOCYTES % (AUTO) 6.3 (0-10); NEUTROPHILS # (AUTO) 11.2 K/ul (2.0-6.9); NEUTROPHILS % (AUTO) 88.5 % (42.2-75.2); PLATELET COUNT 169 10^3/uL (140-440); RDW COEFFICIENT OF VARIATION 18.2 % (11.6-14.8); RED BLOOD COUNT 4.38 10^6/ul (4.70-6.10); WHITE BLOOD COUNT 12.64 K/ul (4.2-10.2)
[2020-12-08 05:37] LABS: ALBUMIN 3.21 g/dL (3.5-5.0); ALKALINE PHOSPHATASE 206.8 U/L (56-119); BILIRUBIN,TOTAL 4.25 mg/dL (0.2-1.3); BLOOD UREA NITROGEN 44.7 mg/dL (9-20); CALCIUM 8.85 mg/dL (8.4-10.2); CARBON DIOXIDE 16.3 mmol/L (22-30.0); CHLORIDE 96.5 mmol/L (98-107); CREATINE KINASE 819.2 U/L (55-170); CREATININE 1.28 mg/dL (0.60-1.10); GLUCOSE 78.4 mg/dL (74-106); POTASSIUM 4.78 mmol/L (3.5-5.1); SODIUM 126.4 mmol/L (134.5-145); TOTAL PROTEIN 6.06 g/dL (6.3-8.2)
[2020-12-08 06:08] LABS: ANISOCYTOSIS NOT PRESENT (NOT PRESENT)
[2020-12-08 06:12] LABS: ALANINE AMINOTRANSFERASE 1760.8 U/L (0-50)
[2020-12-08 06:22] LABS: POIKILOCYTOSIS 3+ (NOT PRESENT)
[2020-12-08 06:23] LABS: BURR CELLS 3+ (NOT PRESENT)
[2020-12-08 06:24] LABS: ASPARTATE AMINO TRANSFERASE 2720.6 U/L (17-59)
[2020-12-08 06:38] LABS: CREATINE KINASE MB 32.2 ng/ml (0.0-2.38)
[2020-12-08] MEDS: SODIUM CHLORIDE 1,000 ML IV SCH ×2 (09:35→14:56)
[2020-12-08] MEDS: ROCEPHIN 1 GM/50 ML D5W 1 GM/50 ML BAG IV SCH (09:37)
[2020-12-08] MEDS: FLONASE NAS SCH (09:37)
[2020-12-08] MEDS: ALDACTONE PO SCH (09:39)
[2020-12-08] MEDS: COGENTIN PO SCH ×2 (09:39→20:39)
[2020-12-08] MEDS: FLOMAX PO SCH (09:39)
[2020-12-08] MEDS: HALDOL PO SCH ×2 (09:39→20:39)
[2020-12-08] MEDS: COREG PO SCH ×2 (09:39→17:30)
[2020-12-08] MEDS: PRILOSEC PO SCH (09:40)
[2020-12-08] MEDS: LASIX TAB PO SCH ×2 (09:40→17:29)
[2020-12-08] MEDS: MICRO-K CAP PO SCH (09:40)
[2020-12-08] MEDS: LIPITOR PO SCH (09:40)
[2020-12-08] MEDS: SYMBICORT 160-4.5 MCG INHALER IH SCH ×2 (09:41→20:45)
[2020-12-08] MEDS: AZACTAM 1 GM in SODIUM CHLORIDE 50 ML IV SCH ×2 (10:49→20:40)
[2020-12-08 13:22] LABS: CREATINE KINASE 999.3 U/L (55-170)
[2020-12-08 13:56] LABS: CREATINE KINASE MB 41.7 ng/ml (0.0-2.38)
[2020-12-08] MEDS: ZOLOFT PO SCH (20:39)
[2020-12-08 21:28] LABS: CREATINE KINASE 904.3 U/L (55-170)
[2020-12-08 21:47] LABS: CREATINE KINASE MB 37.8 ng/ml (0.0-2.38)
[2020-12-09] MEDS: SODIUM CHLORIDE 1,000 ML IV SCH ×2 (00:53→16:32)
[2020-12-09 05:24] LABS: BASOPHILS % (AUTO) 0.1 % (0.0-3.0); EOSINOPHILS # (AUTO) 0.1 K/ul (0.0-0.7); EOSINOPHILS % (AUTO) 0.5 % (0.0-7.0); HEMATOCRIT 36.3 % (42.0-52.0); HEMOGLOBIN 11.6 g/dl (14.0-18.0); IMMATURE GRANULOCYTE # (AUTO) 0.1 (0.0-1.0); IMMATURE GRANULOCYTE % (AUTO) 0.7 % (0.0-5.0); LYMPHOCYTES # (AUTO) 0.5 K/uL (0.60-3.4); LYMPHOCYTES % (AUTO) 4.4 (10.0-50.0); MEAN CORPUSCULAR HEMOGLOBIN 28.9 pg (27.0-31.0); MEAN CORPUSCULAR VOLUME 90.5 fl (80.0-94.0); MONOCYTES # (AUTO) 0.8 K/uL (0.4-2.0); MONOCYTES % (AUTO) 7.2 (0-10); NEUTROPHILS % (AUTO) 87.1 % (42.2-75.2); PLATELET COUNT 140 10^3/uL (140-440); RED BLOOD COUNT 4.01 10^6/ul (4.70-6.10); WHITE BLOOD COUNT 11.53 K/ul (4.2-10.2)
[2020-12-09] MEDS: LASIX TAB PO SCH ×2 (05:35→17:23)
[2020-12-09] MEDS: PRILOSEC PO SCH (05:35)
[2020-12-09 05:37] LABS: ALBUMIN 2.85 g/dL (3.5-5.0); ALKALINE PHOSPHATASE 167.3 U/L (56-119); BILIRUBIN,TOTAL 3.09 mg/dL (0.2-1.3); CALCIUM 8.04 mg/dL (8.4-10.2); CARBON DIOXIDE 18.4 mmol/L (22-30.0); CHLORIDE 96.9 mmol/L (98-107); CREATINE KINASE 783.5 U/L (55-170); CREATININE 1.1 mg/dL (0.60-1.10); GLUCOSE 102.2 mg/dL (74-106); POTASSIUM 4.34 mmol/L (3.5-5.1); SODIUM 124.8 mmol/L (134.5-145); TOTAL PROTEIN 5.63 g/dL (6.3-8.2)
[2020-12-09 05:45] LABS: ALANINE AMINOTRANSFERASE 1339.2 U/L (0-50); ASPARTATE AMINO TRANSFERASE 1427.1 U/L (17-59)
[2020-12-09 06:02] LABS: CREATINE KINASE MB 32.3 ng/ml (0.0-2.38)
[2020-12-09 06:12] LABS: ANISOCYTOSIS NOT PRESENT (NOT PRESENT); BURR CELLS 1+ (NOT PRESENT); POIKILOCYTOSIS 1+ (NOT PRESENT)
[2020-12-09] MEDS: COGENTIN PO SCH ×2 (08:55→21:10)
[2020-12-09] MEDS: ROCEPHIN 1 GM/50 ML D5W 1 GM/50 ML BAG IV SCH (08:55)
[2020-12-09 08:56] LABS: PROTHROMBIN TIME 31.2 SEC (9.3-11.0)
[2020-12-09] MEDS: ALDACTONE PO SCH (08:56)
[2020-12-09] MEDS: FLOMAX PO SCH (08:56)
[2020-12-09] MEDS: LIPITOR PO SCH (08:56)
[2020-12-09] MEDS: SYMBICORT 160-4.5 MCG INHALER IH SCH ×2 (08:56→21:52)
[2020-12-09] MEDS: HALDOL PO SCH ×2 (08:56→21:10)
[2020-12-09] MEDS: COREG PO SCH ×2 (08:56→17:23)
[2020-12-09] MEDS: MICRO-K CAP PO SCH (08:56)
[2020-12-09] MEDS: FLONASE NAS SCH (08:57)
[2020-12-09] MEDS: AZACTAM 1 GM in SODIUM CHLORIDE 50 ML IV SCH ×2 (10:16→21:08)
[2020-12-09 13:18] LABS: CREATINE KINASE 705.7 U/L (55-170)
[2020-12-09] MEDS ORDERED: LASIX IVP ONE (13:23)
[2020-12-09 13:53] LABS: CREATINE KINASE MB 28.1 ng/ml (0.0-2.38)
[2020-12-09] MEDS ORDERED: DILAUDID 1 MG/ML SYRINGE IVP PRN (19:57)
[2020-12-09] MEDS: ZOLOFT PO SCH (21:10)
[2020-12-09 21:18] LABS: CREATINE KINASE 636.5 U/L (55-170)
[2020-12-09 22:10] LABS: CREATINE KINASE MB 26.8 ng/ml (0.0-2.38)
[2020-12-10] MEDS ORDERED: DILAUDID 1 MG/ML SYRINGE IVP PRN (01:45)
[2020-12-10] MEDS: SODIUM CHLORIDE 1,000 ML IV SCH ×2 (05:33→20:34)
[2020-12-10 05:45] LABS: PROTHROMBIN TIME 39.5 SEC (9.3-11.0)
[2020-12-10] MEDS: LASIX TAB PO SCH ×2 (06:07→17:42)
[2020-12-10] MEDS: PRILOSEC PO SCH (06:07)
[2020-12-10 08:40] LABS: ALBUMIN 2.81 g/dL (3.5-5.0); ALKALINE PHOSPHATASE 172.4 U/L (56-119); BILIRUBIN,TOTAL 3.31 mg/dL (0.2-1.3); BLOOD UREA NITROGEN 37.7 mg/dL (9-20); CALCIUM 8.08 mg/dL (8.4-10.2); CARBON DIOXIDE 18.5 mmol/L (22-30.0); CHLORIDE 96.2 mmol/L (98-107); CREATININE 1.11 mg/dL (0.60-1.10); GLUCOSE 97.2 mg/dL (74-106); POTASSIUM 4.52 mmol/L (3.5-5.1); SODIUM 124.3 mmol/L (134.5-145); TOTAL PROTEIN 5.77 g/dL (6.3-8.2)
[2020-12-10 08:58] LABS: ALANINE AMINOTRANSFERASE 1235.7 U/L (0-50); ASPARTATE AMINO TRANSFERASE 1145.1 U/L (17-59)
[2020-12-10 09:02] LABS: BASOPHILS % (AUTO) 0.1 % (0.0-3.0); EOSINOPHILS % (AUTO) 0.4 % (0.0-7.0); HEMATOCRIT 36.3 % (42.0-52.0); HEMOGLOBIN 11.5 g/dl (14.0-18.0); IMMATURE GRANULOCYTE # (AUTO) 0.1 (0.0-1.0); IMMATURE GRANULOCYTE % (AUTO) 0.5 % (0.0-5.0); LYMPHOCYTES # (AUTO) 0.4 K/uL (0.60-3.4); LYMPHOCYTES % (AUTO) 4.4 (10.0-50.0); MEAN CORPUSCULAR HEMOGLOBIN 28.9 pg (27.0-31.0); MEAN CORPUSCULAR HGB CONC 31.7 (31.8-35.4); MEAN CORPUSCULAR VOLUME 91.2 fl (80.0-94.0); MONOCYTES # (AUTO) 0.8 K/uL (0.4-2.0); MONOCYTES % (AUTO) 8.3 (0-10); NEUTROPHILS # (AUTO) 8.2 K/ul (2.0-6.9); NEUTROPHILS % (AUTO) 86.3 % (42.2-75.2); PLATELET COUNT 101 10^3/uL (140-440); RED BLOOD COUNT 3.98 10^6/ul (4.70-6.10); WHITE BLOOD COUNT 9.48 K/ul (4.2-10.2)
--- NOTE | 2020-12-10 09:10 | PCM.PROG ---
Attending Provider: ATTENDING PROVIDER: Dr. STANTON HAMPTON This patient is seen with Juana Baker, Nurse Practitioner. DATE OF SERVICE: 12/10/20 SUBJECTIVE: This 69 year old /WHITE M was hospitalized 12/07/20. The patient is resting comfortably. He has been pleasantly confused. Labs are not available yet for today except for INR. We will hold Coumadin. REVIEW OF SYSTEMS: CONSTITUTIONAL: No night sweats. No fatigue, malaise, lethargy. No fever or chills. Weakness. HEENT: Eyes: No visual changes. No eye pain. No eye discharge. ENT: No runny nose. No epistaxis. No sinus pain. No odynophagia. No congestion. RESPIRATORY: No cough, no congestion. No hemoptysis. Shortness of breath. CARDIOVASCULAR: No angina symptoms. No CHF symptoms. No atypical chest pain for CAD. No palpitations. No orthopnea.. GASTROINTESTINAL: No abdominal pain. No nausea or vomiting. No diarrhea or constipation. No hematemesis. No hematochezia. GENITOURINARY: No urgency. No frequency. No dysuria. No hematuria. No obstructive symptoms. No discharge. No pain. No significant abnormal bleeding. MUSCULOSKELETAL: No musculoskeletal pain; no joint swelling. NEUROLOGICAL: Awake, alert, confusion. No headache. No neck pain. No syncope. No seizures. No dizziness. PSYCHIATRIC: Not anxious. No depression. No suicidal thoughts. No homicidal thoughts. SKIN: No rash. No lesions. No wounds. ENDOCRINE: No unexplained weight loss. No weight gain. HEMATOLOGIC/LYMPHATIC: No anemia. No purpura. No petechiae. No prolonged or excessive bleeding. No palpable lymph nodes. PHYSICAL EXAMINATION: GENERAL: The patient is awake, alert and oriented, lying in bed in no distress. VITAL SIGNS: Temperature 97.0 F, Pulse 82, Respiratory Rate 14, BP 93/72, Pulse Ox 91% HEENT: Head normocephalic, atraumatic. Eyes: Extraocular muscles are intact. Pupils are equal, round and reactive to light and accommodation. Ears: No lesions. Nose appeared normal. Throat: No exudate or erythema. NECK: Supple. No JVD, no carotid bruit. No lymphadenopathy or thyromegaly. LUNGS: Diminished breath sounds. Clear to auscultation. Percussion note normal. Chest symmetrical. HEART: S1, S2, no S3. No murmurs. No cyanosis or clubbing. No ascites. Pulses: Dorsalis pedis and posterior tibial pulses +1 to +2 both sides. ABDOMEN: Soft. Non-tender. Bowel sounds active. No CVA tenderness. No mass felt. EXTREMITIES: No edema. Full range of motion of all extremities, equal. NEUROLOGIC: No focal deficit. Cranial nerves II through XII are grossly intact. No headache. No double vision. SKIN: Not dry. Intact. Turgor-normal. LYMPHATIC: No palpable lymph nodes/no lymphedema. MUSCULOSKELETAL: Normal joints with no swelling. Muscle tone is normal. LAB REVIEW: 12/09/20 05:17 12/09/20 05:17 12/10/20 05:18: Ammonia 16.2 12/10/20 05:18: PT 39.5 H D, INR 3.68 12/09/20 20:55: Total Creatine Kinase 636.5 H, CK-MB (CK-2) 26.800 H*, CK-MB (CK-2) % 4.2100 12/09/20 13:00: Total Creatine Kinase 705.7 H, CK-MB (CK-2) 28.100 H*, CK-MB (CK-2) % 3.9800 12/09/20 05:17: PT 31.2 H D, INR 2.91 ASSESSMENT: Please see below. 1. Hepatic encephalopathy 2. CHF 3. Dilated cardiomyopathy ejection fracture 20%. 4. Hyponatremia 5. COPD 6. Atrial fibrillation PLAN: 1. CBC and CMP today 2. Hold Coumadin 3. Discontinue Lipitor 4. Hepatitis panel Plan and coordination of the patient's care discussed in the presence of Type Casting Machine Operator and nurse. SCRIBED BY: Donna DILLARD scribed while in presence of service performed by Dr. Hampton/Juana Baker APRN on 12/10/20 ([id number])
[2020-12-10 09:22] LABS: ANISOCYTOSIS 1+ (NOT PRESENT); OVALOCYTES 1+ (NOT PRESENT); SPHEROCYTES 1+ (NOT PRESENT)
[2020-12-10 09:23] LABS: BURR CELLS 2+ (NOT PRESENT)
[2020-12-10] MEDS: ROCEPHIN 1 GM/50 ML D5W 1 GM/50 ML BAG IV SCH (09:38)
--- NOTE | 2020-12-10 09:42 | RS.OTCNOTE ---
OT Case Note Date of Note: 12/10/20 Title: OT case Note Note: Occupational therapy attempted consult with patient and he is not able at this time. OT to continue to check on patient for when he may improve and be able to participate.
[2020-12-10] MEDS: COGENTIN PO SCH ×2 (10:20→20:31)
[2020-12-10] MEDS: HALDOL PO SCH ×2 (10:20→20:31)
[2020-12-10] MEDS: MICRO-K CAP PO SCH (10:20)
[2020-12-10] MEDS: FLOMAX PO SCH (10:21)
[2020-12-10] MEDS: COREG PO SCH ×2 (10:21→17:42)
[2020-12-10] MEDS: SYMBICORT 160-4.5 MCG INHALER IH SCH ×2 (10:21→20:35)
[2020-12-10] MEDS: ALDACTONE PO SCH (10:21)
[2020-12-10] MEDS: FLONASE NAS SCH (10:21)
[2020-12-10] MEDS: AZACTAM 1 GM in SODIUM CHLORIDE 50 ML IV SCH ×2 (10:22→20:33)
--- NOTE | 2020-12-10 14:46 | PN ---
DATE OF SERVICE: 12/07/2020 SUBJECTIVE: The patient was hospitalized through the emergency room. The patient was brought to the emergency room because he had fallen at home a couple of times and he had to call ambulance to get into the bed. He declined to come for the checkup. When he came for the check up with family members he was more or less confused. Dr. Burk seen him. On further workup the labs showed he had a jaundice with a markedly abnormal AST SGOT with alkaline phosphatase of 264. CT scan of the abdomen revealed no real cause to have obstructive Jaundice. No complaints regarding his abdomen. He had poor appetite. Declined of any vomiting but had nausea. Constipated according to him. The patient has history of dilated cardiomyopathy with a very poor ejection fraction. Also has history of CHF to go along with it. Chronic lungs disease on home oxygen. None atrial fibrillation. The patient is a DNR. I had talked with Dr. Burk advised him to find a place where he could be seen by GI specialist, tertiary center. According to Dr. Burk he called several hospitals, almost to 8 hospitals. All the hospitals are packed with COVID patient's are they are no accepting any transfers. The patient early had indicated not to be transferred to any other place and he wanted a DNR. Power of county attorney for health, Nidia Ramon talked to her personally. ER had talked to her earlier and she didn't want anything to be done and wanted him to be DNR and wanted him to be in [facility]. Called and talked to Nidia Ramon and I explained to her about the patient's condition and the limitation that [facility] in case of any surgical intervention is needed but she indicated that she doesn't him to have any form surgery or any invasive procedures. Told her that he is extremely high risk for any procedures anyway because of his endstage congestive heart failure with ejection fraction of 15-20% with severe COPD, atrial fibrillation a lot of other medical problems. The patient also has liver cirrhosis. The patient's INR was around 8. The patient has been given 5mg Vitamin K. The patient is going to be on IV fluids 50cc per hour, 10 hours he got 100cc. Creatinine and BUN indicative or renal azotemia with creatinine of 1.3 with BUN of 40 which is high for him. In the evening the patient was talking and knew where he was. Why he was in the hospital he couldn't tell. His oxygen saturation was 96% on 2-3 liters. He had high lactic acid and PH of atrial blood gasses indicated that he was in metabolic acidosis. It is likely that patient may have passed bile duct stone. The patient is practically symptomatic for his liver problems. For now the patient is more or less NPO and the patient is DNR. He is going to be on IV antibiotics Rocephin. Azactam has been added. The patient's condition is stable for now. At approximately 10:00pm his blood pressure systolic was 102/70, pulse 84, oxygen was 94% with 2 liters. CONDITION: Stable and critical. PROGNOSIS: POOR. TIME SPENT: More than 30 minutes. Plan and coordination of the patient's care discussed in the presence of nurse. RAYNA
[2020-12-10] MEDS: ZOLOFT PO SCH (20:31)
[2020-12-11 05:24] LABS: HEMATOCRIT 37.4 % (42.0-52.0); HEMOGLOBIN 11.8 g/dl (14.0-18.0); MEAN CORPUSCULAR HEMOGLOBIN 29.2 pg (27.0-31.0); MEAN CORPUSCULAR HGB CONC 31.6 (31.8-35.4); MEAN CORPUSCULAR VOLUME 92.6 fl (80.0-94.0); PLATELET COUNT 116 10^3/uL (140-440); RDW COEFFICIENT OF VARIATION 18.1 % (11.6-14.8); RED BLOOD COUNT 4.04 10^6/ul (4.70-6.10); WHITE BLOOD COUNT 9.34 K/ul (4.2-10.2)
[2020-12-11 05:27] LABS: ANISOCYTOSIS NOT PRESENT (NOT PRESENT)
[2020-12-11 05:35] LABS: ALBUMIN 3.06 g/dL (3.5-5.0); ALKALINE PHOSPHATASE 164.1 U/L (56-119); BILIRUBIN,TOTAL 3.77 mg/dL (0.2-1.3); BLOOD UREA NITROGEN 40.6 mg/dL (9-20); CALCIUM 8.38 mg/dL (8.4-10.2); CARBON DIOXIDE 15.1 mmol/L (22-30.0); CHLORIDE 96.4 mmol/L (98-107); CREATININE 1.05 mg/dL (0.60-1.10); GLUCOSE 88.6 mg/dL (74-106); POTASSIUM 5.12 mmol/L (3.5-5.1); SODIUM 124.9 mmol/L (134.5-145); TOTAL PROTEIN 6.1 g/dL (6.3-8.2)
[2020-12-11 05:43] LABS: PROTHROMBIN TIME 65.3 SEC (9.3-11.0)
[2020-12-11] MEDS: LASIX TAB PO SCH ×2 (05:59→17:39)
[2020-12-11] MEDS: PRILOSEC PO SCH (05:59)
[2020-12-11 07:16] LABS: HBsAgSCREEN Negative (Negative); HEP A AB, IgM Negative (Negative); HEP B CORE Ab, IgM Negative (Negative); HEP C VIRUS AB < 0.1 s/co ratio (0.0-0.9)
[2020-12-11] MEDS: COGENTIN PO SCH ×2 (09:09→20:29)
[2020-12-11] MEDS: FLOMAX PO SCH (09:10)
[2020-12-11] MEDS: ALDACTONE PO SCH (09:10)
[2020-12-11] MEDS: COREG PO SCH ×2 (09:10→17:39)
[2020-12-11] MEDS: MICRO-K CAP PO SCH (09:10)
[2020-12-11] MEDS: ROCEPHIN 1 GM/50 ML D5W 1 GM/50 ML BAG IV SCH (09:10)
[2020-12-11] MEDS: FLONASE NAS SCH (09:11)
[2020-12-11] MEDS: SYMBICORT 160-4.5 MCG INHALER IH SCH ×2 (09:11→20:29)
--- NOTE | 2020-12-11 09:14 | PCM.PROG ---
Attending Provider: ATTENDING PROVIDER: Dr. STANTON HAMPTON This patient is seen with Juana Baker, Nurse Practitioner. DATE OF SERVICE: 12/11/20 SUBJECTIVE: This 69 year old /WHITE M was hospitalized 12/07/20. The patient is resting comfortably. Still very lethargic. Had a few periods of awakening yesterday for 30 minutes or less. Renal function is slightly worse despite IV fluids. Liver enzymes are trending down. No complaints of pain. REVIEW OF SYSTEMS: CONSTITUTIONAL: No night sweats. Lethargy. No fever or chills. HEENT: Eyes: No visual changes. No eye pain. No eye discharge. ENT: No runny nose. No epistaxis. No sinus pain. No odynophagia. No congestion. RESPIRATORY: No cough, no congestion. No hemoptysis. Shortness of breath. CARDIOVASCULAR: No angina symptoms. No CHF symptoms. No atypical chest pain for CAD. No palpitations. No orthopnea.. GASTROINTESTINAL: No abdominal pain. No nausea or vomiting. No diarrhea or constipation. No hematemesis. No hematochezia. GENITOURINARY: No urgency. No frequency. No dysuria. No hematuria. No obstructive symptoms. No discharge. No pain. No significant abnormal bleeding. MUSCULOSKELETAL: No musculoskeletal pain; no joint swelling. NEUROLOGICAL: Awake, alert, confusion. No headache. No neck pain. No syncope. No seizures. No dizziness. PSYCHIATRIC: Not anxious. No depression. No suicidal thoughts. No homicidal thoughts. SKIN: No rash. No lesions. No wounds. ENDOCRINE: No unexplained weight loss. No weight gain. HEMATOLOGIC/LYMPHATIC: No anemia. No purpura. No petechiae. No prolonged or excessive bleeding. No palpable lymph nodes. PHYSICAL EXAMINATION: GENERAL: The patient is awake, alert and oriented to person, lying in bed in no distress. VITAL SIGNS: Temperature 97.3 F, Pulse 80, Respiratory Rate 20, BP 92/68, Pulse Ox 92% HEENT: Head normocephalic, atraumatic. Eyes: Extraocular muscles are intact. Pupils are equal, round and reactive to light and accommodation. Ears: No lesions. Nose appeared normal. Throat: No exudate or erythema. NECK: Supple. No JVD, no carotid bruit. No lymphadenopathy or thyromegaly. LUNGS: Diminished breath sounds. Clear to auscultation. Percussion note normal. Chest symmetrical. HEART: S1, S2, no S3. No murmurs. No cyanosis or clubbing. No ascites. Pulses: Dorsalis pedis and posterior tibial pulses +1 to +2 both sides. ABDOMEN: Soft. Non-tender. Bowel sounds active. No CVA tenderness. No mass felt. EXTREMITIES: No edema. Full range of motion of all extremities, equal. NEUROLOGIC: No focal deficit. Cranial nerves II through XII are grossly intact. No headache. No double vision. SKIN: Not dry. Intact. Turgor-normal. LYMPHATIC: No palpable lymph nodes/no lymphedema. MUSCULOSKELETAL: Normal joints with no swelling. Muscle tone is normal. LAB REVIEW: 12/11/20 05:02 12/11/20 05:02 12/11/20 06:30: Ammonia < 8.7 L 12/11/20 05:02: Sodium 124.9 L, Potassium 5.12 H, Chloride 96.4 L, Carbon Dioxide 15.1 L, Anion Gap 18.52, BUN 40.6 H, Creatinine 1.05, Estimated GFR (MDRD) 70.00, BUN/Creatinine Ratio 38.66, Glucose 88.6, Calcium 8.38 L, Total Bilirubin 3.77 H, AST 1051.0 H, ALT 1127.0 H D, Alkaline Phosphatase 164.1 H, Total Protein 6.10 L, Albumin 3.06 L, Globulin 3.04, Albumin/Globulin Ratio 1.00 12/11/20 05:02: WBC 9.34, RBC 4.04 L, Hgb 11.8 L, Hct 37.4 L, MCV 92.6, MCH 29.2, MCHC 31.6 L, RDW Coeff of Oleg 18.1 H, Plt Count 116 L, Neutrophils % (Manual) 94.0 H, Band Neutrophils % 2.0, Lymphocytes % (Manual) 3.0 L, Monocytes % (Manual) 1.0, Anisocytosis Not present 12/11/20 05:02: PT 65.3 H D, INR 6.05 H* D 12/10/20 08:54: Ammonia 20.4 12/10/20 08:54: Hepatitis A IgM Ab Negative, Hep Bs Antigen Negative, Hep B Core IgM Ab Negative, Hep C Ab Signal/Cutoff < 0.1 12/10/20 08:54: WBC 9.48, RBC 3.98 L, Hgb 11.5 L, Hct 36.3 L, MCV 91.2, MCH 28.9, MCHC 31.7 L, RDW Coeff of Oleg 18.0 H, Plt Count 101 L, Immature Gran % (Auto) 0.5, Neut % (Auto) 86.3 H, Lymph % (Auto) 4.4 L, [place] % (Auto) 8.3, Eos % (Auto) 0.4, Baso % (Auto) 0.1, Neut # (Auto) 8.2 H, Lymph # (Auto) 0.4 L, [place] # (Auto) 0.8, Eos # (Auto) 0.0, Baso # (Auto) 0.0, Immature Gran # (Auto) 0.1, Anisocytosis 1+, Spherocytes 1+, Ovalocytes 1+, Naa Cells 2+ 12/10/20 05:17: Sodium 124.3 L, Potassium 4.52, Chloride 96.2 L, Carbon Dioxide 18.5 L, Anion Gap 14.12, BUN 37.7 H, Creatinine 1.11 H, Estimated GFR (MDRD) 65.00, BUN/Creatinine Ratio 33.96, Glucose 97.2, Calcium 8.08 L, Total Bilirubin 3.31 H, AST 1145.1 H, ALT 1235.7 H D, Alkaline Phosphatase 172.4 H, Total Protein 5.77 L, Albumin 2.81 L, Globulin 2.96, Albumin/Globulin Ratio 0.94 ASSESSMENT: Please see below. 1. Hepatic encephalopathy 2. CHF 3. Atrial fibrillation 4. Dementia 5. Hypercoagulopathy 6. Hyponatremia 7. Renal Azotemia PLAN: 1. Hold Haldol today 2. Continue IV fluids 3. Had long discussion with sister yesterday who is POA. They would like palitive care. I do believe his prognosis is poor given his multiple medical conditions, decreased cardiac output and severity of COPD. Plan and coordination of the patient's care discussed in the presence of Precise Winder and nurse. SCRIBED BY: SHRAVAN LINDSEY Gettering Filament Machine Operator scribed while in presence of service performed by Dr. Hampton/Juana Baker APRN on 12/11/20 ([id number])
[2020-12-11] MEDS: AZACTAM 1 GM in SODIUM CHLORIDE 50 ML IV SCH ×2 (10:04→20:30)
[2020-12-11] MEDS: SODIUM CHLORIDE 1,000 ML IV SCH (12:56)
--- NOTE | 2020-12-11 14:26 | HP ---
DATE OF SERVICE: 12/07/2020 REASON FOR HOSPITALIZATION/HISTORY OF PRESENT ILLNESS: 69 year old white who presents to the emergency room with generalized weakness. He was confused and brought by ambulance on 4 liters of oxygen. PAST MEDICAL HISTORY: Chronic CHF COPD oxygen dependent Chronic respiratory failure Atrial fibrillation Severe dilated cardiomyopathy with ejection fraction of 17-20% last echo 06/10. Coronary artery disease with stent CVA, 2009 Abdominal aortic aneurysm with repair and stent Dyslipidemia Chronic anemia BPH Depression Right nephrolithiasis Degenerative disc disease of the L Spine Former smoker Basal cell removed on the left side of the nose GERD BPH Dementia with behavioral disturbances Anxiety Generalized weakness PAST SURGICAL HISTORY: Endovascular stent by Dr. Joshua Bilateral cataract extraction 2017 Coronary artery disease with stent in 2003 and 2016 Removal of basal cell of the left nose REVIEW OF SYSTEMS: CONSTITUTIONAL: No night sweats. No fatigue, malaise, lethargy. No fever or chills. Weakness. HEENT: Eyes: No visual changes. No eye pain. No eye discharge. ENT: No runny nose. No epistaxis. No sinus pain. No sore throat. No odynophagia. No ear pain. No congestion. RESPIRATORY: No cough, no congestion. No hemoptysis. Shortness of breath. CARDIOVASCULAR: No angina symptoms. No CHF symptoms. No atypical chest pain for CAD. No palpitations. No PND. No orthopnea. GASTROINTESTINAL: No abdominal pain. No nausea or vomiting. No diarrhea or constipation. No hematemesis. No hematochezia. Poor appetite. GENITOURINARY: No urgency. No frequency. No dysuria. No hematuria. No obstructive symptoms. No discharge. No pain. No significant abnormal bleeding. MUSCULOSKELETAL: No musculoskeletal pain. No joint swelling. No arthritis. NEUROLOGICAL: No headache. No neck pain. No syncope. No seizures. No dizziness. Confusion. PSYCHIATRIC: Not anxious. No depression. No suicidal thoughts. No homicidal thoughts. SKIN: No rash. No lesions. No wounds. ENDOCRINE: No unexplained weight loss. No weight gain. HEMATOLOGIC/LYMPHATIC: No anemia. No purpura. No petechiae. No prolonged or excessive bleeding. No palpable lymph nodes. PERSONAL/FAMILY/SOCIAL HISTORY: The patient is lives alone. Former smoker. No alcohol is illicit drug use. Oxygen dependent. Currently lives by himself but is requiring more care with help of his siblings. MEDICATIONS: Sertraline 100mg PO bedtime Aspirin 81mg PO daily Potassium chloride 10meq PO daily Haloperidol 1mg PO BID Atorvastatin 20mg PO daily Nitrostat 0.4mg SUBLINGUAL PRN Lisinopril 2.5mg PO daily Tamsulosin 0.4mg Po daily Breo Ellipta 1 each inhalation as directed Benztropine 1mg PO BID Aldactone 25mg PO daily Albuterol Sulfate two puffs Inhalation Q 4-6 hours PRN Coumadin 6mg PO daily Lasix 40mg PO BID Flonase two spray intranasal daily Omeprazole 20mg Po daily Sotalol 40mg PO BID Symbicort 160-4.5 two puff inhalation BID Coreg 3.125mg PO BID ALLERGIES: No known allergies PHYSICAL EXAMINATION: GENERAL: The patient is alert and oriented to person only, not place and time. VITAL SIGNS: Temperature 97.6, heart rate 93, respiratory rate 20, blood pressure 104/84 and pulse o 94% on 4 liters. HEENT: Head normocephalic, atraumatic. Eyes: Extraocular muscles are intact. Pupils are equal, round and reactive to light and accommodation. Ears: No lesions. Nose appeared normal. Throat: No exudate or erythema. NECK: Supple. No JVD, no carotid bruit. No lymphadenopathy or thyromegaly. LUNGS: Diminished breath sounds bilaterally. Clear to auscultation. Percussion note normal. Chest symmetrical. HEART: S1, S2, no S3. No murmur. irregular heart rate. No cyanosis or clubbing. No ascites. Pulses: Dorsalis pedis and posterior tibial pulses +1 to +2 bilaterally. ABDOMEN: Soft. Nontender. Bowel sounds active. No CVA tenderness. No mass felt. EXTREMITIES: No edema. Full range of motion of all extremities, equal. NEUROLOGIC: No focal deficit. Cranial nerves II through XII are grossly intact. No headache, no double vision or headache. SKIN: Not dry. Intact. Turgor - normal. LYMPHATIC: No palpable lymph nodes/no lymphedema. MUSCULOSKELETAL: Normal joints with no swelling. Muscle tone is normal. LABS: CT of the head without contrast show no acute hemorrhage or infarction, ventriculomegaly which could indicate normal pressure. Hydrocephalic versus central volume loss, chronic vessel ischemic changes and atrophy. CT of facial bones shows no fracture. CT of the abdomen and pelvis shows gallbladder wall thickening had erogenous appearance of the liver without focal abnormality, bilateral upper quadrant ascites, wall thickening of the cecum and ascending colon, distention of urinary bladder, enlarged prostate, severe arthrosclerosis, cyst of the spleen. Ultrasound of the abdomen shows circumferential gallbladder wall thickening without cholelithiasis most likely due to liver disease, coarse hepatic echotexture which could be due to fatty infiltration and ascites. WBC 13.22, hgb 13.2, hct 42.3, plt count 202, sodium 127, potassium 4.7, BUN 39, creatinine 1.39 and glucose 77. AST 1,483, ALT 988, Alkaline phosphatase 245. Total creatinine kinase 414, CK-MB % 3.4. ABG on 4 liters O2 saturation 88, pH 7.34, pCO2 24, pO2 60, bicarb 12.9. Respiratory panel by PCR is negative. Lactic acid 6.2, Ammonia less than 8.7, procalcitonin 0.16. ASSESSMENT: 1. Hepatic encephalopathy 2. Acute elevation of liver enzymes appears to be nonobstructive 3. Chronic respiratory failure 4. Acute renal failure 5. Elevate INR 6. COPD 7. Atrial fibrillation PLAN: 1. Multiple high level hospitals were called and would not accept transfer. The patient is not a surgical candidate per CAT scan and absence of abdominal pain it does not appear there is a physical obstruction at the moment. The family is agreement with admitted him here. Again, if so he is not a surgical candidate due to his poor cardiovascular and respiratory status. 2. We will admit 3. Routine telemetry orders 4. CBC and CMP and INR daily 5. Hold Coumadin until further notice 6. Hold Lipitor 7. Normal saline IV at 70cc an hour 8. Continue other home medications 9. Oxygen at 4 liters 10.ABG on 4 liters 11.Azactam 1gram Q 12 hours 12.Rocephin 1 gram IV daily 13.Zofran 4mg IV Q 6 hours PRN 14.Daily weights 15.Monitor input and output Will follow closely. TIME SPENT: More than 70 minutes. MTDD
[2020-12-11] MEDS: TORADOL IVP PRN ×2 (15:11→22:00)
[2020-12-11] MEDS: ZOLOFT PO SCH (20:28)
[2020-12-12] MEDS: SODIUM CHLORIDE 1,000 ML IV SCH ×2 (03:21→21:42)
[2020-12-12 05:14] LABS: HEMATOCRIT 35.6 % (42.0-52.0); HEMOGLOBIN 11.2 g/dl (14.0-18.0); MEAN CORPUSCULAR HEMOGLOBIN 28.6 pg (27.0-31.0); MEAN CORPUSCULAR HGB CONC 31.5 (31.8-35.4); MEAN CORPUSCULAR VOLUME 90.8 fl (80.0-94.0); PLATELET COUNT 104 10^3/uL (140-440); RDW COEFFICIENT OF VARIATION 18.2 % (11.6-14.8); RED BLOOD COUNT 3.92 10^6/ul (4.70-6.10); WHITE BLOOD COUNT 10.23 K/ul (4.2-10.2)
[2020-12-12 05:22] LABS: ANISOCYTOSIS NOT PRESENT (NOT PRESENT)
[2020-12-12 05:30] LABS: ALBUMIN 2.77 g/dL (3.5-5.0); ALKALINE PHOSPHATASE 187.2 U/L (56-119); BILIRUBIN,TOTAL 5.08 mg/dL (0.2-1.3); BLOOD UREA NITROGEN 50.5 mg/dL (9-20); CALCIUM 8.53 mg/dL (8.4-10.2); CARBON DIOXIDE 15.8 mmol/L (22-30.0); CHLORIDE 98.3 mmol/L (98-107); CREATININE 1.55 mg/dL (0.60-1.10); GLUCOSE 86.5 mg/dL (74-106); POTASSIUM 4.87 mmol/L (3.5-5.1); SODIUM 125.2 mmol/L (134.5-145); TOTAL PROTEIN 5.57 g/dL (6.3-8.2)
[2020-12-12] MEDS: PRILOSEC PO SCH (05:32)
[2020-12-12] MEDS: LASIX TAB PO SCH ×2 (05:32→17:00)
[2020-12-12 05:37] LABS: ALANINE AMINOTRANSFERASE 965.3 U/L (0-50); ASPARTATE AMINO TRANSFERASE 839.7 U/L (17-59)
[2020-12-12 06:29] LABS: PROTHROMBIN TIME 63.7 SEC (9.3-11.0)
[2020-12-12] MEDS: AZACTAM 1 GM in SODIUM CHLORIDE 50 ML IV SCH (09:09)
[2020-12-12] MEDS: SYMBICORT 160-4.5 MCG INHALER IH SCH ×2 (09:09→20:27)
[2020-12-12] MEDS: FLONASE NAS SCH (09:09)
[2020-12-12] MEDS: MICRO-K CAP PO SCH (09:14)
[2020-12-12] MEDS: COREG PO SCH ×2 (09:14→17:00)
[2020-12-12] MEDS: COGENTIN PO SCH ×2 (09:15→20:27)
[2020-12-12] MEDS: ALDACTONE PO SCH (09:15)
[2020-12-12] MEDS: FLOMAX PO SCH (09:15)
[2020-12-12] MEDS: TORADOL IVP PRN (11:26)
[2020-12-12] MEDS: MORPHINE 2 MG/ML SYRINGE IVP PRN ×2 (13:04→21:08)
[2020-12-12] MEDS: ZOLOFT PO SCH (20:45)
[2020-12-13] MEDS: MORPHINE 2 MG/ML SYRINGE IVP PRN ×4 (00:22→20:29)
--- NOTE | 2020-12-13 09:06 | PCM.PROG ---
Attending Provider: ATTENDING PROVIDER: Dr. STANTON HAMPTON This patient is seen with Juana Baker, Nurse Practitioner. DATE OF SERVICE: 12/13/20 SUBJECTIVE: This 69 year old /WHITE M was hospitalized 12/07/20. The patient is resting comfortably. No signs of distress. No longer responsive. Family is present. REVIEW OF SYSTEMS: CONSTITUTIONAL: No night sweats. No fatigue, malaise, lethargy. No fever or chills. Obtunded. HEENT: Eyes: No visual changes. No eye pain. No eye discharge. ENT: No runny nose. No epistaxis. No sinus pain. No odynophagia. No congestion. RESPIRATORY: No cough, no congestion. No hemoptysis. No shortness of breath. CARDIOVASCULAR: No angina symptoms. No CHF symptoms. No atypical chest pain for CAD. No palpitations. No orthopnea.. GASTROINTESTINAL: No abdominal pain. No nausea or vomiting. No diarrhea or constipation. No hematemesis. No hematochezia. GENITOURINARY: No urgency. No frequency. No dysuria. No hematuria. No obstructive symptoms. No discharge. No pain. No significant abnormal bleeding. MUSCULOSKELETAL: No musculoskeletal pain; no joint swelling. NEUROLOGICAL: Not alert. No headache. No neck pain. No syncope. No seizures. No dizziness. PSYCHIATRIC: Not anxious. No depression. No suicidal thoughts. No homicidal thoughts. SKIN: No rash. No lesions. No wounds. ENDOCRINE: No unexplained weight loss. No weight gain. HEMATOLOGIC/LYMPHATIC: No anemia. No purpura. No petechiae. No prolonged or excessive bleeding. No palpable lymph nodes. PHYSICAL EXAMINATION: GENERAL: The patient is unresponsive, lying in bed in no distress. VITAL SIGNS: Temperature 97 F, Pulse 71, Respiratory Rate 12, BP 89/58, Pulse Ox 93% HEENT: Head normocephalic, atraumatic. Eyes: Extraocular muscles are intact. Pupils are equal, round and reactive to light and accommodation. Ears: No lesions. Nose appeared normal. Throat: No exudate or erythema. NECK: Supple. No JVD, no carotid bruit. No lymphadenopathy or thyromegaly. LUNGS: Diminished breath sounds. Clear to auscultation. Percussion note normal. Chest symmetrical. HEART: S1, S2, no S3. No murmurs. No cyanosis or clubbing. No ascites. Pulses: Dorsalis pedis and posterior tibial pulses +1 to +2 both sides. ABDOMEN: Soft. Non-tender. Bowel sounds active. No CVA tenderness. No mass felt. EXTREMITIES: No edema. Full range of motion of all extremities, equal. NEUROLOGIC: No focal deficit. Cranial nerves II through XII are grossly intact. No headache. No double vision. SKIN: Not dry. Intact. Turgor-normal. LYMPHATIC: No palpable lymph nodes/no lymphedema. MUSCULOSKELETAL: Normal joints with no swelling. Muscle tone is normal. LAB REVIEW: 12/12/20 04:59 12/12/20 04:59 ASSESSMENT: Please see below. 1. Acute respiratory failure 2. Multiple organ failure 3. Hepatic encephalopathy 4. Dilated cardiomyopathy ejection fraction 20% 5. CHF 6. End stage COPD PLAN: 1. Will continue to keep patient comfortable 2. Family at bedside 3. Will add Ativan if needed 4. Family is in agreement to stop labs and IV fluids. Comfort measure. Plan and coordination of the patient's care discussed in the presence of Extermination Supervisor and nurse. SCRIBED BY: Donna DILLARD scribed while in presence of service performed by Dr. Hampton/Juana Baker APRN on 12/13/20 ([id number])
[2020-12-13] MEDS: COREG PO SCH (09:12)
[2020-12-13] MEDS: FLOMAX PO SCH (09:12)
[2020-12-13] MEDS: ALDACTONE PO SCH (09:12)
[2020-12-13] MEDS: COGENTIN PO SCH (09:12)
[2020-12-13] MEDS: PRILOSEC PO SCH (09:13)
[2020-12-13] MEDS: LASIX TAB PO SCH (09:13)
[2020-12-13] MEDS: MICRO-K CAP PO SCH (09:13)
[2020-12-13] MEDS: FLONASE NAS SCH (09:54)
[2020-12-13] MEDS: SYMBICORT 160-4.5 MCG INHALER IH SCH ×2 (09:55→20:16)
--- NOTE | 2020-12-13 13:16 | PN ---
DATE OF SERVICE: 12/08/2020 SUBJECTIVE: 69 year old white hospitalized with change in the mental status with more confusion, hasn't been eating and falling at home. On admission the patient had jaundice with markedly abnormal liver function test, mild elevation of alkaline phosphatase. CT scan was negative for any obstructive type of jaundice or acute abdomen. His family had decided to keep the patient at [facility] and in fact there was no bed anywhere else because of COVID 19 occupying most of the hospital beds everywhere. The patient is COVID negative. This morning was able to recognize me. He answered the questions. He was somewhat confused and didn't know the date, time or why he was in the hospital. He denies any chest pain, no PND, no orthopnea and no palpitation. He just doesn't have an appetite. REVIEW OF SYSTEMS: CONSTITUTIONAL: No night sweats. No fatigue, malaise, lethargy. No fever or chills. HEENT: Eyes: No visual changes. No eye pain. No eye discharge. ENT: No runny nose. No epistaxis. No sinus pain. No sore throat. No odynophagia. No congestion. RESPIRATORY: No cough, no congestion. No hemoptysis. No shortness of breath. CARDIOVASCULAR: No angina symptoms. No CHF symptoms. No atypical chest pain for CAD. No palpitations. No PND. No orthopnea. GASTROINTESTINAL: No abdominal pain. No nausea or vomiting. No diarrhea or constipation. No hematemesis. No hematochezia. GENITOURINARY: No urgency. No frequency. No dysuria. No hematuria. No obstructive symptoms. No discharge. No pain. No significant abnormal bleeding. MUSCULOSKELETAL: No musculoskeletal pain; no joint swelling. NEUROLOGICAL: No headache. No neck pain. No syncope. No seizures. No dizziness. PSYCHIATRIC: Not anxious. No depression. No suicidal thoughts. No homicidal thoughts. SKIN: No rash. No lesions. No wounds. ENDOCRINE: No unexplained weight loss. No weight gain. HEMATOLOGIC/LYMPHATIC: No anemia. No purpura. No petechiae. No prolonged or excessive bleeding. No palpable lymph nodes. PHYSICAL EXAMINATION: VITAL SIGNS: Temperature 97.6, pulse 80, respiratory rate 16, blood pressure 90/67 and pulse ox 93%. HEENT: Head normocephalic, atraumatic. Eyes: Extraocular muscles are intact. Pupils are equal, round and reactive to light and accommodation. Ears: No lesions. Nose appeared normal. Throat: No exudate or erythema. NECK: Supple. No JVD, no carotid bruit. No lymphadenopathy or thyromegaly. LUNGS: Decreased breath sounds but clear to auscultation. Percussion note normal. Chest symmetrical. HEART: S1, S2, no S3. No murmurs. No cyanosis or clubbing. No ascites. Pulses: Dorsalis pedis and posterior tibial pulses +1 to +2 bilaterally. ABDOMEN: Soft. Nontender. Bowel sounds active. No CVA tenderness. No mass felt. No acute abdomen with worsening of liver profile. EXTREMITIES: No edema. Full range of motion of all extremities, equal. NEUROLOGIC: No focal deficit. Cranial nerves II through XII are grossly intact. No headache. No double vision. SKIN: Not dry. Intact. Turgor - normal. LYMPHATIC: No palpable lymph nodes/no lymphedema. MUSCULOSKELETAL: Normal joints with no swelling. Muscle tone is normal. LABS: AST SGOT 2720, ALT 1760, total bilirubin 4.2, alkaline phosphatase 206. Sodium 126, creatine 1.2, BUN 44 ASSESSMENT: 1. Hepatitis etiology unknown. could be related to CHF, liver cirrhosis is also present in this patient. History of chronic CHF 2. Dementia multifactorial 3. Renal azotemia 4. Severe chronic lung disease 5. Severe dilated cardiomyopathy with end stage CHF PLAN: 1. Continue antibiotics Rocephin and Azactam 2. We will continue IV fluids 3. Watch for fluid overload 4. Slow IV 70cc per hour 5. Continue normal saline. 6. Ammonia level was normal yesterday 7. No evidence of any fluid overload 8. Supportive measures CONDITION: Stable PROGNOSIS: Poor The Power of Director Utilization Management for Health, she is at [place] [facility]. She is being informed about the patient's condition. TIME SPENT: More than 30 minutes. Plan and coordination of the patient's care discussed in the presence of nurse. RAYNA
--- NOTE | 2020-12-13 13:58 | PN ---
DATE OF SERVICE: 12/09/20 SUBJECTIVE: 69 year old white male hospitalized with dementia, worsening of mental status. The patient has abnormal liver profile with normal ammonia. The patient's condition has improved. His liver functions are much better. They are probably half of what they were yesterday. He is sleepy at present time, wakes up then he asks questions. REVIEW OF SYSTEMS: CONSTITUTIONAL: No night sweats. No fatigue, malaise, lethargy. No fever or chills. HEENT: Eyes: No visual changes. No eye pain. No eye discharge. ENT: No runny nose. No epistaxis. No sinus pain. No sore throat. No odynophagia. No congestion. RESPIRATORY: No cough, no congestion. No hemoptysis. No shortness of breath. CARDIOVASCULAR: No angina symptoms. No CHF symptoms. No atypical chest pain for CAD. No palpitations. No PND. No orthopnea. GASTROINTESTINAL: No abdominal pain. No nausea or vomiting. No diarrhea or constipation. No hematemesis. No hematochezia. GENITOURINARY: No urgency. No frequency. No dysuria. No hematuria. No obstructive symptoms. No discharge. No pain. No significant abnormal bleeding. MUSCULOSKELETAL: No musculoskeletal pain; no joint swelling. NEUROLOGICAL: No headache. No neck pain. No syncope. No seizures. No dizziness. PSYCHIATRIC: Not anxious. No depression. No suicidal thoughts. No homicidal thoughts. SKIN: No rash. No lesions. No wounds. ENDOCRINE: No unexplained weight loss. No weight gain. HEMATOLOGIC/LYMPHATIC: No anemia. No purpura. No petechiae. No prolonged or excessive bleeding. No palpable lymph nodes. PHYSICAL EXAMINATION: VITAL SIGNS: Temperature 98, pulse 74, respiratory rate 16, blood pressure 94/69 and pulse ox 92%. HEENT: Head normocephalic, atraumatic. Eyes: Extraocular muscles are intact. Pupils are equal, round and reactive to light and accommodation. Ears: No lesions. Nose appeared normal. Throat: No exudate or erythema. NECK: Supple. No JVD, no carotid bruit. No lymphadenopathy or thyromegaly. LUNGS: Few crepitation at the bases. Clear to auscultation. Percussion note normal. Chest symmetrical. HEART: S1, S2, questionable S3. No murmurs. No cyanosis or clubbing. No ascites. Pulses: Dorsalis pedis and posterior tibial pulses +1 to +2 bilaterally. ABDOMEN: Soft. Nontender. Bowel sounds active. No CVA tenderness. No mass felt. EXTREMITIES: Trace edema. Full range of motion of all extremities, equal. NEUROLOGIC: No focal deficit. Cranial nerves II through XII are grossly intact. No headache. No double vision. SKIN: Not dry. Intact. Turgor - normal. LYMPHATIC: No palpable lymph nodes/no lymphedema. MUSCULOSKELETAL: Normal joints with no swelling. Muscle tone is normal. LABS: Hgb 11.6, hct 36, WBC 11,000 normal differential, creatinine 1.1, BUN 40, potassium 4.3. The patient's INR yesterday was 8 was given Vitamin K 5mg on admission. INR today is 3. ASSESSMENT: 1. Renal azotemia, resolving 2. Hepatic functions a little better, still abnormal more like nonobstructive type of Jaundice. At present time the patient likely have passed bile stone. 3. CHF under control 4. Dementia, multifactorial PLAN: 1. Continue antibiotics 2. Continue IV fluids 3. Watch for fluid overload 4. 20mg of Lasix today 5. Continue daily CBC and CMP 6. Continue to monitor oximetry CONDITION: Stable. Some improvement in liver profile. PROGNOSIS: Guarded. 2. 3. TIME SPENT: More than 30 minutes. Plan and coordination of the patient's care discussed in the presence of nurse. RAYNA
[2020-12-14] MEDS: MORPHINE 2 MG/ML SYRINGE IVP PRN ×4 (01:49→23:43)
--- NOTE | 2020-12-14 11:06 | PN ---
DATE OF SERVICE: 12/12/2020 SUBJECTIVE: 69 year old white male hospitalized with confusion, weakness. The patient had abnormal liver profile showing hepatitis probably from clear insults on the liver with possibility of alcohol abuse along with chronic CHF with poor ejection fraction with more less like cardiac cirrhosis. The patient was given slow IV fluids. His liver profile improved to come extent from 24 hours to 48 hours but his condition overall has deteriorated with deterioration of kidney function. The patient has been on IV fluids almost 100cc initially for a couple of days then later on to 70cc. He was carefully rehydrated because of the patient's CHF. In any case hyponatremia has worsened along with kidney function and his mental status has worsened. The patient's initial ammonia level was <8.7. Liver functions has improved. Almost 1/3 of what they were before. There is no obvious jaundice. The bilirubin has decreased. Alkaline phosphatase is almost back to normal. The patient doesn't have any obstructive jaundice. In any case the patient's sister who is the power of state attorney for health has come now and for last couple of days has been wanting comfort measures. Today I was about to raise the IV fluids and at that point she checked into it and asked me to discontinue IV fluids and wanted Morphine sulfate either or Dilaudid to be given for any discomfort or restlessness. The patient is obtunded and doesn't respond to verbal stimulus. He seems to be somewhat restless. REVIEW OF SYSTEMS: CONSTITUTIONAL: No night sweats. No fatigue, malaise, lethargy. No fever or chills. HEENT: Eyes: No visual changes. No eye pain. No eye discharge. ENT: No runny nose. No epistaxis. No sinus pain. No sore throat. No odynophagia. No congestion. RESPIRATORY: No cough, no congestion. No hemoptysis. No shortness of breath. CARDIOVASCULAR: No angina symptoms. No CHF symptoms. No atypical chest pain for CAD. No palpitations. No PND. No orthopnea. GASTROINTESTINAL: No abdominal pain. No nausea or vomiting. No diarrhea or constipation. No hematemesis. No hematochezia. GENITOURINARY: No urgency. No frequency. No dysuria. No hematuria. No obstructive symptoms. No discharge. No pain. No significant abnormal bleeding. MUSCULOSKELETAL: No musculoskeletal pain; no joint swelling. NEUROLOGICAL: No headache. No neck pain. No syncope. No seizures. No dizziness. PSYCHIATRIC: Not anxious. No depression. No suicidal thoughts. No homicidal thoughts. SKIN: No rash. No lesions. No wounds. ENDOCRINE: No unexplained weight loss. No weight gain. HEMATOLOGIC/LYMPHATIC: No anemia. No purpura. No petechiae. No prolonged or excessive bleeding. No palpable lymph nodes. PHYSICAL EXAMINATION: VITAL SIGNS: Temperature 98, pulse 70, respiratory rate 18, blood pressure 96/56 and pulse ox 93%. HEENT: Head normocephalic, atraumatic. Eyes: Extraocular muscles are intact. Pupils are equal, round and reactive to light and accommodation. Ears: No lesions. Nose appeared normal. Throat: No exudate or erythema. NECK: Supple. No JVD, no carotid bruit. No lymphadenopathy or thyromegaly. LUNGS: Decreased breath sounds, shallow breathing. Clear to auscultation. Percussion note normal. Chest symmetrical. HEART: S1, S2, S3 present and distant. Systolic murmurs. No cyanosis or clubbing. Maybe ascites. Pulses: Dorsalis pedis and posterior tibial pulses +1 to +2 bilaterally. ABDOMEN: Soft. Nontender. Bowel sounds active. No CVA tenderness. No mass felt. EXTREMITIES: Trace pedal edema. Full range of motion of all extremities, equal. Painful stimulus. NEUROLOGIC: No focal deficit. Cranial nerves II through XII are grossly intact. No headache. No double vision. SKIN: Not dry. Intact. Turgor - normal. LYMPHATIC: No palpable lymph nodes/no lymphedema. MUSCULOSKELETAL: Normal joints with no swelling. Muscle tone is normal. LABS: Hgb 11.2, hct 35, WBC 10,000 normal differential, creatinine 1.5, BUN 50, potassium 4.6, sodium 125 ASSESSMENT: 1. Encephalopathy likely metabolic 2. Dementia, worsening with restlessness 3. Refractory CHF with poor ejection fraction 4. Severe Chronic lung disease 5. Atrial fibrillation 6. Renal azotemia 7. Hyponatremia PLAN: 1. The patient has not been able to take any medication for last couple of days. His family declined even IV fluids. The patient is somewhat restless. The patient's family wants him to calm down and wants administration of medications for the pain and restlessness. We will start Morphine sulfate 2-3mg every couple of hours. CONDITION: Critical PROGNOSIS: Poor TIME SPENT: More than 30 minutes. Plan and coordination of the patient's care discussed in the presence of nurse. RAYNA
[2020-12-14] MEDS: SYMBICORT 160-4.5 MCG INHALER IH SCH ×2 (11:22→20:19)
--- NOTE | 2020-12-14 12:58 | PN ---
DATE OF SERVICE: 12/10/2020 SUBJECTIVE: The patient was seen and examined with the Nurse Practitioner. The patient's liver profile seems to be improving. Mental status fluctuates but a lot better than it was on admission. Eating some. The patient is DNR. CONDITION: Stabilizing PROGNOSIS: Poor. TIME SPENT: More than 30 minutes. Plan and coordination of the patient's care discussed in the presence of nurse. RAYNA
--- NOTE | 2020-12-14 13:18 | PN ---
DATE OF SERVICE: 12/11/20 SUBJECTIVE: The patient was seen and examined with the Nurse Practitioner. The patient's condition is stable but prognosis is poor. His kidney functions are somewhat more abnormal. Liver function are stable, abnormal. No obstructive jaundice, no pain. The patient's family wants comfort measures. The patient's INR is high likely from liver disease. We are just going to watch him. Initially he was given 5mg of Vitamin K on admission. TIME SPENT: More than 30 minutes. Plan and coordination of the patient's care discussed in the presence of nurse. RAYNA
--- NOTE | 2020-12-14 13:45 | PN ---
DATE OF SERVICE: 12/13/2020 SUBJECTIVE: The patient was seen and examined with the Nurse Practitioner. The patient's condition is end stage. Had decided yesterday to discontinue the IV fluids. He is not able to take any oral medications. The patient is obtunded. The patient is on comfort measures. CONDITION: Critical PROGNOSIS: Poor TIME SPENT: More than 30 minutes. Plan and coordination of the patient's care discussed in the presence of nurse. RAYNA
[2020-12-14] MEDS: ZOLOFT PO SCH (20:07)
[2020-12-14] MEDS: COGENTIN PO SCH (20:07)
[2020-12-14] MEDS: HALDOL PO SCH (20:07)
[2020-12-15] MEDS: ATIVAN IVP PRN ×3 (01:10→23:17)
[2020-12-15] MEDS: PRILOSEC PO SCH ×2 (05:34→06:04)
[2020-12-15] MEDS: LASIX TAB PO SCH ×3 (05:34→18:16)
[2020-12-15] MEDS: MORPHINE 2 MG/ML SYRINGE IVP PRN ×5 (10:43→23:28)
[2020-12-15] MEDS: ALDACTONE PO SCH (11:17)
[2020-12-15] MEDS: COGENTIN PO SCH ×2 (11:17→20:08)
[2020-12-15] MEDS: COREG PO SCH ×2 (11:18→18:16)
[2020-12-15] MEDS: MICRO-K CAP PO SCH (11:33)
[2020-12-15] MEDS: HALDOL PO SCH ×2 (11:33→20:09)
[2020-12-15] MEDS: FLONASE NAS SCH (11:33)
[2020-12-15] MEDS: FLOMAX PO SCH (11:33)
[2020-12-15] MEDS: SYMBICORT 160-4.5 MCG INHALER IH SCH ×2 (11:34→20:09)
[2020-12-15] MEDS: ZOLOFT PO SCH (20:09)
[2020-12-16] MEDS: MORPHINE 2 MG/ML SYRINGE IVP PRN ×5 (01:38→11:57)
[2020-12-16] MEDS: ATIVAN IVP PRN ×2 (05:34→11:57)
[2020-12-16] MEDS: PRILOSEC PO SCH (05:38)
[2020-12-16] MEDS: LASIX TAB PO SCH (05:39)
[2020-12-16 05:43] VITALS: BP 93/72; TEMP 97.7
[2020-12-16] MEDS: COREG PO SCH (09:44)
[2020-12-16] MEDS: ALDACTONE PO SCH (09:44)
[2020-12-16] MEDS: HALDOL PO SCH (09:44)
[2020-12-16] MEDS: FLOMAX PO SCH (09:44)
[2020-12-16] MEDS: COGENTIN PO SCH (09:44)
[2020-12-16] MEDS: FLONASE NAS SCH (09:44)
[2020-12-16] MEDS: MICRO-K CAP PO SCH (09:45)
[2020-12-16] MEDS: SYMBICORT 160-4.5 MCG INHALER IH SCH (09:45)
--- NOTE | 2020-12-17 14:32 | PN ---
DATE OF SERVICE: 12/15/20 SUBJECTIVE: The patient was seen and examined. The patient's brother is present in the room. He wants strictly comfort measures, does not want anything that can prolong the patient's life. Discussion with family who decided to have the patient's oxygen off and discussed with him if the patient becomes more restless after he is off oxygen, will put the oxygen back at 2L and they agreed. He is going to be taken off. PHYSICAL EXAMINATION: GENERAL: The patient this morning is restless. VITAL SIGNS: Temperature 97.8, pulse 65, respiratory rate 18, blood pressure systolic 90. The patient is restless. He is more or less obtunded, responds to verbal stimulus but he is confused. The patient's condition is critical. The patient is on comfort measures. His medical problems are: 1. Hepatitis, etiology unknown. 2. The patient has cirrhosis. 3. End-stage CHF with poor ejection fraction for a number of years. 4. Severe chronic lung disease with history of smoking. 5. Atrial fibrillation. TIME SPENT: More than 30 minutes. Plan and coordination of the patient's care discussed in the presence of nurse. RAYNA
--- NOTE | 2020-12-18 11:38 | DS ---
DATE OF SERVICE: 12/16/2020 FINAL DIAGNOSIS: 1. Congestive heart failure 2. Chronic lung disease with respiratory failure 3. Dilated cardiomyopathy with poor ejection fraction 4. Atrial fibrillation 5. History of dyslipidemia 6. History of smoking 7. Abnormal liver profile could be combination of liver injury likely from history of having liver cirrhosis CAUSE OF : Congestive heart failure HOSPITAL COURSE: 69 year old white male hospitalized with the change in the mental status and weakness. He had fallen a couple of times at home. The patient lives by himself and was noncompliant of all aspects of medical care. The patient in the emergency room was noted to have non-obstructive jaundice. CT scan of the abdomen was negative. Liver profile became more abnormal the following day but more or less it returned to normal with abdomen being soft with bowel sounds. The patient remained confused , dementia throughout the stay in the hospital. After a few days the patient became more or less obtunded. Family after four of five days of initial treatment had decided to go with comfort measures. At that time the patient had already went into renal azotemia and hyponatremia. The patient was unable to swallow more or less practically anything that was put his mouth. Also his mental status was up to par to take any medications by mouth several days prior to his demise. The patient was DNR to begin with. At the point where he was put on comfort measures the patient was started on IV Morphine 2-3mg every couple of hours.The patient was given intermittent Ativan for restlessness. The patient . Main cause was congestive heart failure on 12/16/20. He was pronounced by Dr. Resendiz who was ER doctor. TIME SPENT: More than 60 minutes. RAYNA
--- NOTE | 2020-12-18 11:45 | PN ---
DATE OF SERVICE: 12/16/2020 SUBJECTIVE: 69 year old white male hospitalized with abnormal liver profile and confusion. The patient's liver profile seemed to have improve for 3-4 days but his overall status deteriorated were he was more or less confused, remained borderline hypotensive. Practically stopped eating. Difficulty giving oral medications. The patient's kidney functions has continue to deteriorate. The patient's family now for past few days has just comfort measures and declined IV fluids and any IV medications. The patient's condition seems to have deteriorated further this morning. REVIEW OF SYSTEMS: CONSTITUTIONAL: No night sweats. No fatigue, malaise, lethargy. No fever or chills. HEENT: Eyes: No visual changes. No eye pain. No eye discharge. ENT: No runny nose. No epistaxis. No sinus pain. No sore throat. No odynophagia. No congestion. RESPIRATORY: No cough, no congestion. No hemoptysis. No shortness of breath. CARDIOVASCULAR: No angina symptoms. No CHF symptoms. No atypical chest pain for CAD. No palpitations. No PND. No orthopnea. GASTROINTESTINAL: No abdominal pain. No nausea or vomiting. No diarrhea or constipation. No hematemesis. No hematochezia. GENITOURINARY: No urgency. No frequency. No dysuria. No hematuria. No obstructive symptoms. No discharge. No pain. No significant abnormal bleeding. MUSCULOSKELETAL: No musculoskeletal pain; no joint swelling. NEUROLOGICAL: No headache. No neck pain. No syncope. No seizures. No dizziness. PSYCHIATRIC: Not anxious. No depression. No suicidal thoughts. No homicidal thoughts. SKIN: No rash. No lesions. No wounds. ENDOCRINE: No unexplained weight loss. No weight gain. HEMATOLOGIC/LYMPHATIC: No anemia. No purpura. No petechiae. No prolonged or excessive bleeding. No palpable lymph nodes. PHYSICAL EXAMINATION: VITAL SIGNS: Temperature 97.7, pulse 95, respiratory rate 14, blood pressure 93/72 and pulse ox 80% with out oxygen. HEENT: Head normocephalic, atraumatic. Eyes: Extraocular muscles are intact. Pupils are equal, round and reactive to light and accommodation. Ears: No lesions. Nose appeared normal. Throat: No exudate or erythema. NECK: Supple. No JVD, no carotid bruit. No lymphadenopathy or thyromegaly. LUNGS: Clear to auscultation. Percussion note normal. Chest symmetrical. HEART: S1, S2, no S3. No murmurs. No cyanosis or clubbing. No ascites. Pulses: Dorsalis pedis and posterior tibial pulses +1 to +2 bilaterally. ABDOMEN: Soft. Nontender. Bowel sounds active. No CVA tenderness. No mass felt. EXTREMITIES: No edema. Full range of motion of all extremities, equal. NEUROLOGIC: No focal deficit. Cranial nerves II through XII are grossly intact. No headache. No double vision. SKIN: Not dry. Intact. Turgor - normal. LYMPHATIC: No palpable lymph nodes/no lymphedema. MUSCULOSKELETAL: Normal joints with no swelling. Muscle tone is normal. The patient seems to have been in respiratory failure. Christofer-kearney respirations plus his heart rate goes up to 130 to 140. The patient is end stage. The patient is not to resuscitate. PROGNOSIS: Poor TIME SPENT: More than 30 minutes. Plan and coordination of the patient's care discussed in the presence of nurse. RAYNA
--- NOTE | 2020-12-18 11:46 | PN ---
12/07/2020: Level 5 Rest of them Intermediate, Couple of them were extensive. 12/16/2020: D as in discharge MTDD
== END 2020-12-16 14:40 | disposition home or self-care (01) | DRG 641 ==
LOC: ED 04:49 → MEDSURG A 16:19
PROVIDERS: ADMIT Internal Medicine; ATTEND Internal Medicine
DX: N40.0 Benign prostatic hyperplasia without lower urinary tract symptoms; F03.90 Unspecified dementia, unspecified severity, without behavioral disturbance, psychotic disturbance, mood disturbance, and anxiety; Z99.81 Dependence on supplemental oxygen; Z95.828 Presence of other vascular implants and grafts; I25.810 Atherosclerosis of coronary artery bypass graft(s) without angina pectoris; N20.2 Calculus of kidney with calculus of ureter; F41.9 Anxiety disorder, unspecified; Z86.73 Personal history of transient ischemic attack (TIA), and cerebral infarction without residual deficits; Z79.899 Other long term (current) drug therapy; J44.1 Chronic obstructive pulmonary disease with (acute) exacerbation; I48.91 Unspecified atrial fibrillation; Z20.822 Contact with and (suspected) exposure to COVID-19; N17.9 Acute kidney failure, unspecified; J96.10 Chronic respiratory failure, unspecified whether with hypoxia or hypercapnia; D64.9 Anemia, unspecified; R94.5 Abnormal results of liver function studies; R41.82 Altered mental status, unspecified; R79.1 Abnormal coagulation profile; I50.22 Chronic systolic (congestive) heart failure; K72.90 Hepatic failure, unspecified without coma; E16.2 Hypoglycemia, unspecified; E87.2 Acidosis; E78.5 Hyperlipidemia, unspecified